=== PATIENT | male | born 1950 | race Caucasian/White ===

== ENCOUNTER → 2022-10-12 11:07 | Outpatient (BNVA) | payer MEDICARE, SELFPAY | PROVIDERS: PCP Nurse Practitioner Family; Visit Provider Physician Assistant | DX: Z13.89 Encounter for screening for other disorder (principal) | CPT/HCPCS: 99212 ==

== ENCOUNTER 2022-12-14 13:36 | Outpatient (REF) | payer MEDICARE, SELFPAY ==
--- NOTE | ~2022-12-14 | XR_ITS ---
EXAMINATION: XR CERVICAL SPINE XR THORACIC SPINE CLINICAL INFORMATION: Spondylosis without myelopathy or radiculopathy. COMPARISON: None: TECHNIQUE: 3 views of the cervical spine. 3 views of the thoracic spine. FINDINGS: CERVICAL SPINE: Straightening of the normal cervical spondylosis. Severe degenerative changes with hypertrophic change and loss of disc space height at C4-C5, C5-C6 and C6-C7. C7 obscured by overlying bone and soft tissues. THORACIC SPINE: The bones are diffusely demineralized. Rightward curvature at the partially imaged thoracolumbar junction. Stabilization hardware minimally imaged in the upper lumbar spine. Moderate degenerative changes in the thoracic spine. XR/XR thoracic spine 3V IMPRESSION: 1. Severe degenerative changes at C4-C7 levels. 2. Moderate degenerative changes in the thoracic spine.
--- NOTE | ~2022-12-14 | XR_ITS ---
EXAMINATION: XR CERVICAL SPINE XR THORACIC SPINE CLINICAL INFORMATION: Spondylosis without myelopathy or radiculopathy. COMPARISON: None: TECHNIQUE: 3 views of the cervical spine. 3 views of the thoracic spine. FINDINGS: CERVICAL SPINE: Straightening of the normal cervical spondylosis. Severe degenerative changes with hypertrophic change and loss of disc space height at C4-C5, C5-C6 and C6-C7. C7 obscured by overlying bone and soft tissues. THORACIC SPINE: The bones are diffusely demineralized. Rightward curvature at the partially imaged thoracolumbar junction. Stabilization hardware minimally imaged in the upper lumbar spine. Moderate degenerative changes in the thoracic spine. XR/XR cervical spine 3V IMPRESSION: 1. Severe degenerative changes at C4-C7 levels. 2. Moderate degenerative changes in the thoracic spine.
== END 2022-12-14 13:37 | disposition home or self-care (01) ==
LOC: HO.XRAY 13:36
PROVIDERS: PCP Nurse Practitioner Family; Visit Provider Nurse Practitioner Family
DX: M47.812 Spondylosis without myelopathy or radiculopathy, cervical region (principal); M96.1 Postlaminectomy syndrome, not elsewhere classified; M79.18 Myalgia, other site; M51.36 Other intervertebral disc degeneration, lumbar region; M54.16 Radiculopathy, lumbar region
CPT/HCPCS: 72040; 72072; 99202

== ENCOUNTER 2023-02-19 05:55 | Outpatient (REF) | payer MEDICARE, SELFPAY ==
--- NOTE | ~2023-02-19 | FL_ITS ---
EXAMINATION: XR FLUOROSCOPY WITH IMAGES CLINICAL INFORMATION: Radiculopathy, lumbar region. COMPARISON: None available. TECHNIQUE: Fluoroscopy Supervised By: Dr. Dheeraj Abdul. Fluoroscopy Time: 0.4 minutes. Cumulative Dose: 8.34 mGy. DAP: 0.125 Gycm2. Images: 1. FINDINGS: Images demonstrate postsurgical changes with rods and interpedicular screws in the lower lumbar spine. There is a needle and contrast injection adjacent to the right lateral L5 body. FL/FL guidance in treatment room IMPRESSION: Fluoroscopy guidance for pain management procedure.
== END 2023-02-19 05:56 | disposition home or self-care (01) ==
LOC: CF 05:55
PROVIDERS: Visit Provider Anesthesiology
DX: M54.16 Radiculopathy, lumbar region (principal); M47.812 Spondylosis without myelopathy or radiculopathy, cervical region; M96.1 Postlaminectomy syndrome, not elsewhere classified; M51.36 Other intervertebral disc degeneration, lumbar region
CPT/HCPCS: 64483; J3301; Q9967

== ENCOUNTER 2023-02-19 07:55 | Outpatient (AMB) | payer MEDICARE, SELFPAY ==
[2023-02-19 08:05] VITALS: BP 126/70; PULSE 78; RESP 18; O2SAT 95; BMI 32.9
--- NOTE | 2023-02-19 08:05 | A.OFFVIS_ITS ---
Intake Vital Signs 02/19/23 08:05 02/19/23 09:12 Height 5 ft 2 in 5 ft 2 in Weight 180 lb 180 lb BMI 32.9 32.9 BP 126/70 116/78 Blood Pressure Location Rt brachial Lt brachial Position Sitting Sitting Respiration 18 16 Pulse 78 56 Pulse Source Pulse Oximeter Pulse Oximeter Pulse Oximetry (%) 95 97 Oxygen Delivery Method Room Air Room Air Comment Pre-Op post-op Intake Visit Reasons: RIGHT L5-S1 TFESI Allergies No Known Allergies Allergy (Mild, Verified 02/19/23 09:13) NONE PFSH Medical History (Updated 12/17/22 @ 09:05 by MOY Correia) Anemia Diabetes type 2, controlled Fatty liver Hypertension Low back pain Mixed hyperlipidemia Nasal congestion Radiculopathy Unsteady gait Surgical History (Updated 12/14/22 @ 14:51 by Hillary Lester) History of hernia repair Physical Exam Vital Signs: Last Vital Signs Pulse 56 02/19/23 09:12 Resp 16 02/19/23 09:12 BP 116/78 02/19/23 09:12 Pulse Ox 97 02/19/23 09:12 Oxygen Delivery Method Room Air 02/19/23 09:12 BMI result Body Mass Index 32.9 Assessment & Plan Assessment & Plan (1) Cervical spondylosis: Code(s): M47.812 - Spondylosis without myelopathy or radiculopathy, cervical region (2) Post laminectomy syndrome: Code(s): M96.1 - Postlaminectomy syndrome, not elsewhere classified (3) 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 The patient came to the operating room. He was positioned prone on operating table with a pillow under his abdomen. Time-out was performed delineating correct site and side of the procedure, nature of the injection, name and date of of the patient. Hardware, cement like scar tissue in the projection of the L5- S1 foramina. The lower back of the patient was prepped with ChloraPrep and draped with sterile utility towels. C-arm was brought over the operating field and sq picture of L5 vertebra was demonstrated on the screen. Hardware in the L4 and L5 vertebra as were noted. The right side was chosen as the side of the injection. Firs the sq image of S1 and L5 vertebra as were demonstrated on the screen. From that point Tilting machine ipsilateral to the right at the level of L5 the most prominent picture of the right S1 superior articular process was obtained on the screen. The image of the right pedicle of the L5 vertebra was obscured by large transpedicular screw holding the fusion west. At the projection of the lateral border of the SAP S1 to the skin small amount of lidocaine 1% 3-4 cc was injected to anesthetize the skin and s/q tissues. After that 5 in 22 gauge Quincke point needle was inserted through the skin wheal and was advanced to were the L5-S1 foramina on anterior posterior and oblique views intermittently.When needle tip contacted the bone the needle was deviated laterally and after that medially to advance it below the SAP and into the L5- S1 foramina. Unfortunately for the advancement proven to be impossible. Several attempts were made to deviate tip of the needle cephalad and caudad from that point to reach the foramina as well as attempts were made to make advancement of the needle into deeper plane. Whenever needle went it was meeting high resistance on advancement small amount of the contrast was injected and demonstrated soft tissue spread. No intrathecal and no intravascular spread of contrast was noted. No perineural spread of contrast was noted. Patient did not report any paresthesia during the procedure. I suspect those were high density adhesive formations surrounding foramina of the patient. Those are probably the most significant part of the patient's pain syndrome. The procedure decided to be aborted. The needle was removed sterile Band-Aid was applied. The patient was taking outside of the operating room to recovery room where he recovered uneventful. He went home without any immediate complications. Plan 1. Proceed with therapeutic injections at [facility] as already scheduled. 2. Will obtain cervical and thoracic spine xrays to assess degree of arthritis, degenerative changes, any subluxation, listhesis or pars defects. 3. Discussed SCS trial if no relieve with therapeutic TFESI injection at [facility]. He also plans to follow up with Dr. Menjivar s/p TFESI injection if no relief. Informational booklets for SCS trial and implant provided. Patient will notify our office if he wishes to proceed with behavioral evaluation as initial step prior to SCS trial. All questions and concerns have been answered and patient agreed with the plan. Follow up for xray results and sooner if needed. Coding Level of Care Code Procedure Only Diagnoses Cervical spondylosis M47.812 Post laminectomy syndrome M96.1 Chronic musculoskeletal pain due to disorder of nervous system M79.18; G89.29; G98.8 Lumbar degenerative disc disease M51.36 Lumbar radicular pain M54.16
[2023-02-19 09:12] VITALS: BP 116/78; PULSE 56; RESP 16; O2SAT 97; BMI 32.9
== END 2023-02-19 09:12 | disposition home or self-care (01) ==
PROVIDERS: PCP Nurse Practitioner Family; Visit Provider Anesthesiology
DX: G89.29 Other chronic pain (principal); M96.1 Postlaminectomy syndrome, not elsewhere classified; M51.36 Other intervertebral disc degeneration, lumbar region; M54.16 Radiculopathy, lumbar region
CPT/HCPCS: 64483

== ENCOUNTER 2023-03-29 10:08 | Outpatient (AMB) | payer MEDICARE, SELFPAY ==
--- NOTE | 2023-03-29 10:09 | MHC.OFFVIS ---
Intake Vital Signs 03/29/23 10:12 Height 5 ft 2 in Weight 170 lb 6 oz BMI 31.2 BP 143/80 H Blood Pressure Location Rt brachial Position Sitting Pulse 73 Pulse Source Pulse Oximeter Pulse Oximetry (%) 98 Oxygen Delivery Method Room Air Intake Visit Reasons: PROCEDURE DISCUSSION Intake Note: Pain today 01/31 Principal Developer Required: Yes Principal Developer Language: Clinic Director Name: Daughter Accompanied by: Daughter Allergies No Known Allergies Allergy (Mild, Verified 03/29/23 10:13) NONE HPI HPI Comments History of Present Illness Details Patient presents today to follow up regarding Right L5-S1 TFESI on 02/19/[address] Abdul. Unfortunately, injection was attempted but due to significant cement like scar tissue in the projection of the L5- S1 foramina and advancement of needle was impossible per Dr. Abdul's procedure notes. This was discussed today with patient and his family. Patient continues to reports low back pain that radiates into his right buttock and right leg with associated numbness, tingling and chronic weakness. He is interested to undergo Caudal ARGENIS with catheter under sedation to alleviate his pain. Denies any bladder or bowel dysfunction or saddle anesthesia. Reports right lower extremity weakness, ambulates with cane. We also returned to the topic of neuromodulation for a longer term management of his post laminectomy syndrome and diabetic peripheral neuropathy with Nevro. Patient reports he reviewed informational pamphlets at home and with his family and would like to proceed with Behavioral Evaluation. PRIOR: Patient is a pleasant 72 years old Nepalese speaking male with prior history of back surgery which involved extensive lumbar fusion with complications related to surgery in [place] (posterior lumbar fusion with laminectomy from L2 to L5 levels, 2016 [place]) and more recently L5 decompression by Dr. Menjivar in August 2022, presents today for initial evaluation of low back pain with bilateral leg pain. He had follow up with [facility] months ago and was referred to us for potential spinal cord stimulator in the setting of chronic nerve injury and neuropathic pain which has been chronic for him for 6 years. Patient has chronic right foot drop with weakness and wears AFO brace. He presents with axial low back pain and radiating posteriorly bilateral lower extremity pain with associated numbness, aching, and tingling in both legs and feet. Meloxicam and gabapentin have not been effective. He was recently seen by [facility] on 12/10/22 and has been scheduled for right L5-S1 TFESI. He reports his diabetes is managed well with most recent A1C known at 6.9 per patient. Patient ambulates with slow, antalgic gait and at times drags his right foot. Reports bilateral lower extremity weakness with reports of persistent numbness in his buttocks and lateral/posterior legs and feet, worse on the right. Patient also reports neck and mid back pain. Uses cane with ambulation. [facility] Medical History Mixed hyperlipidemia Radiculopathy Nasal congestion Diabetes type 2, controlled Unsteady gait Low back pain Fatty liver Hypertension Anemia Surgical History History of hernia repair Review of Systems Const All systems reviewed & are unremarkable except as noted in HPI and below Physical Exam Vital Signs: Last Vital Signs Pulse 73 03/29/23 10:12 BP 143/80 H 03/29/23 10:12 Pulse Ox 98 03/29/23 10:12 Oxygen Delivery Method Room Air 03/29/23 10:12 BMI result Body Mass Index 31.2 General: Appears afebrile. Alert and oriented. Mood and affect appropriate. Follows and participates in conversation appropriately. Respiratory effort is unlabored. No cough. Able to transition from sit to stand with assistance. Ambulates with cane. Right foot in AFO brace. Back/Spine/Pelvis Other: Limited ROM due to fusion, extension and flexion reproduces significant pain, worse with flexion or bending down/forward. Demonstrates 5/5 left and 4/5 right strength of quadriceps bilaterally as well as 3/5 right and 5/5 right flexion/dorsiflexion of bilateral feet against resistance. 2+ pedal pulses bilaterally. Seated straight leg rise with dorsiflexion positive on the right, negative on the left. Diminished patellar and achilles reflexes bilaterally. Facet loading test positive bilaterally. Davie sign positive bilaterally. No groin pain with I/E hip rotations. Valsalva maneuver exacerbate low back and right radicular pain. Back: back tenderness Cervical Spine: cervical muscular tenderness and No Cervical spine tenderness Thoracic/Lumbar Spine: thoracic and lumbar spine normal to inspection, Thoracic/lumbar spine scar(s), Lasegue's sign positive on the right and localized, pain with thoraco-lumbar ROM, paraspinal muscle tenderness, thoraco-lumbar ROM limited, Thoracic/lumbar scoliosis, No thoracic spinal tenderness and lumbar spinal tenderness Pelvis: buttock tenderness on the right Results Reviewed Results Reviewed: 06/06/22 XR CERVICAL SPINE XR THORACIC SPINE 12/14/22 CLINICAL INFORMATION: Spondylosis without myelopathy or radiculopathy. FINDINGS: CERVICAL SPINE: Straightening of the normal cervical spondylosis. Severe degenerative changes with hypertrophic change and loss of disc space height at C4-C5, C5-C6 and C6-C7. C7 obscured by overlying bone and soft tissues. THORACIC SPINE: The bones are diffusely demineralized. Rightward curvature at the partially imaged thoracolumbar junction. Stabilization hardware minimally imaged in the upper lumbar spine. Moderate degenerative changes in the thoracic spine. IMPRESSION: 1. Severe degenerative changes at C4-C7 levels. 2. Moderate degenerative changes in the thoracic spine. Assessment & Plan Assessment & Plan (1) Cervical spondylosis: Code(s): M47.812 - Spondylosis without myelopathy or radiculopathy, cervical region (2) Post laminectomy syndrome: Code(s): M96.1 - Postlaminectomy syndrome, not elsewhere classified (3) Lumbar degenerative disc disease: Code(s): M51.36 - Other intervertebral disc degeneration, lumbar region (4) Lumbar radicular pain: Code(s): M54.16 - Radiculopathy, lumbar region Plan 1. Schedule Caudal ARGENIS with catheter under sedation and fluoroscopy for right sided radiculopathy pain. Expectations, risks and benefits were reviewed. Hold Aspirin and Meloxicam for 5 days. Patient is aware of hyperglycemic effects of steroids. Patient is aware she will be contacted to schedule this procedure. 2. Placed referral for psychology clearance in anticipation of lumbar SCS trial. Extensive discussion was done today with patient and his family regarding the risks and benefits of SCS trial and implant procedures and all questions were answered to patient satisfaction.? Will proceed with Nevro HFX trial pending psychology clearance.?Follow up after injection and sooner if needed. Coding Level of Care Code Est Pt Level 4 (10799) Diagnoses Cervical spondylosis M47.812 Post laminectomy syndrome M96.1 Lumbar degenerative disc disease M51.36 Lumbar radicular pain M54.16
[2023-03-29 10:12] VITALS: BP 143/80; PULSE 73; O2SAT 98; BMI 31.2
== END 2023-03-29 10:47 | disposition home or self-care (01) ==
PROVIDERS: PCP Nurse Practitioner Family; Visit Provider Nurse Practitioner Family
DX: M47.812 Spondylosis without myelopathy or radiculopathy, cervical region (principal); M96.1 Postlaminectomy syndrome, not elsewhere classified; M51.36 Other intervertebral disc degeneration, lumbar region; M54.16 Radiculopathy, lumbar region
CPT/HCPCS: 99214

== ENCOUNTER → 2023-03-29 10:08 | Outpatient (BNVA) | payer MEDICARE, SELFPAY | PROVIDERS: PCP Nurse Practitioner Family; Visit Provider Nurse Practitioner Family | DX: M47.812 Spondylosis without myelopathy or radiculopathy, cervical region (principal); M96.1 Postlaminectomy syndrome, not elsewhere classified; M51.36 Other intervertebral disc degeneration, lumbar region; M54.16 Radiculopathy, lumbar region | CPT/HCPCS: 99212 ==

== ENCOUNTER 2023-04-18 10:29 | Day surgery (SDC) | payer MEDICARE, SELFPAY ==
[2023-04-15 10:50] VITALS: BMI 31.1
--- NOTE | 2023-04-17 09:41 | P.CONAN_ITS ---
Documented by User: Estella Mead NP 04/17/23 09:53 HPI - Anesthesia Eval Consult details Narrative: 72yo M for Caudal Epidural Steroid Injection with catheter Follows [facility] cardiology for CAD s/p FL 2009 s/p LAD stent / angioplasty to PDA 2020. Last seen 05/202204/11/23 PCP visit for Right sided face pain and ? swelling. Started on cephalexin. CT scan nml Pt's [facility] verbalized understanding that patient will be evaluated DOS and risk of cancel if symptoms not resolved. PMFSH Active Problems Active Problems: All Active Problems (Updated 04/15/23 @ 13:16 by Leandra Guadalupe RN) Lumbar radicular pain (Acute) Lumbar degenerative disc disease (Acute) Post laminectomy syndrome (Acute) Cervical spondylosis (Acute) Chronic musculoskeletal pain due to disorder of nervous system (Acute) Past Medical History Medical History (Updated 04/15/23 @ 13:16 by Leandra Guadalupe RN) Myocardial infarction CAD (coronary artery disease) Mixed hyperlipidemia Radiculopathy Nasal congestion Diabetes type 2, controlled Unsteady gait Low back pain Fatty liver Hypertension Anemia Surgical History Surgical History (Updated 04/15/23 @ 13:16 by Leandra Guadalupe RN) Hx of heart artery stent Hx of decompressive lumbar laminectomy History of lumbar fusion History of hernia repair Social History Social History Patient Tobacco Use Status: Former Tobacco user Are you DNR?: No Advance Directives: No Advance Directives Information Provided: Yes Nutrition Risks: No Nutritional Risk Meds Allergies Allergy/AdvReac Type Severity Reaction Status Date / Time No Known Allergies Allergy Mild NONE Verified 03/29/23 10:13 Home Medications Medication Instructions Recorded Confirmed Last Taken Type aspirin 81 mg tablet,delayed 81 mg PO DAILY 12/14/22 04/15/23 04/10/23 History release carvedilol 25 mg tablet 25 mg PO BID 12/14/22 04/15/23 04/18/23 History doxazosin 4 mg tablet 4 mg PO DAILY 12/14/22 04/15/23 Unknown History ezetimibe 10 mg tablet 10 mg PO DAILY 12/14/22 Unknown History furosemide 20 mg tablet 20 mg PO DAILY PRN 12/14/22 Unknown History glimepiride 4 mg tablet 4 mg PO BID 12/14/22 04/15/23 Unknown History isosorbide mononitrate 30 mg 30 mg PO QAM 12/14/22 04/15/23 04/18/23 History tablet,extended release 24 hr lisinopril 20 1 tab PO DAILY 12/14/22 04/15/23 Unknown History mg-hydrochlorothiazide 25 mg tablet meloxicam 15 mg tablet 15 mg PO DAILY 12/14/22 04/15/23 Unknown History metformin 500 mg tablet 1,000 mg PO BID 12/14/22 04/15/23 Unknown History sulfamethoxazole 800 1 tab PO BID 12/14/22 Unknown History mg-trimethoprim 160 mg tablet amlodipine 10 mg tablet 10 mg PO DAILY 04/15/23 04/15/23 Unknown History gabapentin 400 mg capsule 400 mg PO BID 04/15/23 04/15/23 Unknown History glimepiride 4 mg tablet 4 mg PO BID 04/15/23 04/15/23 Unknown History rosuvastatin 40 mg tablet 40 mg PO DAILY 04/15/23 04/15/23 Unknown History trazodone 50 mg tablet 50 mg PO BEDTIME 04/15/23 04/15/23 Unknown History Exam Exam Date and Time: April 17, 2023 0941 Height,Weight and Vital Signs: Height 5 ft 2 in Weight 77.111 kg Pertinent Lab Results Pertinent Lab Results: Labs from outside facility 04/11/23 CBC WNL except low H&H BMP WNL Narrative Narrative: CT Maxiloface 04/11/23 Nml appearing bilateral submandibular glands with no associated inflammation or abnormal enhancement EKG 05/2022 NSR @ 67 LAD RBBB ECHO 06/2022 LV nml in size, wall thickness, and systolic function. EF 55-60% RV nml in size and function No significant valve disease Assessment and Plan Assessment Anesthesia Assessment: Chart Reviewed Documented by User: Dash Wilson MD 04/18/23 11:36 [facility] Past Medical History Medical History (Updated 04/15/23 @ 13:16 by Leandra Guadalupe RN) Myocardial infarction CAD (coronary artery disease) Mixed hyperlipidemia Radiculopathy Nasal congestion Diabetes type 2, controlled Unsteady gait Low back pain Fatty liver Hypertension Anemia Narrative: No chest pains these days. Family History Family history of problems with anesthesia: No Surgical History Surgical History (Updated 04/15/23 @ 13:16 by Leandra Guadalupe RN) Hx of heart artery stent Hx of decompressive lumbar laminectomy History of lumbar fusion History of hernia repair History of Problems with Anesthesia: No Social History Social History Patient Tobacco Use Status: Former Tobacco user Are you DNR?: No Advance Directives: No Advance Directives Information Provided: Yes Nutrition Risks: No Nutritional Risk Meds Allergies Allergy/AdvReac Type Severity Reaction Status Date / Time No Known Allergies Allergy Mild NONE Verified 03/29/23 10:13 Home Medications Medication Instructions Recorded Confirmed Last Taken Type aspirin 81 mg tablet,delayed 81 mg PO DAILY 12/14/22 04/15/23 04/10/23 History release carvedilol 25 mg tablet 25 mg PO BID 12/14/22 04/15/23 04/18/23 History doxazosin 4 mg tablet 4 mg PO DAILY 12/14/22 04/15/23 Unknown History ezetimibe 10 mg tablet 10 mg PO DAILY 12/14/22 Unknown History furosemide 20 mg tablet 20 mg PO DAILY PRN 12/14/22 Unknown History glimepiride 4 mg tablet 4 mg PO BID 12/14/22 04/15/23 Unknown History isosorbide mononitrate 30 mg 30 mg PO QAM 12/14/22 04/15/23 04/18/23 History tablet,extended release 24 hr lisinopril 20 1 tab PO DAILY 12/14/22 04/15/23 Unknown History mg-hydrochlorothiazide 25 mg tablet meloxicam 15 mg tablet 15 mg PO DAILY 12/14/22 04/15/23 Unknown History metformin 500 mg tablet 1,000 mg PO BID 12/14/22 04/15/23 Unknown History sulfamethoxazole 800 1 tab PO BID 12/14/22 Unknown History mg-trimethoprim 160 mg tablet amlodipine 10 mg tablet 10 mg PO DAILY 04/15/23 04/15/23 Unknown History gabapentin 400 mg capsule 400 mg PO BID 04/15/23 04/15/23 Unknown History glimepiride 4 mg tablet 4 mg PO BID 04/15/23 04/15/23 Unknown History rosuvastatin 40 mg tablet 40 mg PO DAILY 04/15/23 04/15/23 Unknown History trazodone 50 mg tablet 50 mg PO BEDTIME 04/15/23 04/15/23 Unknown History Exam Airway Mallampati Class: II TM Dist: <=3cm Neck ROM: Full Heart: ok. see above. Lungs: ok Assessment and Plan Assessment Anesthesia Assessment: Anesthesia Plan Discussed Final Anesthetic Review Family History of Problems with Anesthesia: No History of Problems with Anesthesia: No NPO: Yes ASA Class: III Final Preanesthetic Review: No Changes in Pt Med Stat, Meds/Allgs Chart Reviewed, Consent Obtained/Reviewed and Anes Risks/Benef Reviewed Patient Risk: High Procedure Risk: Intermediate Anesthetic Plan Anesthetic Plan: MAC: and Agree w/ Assess. and Plan Disposition: Standard PACU
--- NOTE | ~2023-04-18 | FL_ITS ---
EXAMINATION: XR FLUOROSCOPY WITH IMAGES CLINICAL INFORMATION: Caudal epidural steroid injection. COMPARISON: None available. TECHNIQUE: Fluoroscopy Supervised By: Dr. Dheeraj Abdul. Fluoroscopy Time: 0.2 minutes. Cumulative Dose: 6.18 mGy. DAP: 0.0797 Gycm2. Images: 2. FINDINGS: Images demonstrate needle placement and contrast injection of the epidural space in the sacrum FL/FL guidance in OR IMPRESSION: Fluoroscopy for pain management procedure.
--- OUTSIDE RECORDS SUMMARY | 2023-04-18 10:33 | XMS_ITS | Continuity of Care Document ---
Author Name Unknown Organization [facility] Adult Address [address] [place] [address]- Care Team Providers Care Certified Dietary Manager Name Role Phone Laron FLORIAN, Ioana Reilly Primary Care Physician [phone] [id number] - 12/26/22 [facility] [address] [place] [address]- Allergies, Adverse Reactions, Alerts No Known Allergies Medications amLODIPine 10 mg oral tablet 1 tablet = 10 mg, By Mouth, Daily, # 90 tablet, 0 Refills, Maintenance, 09/17/22 16:35:00 EDT, Tablet, [facility], Partial fill upon patient request if the prescription is for a schedule II opioid drug., 162, cm, 09/17/22 16:09:00 EDT, Height Start Date: 09/17/22 Status: Ordered aspirin 81 mg oral delayed release tablet 1 tablet = 81 mg, By Mouth, Daily, # 90 tablet, 3 Refills, Maintenance, 04/09/22 19:08:00 EDT, CR Tablet, [facility], Partial fill upon patient request if the prescription is for a schedule II opioid drug., 162, cm, 04/09/22 16:12:00 EDT, H... Start Date: 04/09/22 Stop Date: 04/04/23 Status: Ordered carvedilol 25 mg oral tablet 25 mg, 1, tablet, By Mouth, 2 times a day, # 180 tablet, Refills 3, Tot. Refills 3, Maintenance, 04/09/22 19:08:00 EDT, Route to Pharmacy Electronically, [facility], Partial fill upon patient request if the prescription is for a schedule II... Start Date: 04/09/22 Stop Date: 04/04/23 Status: Ordered doxazosin 4 mg oral tablet 1 tablet = 4 mg, By Mouth, Daily, # 90 tablet, 3 Refills, Maintenance, 04/09/22 19:09:00 EDT, Tablet, [facility], Partial fill upon patient request if the prescription is for a schedule IIopioid drug., 162, cm, 04/09/22 16:12:00 EDT, Height Start Date: 04/09/22 Stop Date: 04/04/23 Status: Ordered Flonase 50 mcg/inh nasal spray 1 sprays, Nares, Both, 2 times a day, # 16 Gm, 0 Refills, Maintenance, 06/05/22 12:05:00 EST, [place], [facility], Partial fill upon patient request if the prescription is for a schedule II opioid drug., 1 sprays Nares, Both 2 times a day,x30... Start Date: 06/05/22 Stop Date: 07/05/22 Status: Ordered Freestyle Lite Lancets See Instructions, # 100 each, Refills 11, Tot. Refills 11, Maintenance, use as directed to check blood sugar once daily for Type 2 Diabetes Mellitus E11.9, 07/03/22 11:21:00 EST, Supply, 162, cm, 06/27/22 16:04:00 EST, Height Start Date: 07/03/22 Stop Date: 06/17/25 Status: Ordered Freestyle Lite Monitor See Instructions, # 1 each, Refills 0, Tot. Refills 0, Maintenance, Use for checking blood sugar three - six times daily for type 2 DM, 06/19/22 10:41:00 EST, Supply, 162, cm, 06/05/22 11:42:00 EST, Height Start Date: 06/19/22 Stop Date: 07/19/22 Status: Ordered Freestyle Lite Test Strips See Instructions, # 600 each, Refills 2, Tot. Refills 2, Maintenance, use as directed to check blood once daily for Type 2 Diabetes Mellitus E11.9, 09/05/22 16:24:00 EDT, Supply, 162, cm, 09/05/22 16:09:00 EDT, Height Start Date: 09/05/22 Stop Date: 06/02/23 Status: Ordered furosemide 20 mg oral tablet 20 mg, 1, tablet, By Mouth, Daily, take on an as needed basis, # 90 tablet, Refills 0, Tot. Refills0, Maintenance, 09/17/22 16:29:00 EDT, Route to Pharmacy Electronically, [facility], Partial fill upon patient request if the prescription i... Start Date: 09/17/22 Status: Ordered gabapentin 400 mg oral capsule 400 mg, 1, capsule, By Mouth, Daily, # 30 capsule, Refills 0, Tot. Refills 0, Maintenance, 05/23/2216:20:00 EST, Route to Pharmacy Electronically, [facility], Partial fill upon patient request if the prescription is for a schedule II opioi... Start Date: 05/23/22 Stop Date: 06/22/22 Status: Ordered glimepiride 4 mg oral tablet 1 tablet = 4 mg, By Mouth, 2 times a day, # 180 tablet, 3 Refills, Maintenance, 04/09/22 19:10:00 EDT, [facility], Partial fill upon patient request if the prescription is for a schedule II opioid drug., 162, cm, 04/09/22 16:12:00 EDT, Height Start Date: 04/09/22 Stop Date: 04/04/23 Status: Ordered Home Blood Pressure Monitor See Instructions, # 1 each, Maintenance, DX: Hypertension, 06/06/22 12:29:00 EST, Supply Start Date: 06/06/22 Status: Ordered hydrochlorothiazide-lisinopril 25 mg-20 mg oral tablet 1 tablet, By Mouth, Daily, # 90 tablet, 3 Refills, Maintenance, 09/05/22 16:25:00 EDT, Tablet, [facility], Partial fill upon patient request if the prescription is for a schedule II opioiddrug., 1 tablet By Mouth Daily,x90 days, 162, cm, 0... Start Date: 09/05/22 Stop Date: 08/31/23 Status: Ordered isosorbide mononitrate 30 mg oral tablet, extended release 30 mg, 1, tablet, By Mouth, Daily in AM, # 90 tablet, Refills 3, Tot. Refills 3, Maintenance, 04/09/22 19:10:00 EDT, Route to Pharmacy Electronically, [facility], Partial fill upon patientrequest if the prescription is for a schedule II op... Start Date: 04/09/22 Stop Date: 04/04/23 Status: Ordered meloxicam 15 mg oral tablet 1 tablet = 15 mg, By Mouth, Daily, # 90 tablet, 1 Refills, Maintenance, 09/05/22 16:24:00 EDT, Tablet, [facility], Partial fill upon patient request if the prescription is for a schedule II opioid drug., 162, cm, 09/05/22 16:09:00 EDT, Height Start Date: 09/05/22 Stop Date: 03/04/23 Status: Ordered metFORMIN 500 mg oral tablet 2 tablet = 1,000 mg, By Mouth, 2 times a day, # 360 tablet, 3 Refills, Maintenance, 04/09/22 19:11:00 EDT, Tablet, [facility], Partial fill upon patient request if the prescription is for a schedule II opioid drug., 162, cm, 04/09/22 16:12:... Start Date: 04/09/22 Stop Date: 04/04/23 Status: Ordered R toe off AFO R toe off AFO, See Instructions, # 1 each, Refills 0, Tot. Refills 0, Maintenance, Wear as directedby physical therapist, 06/22/22 13:48:00 EST, Supply, 162, cm, 06/21/22 12:10:00 EST, Height Start Date: 06/22/22 Status: Ordered rosuvastatin 40 mg oral tablet 1 tablet = 40 mg, By Mouth, Daily, # 90 tablet, 3 Refills, Maintenance, 06/21/22 11:59:00 EST, Tablet, [facility], Partial fill upon patient request if the prescription is for a schedule II opioid drug., 162, cm, 06/21/22 11:08:00 EST, Height Start Date: 06/21/22 Stop Date: 06/16/23 Status: Ordered Walker See Instructions, # 1 each, Maintenance, Dx: R26.81 unsteady gait, 06/06/22 12:27:00 EST, Supply Start Date: 06/06/22 Status: Ordered Wheelchair See Instructions, # 1 each, Maintenance, Dx: R26.81 unsteady gait, 06/06/22 12:27:00 EST, Supply Start Date: 06/06/22 Status: Ordered Zetia 10 mg oral tablet 1 tablet = 10 mg, By Mouth, Daily, # 90 tablet, 3 Refills, Maintenance, 04/09/22 19:09:00 EDT, Tablet, [facility], Partial fill upon patient request if the prescription is for a schedule II opioid drug., 162, cm, 04/09/22 16:12:00 EDT, Height Start Date: 04/09/22 Stop Date: 04/04/23 Status: Ordered Problem List Condition Confirmation Course Effective Dates Status H ealth Status Informant Unsteady gait Confirmed Active Anemia Confirmed Active Exertional chest pain Confirmed Active Edema Confirmed Active Pedal edema Confirmed Active Lower extremity edema Confirmed Active History of ST elevation myocardial infarction (STEMI) Confirmed Active Hyperlipidemia Confirmed Active Hypertension Confirmed Active Lower back pain Confirmed Active Low back pain radiating to right leg Confirmed Active Nasal congestion Confirmed Active Radiculopathy Confirmed Active Obese class I Confirmed Active Peripheral neuropathy Confirmed Active Shoulder pain, right Confirmed Active Type 2 diabetes mellitus Confirmed Active Social History Social History Type Response Smoking Status Never (less than 100 in lifetime) entered on: 04/09/22 Sex Patient Care team information Care Team Personnel Name: Ioana Larry NP Position: [facility] PCO Associate Professional Member Role: PCP Address: Address: [address] [place], [place] [address] Care Team Related Persons Name: EDUARDO GLASGOW Name: DANIEL LOZANO Address: [address] [address]
--- OUTSIDE RECORDS SUMMARY | 2023-04-18 10:34 | XMS_ITS | Continuity of Care Document ---
Author Name Unknown Organization [facility] Address [address] [place] [address]- Care Team Providers Care Dental Technologist Name Role Phone Ioana Larry NP Primary Care Physician [phone] Encounter [facility] [place] [id number] Date(s): 11/22/22 - 02/14/23 [facility] [address] [place] [address]- Encounter Diagnosis Atherosclerosis of both carotid arteries(Discharge Diagnosis) - 01/15/23 Lower extremity edema(Discharge Diagnosis) - 01/15/23 Attending Physician: Edgar Herron MD Referring Physician: Ioana Larry NP Allergies, Adverse Reactions, Alerts No Known Allergies Medications amLODIPine 10 mg oral tablet 1 tablet = 10 mg, By Mouth, Daily, # 90 tablet, 0 Refills, Maintenance, 09/17/22 16:35:00 EDT, Tablet, [facility], Partial fill upon patient request if the prescription is for a schedule II opioid drug., 162, cm, 09/17/22 16:09:00 EDT, Height Start Date: 09/17/22 Status: Ordered aspirin 81 mg oral delayed release tablet 1 tablet = 81 mg, By Mouth, Daily, # 90 tablet, 3 Refills, Maintenance, 04/09/22 19:08:00 EDT, CR Tablet, [facility], Partial fill upon patient request if the prescription is for a schedule II opioid drug., 162, cm, 04/09/22 16:12:00 EDT, H... Start Date: 04/09/22 Stop Date: 04/04/23 Status: Ordered carvedilol 25 mg oral tablet 25 mg, 1, tablet, By Mouth, 2 times a day, # 180 tablet, Refills 3, Tot. Refills 3, Maintenance, 04/09/22 19:08:00 EDT, Route to Pharmacy Electronically, [facility], Partial fill upon patient request if the prescription is for a schedule II... Start Date: 04/09/22 Stop Date: 04/04/23 Status: Ordered doxazosin 4 mg oral tablet 1 tablet, By Mouth, Daily, # 90 tablet, 0 Refills, Maintenance, 02/11/23 7:39:00 EDT, [facility], 162, cm, 11/20/22 12:28:00 EDT, Height Start Date: 02/11/23 Stop Date: 05/12/23 Status: Ordered ezetimibe 10 mg oral tablet 1 tablet, By Mouth, Daily, # 90 tablet, 0 Refills, Maintenance, 02/11/23 7:38:00 EDT, [facility], 162, cm, 11/20/22 12:28:00 EDT, Height Start Date: 02/11/23 Stop Date: 05/12/23 Status: Ordered Flonase 50 mcg/inh nasal spray 1 sprays, Nares, Both, 2 times a day, # 16 Gm, 0 Refills, Maintenance, 06/05/22 12:05:00 EST, [place], [facility], Partial fill upon patient [...] 09/17/22 16:29:00 EDT, Route to Pharmacy Electronically, [facility], Partial fill upon patient request if the prescription i... Start Date: 09/17/22 Status: Ordered gabapentin 400 mg oral capsule 400 mg, 1, capsule, By Mouth, Daily, # 30 capsule, Refills 0, Tot. Refills 0, Maintenance, 01/24/2314:04:00 EDT, Route to Pharmacy Electronically, [facility], Partial fill upon patient request if the prescription is for a schedule II opioi... Start Date: 01/24/23 Stop Date: 02/23/23 Status: Ordered glimepiride 4 mg oral tablet 1 tablet, By Mouth, 2 times a day, # 180 tablet, 0 Refills, Maintenance, 02/11/23 7:38:00 EDT, [facility], 162, cm, 11/20/22 12:28:00 EDT, Height Start Date: 02/11/23 Status: Ordered Home Blood Pressure Monitor See Instructions, # 1 each, Maintenance, DX: Hypertension, 06/06/22 12:29:00 EST, Supply Start Date: 06/06/22 Status: Ordered hydrochlorothiazide-lisinopril 25 mg-20 mg oral tablet 1 tablet, By Mouth, Daily, # 90 tablet, 3 Refills, Maintenance, 09/05/22 16:25:00 EDT, Tablet, [facility], Partial fill upon patient request if the prescription is for a schedule II opioiddrug., 1 tablet By Mouth Daily,x90 days, 162, cm, 0... Start Date: 09/05/22 Stop Date: 08/31/23 Status: Ordered isosorbide mononitrate 30 mg oral tablet, extended release 1 tablet, By Mouth, Daily in AM, # 90 tablet, 0 Refills, Maintenance, 02/11/23 7:37:00 EDT, [facility], 162, cm, 11/20/22 12:28:00 EDT, Height Start Date: 02/11/23 Stop Date: 05/12/23 Status: Ordered meloxicam 15 mg oral tablet 1 tablet = 15 mg, By Mouth, Daily, # 90 tablet, 1 Refills, Maintenance, 09/05/22 16:24:00 EDT, Tablet, [facility], Partial fill upon patient request if the prescription is for a schedule II opioid drug., 162, cm, 09/05/22 16:09:00 EDT, Height Start Date: 09/05/22 Stop Date: 03/04/23 Status: Ordered metFORMIN 500 mg oral tablet 2 tablet, By Mouth, 2 times a day, # 360 tablet, 0 Refills, Maintenance, 02/11/23 7:36:00 EDT, [facility], 162, cm, 11/20/22 12:28:00 EDT, Height Start Date: 02/11/23 Status: Ordered R toe off AFO R toe off AFO, See Instructions, # 1 each, Refills 0, Tot. Refills 0, Maintenance, Wear as directedby physical therapist, 06/22/22 13:48:00 EST, Supply, 162, cm, 06/21/22 12:10:00 EST, Height Start Date: 06/22/22 Status: Ordered rosuvastatin 40 mg oral tablet 1 tablet = 40 mg, By Mouth, Daily, for 90 days, # 90 tablet, 3 Refills, Hard Stop 06/16/23 11:59:00EST, 06/21/22 11:59:00 EST, Tablet, [facility], Partial fill upon patient request if theprescription is for a schedule II opioid drug., 162... Start Date: 06/21/22 Stop Date: 06/16/23 Status: Ordered rosuvastatin 40 mg oral tablet 1 tablet = 40 mg, By Mouth, Daily, # 90 tablet, 3 Refills, Maintenance, 06/16/23 11:59:00 EST, Tablet, [facility], Partial fill upon patient request if the prescription is for a schedule II opioid drug., 162, cm, 11/20/22 12:28:00 EDT, Height Start Date: 06/16/23 Stop Date: 06/10/24 Status: Ordered Walker See Instructions, # 1 each, Maintenance, Dx: R26.81 unsteady gait, 06/06/22 12:27:00 EST, Supply Start Date: 06/06/22 Status: Ordered Wheelchair See Instructions, # 1 each, Maintenance, Dx: R26.81 unsteady gait, 06/06/22 12:27:00 EST, Supply Start Date: 06/06/22 Status: Ordered Problem List Condition Confirmation Course Effective Dates Status H ealth Status Informant Unsteady gait Confirmed Active Anemia Confirmed Active Atherosclerosis of both carotid arteries Confirmed Active Exertional chest pain Confirmed Active [...] Active Type 2 diabetes mellitus Confirmed Active Diagnosis Diagnosis Type Effective Dates Health Status Clinical Service Informant Atherosclerosis of both carotid arteries Discharge Diagnosis 01/15/23 Lower extremity edema Discharge Diagnosis 01/15/23 Social History Social History Type Response Smoking Status Never (less than 100 in lifetime) entered on: 04/09/22 Sex Patient Care team information Care Team Personnel Name: Laron FLORIAN, Ioana Reilly Position: [facility] PCO Associate Professional Member Role: PCP Address: Address: [address] [place] [address] [address] [place] [address]- Care Team Related Persons Name: EDUARDO GLASGOW Name: DANIEL LOZANO Address: [address] [address]
--- OUTSIDE RECORDS SUMMARY | 2023-04-18 10:34 | XMS_ITS | Continuity of Care Document ---
Author Name Unknown Organization [facility] Adult Address [address] [place] [address]- Care Team Providers Care Health Inspector Food Name Role Phone Laron FLORIAN, Ioana Reilly Primary Care Physician [phone] [id number] - 12[facility]26/[facility] [address] [place] [address]- Allergies, Adverse Reactions, Alerts No Known Allergies Medications amLODIPine 10 mg oral tablet 1 tablet = 10 mg, By Mouth, Daily, # 90 tablet, 0 Refills, Maintenance, 09/17/22 16:35:00 EDT, Tablet, [facility], Partial fill upon patient request if the prescription is for a schedule II opioid drug., 162, cm, 09/17/22 16:09:00 EDT, Height Start Date: 09/17/22 Status: Ordered aspirin 81 mg oral delayed release tablet 1 tablet = 81 mg, By Mouth, Daily, # 90 tablet, 3 Refills, Maintenance, 04/09/22 19:08:00 EDT, CR Tablet, [facility], Partial fill upon patient request if the prescription is for a schedule II opioid drug., 162, cm, 04/09/22 16:12:00 EDT, H... Start Date: 04/09/22 Stop Date: 04/04/23 Status: Ordered carvedilol 25 mg oral tablet 25 mg, 1, tablet, By Mouth, 2 times a day, # 180 tablet, Refills 3, Tot. Refills 3, Maintenance, 04/09/22 19:08:00 EDT, Route to Pharmacy Electronically, [facility], Partial fill upon patient request if the prescription is for a schedule II... Start Date: 04/09/22 Stop Date: 04/04/23 Status: Ordered doxazosin 4 mg oral tablet 1 tablet = 4 mg, By Mouth, Daily, # 90 tablet, 3 Refills, Maintenance, 04/09/22 19:09:00 EDT, Tablet, [facility], Partial fill upon patient request if the prescription is for a schedule IIopioid drug., 162, cm, 04/09/22 16:12:00 EDT, Height Start Date: 04/09/22 Stop Date: 04/04/23 Status: Ordered Flonase 50 mcg/inh nasal spray 1 sprays, Nares, Both, 2 times a day, # 16 Gm, 0 Refills, Maintenance, 06/05/22 12:05:00 EST, [place], [facility], Partial fill upon patient [...] 09/17/22 16:29:00 EDT, Route to Pharmacy Electronically, [facility], Partial fill upon patient request if the prescription i... Start Date: 09/17/22 Status: Ordered gabapentin 400 mg oral capsule 400 mg, 1, capsule, By Mouth, Daily, # 30 capsule, Refills 0, Tot. Refills 0, Maintenance, 05/23/2216:20:00 EST, Route to Pharmacy Electronically, [facility], Partial fill upon patient request if the prescription is for a schedule II opioi... Start Date: 05/23/22 Stop Date: 06/22/22 Status: Ordered glimepiride 4 mg oral tablet 1 tablet = 4 mg, By Mouth, 2 times a day, # 180 tablet, 3 Refills, Maintenance, 04/09/22 19:10:00 EDT, [facility], Partial fill upon patient [...] 3 Refills, Maintenance, 09/05/22 16:25:00 EDT, Tablet, [facility], Partial fill upon patient [...] 04/09/22 19:10:00 EDT, Route to Pharmacy Electronically, [facility], Partial fill upon patientrequest if the prescription is for a schedule II op... Start Date: 04/09/22 Stop Date: 04/04/23 Status: Ordered meloxicam 15 mg oral tablet 1 tablet = 15 mg, By Mouth, Daily, # 90 tablet, 1 Refills, Maintenance, 09/05/22 16:24:00 EDT, Tablet, [facility], Partial fill upon patient request if the prescription is for a schedule II opioid drug., 162, cm, 09/05/22 16:09:00 EDT, Height Start Date: 09/05/22 Stop Date: 03/04/23 Status: Ordered metFORMIN 500 mg oral tablet 2 tablet = 1,000 mg, By Mouth, 2 times a day, # 360 tablet, 3 Refills, Maintenance, 04/09/22 19:11:00 EDT, Tablet, [facility], Partial fill upon patient [...] 3 Refills, Maintenance, 06/21/22 11:59:00 EST, Tablet, [facility], Partial fill upon patient [...] 3 Refills, Maintenance, 04/09/22 19:09:00 EDT, Tablet, [facility], Partial fill upon patient request if the [...] Team Personnel Name: Ioana Larry NP Position: [facility] PCO Associate Professional Member Role: PCP Address: Address: [address] [place], [place] [address] Care Team Related Persons Name: EDUARDO GLASGOW Name: DANIEL LOZANO Address: [address] [address]
--- OUTSIDE RECORDS SUMMARY | 2023-04-18 10:34 | XMS_ITS | Continuity of Care Document ---
Author Name Unknown Organization [facility] Address [address] [place] [address]- Care Team Providers Care Reactor Service Operator Name Role Phone Laron FLORIAN, Ioana Reilly Primary Care Physician Encounter [facility] NBR [id number] Date(s): 02/11/23 - 03/13/[address] [address] Allergies, Adverse Reactions, Alerts No Known Allergies Immunizations Given and Recorded Vaccine Date Status Refusal Reason SARS-CoV-2 (COVID-19) mRNA BNT-162b2 vac 04/24/21 Recorded pneumococcal 23-valent vaccine 04/23/01 Recorded Medications aspirin 81 mg oral delayed release tablet 1 tablet = 81 mg, By Mouth, Daily, # 90 tablet, 3 Refills, Maintenance, 04/09/22 19:08:00 EDT, CR Tablet, [facility], Partial fill upon patient request if the prescription is for a schedule II opioid drug., 162, cm, 04/09/22 16:12:00 EDT, H... Start Date: 04/09/22 Stop Date: 04/04/23 Status: Ordered carvedilol 25 mg oral tablet 25 mg, 1, tablet, By Mouth, 2 times a day, # 180 tablet, Refills 3, Tot. Refills 3, Maintenance, 04/09/22 19:08:00 EDT, Route to Pharmacy Electronically, [facility], Partial fill upon patient request if the prescription is for a schedule II... Start Date: 04/09/22 Stop Date: 04/04/23 Status: Ordered doxazosin 4 mg oral tablet 1 tablet, By Mouth, Daily, # 90 tablet, 0 Refills, Maintenance, 02/11/23 7:39:00 EDT, [facility], 162, cm, 11/20/22 12:28:00 EDT, Height Start Date: 02/11/23 Stop Date: 05/12/23 Status: Ordered ezetimibe 10 mg oral tablet 1 tablet, By Mouth, Daily, # 90 tablet, 0 Refills, Maintenance, 02/11/23 7:38:00 EDT, [facility], 162, cm, 11/20/22 12:28:00 EDT, Height Start Date: 02/11/23 Stop Date: 05/12/23 Status: Ordered Flonase 50 mcg/inh nasal spray 1 sprays, Nares, Both, 2 times a day, # 16 Gm, 0 Refills, Maintenance, 06/05/22 12:05:00 EST, [place], [facility], Partial fill upon patient [...] 09/17/22 16:29:00 EDT, Route to Pharmacy Electronically, [facility], Partial fill upon patient request if the prescription i... Start Date: 09/17/22 Status: Ordered gabapentin 400 mg oral capsule 400 mg, 1, capsule, By Mouth, 2 times a day, # 60 capsule, Refills 3, Tot. Refills 3, Maintenance, 03/08/23 13:08:00 EDT, Route to Pharmacy Electronically, [facility], Partial fill upon patient request if the prescription is for a schedule... Start Date: 03/08/23 Stop Date: 07/06/23 Status: Ordered glimepiride 4 mg oral tablet 1 tablet, By Mouth, 2 times a day, # 180 tablet, 0 Refills, Maintenance, 02/11/23 7:38:00 EDT, [facility], 162, cm, 11/20/22 12:28:00 EDT, Height Start Date: 02/11/23 Status: Ordered Home Blood Pressure Monitor See Instructions, # 1 each, Maintenance, DX: Hypertension, 06/06/22 12:29:00 EST, Supply Start Date: 06/06/22 Status: Ordered hydrochlorothiazide-lisinopril 25 mg-20 mg oral tablet 1 tablet, By Mouth, Daily, # 90 tablet, 3 Refills, Maintenance, 09/05/22 16:25:00 EDT, Tablet, [facility], Partial fill upon patient request if the prescription is for a schedule II opioiddrug., 1 tablet By Mouth Daily,x90 days, 162, cm, 0... Start Date: 09/05/22 Stop Date: 08/31/23 Status: Ordered isosorbide mononitrate 30 mg oral tablet, extended release 1 tablet, By Mouth, Daily in AM, # 90 tablet, 0 Refills, Maintenance, 02/11/23 7:37:00 EDT, [facility], 162, cm, 11/20/22 12:28:00 EDT, Height Start Date: 02/11/23 Stop Date: 05/12/23 Status: Ordered meloxicam 15 mg oral tablet 1 tablet = 15 mg, By Mouth, Daily, # 90 tablet, 1 Refills, Maintenance, 09/05/22 16:24:00 EDT, Tablet, [facility], Partial fill upon patient request if the prescription is for a schedule II opioid drug., 162, cm, 09/05/22 16:09:00 EDT, Height Start Date: 09/05/22 Stop Date: 03/04/23 Status: Ordered metFORMIN 500 mg oral tablet 2 tablet, By Mouth, 2 times a day, # 360 tablet, 0 Refills, Maintenance, 02/11/23 7:36:00 EDT, [facility], 162, cm, 11/20/22 12:28:00 [...] Stop 06/16/23 11:59:00EST, 06/21/22 11:59:00 EST, Tablet, [facility], Partial fill upon patient request if theprescription is for a schedule II opioid drug., 162... Start Date: 06/21/22 Stop Date: 06/16/23 Status: Ordered traZODone 50 mg oral tablet 50 mg, 1, tablet, By Mouth, Daily at bedtime, # 30 tablet, Refills 1, Tot. Refills 1, Maintenance, 03/08/23 13:07:00 EDT, Route to Pharmacy Electronically, [facility], Partial fill upon patient request if the prescription is for a schedule... Start Date: 03/08/23 Stop Date: 05/07/23 Status: Ordered Walker See Instructions, # 1 [...] Atherosclerosis of both carotid arteries Confirmed Active Lower extremity edema Confirmed Active History of ST elevation myocardial infarction (STEMI) Confirmed Active Hyperlipidemia Confirmed Active Hypertension Confirmed Active Insomnia Confirmed Active Lower back pain Confirmed Active Low back pain radiating to right leg Confirmed Active Radiculopathy Confirmed Active Obese class I Confirmed Active Medicare annual wellness visit, subsequent Confirmed Active Peripheral neuropathy Confirmed Active Shoulder pain, right Confirmed Active Type 2 diabetes mellitus Confirmed Active Social History Social History Type Response Smoking Status Never (less than 100 in lifetime) entered on: 04/09/22 Sex Patient Care team information Care Team Personnel Name: Ioana Larry NP Position: [facility] PCO Associate Professional Member Role: PCP Address: Address: [address] [place], [place] [address] Care Team Related Persons Name: EDUARDO GLASGOW Name: DANIEL LOZANO Address: [address] [address]
--- OUTSIDE RECORDS SUMMARY | 2023-04-18 10:35 | XMS_ITS | Continuity of Care Document ---
Author Name Unknown Organization [facility] Address [address] [place] [address]- Care Team Providers Care Automotive Parts Person Name Role Phone Laron FLORIAN, Ioana Reilly Primary Care Physician [facility] [id number] Date(s): 11/29/22 - 12/29/22 [facility] [address] [place] [address]- Allergies, Adverse Reactions, Alerts No Known Allergies Medications amLODIPine 10 mg oral tablet 1 tablet = 10 mg, By Mouth, Daily, # 90 tablet, 0 Refills, Maintenance, 09/17/22 16:35:00 EDT, Tablet, [facility], Partial fill upon patient request if the prescription is for a schedule II opioid drug., 162, cm, 09/17/22 16:09:00 EDT, Height Start Date: 09/17/22 Status: Ordered aspirin 81 mg oral delayed release tablet 1 tablet = 81 mg, By Mouth, Daily, # 90 tablet, 3 Refills, Maintenance, 04/09/22 19:08:00 EDT, CR Tablet, [facility], Partial fill upon patient request if the prescription is for a schedule II opioid drug., 162, cm, 04/09/22 16:12:00 EDT, H... Start Date: 04/09/22 Stop Date: 04/04/23 Status: Ordered carvedilol 25 mg oral tablet 25 mg, 1, tablet, By Mouth, 2 times a day, # 180 tablet, Refills 3, Tot. Refills 3, Maintenance, 04/09/22 19:08:00 EDT, Route to Pharmacy Electronically, [facility], Partial fill upon patient request if the prescription is for a schedule II... Start Date: 04/09/22 Stop Date: 04/04/23 Status: Ordered doxazosin 4 mg oral tablet 1 tablet = 4 mg, By Mouth, Daily, # 90 tablet, 3 Refills, Maintenance, 04/09/22 19:09:00 EDT, Tablet, [facility], Partial fill upon patient request if the prescription is for a schedule IIopioid drug., 162, cm, 04/09/22 16:12:00 EDT, Height Start Date: 04/09/22 Stop Date: 04/04/23 Status: Ordered Flonase 50 mcg/inh nasal spray 1 sprays, Nares, Both, 2 times a day, # 16 Gm, 0 Refills, Maintenance, 06/05/22 12:05:00 EST, [place], [facility], Partial fill upon patient [...] 09/17/22 16:29:00 EDT, Route to Pharmacy Electronically, [facility], Partial fill upon patient request if the prescription i... Start Date: 09/17/22 Status: Ordered gabapentin 400 mg oral capsule 400 mg, 1, capsule, By Mouth, Daily, # 30 capsule, Refills 0, Tot. Refills 0, Maintenance, 05/23/2216:20:00 EST, Route to Pharmacy Electronically, [facility], Partial fill upon patient request if the prescription is for a schedule II opioi... Start Date: 05/23/22 Stop Date: 06/22/22 Status: Ordered glimepiride 4 mg oral tablet 1 tablet = 4 mg, By Mouth, 2 times a day, # 180 tablet, 3 Refills, Maintenance, 04/09/22 19:10:00 EDT, [facility], Partial fill upon patient [...] 3 Refills, Maintenance, 09/05/22 16:25:00 EDT, Tablet, [facility], Partial fill upon patient request if [...] 04/09/22 19:10:00 EDT, Route to Pharmacy Electronically, [facility], Partial fill upon patientrequest if the prescription is for a schedule II op... Start Date: 04/09/22 Stop Date: 04/04/23 Status: Ordered meloxicam 15 mg oral tablet 1 tablet = 15 mg, By Mouth, Daily, # 90 tablet, 1 Refills, Maintenance, 09/05/22 16:24:00 EDT, Tablet, [facility], Partial fill upon patient request if the prescription is for a schedule II opioid drug., 162, cm, 09/05/22 16:09:00 EDT, Height Start Date: 09/05/22 Stop Date: 03/04/23 Status: Ordered metFORMIN 500 mg oral tablet 2 tablet = 1,000 mg, By Mouth, 2 times a day, # 360 tablet, 3 Refills, Maintenance, 04/09/22 19:11:00 EDT, Tablet, [facility], Partial fill upon patient [...] 3 Refills, Maintenance, 06/21/22 11:59:00 EST, Tablet, [facility], Partial fill upon patient [...] 3 Refills, Maintenance, 04/09/22 19:09:00 EDT, Tablet, [facility], Partial fill upon patient request if the [...] Team Personnel Name: Ioana Larry NP Position: [facility] PCO Associate Professional Member Role: PCP Address: Address: [address] [facility] [address] [place] [address]- Care Team Related Persons Name: EDUARDO GLASGOW Name: DANIEL LOZANO Address: [address] [address]
--- OUTSIDE RECORDS SUMMARY | 2023-04-18 10:35 | XMS_ITS | Continuity of Care Document ---
Author Name Unknown Organization [facility] Address [address] [place] [address]- Care Team Providers Care Facial Operator Name Role Phone Laron FLORIAN, Ioana Reilly Primary [id number] Date(s): 02/11/23 - 03/13/23 [facility] [address] [place] [address]- Allergies, Adverse Reactions, Alerts No Known Allergies Immunizations Given and Recorded Vaccine Date Status Refusal Reason SARS-CoV-2 (COVID-19) mRNA BNT-162b2 vac 04/24/21 Recorded pneumococcal 23-valent vaccine 04/23/01 Recorded Medications aspirin 81 mg oral delayed release tablet 1 tablet = 81 mg, By Mouth, Daily, # 90 tablet, 3 Refills, Maintenance, 04/09/22 19:08:00 EDT, CR Tablet, [facility], Partial fill upon patient request if the prescription is for a schedule II opioid drug., 162, cm, 04/09/22 16:12:00 EDT, H... Start Date: 04/09/22 Stop Date: 04/04/23 Status: Ordered carvedilol 25 mg oral tablet 25 mg, 1, tablet, By Mouth, 2 times a day, # 180 tablet, Refills 3, Tot. Refills 3, Maintenance, 04/09/22 19:08:00 EDT, Route to Pharmacy Electronically, [facility], Partial fill upon patient request if the prescription is for a schedule II... Start Date: 04/09/22 Stop Date: 04/04/23 Status: Ordered doxazosin 4 mg oral tablet 1 tablet, By Mouth, Daily, # 90 tablet, 0 Refills, Maintenance, 02/11/23 7:39:00 EDT, [facility], 162, cm, 11/20/22 12:28:00 EDT, Height Start Date: 02/11/23 Stop Date: 05/12/23 Status: Ordered ezetimibe 10 mg oral tablet 1 tablet, By Mouth, Daily, # 90 tablet, 0 Refills, Maintenance, 02/11/23 7:38:00 EDT, [facility], 162, cm, 11/20/22 12:28:00 EDT, Height Start Date: 02/11/23 Stop Date: 05/12/23 Status: Ordered Flonase 50 mcg/inh nasal spray 1 sprays, Nares, Both, 2 times a day, # 16 Gm, 0 Refills, Maintenance, 06/05/22 12:05:00 EST, [place], [facility], Partial fill upon patient [...] 09/17/22 16:29:00 EDT, Route to Pharmacy Electronically, [facility], Partial fill upon patient request if the prescription i... Start Date: 09/17/22 Status: Ordered gabapentin 400 mg oral capsule 400 mg, 1, capsule, By Mouth, 2 times a day, # 60 capsule, Refills 3, Tot. Refills 3, Maintenance, 03/08/23 13:08:00 EDT, Route to Pharmacy Electronically, [facility], Partial fill upon patient request if the prescription is for a schedule... Start Date: 03/08/23 Stop Date: 07/06/23 Status: Ordered glimepiride 4 mg oral tablet 1 tablet, By Mouth, 2 times a day, # 180 tablet, 0 Refills, Maintenance, 02/11/23 7:38:00 EDT, [facility], 162, cm, 11/20/22 12:28:00 EDT, Height Start Date: 02/11/23 Status: Ordered Home Blood Pressure Monitor See Instructions, # 1 each, Maintenance, DX: Hypertension, 06/06/22 12:29:00 EST, Supply Start Date: 06/06/22 Status: Ordered hydrochlorothiazide-lisinopril 25 mg-20 mg oral tablet 1 tablet, By Mouth, Daily, # 90 tablet, 3 Refills, Maintenance, 09/05/22 16:25:00 EDT, Tablet, [facility], Partial fill upon patient request if the prescription is for a schedule II opioiddrug., 1 tablet By Mouth Daily,x90 days, 162, cm, 0... Start Date: 09/05/22 Stop Date: 08/31/23 Status: Ordered isosorbide mononitrate 30 mg oral tablet, extended release 1 tablet, By Mouth, Daily in AM, # 90 tablet, 0 Refills, Maintenance, 02/11/23 7:37:00 EDT, [facility], 162, cm, 11/20/22 12:28:00 EDT, Height Start Date: 02/11/23 Stop Date: 05/12/23 Status: Ordered meloxicam 15 mg oral tablet 1 tablet = 15 mg, By Mouth, Daily, # 90 tablet, 1 Refills, Maintenance, 09/05/22 16:24:00 EDT, Tablet, [facility], Partial fill upon patient request if the prescription is for a schedule II opioid drug., 162, cm, 09/05/22 16:09:00 EDT, Height Start Date: 09/05/22 Stop Date: 03/04/23 Status: Ordered metFORMIN 500 mg oral tablet 2 tablet, By Mouth, 2 times a day, # 360 tablet, 0 Refills, Maintenance, 02/11/23 7:36:00 EDT, [facility], 162, cm, 11/20/22 12:28:00 [...] Stop 06/16/23 11:59:00EST, 06/21/22 11:59:00 EST, Tablet, [facility], Partial fill upon patient request if theprescription is for a schedule II opioid drug., 162... Start Date: 06/21/22 Stop Date: 06/16/23 Status: Ordered traZODone 50 mg oral tablet 50 mg, 1, tablet, By Mouth, Daily at bedtime, # 30 tablet, Refills 1, Tot. Refills 1, Maintenance, 03/08/23 13:07:00 EDT, Route to Pharmacy Electronically, [facility], Partial fill upon patient [...] Team Personnel Name: Ioana Larry NP Position: [facility] PCO Associate Professional Member Role: PCP Address: Address: [address] [facility] [address] [place] [address]- Care Team Related Persons Name: EDUARDO GLASGOW Name: DANIEL LOZANO Address: [address] [address]
[2023-04-18 10:36] VITALS: BP 116/63; PULSE 64; RESP 18; TEMP 36.6; O2SAT 98
--- OUTSIDE RECORDS SUMMARY | 2023-04-18 10:36 | XMS_ITS | Continuity of Care Document ---
Author Name Unknown Organization [facility] Address [address] [place] [address]- Care Team Providers Care Planimeter Operator Name Role Phone Laron FLORIAN, Ioana Reilly Primary Care Physician [facility] [id number] Date(s): 11/27/22 - 12/27/22 [facility] [address] [place] [address]- Allergies, Adverse Reactions, Alerts No Known Allergies Medications amLODIPine 10 mg oral tablet 1 tablet = 10 mg, By Mouth, Daily, # 90 tablet, 0 Refills, Maintenance, 09/17/22 16:35:00 EDT, Tablet, [facility], Partial fill upon patient request if the prescription is for a schedule II opioid drug., 162, cm, 09/17/22 16:09:00 EDT, Height Start Date: 09/17/22 Status: Ordered aspirin 81 mg oral delayed release tablet 1 tablet = 81 mg, By Mouth, Daily, # 90 tablet, 3 Refills, Maintenance, 04/09/22 19:08:00 EDT, CR Tablet, [facility], Partial fill upon patient request if the prescription is for a schedule II opioid drug., 162, cm, 04/09/22 16:12:00 EDT, H... Start Date: 04/09/22 Stop Date: 04/04/23 Status: Ordered carvedilol 25 mg oral tablet 25 mg, 1, tablet, By Mouth, 2 times a day, # 180 tablet, Refills 3, Tot. Refills 3, Maintenance, 04/09/22 19:08:00 EDT, Route to Pharmacy Electronically, [facility], Partial fill upon patient request if the prescription is for a schedule II... Start Date: 04/09/22 Stop Date: 04/04/23 Status: Ordered doxazosin 4 mg oral tablet 1 tablet = 4 mg, By Mouth, Daily, # 90 tablet, 3 Refills, Maintenance, 04/09/22 19:09:00 EDT, Tablet, [facility], Partial fill upon patient request if the prescription is for a schedule IIopioid drug., 162, cm, 04/09/22 16:12:00 EDT, Height Start Date: 04/09/22 Stop Date: 04/04/23 Status: Ordered Flonase 50 mcg/inh nasal spray 1 sprays, Nares, Both, 2 times a day, # 16 Gm, 0 Refills, Maintenance, 06/05/22 12:05:00 EST, [place], [facility], Partial fill upon patient [...] 09/17/22 16:29:00 EDT, Route to Pharmacy Electronically, [facility], Partial fill upon patient request if the prescription i... Start Date: 09/17/22 Status: Ordered gabapentin 400 mg oral capsule 400 mg, 1, capsule, By Mouth, Daily, # 30 capsule, Refills 0, Tot. Refills 0, Maintenance, 05/23/2216:20:00 EST, Route to Pharmacy Electronically, [facility], Partial fill upon patient request if the prescription is for a schedule II opioi... Start Date: 05/23/22 Stop Date: 06/22/22 Status: Ordered glimepiride 4 mg oral tablet 1 tablet = 4 mg, By Mouth, 2 times a day, # 180 tablet, 3 Refills, Maintenance, 04/09/22 19:10:00 EDT, [facility], Partial fill upon patient [...] Maintenance, 09/05/22 16:25:00 EDT, Tablet, [facility], Partial fill upon patient request if [...] 04/09/22 19:10:00 EDT, Route to Pharmacy Electronically, [facility], Partial fill upon patientrequest if the prescription is for a schedule II op... Start Date: 04/09/22 Stop Date: 04/04/23 Status: Ordered meloxicam 15 mg oral tablet 1 tablet = 15 mg, By Mouth, Daily, # 90 tablet, 1 Refills, Maintenance, 09/05/22 16:24:00 EDT, Tablet, [facility], Partial fill upon patient request if the prescription is for a schedule II opioid drug., 162, cm, 09/05/22 16:09:00 EDT, Height Start Date: 09/05/22 Stop Date: 03/04/23 Status: Ordered metFORMIN 500 mg oral tablet 2 tablet = 1,000 mg, By Mouth, 2 times a day, # 360 tablet, 3 Refills, Maintenance, 04/09/22 19:11:00 EDT, Tablet, [facility], Partial fill upon patient [...] 3 Refills, Maintenance, 06/21/22 11:59:00 EST, Tablet, [facility], Partial fill upon patient [...] 3 Refills, Maintenance, 04/09/22 19:09:00 EDT, Tablet, [facility], Partial fill upon patient request [...] Team Personnel Name: Ioana Larry NP Position: [facility] PCO Associate Professional Member Role: PCP Address: Address: [address] [facility] [address] [place], [place] [address] Care Team Related Persons Name: EDUARDO GLASGOW Name: DANIEL LOZANO Address: [address] [address]
--- OUTSIDE RECORDS SUMMARY | 2023-04-18 10:36 | XMS_ITS | Continuity of Care Document ---
Author Name Unknown Organization [facility] Address [address] [place] [address]- Care Team Providers Care Quality Process Lead Name Role Phone Laron FLORIAN, Ioana Reilly Primary Care Physician Encounter [facility] [id number] Date(s): 03/08/23 - 03/15/23 [facility] [address] [place] [address]- Encounter Diagnosis Medicare annual wellness visit, subsequent(Discharge Diagnosis) - 03/08/23 Type 2 diabetes mellitus(Discharge Diagnosis) - 03/08/23 Peripheral neuropathy(Discharge Diagnosis) - 03/08/23 Hypertension(Discharge Diagnosis) - 03/08/23 Hyperlipidemia(Discharge Diagnosis) - 03/08/23 Lower back pain(Discharge Diagnosis) - 03/08/23 Atherosclerosis of both carotid arteries(Discharge Diagnosis) - 03/08/23 Shoulder pain, right(Discharge Diagnosis) - 03/08/23 Anemia(Discharge Diagnosis) - 03/08/23 Insomnia(Discharge Diagnosis) - 03/08/23 Attending Physician: Not on Staff, Attending MD Allergies, Adverse Reactions, Alerts No Known Allergies Immunizations Given and Recorded Vaccine Date Status Refusal Reason SARS-CoV-2 (COVID-19) mRNA BNT-162b2 vac 04/24/21 Recorded pneumococcal 23-valent vaccine 04/23/01 Recorded Medications aspirin 81 mg oral delayed release tablet 1 tablet = 81 mg, By Mouth, Daily, # 90 tablet, 3 Refills, Maintenance, 04/09/22 19:08:00 EDT, ADRIANA Drake, [id number], Partial fill upon patient request if the prescription is for a schedule II opioid drug., 162, cm, 04/09/22 16:12:00 EDT, H... Start Date: 04/09/22 Stop Date: 04/04/23 Status: Ordered carvedilol 25 mg oral tablet 25 mg, 1, tablet, By Mouth, 2 times a day, # 180 tablet, Refills 3, Tot. Refills 3, Maintenance, 04/09/22 19:08:00 EDT, Route to Pharmacy Electronically, [id number], Partial fill upon patient request if the prescription is for a schedule II... Start Date: 04/09/22 Stop Date: 04/04/23 Status: Ordered doxazosin 4 mg oral tablet 1 tablet, By Mouth, Daily, # 90 tablet, 0 Refills, Maintenance, 02/11/23 7:39:00 EDT, [facility], 162, cm, 11/20/22 12:28:00 EDT, Height Start Date: 02/11/23 Stop Date: 05/12/23 Status: Ordered ezetimibe 10 mg oral tablet 1 tablet, By Mouth, Daily, # 90 tablet, 0 Refills, Maintenance, 02/11/23 7:38:00 EDT, [facility], 162, cm, 11/20/22 12:28:00 EDT, Height Start Date: 02/11/23 Stop Date: 05/12/23 Status: Ordered Flonase 50 mcg/inh nasal spray 1 sprays, Nares, Both, 2 times a day, # 16 Gm, 0 Refills, Maintenance, 06/05/22 12:05:00 EST, Lawson, [facility], Partial fill upon patient request [...] 09/17/22 16:29:00 EDT, Route to Pharmacy Electronically, [facility], Partial fill upon patient request if the prescription i... Start Date: 09/17/22 Status: Ordered gabapentin 400 mg oral capsule 400 mg, 1, capsule, By Mouth, 2 times a day, # 60 capsule, Refills 3, Tot. Refills 3, Maintenance, 03/08/23 13:08:00 EDT, Route to Pharmacy Electronically, [facility], Partial fill upon patient request if the prescription is for a schedule... Start Date: 03/08/23 Stop Date: 07/06/23 Status: Ordered glimepiride 4 mg oral tablet 1 tablet, By Mouth, 2 times a day, # 180 tablet, 0 Refills, Maintenance, 02/11/23 7:38:00 EDT, [facility], 162, cm, 11/20/22 12:28:00 EDT, Height Start Date: 02/11/23 Status: Ordered Home Blood Pressure Monitor See Instructions, # 1 each, Maintenance, DX: Hypertension, 06/06/22 12:29:00 EST, Supply Start Date: 06/06/22 Status: Ordered hydrochlorothiazide-lisinopril 25 mg-20 mg oral tablet 1 tablet, By Mouth, Daily, # 90 tablet, 3 Refills, Maintenance, 09/05/22 16:25:00 EDT, Tablet, [facility], Partial fill upon patient request if the prescription is for a schedule II opioiddrug., 1 tablet By Mouth Daily,x90 days, 162, cm, 0... Start Date: 09/05/22 Stop Date: 08/31/23 Status: Ordered isosorbide mononitrate 30 mg oral tablet, extended release 1 tablet, By Mouth, Daily in AM, # 90 tablet, 0 Refills, Maintenance, 02/11/23 7:37:00 EDT, [facility], 162, cm, 11/20/22 12:28:00 EDT, Height Start Date: 02/11/23 Stop Date: 05/12/23 Status: Ordered meloxicam 15 mg oral tablet 1 tablet, By Mouth, Daily, # 90 tablet, 0 Refills, Maintenance, 03/15/23 12:40:00 EDT, [facility], 162, cm, 03/08/23 12:38:00 EDT, Height Start Date: 03/15/23 Stop Date: 06/13/23 Status: Ordered metFORMIN 500 mg oral tablet 2 tablet, By Mouth, 2 times a day, # 360 tablet, 0 Refills, Maintenance, 02/11/23 7:36:00 EDT, [facility], 162, cm, 11/20/22 12:28:00 EDT, [...] Stop 06/16/23 11:59:00EST, 06/21/22 11:59:00 EST, Tablet, [facility], Partial fill upon patient request if theprescription is for a schedule II opioid drug., 162... Start Date: 06/21/22 Stop Date: 06/16/23 Status: Ordered traZODone 50 mg oral tablet 50 mg, 1, tablet, By Mouth, Daily at bedtime, # 30 tablet, Refills 1, Tot. Refills 1, Maintenance, 03/08/23 13:07:00 EDT, Route to Pharmacy Electronically, [id number], Partial fill upon patient request if the [...] Effective Dates Health Status Clinical Service Informant Medicare annual wellness visit, subsequent Discharge Diagnosis 03/08/23 Type 2 diabetes mellitus Discharge Diagnosis 03/08/23 Peripheral neuropathy Discharge Diagnosis 03/08/23 Hypertension Discharge Diagnosis 03/08/23 Hyperlipidemia Discharge Diagnosis 03/08/23 Lower back pain Discharge Diagnosis 03/08/23 Non-Specified Atherosclerosis of both carotid arteries Discharge Diagnosis 03/08/23 Shoulder pain, right Discharge Diagnosis 03/08/23 Anemia Discharge Diagnosis 03/08/23 Insomnia Discharge Diagnosis 03/08/23 Vital Signs Most recent to oldest [Reference Range]: 1 Height 162 cm (03/08/23 12:38 PM) Weight 79.7 kg (03/08/23 12:38 PM) Oxygen Saturation [94-100 %] 98 % (03/08/23 12:38 PM) Pulse Rate [55-90 bpm] 70 bpm (03/08/23 12:38 PM) Body Mass Index [18.5-24.99 kg/m2] 30.37 kg/m2 *>HHI* (03/08/23 12:38 PM) Blood Pressure [90-138/55-84 mm Hg] 120/ 66mm Hg (03/08/23 12:38 PM) Mode of Delivery (Oxygen) Room air (03/08/23 12:38 PM) Blood pressure sites Arm, left (03/08/23 12:38 PM) Weight Obtained Via Standing scale (03/08/23 12:38 PM) Social History Social History Type Response Smoking Status Never (less than 100 in lifetime) entered on: 04/09/22 Sex Note * Margarita Gomez: PERFORM, SIGN, VERIFY Event Display: Patient Education/Instruction Authored Date: [id number] [facility] *[facility] Clinical Summary Name CLEMENTINE SALAZAR Age 72 Years 1950 PCP Laron FLORIAN, Ioana Reilly PCP Visit Date 03/08/2023 12:24:00 Additional Instructions: follow up in 6 weeks for sleep Scheduled Appointments?? Future Appointments ?*[place] ?[address]??[place],??[place],??[address] ?Phone:??--?Fax:??-- ?Appt. Date:??03/19/2023?1:00 PM ?Scheduled Provider:??Alexx Blair MD ?*[facility] ?[address] ?[address] ?[place],??[place],??[address] ?Phone:??--?Fax:??-- ?Appt. Date:??05/21/2023?4:20 PM ?Scheduled Provider:??Germaine ROSENBERG, Edgar Lester Follow-Up Instructions ?? Diagnosis Encounter for general adult medical examination without abnormal findings; Polyneuropathy, unspecified; Type 2 diabetes mellitus without complications; Essential (primary) hypertension; Low back pain, unspecified; Hyperlipidemia, unspecified Medications: Please continue your medications until treatment is completed or stopped by your provider. Discuss any questions related to medications with your provider. New Medications [facility] [address] [place] [address] Dr Shaina [place] [id number], [phone] Trazodone (traZODone 50 mg oral tablet) 1 tab(s) Oral Daily at Bedtime for 30 Days. Refills: 1. Next Dose: Medications to Continue Taking That Have Changed [facility] [address] [place] [address] Dr Shaina [place] [phone], [phone] - Gabapentin (gabapentin 400 mg oral capsule) 1 capsule Oral twice a day for 30 Days. Refills: 3. Next Dose: These medications were not printed or sent to your pharmacy - Rosuvastatin (rosuvastatin 40 mg oral tablet) 1 tab(s) Oral Daily for 90 Days. Refills: 3. Next Dose: Medications to Continue with No Changes These medications were not printed or sent to your pharmacy Aspirin (aspirin 81 mg oral delayed release tablet) 1 tab(s) Oral Daily for 90 Days. Refills: 3. Next Dose: Carvedilol (carvedilol 25 mg oral tablet) 1 tab(s) Oral twice a day for 90 Days. Refills: 3. Next Dose: Doxazosin (doxazosin 4 mg oral tablet) 1 tab(s) Oral Daily for 90 Days. Refills: 0. Next Dose: Durable Medical Equipment (Freestyle Lite Lancets) use as directed to check blood sugar once daily for Type 2 Diabetes Mellitus E11.9. Refills: 11. Next Dose: Durable Medical Equipment (Freestyle Lite Monitor) Use for checking blood sugar three - six times daily for type 2 DM. Refills: 0. Next Dose: Durable Medical Equipment (Freestyle Lite Test Strips) use as directed to check blood once daily for Type 2 Diabetes Mellitus E11.9. Refills: 2. Next Dose: Durable Medical Equipment (Home Blood Pressure Monitor) DX: Hypertension. Refills: 0. Next Dose: Durable Medical Equipment (R toe off AFO) Wear as directed by physical therapist. Refills: 0. Next Dose: Durable Medical Equipment (Walker) Dx: R26.81 unsteady gait. Refills: 0. Next Dose: Durable Medical Equipment (Wheelchair) Dx: R26.81 unsteady gait. Refills: 0. Next Dose: Ezetimibe (ezetimibe 10 mg oral tablet) 1 tab(s) Oral Daily for 90 Days. Refills: 0. Next Dose: Fluticasone Nasal (Flonase 50 mcg/inh nasal spray) 1 spray(s) Nares, Both twice a day for 30 Days. Refills: 0. Next Dose: Furosemide (furosemide 20 mg oral tablet) 1 tab(s) Oral Daily. take on an as needed basis. Refills:0. Next Dose: Glimepiride (glimepiride 4 mg oral tablet) 1 tab(s) Oral twice a day. Refills: 0. Next Dose: Hydrochlorothiazide-Lisinopril (hydrochlorothiazide-lisinopril 25 mg-20 mg oral tablet) 1 tab(s) Oral Daily for 90 Days. Refills: 3. Next Dose: Isosorbide Mononitrate (isosorbide mononitrate 30 mg oral tablet, extended release) 1 tab(s) Oral Daily in the morning for 90 Days. Refills: 0. Next Dose: Meloxicam (meloxicam 15 mg oral tablet) 1 tab(s) Oral Daily for 90 Days. Refills: 1. Next Dose: Metformin (metFORMIN 500 mg oral tablet) 2 tab(s) Oral twice a day. Refills: 0. Next Dose: No Longer Take the Following Medications Amlodipine (amLODIPine 10 mg oral tablet) 1 tab(s) Oral Daily. Refills: 0. Allergy Info:?? NKA Medications Given This Visit Future Orders ?AST? Order Date:03/08/23?- Complete on or after?03/08/23 ?ALT? Order Date:03/08/23?- Complete on or after?03/08/23 ?Basic Metabolic Panel? Order Date:03/08/23?- Complete on or after?03/08/23 ?CBC? Order Date:03/08/23?- Complete on or after?03/08/23 ?PSA? Order Date:03/08/23?- Complete on or after?03/08/23 ?Lipid Panel? Order Date:03/08/23?- Complete on or after?03/08/23 Vital Signs Height 162 cm Weight 79.7 kg BMI 30.37 kg/m2 Blood Pressure 120 mm Hg/66 mm Hg Temperature Pulse Rate 70 bpm Respiratory Rate 02 Sat Mode of Delivery 98 %/Room air You can now view a summary of your hospital visit from the comfort of your home through a free online portal called [employer]. [employer] is a website that allows you to securely view your medical information including discharge summary, medications and follow-up visits. ??You can alsosend a secure electronic message to your doctor???s office to request appointments, renew medications or just ask a question. You can enroll at [email or web address] or register during your next office visit. Disclaimer:?? The information provided is of a general nature and is intended to be used in conjunction with the recommendations and advice of your health care practitioner. ??Every effort has been made to ensure that the information provided is accurate and complete at the time it is provided to you however, as your needs change, or, as new ??information becomes available, different or additional instructions may be required. If you have questions, please consult with your primary care provider or pharmacist, as appropriate. ??This information is not intended to serve as substitution for assessment and evaluation by a qualified health care provider. If you do not have a primary care provider, you may find a [facility] provider by calling [facility] at [phone]. [facility], in keeping with [facility] guidance, no longer requires face masks for staff, patientsor visitors in most situations. Similar to time spent indoors at other locations, there is the chance that you were exposed to respiratory viruses during your time with us (such as flu or COVID-19).? If you develop symptoms concerning for a viral respiratory infection, please seek testing (and treatment if indicated) from your medical provider or home test kit. For information about the plan of care including goals and instructions for your diagnosis, please see the patient education orders section of this document. Patient Education Materials?? The content of this educational material or handout may have been modified, supplemented, or adapted from its original content and format to support your individualized medical care. * Ioana Larry NP: PERFORM, SIGN, VERIFY Event Display: Patient Education/Instruction Authored Date: [id number] [facility] *[facility] Clinical Summary Name CLEMENTINE SALAZAR Age 72 Years 1950 PCP Ioana Larry NP PCP Visit Date 03/08/2023 12:24:00 Additional Instructions: follow up in 6 weeks for sleep Scheduled Appointments?? Future Appointments ?*[facility] ?[address]??[place],??[place],??[address] ?Phone:??--?Fax:??-- ?Appt. Date:??03/19/2023?1:00 PM ?Scheduled Provider:??Alexx Blair MD ?*[facility] ?[address] ?[place],??[place],??[address] ?Phone:??--?Fax:??-- ?Appt. Date:??05/21/2023?4:20 PM ?Scheduled Provider:??Edgar Herron MD Follow-Up Instructions ?? Diagnosis Encounter for general adult medical examination without abnormal findings; Polyneuropathy, unspecified; Type 2 diabetes mellitus without complications; Essential (primary) hypertension; Low back pain, unspecified; Hyperlipidemia, unspecified Medications: Please continue your medications until treatment is completed or stopped by your provider. Discuss any questions related to medications with your provider. New Medications [facility] [address] [place] [address] Dr Shaina [place] [phone], [phone] Trazodone (traZODone 50 mg oral tablet) 1 tab(s) Oral Daily at Bedtime for 30 Days. Refills: 1. Next Dose: Medications to Continue Taking That Have Changed [facility] [address] [place] [address] Dr Shaina [place] [phone], [phone] - Gabapentin (gabapentin 400 mg oral capsule) 1 capsule Oral twice a day for 30 Days. Refills: 3. Next Dose: These medications were not printed or sent to your pharmacy - Rosuvastatin (rosuvastatin 40 mg oral tablet) 1 tab(s) Oral Daily for 90 Days. Refills: 3. Next Dose: Medications to Continue with No Changes These medications were not printed or sent to your pharmacy Aspirin (aspirin 81 mg oral delayed release tablet) 1 tab(s) Oral Daily for 90 Days. Refills: 3. Next Dose: Carvedilol (carvedilol 25 mg oral tablet) 1 tab(s) Oral twice a day for 90 Days. Refills: 3. Next Dose: Doxazosin (doxazosin 4 mg oral tablet) 1 tab(s) Oral Daily for 90 Days. Refills: 0. Next Dose: Durable Medical Equipment (Freestyle Lite Lancets) use as directed to check blood sugar once daily for Type 2 Diabetes Mellitus E11.9. Refills: 11. Next Dose: Durable Medical Equipment (Freestyle Lite Monitor) Use for checking blood sugar three - six times daily for type 2 DM. Refills: 0. Next Dose: Durable Medical Equipment (Freestyle Lite Test Strips) use as directed to check blood once daily for Type 2 Diabetes Mellitus E11.9. Refills: 2. Next Dose: Durable Medical Equipment (Home Blood Pressure Monitor) DX: Hypertension. Refills: 0. Next Dose: Durable Medical Equipment (R toe off AFO) Wear as directed by physical therapist. Refills: 0. Next Dose: Durable Medical Equipment (Walker) Dx: R26.81 unsteady gait. Refills: 0. Next Dose: Durable Medical Equipment (Wheelchair) Dx: R26.81 unsteady gait. Refills: 0. Next Dose: Ezetimibe (ezetimibe 10 mg oral tablet) 1 tab(s) Oral Daily for 90 Days. Refills: 0. Next Dose: Fluticasone Nasal (Flonase 50 mcg/inh nasal spray) 1 spray(s) Nares, Both twice a day for 30 Days. Refills: 0. Next Dose: Furosemide (furosemide 20 mg oral tablet) 1 tab(s) Oral Daily. take on an as needed basis. Refills:0. Next Dose: Glimepiride (glimepiride 4 mg oral tablet) 1 tab(s) Oral twice a day. Refills: 0. Next Dose: Hydrochlorothiazide-Lisinopril (hydrochlorothiazide-lisinopril 25 mg-20 mg oral tablet) 1 tab(s) Oral Daily for 90 Days. Refills: 3. Next Dose: Isosorbide Mononitrate (isosorbide mononitrate 30 mg oral tablet, extended release) 1 tab(s) Oral Daily in the morning for 90 Days. Refills: 0. Next Dose: Meloxicam (meloxicam 15 mg oral tablet) 1 tab(s) Oral Daily for 90 Days. Refills: 1. Next Dose: Metformin (metFORMIN 500 mg oral tablet) 2 tab(s) Oral twice a day. Refills: 0. Next Dose: No Longer Take the Following Medications Amlodipine (amLODIPine 10 mg oral tablet) 1 tab(s) Oral Daily. Refills: 0. Allergy Info:?? NKA Medications Given This Visit Future Orders ?AST? Order Date:03/08/23?- Complete on or after?03/08/23 ?ALT? Order Date:03/08/23?- Complete on or after?03/08/23 ?Basic Metabolic Panel? Order Date:03/08/23?- Complete on or after?03/08/23 ?CBC? Order Date:03/08/23?- Complete on or after?03/08/23 ?PSA? Order Date:03/08/23?- Complete on or after?03/08/23 ?Lipid Panel? Order Date:03/08/23?- Complete on or after?03/08/23 Vital Signs Height 162 cm Weight 79.7 kg BMI 30.37 kg/m2 Blood Pressure 120 mm Hg/66 mm Hg Temperature Pulse Rate 70 bpm Respiratory Rate 02 Sat Mode of Delivery 98 %/Room air You can now view a summary of your hospital visit from the comfort of your home through a free online portal called [employer]ffectv. [employer] is a website that allows you to securely view your medical information including discharge summary, medications and follow-up visits. ??You can alsosend a secure electronic message to your doctor???s office to request appointments, renew medications or just ask a question. You can enroll at [email or web address] or register during your next office visit. Disclaimer:?? The information provided is of a general nature and is intended to be used in conjunction with the recommendations and advice of your health care practitioner. ??Every effort has been made to ensure that the information provided is accurate and complete at the time it is provided to you however, as your needs change, or, as new ??information becomes available, different or additional instructions may be required. If you have questions, please consult with your primary care provider or pharmacist, as appropriate. ??This information is not intended to serve as substitution for assessment and evaluation by a qualified health care provider. If you do not have a primary care provider, you may find a [facility] provider by calling [facility] Link at [phone]. [facility], in keeping with [facility] guidance, no longer requires face masks for staff, patientsor visitors in most situations. Similar to time spent indoors at other locations, there is the chance that you were exposed to respiratory viruses during your time with us (such as flu or COVID-19).? If you develop symptoms concerning for a viral respiratory infection, please seek testing (and treatment if indicated) from your medical provider or home test kit. For information about the plan of care including goals and instructions for your diagnosis, please see the patient education orders section of this document. Patient Education Materials?? The content of this educational material or handout may have been modified, supplemented, or adapted from its original content and format to support your individualized medical care. Patient Care team information Care Team Personnel Name: Ioana Larry NP Position: [facility] Associate Professional Member Role: PCP Address: Address: [address] [place] [address]- Care Team Related Persons Name: EDUARDO GLASGOW Name: DANIEL LOZANO Address: [address] [address]
--- OUTSIDE RECORDS SUMMARY | 2023-04-18 10:36 | XMS_ITS | Continuity of Care Document ---
Author Name Unknown Organization [facility] Adult Address [address] [place] [address]- Care Team Providers Care Cafe Worker Name Role Phone Laron FLORIAN, Ioana Reilly Primary Care Physician [phone] Encounter [facility] [id number] Date(s): 01/22/23 - 02/21/23 [facility] Adult [address] [place] [address]- Allergies, Adverse Reactions, Alerts No Known Allergies [...] tablet, 0 Refills, Maintenance, 02/11/23 7:39:00 EDT, [facility], 162, cm, 11/20/22 12:28:00 EDT, Height Start Date: 02/11/23 Stop Date: 05/12/23 Status: Ordered ezetimibe 10 mg oral tablet 1 tablet, By Mouth, Daily, # 90 tablet, 0 Refills, Maintenance, 02/11/23 7:38:00 EDT, [facility], 162, cm, 11/20/22 12:28:00 EDT, Height Start Date: 02/11/23 Stop Date: 05/12/23 Status: Ordered Flonase 50 mcg/inh nasal spray 1 sprays, Nares, Both, 2 times a day, # 16 Gm, 0 Refills, Maintenance, 06/05/22 12:05:00 EST, [place], [facility], Partial fill [...] By Mouth, Daily, # 30 capsule, Refills 3, Tot. Refills 3, Maintenance, 02/21/2313:55:00 EDT, Route to Pharmacy Electronically, [facility], Partial fill upon patient request if the prescription is for a schedule II opioi... Start Date: 02/21/23 Stop Date: 06/21/23 Status: Ordered glimepiride 4 mg oral tablet 1 tablet, By Mouth, 2 times a day, # 180 tablet, 0 Refills, Maintenance, 02/11/23 7:38:00 EDT, [facility], 162, cm, 11/20/22 12:28:00 EDT, Height Start Date: 02/11/23 Status: Ordered Home Blood Pressure Monitor See Instructions, # 1 each, Maintenance, DX: Hypertension, 06/06/22 12:29:00 EST, Supply Start Date: 06/06/22 Status: Ordered hydrochlorothiazide-lisinopril 25 mg-20 mg oral tablet 1 tablet, By Mouth, Daily, # 90 tablet, 3 Refills, Maintenance, 09/05/22 16:25:00 EDT, Tablet, [facility], Partial fill upon patient request if the prescription is for a schedule II opioiddrug., 1 tablet By Mouth Daily,x90 days, 162, cm, 0... Start Date: 09/05/22 Stop Date: 08/31/23 Status: Ordered isosorbide mononitrate 30 mg oral tablet, extended release 1 tablet, By Mouth, Daily in AM, # 90 tablet, 0 Refills, Maintenance, 02/11/23 7:37:00 EDT, [facility], 162, cm, 11/20/22 12:28:00 EDT, [...] tablet, 0 Refills, Maintenance, 02/11/23 7:36:00 EDT, [facility], 162, cm, 11/20/22 12:28:00 [...] Stop 06/16/23 11:59:00EST, 06/21/22 11:59:00 EST, Tablet, [facility], Partial fill upon patient request if theprescription is for a schedule II opioid drug., 162... Start Date: 06/21/22 Stop Date: 06/16/23 Status: Ordered rosuvastatin 40 mg oral tablet 1 tablet = 40 mg, By Mouth, Daily, # 90 tablet, 3 Refills, Maintenance, 06/16/23 11:59:00 EST, Tablet, [facility] [...] Team Personnel Name: Ioana Larry NP Position: [facility] Associate Professional Member Role: PCP Address: Address: [address] [place] [address]- Care Team Related Persons Name: EDUARDO GLASGOW Name: DANIEL LOZANO Address: [address] [address]
--- OUTSIDE RECORDS SUMMARY | 2023-04-18 10:36 | XMS_ITS | Continuity of Care Document ---
Author Name Unknown Organization [facility] Adult Address [address] [place] [address]- Care Team Providers Care Annealer Name Role Phone Laron FLORIAN, Ioana Reilly Primary Care Physician [id number] Date(s): 11/22/22 - 12/22/22 [facility] Adult [address] [place] [address]- Allergies, Adverse Reactions, Alerts No Known Allergies Medications amLODIPine 10 mg oral tablet 1 tablet = 10 mg, By Mouth, Daily, # 90 tablet, 0 Refills, Maintenance, 09/17/22 16:35:00 EDT, Tablet, [facility], Partial fill upon patient request if the prescription is for a schedule II opioid drug., 162, cm, 09/17/22 16:09:00 EDT, Height Start Date: 09/17/22 Status: Ordered aspirin 81 mg oral delayed release tablet 1 tablet = 81 mg, By Mouth, Daily, # 90 tablet, 3 Refills, Maintenance, 04/09/22 19:08:00 EDT, CR Tablet, [facility], Partial fill upon patient request if the prescription is for a schedule II opioid drug., 162, cm, 04/09/22 16:12:00 EDT, H... Start Date: 04/09/22 Stop Date: 04/04/23 Status: Ordered carvedilol 25 mg oral tablet 25 mg, 1, tablet, By Mouth, 2 times a day, # 180 tablet, Refills 3, Tot. Refills 3, Maintenance, 04/09/22 19:08:00 EDT, Route to Pharmacy Electronically, [facility], Partial fill upon patient request if the prescription is for a schedule II... Start Date: 04/09/22 Stop Date: 04/04/23 Status: Ordered doxazosin 4 mg oral tablet 1 tablet = 4 mg, By Mouth, Daily, # 90 tablet, 3 Refills, Maintenance, 04/09/22 19:09:00 EDT, Tablet, [facility], Partial fill upon patient request if the prescription is for a schedule IIopioid drug., 162, cm, 04/09/22 16:12:00 EDT, Height Start Date: 04/09/22 Stop Date: 04/04/23 Status: Ordered Flonase 50 mcg/inh nasal spray 1 sprays, Nares, Both, 2 times a day, # 16 Gm, 0 Refills, Maintenance, 06/05/22 12:05:00 EST, [place], [facility], Partial fill upon patient [...] 09/17/22 16:29:00 EDT, Route to Pharmacy Electronically, [facility], Partial fill upon patient request if the prescription i... Start Date: 09/17/22 Status: Ordered gabapentin 400 mg oral capsule 400 mg, 1, capsule, By Mouth, Daily, # 30 capsule, Refills 0, Tot. Refills 0, Maintenance, 05/23/2216:20:00 EST, Route to Pharmacy Electronically, [facility], Partial fill upon patient request if the prescription is for a schedule II opioi... Start Date: 05/23/22 Stop Date: 06/22/22 Status: Ordered glimepiride 4 mg oral tablet 1 tablet = 4 mg, By Mouth, 2 times a day, # 180 tablet, 3 Refills, Maintenance, 04/09/22 19:10:00 EDT, [facility], Partial fill upon patient [...] Maintenance, 09/05/22 16:25:00 EDT, Tablet, [facility], Partial fill upon patient request if [...] 04/09/22 19:10:00 EDT, Route to Pharmacy Electronically, [facility], Partial fill upon patientrequest if the prescription is for a schedule II op... Start Date: 04/09/22 Stop Date: 04/04/23 Status: Ordered meloxicam 15 mg oral tablet 1 tablet = 15 mg, By Mouth, Daily, # 90 tablet, 1 Refills, Maintenance, 09/05/22 16:24:00 EDT, Tablet, [facility], Partial fill upon patient request if the prescription is for a schedule II opioid drug., 162, cm, 09/05/22 16:09:00 EDT, Height Start Date: 09/05/22 Stop Date: 03/04/23 Status: Ordered metFORMIN 500 mg oral tablet 2 tablet = 1,000 mg, By Mouth, 2 times a day, # 360 tablet, 3 Refills, Maintenance, 04/09/22 19:11:00 EDT, Tablet, [facility], Partial fill upon patient [...] 3 Refills, Maintenance, 06/21/22 11:59:00 EST, Tablet, [facility], Partial fill upon patient [...] 3 Refills, Maintenance, 04/09/22 19:09:00 EDT, Tablet, [facility], Partial fill upon patient request if the [...] Team Personnel Name: Ioana Larry NP Position: [facility] Associate Professional Member Role: PCP Address: Address: [address] [place], [place] [address] Care Team Related Persons Name: EDUARDO GLASGOW Name: DANIEL LOZANO Address: [address] [address]
--- OUTSIDE RECORDS SUMMARY | 2023-04-18 10:36 | XMS_ITS | Continuity of Care Document ---
Author Name Unknown Organization [facility] Adult Address [address] [place] [address]- Care Team Providers Care Internet Project Manager Name Role Phone Laron FLORIAN, Ioana Reilly Primary Care Physician [phone] [facility] [id number] Date(s): 11/22/22 - 12/22/22 [facility] Adult [address] [place] [address]- Allergies, Adverse Reactions, Alerts No Known Allergies Medications amLODIPine 10 mg oral tablet 1 tablet = 10 mg, By Mouth, Daily, # 90 tablet, 0 Refills, Maintenance, 09/17/22 16:35:00 EDT, Tablet, [facility], Partial fill upon patient request if the prescription is for a schedule II opioid drug., 162, cm, 09/17/22 16:09:00 EDT, Height Start Date: 09/17/22 Status: Ordered aspirin 81 mg oral delayed release tablet 1 tablet = 81 mg, By Mouth, Daily, # 90 tablet, 3 Refills, Maintenance, 04/09/22 19:08:00 EDT, CR Tablet, [facility], Partial fill upon patient request if the prescription is for a schedule II opioid drug., 162, cm, 04/09/22 16:12:00 EDT, H... Start Date: 04/09/22 Stop Date: 04/04/23 Status: Ordered carvedilol 25 mg oral tablet 25 mg, 1, tablet, By Mouth, 2 times a day, # 180 tablet, Refills 3, Tot. Refills 3, Maintenance, 04/09/22 19:08:00 EDT, Route to Pharmacy Electronically, [facility], Partial fill upon patient request if the prescription is for a schedule II... Start Date: 04/09/22 Stop Date: 04/04/23 Status: Ordered doxazosin 4 mg oral tablet 1 tablet = 4 mg, By Mouth, Daily, # 90 tablet, 3 Refills, Maintenance, 04/09/22 19:09:00 EDT, Tablet, [facility], Partial fill upon patient request if the prescription is for a schedule IIopioid drug., 162, cm, 04/09/22 16:12:00 EDT, Height Start Date: 04/09/22 Stop Date: 04/04/23 Status: Ordered Flonase 50 mcg/inh nasal spray 1 sprays, Nares, Both, 2 times a day, # 16 Gm, 0 Refills, Maintenance, 06/05/22 12:05:00 EST, [place], [facility], Partial fill upon patient [...] 09/17/22 16:29:00 EDT, Route to Pharmacy Electronically, [facility], Partial fill upon patient request if the prescription i... Start Date: 09/17/22 Status: Ordered gabapentin 400 mg oral capsule 400 mg, 1, capsule, By Mouth, Daily, # 30 capsule, Refills 0, Tot. Refills 0, Maintenance, 05/23/2216:20:00 EST, Route to Pharmacy Electronically, [facility], Partial fill upon patient request if the prescription is for a schedule II opioi... Start Date: 05/23/22 Stop Date: 06/22/22 Status: Ordered glimepiride 4 mg oral tablet 1 tablet = 4 mg, By Mouth, 2 times a day, # 180 tablet, 3 Refills, Maintenance, 04/09/22 19:10:00 EDT, [facility], Partial fill upon patient [...] 3 Refills, Maintenance, 09/05/22 16:25:00 EDT, Tablet, [facility], Partial fill upon patient request if [...] 04/09/22 19:10:00 EDT, Route to Pharmacy Electronically, [facility], Partial fill upon patientrequest if the prescription is for a schedule II op... Start Date: 04/09/22 Stop Date: 04/04/23 Status: Ordered meloxicam 15 mg oral tablet 1 tablet = 15 mg, By Mouth, Daily, # 90 tablet, 1 Refills, Maintenance, 09/05/22 16:24:00 EDT, Tablet, [facility], Partial fill upon patient request if the prescription is for a schedule II opioid drug., 162, cm, 09/05/22 16:09:00 EDT, Height Start Date: 09/05/22 Stop Date: 03/04/23 Status: Ordered metFORMIN 500 mg oral tablet 2 tablet = 1,000 mg, By Mouth, 2 times a day, # 360 tablet, 3 Refills, Maintenance, 04/09/22 19:11:00 EDT, Tablet, [facility], Partial fill upon patient [...] 3 Refills, Maintenance, 06/21/22 11:59:00 EST, Tablet, [facility], Partial fill upon patient [...] Maintenance, 04/09/22 19:09:00 EDT, Tablet, [facility], Partial fill upon patient request if the [...] Team Personnel Name: Ioana Larry NP Position: [facility] Associate Professional Member Role: PCP Address: Address: [address] [place] [address]- Care Team Related Persons Name: EDUARDO GLASGOW Name: DANIEL LOZANO Address: [address] [address]
[2023-04-18 10:45] LABS: Glucose, Whole Blood 177 mg/dL (60-115)
[2023-04-18] MEDS: Lactated Ringers 1,000 ML 100 ML IVCONT (10:59)
--- NOTE | 2023-04-18 11:56 | P.HPSUR_ITS ---
Pre-Procedural Eval Section A Date of Service: 04/18/23 The patient is an INPATIENT: No Changes since office visit: Yes Patient answered all questions The History & Physical has been completed within 30 days and I have reviewed it.: No Section B Chief Complaint: Postlaminectomy syndrome,Radiculopathy, lumbar reg Details of Present Illness: as above Relevant Family History (Specify if Yes): No Relevant Social History: None Present Medications: see Short Stay Collaborative assessment Medical History: No relevant PMH History of Previous Operations: No relevant previous surgery Allergies: Allergies Allergy/AdvReac Type Severity Reaction Status Date / Time No Known Allergies Allergy Mild NONE Verified 03/29/23 10:13 Review of Systems Sugical H&P ROS: Negative: Constitution, Cardiovascular, Respiratory, Neurological, Psychiatric, Hem-Onc, Allergic/Immunologic, Gastrointestinal, Genitourinary, Integumentary, Endocrine and Eyes/Ears/Nose/Throat and Yes, Speci fy: Musculoskeletal (postlaminectomy syndrome) Exam Surgical H&P Exam: Normal: HEENT, Normal: Heart, Normal: Lungs, Normal: Extremities, Normal: Abdomen, Normal: Skin and Normal: Neurological Plan Diagnosis/Plan: Unchanged I have reviewed the history and physical and performed a pertinent physical examination on my patient. No changes have occurred unless specified. Time Spent With Patient Time: Total time managing care of this patient today __5__ minutes.
--- NOTE | 2023-04-18 12:03 | PC.NURSE ---
old scar on back from surgery
--- NOTE | 2023-04-18 12:11 | P.OP_ITS ---
Operative Note Operative Note Date of Service: 04/18/23 Narrative: caudal epidural steroid injection with catheter. Informed consent was explained to the patient. All questions were explained and answered. The patient was taken inside of the operating room where he was po sitioned prone on operating table.. Time-out was performed delineating patient's name and date of , correct site, side, the nature of the procedure, patient's allergy, preoperative antibiotic if needed, need for VT prophylaxis.. All operating room staff was participating in OR time-out procedure. time-out was performed, [employer] monitors were applied and patient was deeply sedated. The lower back upper buttocks and intergluteal crease were prepped with ChloraPrep and draped with sterile adhesive utility towels. C-arm was brought of the operating field and picture of patient's pelvis was demonstrated on the screen. The symphys pubis was superimposed on midline sacral bone. The sacral hiatus was chosen as the target of the injection. 2.cm below the level of the sacral hiatus 18 gauge 10 cm Touhy needle was inserted through the skin wheal which was previously raised with 1% lidocaine. The needle advanced to were the sacral hiatus and caudal canal under intermittent anterior posterior and lateral views. When needle entered the sacral canal injection of the contrast was performed demonstrating epidural space. After that 22 gauge Epidural catheter was inserted through the needle and was advanced into caudal canal and ventrally into the lumbar epidural space approximately at S1 projection. Injection of the contrast was performed demonstrating contrast in the anterior epidural space. After that 30 mL of preservative-free normal saline was injected into the catheter. After that lidocaine preservative-free 1% 5cc mixed with Kenalog 40 mg was injected into the catheter. Upon completion of this injection the needle was withdrawn with catheter en mass, the tip of the catheter was intact. The dressing 4 x 4 with bacitracin was applied to the area of the needle insertion, the patient was awaken, taken outside to the operating room to recovery room where he recovered uneventfully.
[2023-04-18 12:50] VITALS: BP 129/71; PULSE 62; RESP 12; TEMP 36.5; O2SAT 95
--- NOTE | 2023-04-18 12:54 | PM.OP ---
Brief Operative Note Date of Service: 04/18/23 Pre-op diagnosis: postlaminectomy syndrome Post-op diagnosis: same Procedure: Caudal ARGENIS with catheter, Implants: none Surgeon: Dheeraj Abdul MD Anesthesia: MAC Was an Computer Systems Auditor used for this Procedure?: No Estimated blood loss (mL): 0 Condition: stable Disposition: PACU
[2023-04-18 13:05] VITALS: BP 128/78; PULSE 67; RESP 16; TEMP 36.5; O2SAT 97
[2023-04-18 13:20] VITALS: BP 134/78; PULSE 62; RESP 16; TEMP 36.4; O2SAT 98
== END 2023-04-18 13:51 | disposition home or self-care (01) ==
PROVIDERS: PCP Nurse Practitioner Family; Visit Provider Anesthesiology
PROC: 3E0R3GC Introduction of Other Therapeutic Substance into Spinal Canal, Percutaneous Approach (ICD-10-PCS; CPT 62322; principal; 2023-04-18 12:20)
DX: M54.16 Radiculopathy, lumbar region (principal); M51.36 Other intervertebral disc degeneration, lumbar region; M96.1 Postlaminectomy syndrome, not elsewhere classified; M54.50 Low back pain, unspecified; M47.812 Spondylosis without myelopathy or radiculopathy, cervical region; R26.81 Unsteadiness on feet; M21.371 Foot drop, right foot; I10 Essential (primary) hypertension; E78.2 Mixed hyperlipidemia; D64.9 Anemia, unspecified; E11.42 Type 2 diabetes mellitus with diabetic polyneuropathy; Z79.84 Long term (current) use of oral hypoglycemic drugs; Z99.89 Dependence on other enabling machines and devices; Z98.890 Other specified postprocedural states; Z87.891 Personal history of nicotine dependence
CPT/HCPCS: 62323; 82947; J3010; J3301; Q9967

== ENCOUNTER → 2023-04-18 10:29 | Outpatient (BNV) | payer MEDICARE, SELFPAY | PROVIDERS: PCP Nurse Practitioner Family; Visit Provider Anesthesiology | DX: M54.16 Radiculopathy, lumbar region (principal) | CPT/HCPCS: 62323 ==

== ENCOUNTER 2023-05-28 14:50 | Outpatient (AMB) | payer MEDICARE, SELFPAY ==
[2023-05-28 14:56] VITALS: BP 100/60; PULSE 86; RESP 14; O2SAT 98
--- NOTE | 2023-05-28 14:56 | MHC.OFFVIS ---
Intake Vital Signs 05/28/23 14:56 Height 5 ft 2 in Weight 164 lb 2 oz BMI 30.0 BP 100/60 Blood Pressure Location Lt brachial Position Sitting Respiration 14 Pulse 86 Pulse Source Pulse Oximeter Pulse Oximetry (%) 98 Oxygen Delivery Method Room Air Intake Visit Reasons: s/p Caudal ARGENIS w/ Cath 04/18/23/confirmed Special Day Class Teacher Required: Yes Special Day Class Teacher Language: Cane Splicer Name: Daughter Allergies No Known Allergies Allergy (Mild, Verified 05/28/23 14:56) NONE HPI HPI Comments History of Present Illness Details Patient presents today to assess response to Caudal Epidural Steroid Injection with catheter on 04/18/[address] Abdul. Patient reports 20% pain relief since injection with mild improvement in his right lower extremity and mobility but no pain relief in his back. Patient reports he would like to proceed with Spinal Cord Stimulation trial as next steps for a longer-term pain relief. Behavioral evaluation is pending, patient awaiting to hear from [facility] provider. He rates his pain at 4/10 today and states he took meloxicam and gabapentin. Denies any bladder or bowel dysfunction or saddle anesthesia. Past Procedures: 04/18/23: Caudal ARGENIS with catheter- 20% pain relief 02/19/23: Right L5-S1 TFESI- no pain relief PRIOR: Patient presents today to follow up regarding Right L5-S1 TFESI on 02/19/[address] Abdul. Unfortunately, injection was attempted but due to significant cement like scar tissue in the projection of the L5- S1 foramina and advancement of needle was impossible per Dr. Abdul's procedure notes. This was discussed today with patient and his family. Patient continues to reports low back pain that radiates into his right buttock and right leg with associated numbness, tingling and chronic weakness. He is interested to undergo Caudal ARGENIS with catheter under sedation to alleviate his pain. Denies any bladder or bowel dysfunction or saddle anesthesia. Reports right lower extremity weakness, ambulates with cane. We also returned to the topic of neuromodulation for a longer term management of his post laminectomy syndrome and diabetic peripheral neuropathy with Nevro. Patient reports he reviewed informational pamphlets at home and with his family and would like to proceed with Behavioral Evaluation. PRIOR: Patient is a pleasant 72 years old Belarusian speaking male with prior history of back surgery which involved extensive lumbar fusion with complications related to surgery in [place] (posterior lumbar fusion with laminectomy from L2 to L5 levels, 2016 [place]) and more recently L5 decompression by Dr. Menjivar in August 2022, presents today for initial evaluation of low back pain with bilateral leg pain. He had follow up with [facility] months ago and was referred to us for potential spinal cord stimulator in the setting of chronic nerve injury and neuropathic pain which has been chronic for him for 6 years. Patient has chronic right foot drop with weakness and wears AFO brace. He presents with axial low back pain and radiating posteriorly bilateral lower extremity pain with associated numbness, aching, and tingling in both legs and feet. Meloxicam and gabapentin have not been effective. He was recently seen by [facility] on 12/10/22 and has been scheduled for right L5-S1 TFESI. He reports his diabetes is managed well with most recent A1C known at 6.9 per patient. Patient ambulates with slow, antalgic gait and at times drags his right foot. Reports bilateral lower extremity weakness with reports of persistent numbness in his buttocks and lateral/posterior legs and feet, worse on the right. Patient also reports neck and mid back pain. Uses cane with ambulation. [facility] Medical History Myocardial infarction CAD (coronary artery disease) Mixed hyperlipidemia Radiculopathy Nasal congestion Diabetes type 2, controlled Unsteady gait Low back pain Fatty liver Hypertension Anemia Surgical History Hx of heart artery stent Hx of decompressive lumbar laminectomy History of lumbar fusion History of hernia repair Social History Patient Tobacco Use Status: Former Tobacco user Review of Systems Const All systems reviewed & are unremarkable except as noted in HPI and below Reports as per HPI, Denies body aches, Denies chills, Reports difficulty sleeping, Denies fever(s), Denies night sweats and Denies weight loss Physical Exam Vital Signs: Last Vital Signs Pulse 86 05/28/23 14:56 Resp 14 05/28/23 14:56 BP 100/60 05/28/23 14:56 Pulse Ox 98 05/28/23 14:56 Oxygen Delivery Method Room Air 05/28/23 14:56 BMI result Body Mass Index 30.0 General: Appears afebrile. Alert and oriented. Mood and affect appropriate. Follows and participates in conversation appropriately. Respiratory effort is unlabored. No cough. Able to transition from sit to stand with assistance. Ambulates with cane. Right foot in AFO brace. Back/Spine/Pelvis Cervical Spine: cervical muscular tenderness and No Cervical spine tenderness Thoracic/Lumbar Spine: thoracic and lumbar spine normal to inspection, Thoracic/lumbar spine scar(s), Lasegue's sign positive on the right and localized, pain with thoraco-lumbar ROM, paraspinal muscle tenderness, thoraco-lumbar ROM limited, Thoracic/lumbar scoliosis, No thoracic spinal tenderness and lumbar spinal tenderness Pelvis: buttock tenderness on the right Assessment & Plan Assessment & Plan (1) Cervical spondylosis: Code(s): M47.812 - Spondylosis without myelopathy or radiculopathy, cervical region (2) Post laminectomy syndrome: Code(s): M96.1 - Postlaminectomy syndrome, not elsewhere classified (3) Lumbar degenerative disc disease: Code(s): M51.36 - Other intervertebral disc degeneration, lumbar region (4) Lumbar radicular pain: Code(s): M54.16 - Radiculopathy, lumbar region Plan Patient is status post Caudal ARGENIS with catheter on 04/18/23 for right sided radiculopathy pain with minimal pain relief. He is awaiting to undergo Behavioral evaluation through [facility] for potential lumbar SCS trial for post laminectomy syndrome. Patient and his family report they have reviewed informational booklets on SCS trial and implant and have no further questions at this time. Will proceed with Nevro HFX trial pending psychology clearance.?Follow up after behavioral evaluation and sooner if needed. Coding Level of Care Code Est Pt Level 3 (23607) Diagnoses Cervical spondylosis M47.812 Post laminectomy syndrome M96.1 Lumbar degenerative disc disease M51.36 Lumbar radicular pain M54.16
== END 2023-05-28 15:12 | disposition home or self-care (01) ==
PROVIDERS: PCP Nurse Practitioner Family; Visit Provider Nurse Practitioner Family
DX: M47.26 Other spondylosis with radiculopathy, lumbar region (principal); M96.1 Postlaminectomy syndrome, not elsewhere classified; M51.36 Other intervertebral disc degeneration, lumbar region
CPT/HCPCS: 99213

== ENCOUNTER → 2023-05-28 14:50 | Outpatient (BNVA) | payer MEDICARE, SELFPAY | PROVIDERS: PCP Nurse Practitioner Family; Visit Provider Nurse Practitioner Family | DX: M47.812 Spondylosis without myelopathy or radiculopathy, cervical region (principal); M96.1 Postlaminectomy syndrome, not elsewhere classified; M51.36 Other intervertebral disc degeneration, lumbar region; M54.16 Radiculopathy, lumbar region | CPT/HCPCS: 99212 ==

== ENCOUNTER 2023-11-08 08:51 | Day surgery (SDC) | payer MEDICARE, MEDICAID, SELFPAY ==
--- NOTE | 2023-11-06 14:13 | HO.ANESPROP2 ---
Documented by User: Estella Mead NP 11/07/23 10:10 HPI - Anesthesia Eval Consult details Narrative: 73yo M for Spinal Cord Stimulation Trial s/p Caudal Epidural Steroid Injection with catheter 03/2023 with MAC Follows [facility] cardiology for CAD s/p DC 2009 s/p LAD stent / angioplasty to PDA 2020. Last seen 10/2023. BP meds stoppped d/t hypotension during hospital admission 08/2023. BP has remained WNL. 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 (Acute) Past Medical History Medical History Myocardial infarction CAD (coronary artery disease) Mixed hyperlipidemia Radiculopathy Nasal congestion Diabetes type 2, controlled Unsteady gait Low back pain Fatty liver Hypertension Anemia Family History Family history of problems with anesthesia: No Surgical History Surgical History Hx of heart artery stent Hx of decompressive lumbar laminectomy History of lumbar fusion History of hernia repair History of Problems with Anesthesia: No Social History Social History Patient Tobacco Use Status: Former Tobacco user Use of substances other than those prescribed or required for medical reasons: No Are you DNR?: No Advance Directives: No Advance Directives Information Provided: Yes Meds Allergies Allergy/AdvReac Type Severity Reaction Status Date / Time No Known Allergies Allergy Mild NONE Verified 11/08/23 09:04 Home Medications ?Medication ?Instructions ?Recorded ?Confirmed ?Last Taken ?Type aspirin 81 mg tablet,delayed 81 mg PO DAILY 12/14/22 04/15/23 04/10/23 History release carvedilol 25 mg tablet 25 mg PO BID 12/14/22 04/15/23 04/18/23 History doxazosin 4 mg tablet 4 mg PO DAILY 12/14/22 04/15/23 Unknown History ezetimibe 10 mg tablet 10 mg PO DAILY 12/14/22 Unknown History furosemide 20 mg tablet 20 mg PO DAILY PRN 12/14/22 Unknown History glimepiride 4 mg tablet 4 mg PO BID 12/14/22 04/15/23 Unknown History isosorbide mononitrate 30 mg 30 mg PO QAM 12/14/22 04/15/23 04/18/23 History tablet,extended release 24 hr lisinopril 20 1 tab PO DAILY 12/14/22 04/15/23 Unknown History mg-hydrochlorothiazide 25 mg tablet meloxicam 15 mg tablet 15 mg PO DAILY 12/14/22 04/15/23 Unknown History metformin 500 mg tablet 1,000 mg PO BID 12/14/22 04/15/23 Unknown History sulfamethoxazole 800 1 tab PO BID 12/14/22 Unknown History mg-trimethoprim 160 mg tablet amlodipine 10 mg tablet 10 mg PO DAILY 04/15/23 04/15/23 Unknown History gabapentin 400 mg capsule 400 mg PO BID 04/15/23 04/15/23 Unknown History glimepiride 4 mg tablet 4 mg PO BID 04/15/23 04/15/23 Unknown History rosuvastatin 40 mg tablet 40 mg PO DAILY 04/15/23 04/15/23 Unknown History trazodone 50 mg tablet 50 mg PO BEDTIME 04/15/23 04/15/23 Unknown History Exam Pertinent Lab Results Pertinent Lab Results: Labs from outside facility 04/11/23 CBC WNL except low H&H BMP WNL Narrative Narrative: EKG 08/2023 SB @ 50 RBBB LAFB Bifasicular block ECHO 06/2022 LV nml in size, wall thickness, and systolic function. EF 55-60% RV nml in size and function No significant valve disease Carotid US 06/2022 1-49% stenosis bilat Assessment and Plan Assessment Anesthesia Assessment: Chart Reviewed Final Anesthetic Review Family History of Problems with Anesthesia: No History of Problems with Anesthesia: No Documented by User: Osbaldo Vega MD 11/08/23 10:18 [facility] Past Medical History Medical History Myocardial infarction CAD (coronary artery disease) Mixed hyperlipidemia Radiculopathy Nasal congestion Diabetes type 2, controlled Unsteady gait Low back pain Fatty liver Hypertension Anemia Surgical History Surgical History Hx of heart artery stent Hx of decompressive lumbar laminectomy History of lumbar fusion History of hernia repair Social History Social History Patient Tobacco Use Status: Former Tobacco user Use of substances other than those prescribed or required for medical reasons: No Are you DNR?: No Advance Directives: No Advance Directives Information Provided: Yes Meds Allergies Allergy/AdvReac Type Severity Reaction Status Date / Time No Known Allergies Allergy Mild NONE Verified 11/08/23 09:04 Home Medications ?Medication ?Instructions ?Recorded ?Confirmed ?Last Taken ?Type aspirin 81 mg tablet,delayed 81 mg PO DAILY 12/14/22 04/15/23 04/10/23 History release carvedilol 25 mg tablet 25 mg PO BID 12/14/22 04/15/23 04/18/23 History doxazosin 4 mg tablet 4 mg PO DAILY 12/14/22 04/15/23 Unknown History ezetimibe 10 mg tablet 10 mg PO DAILY 12/14/22 Unknown History furosemide 20 mg tablet 20 mg PO DAILY PRN 12/14/22 Unknown History glimepiride 4 mg tablet 4 mg PO BID 12/14/22 04/15/23 Unknown History isosorbide mononitrate 30 mg 30 mg PO QAM 12/14/22 04/15/23 04/18/23 History tablet,extended release 24 hr lisinopril 20 1 tab PO DAILY 12/14/22 04/15/23 Unknown History mg-hydrochlorothiazide 25 mg tablet meloxicam 15 mg tablet 15 mg PO DAILY 12/14/22 04/15/23 Unknown History metformin 500 mg tablet 1,000 mg PO BID 12/14/22 04/15/23 Unknown History sulfamethoxazole 800 1 tab PO BID 12/14/22 Unknown History mg-trimethoprim 160 mg tablet amlodipine 10 mg tablet 10 mg PO DAILY 04/15/23 04/15/23 Unknown History gabapentin 400 mg capsule 400 mg PO BID 04/15/23 04/15/23 Unknown History glimepiride 4 mg tablet 4 mg PO BID 04/15/23 04/15/23 Unknown History rosuvastatin 40 mg tablet 40 mg PO DAILY 04/15/23 04/15/23 Unknown History trazodone 50 mg tablet 50 mg PO BEDTIME 04/15/23 04/15/23 Unknown History Exam Airway Mallampati Class: II TM Dist: >3cm Neck ROM: Full Loose/Missing/Broken Teeth: No Heart: rrr Lungs: cta Assessment and Plan Final Anesthetic Review NPO: Yes ASA Class: III Final Preanesthetic Review: No Changes in Pt Med Stat, Meds/Allgs Chart Reviewed, Consent Obtained/Reviewed and Anes Risks/Benef Reviewed Patient Risk: Intermediate Procedure Risk: Low Anesthetic Plan Anesthetic Plan: MAC: Disposition: Standard PACU
--- NOTE | ~2023-11-08 | FL_ITS ---
EXAMINATION: XR FLUOROSCOPY WITH IMAGES CLINICAL INFORMATION: Spinal cord stimulation trial. COMPARISON: None available. TECHNIQUE: Fluoroscopy Supervised By: Dr. Dheeraj Abdul. Fluoroscopy Time: 3.4 minutes. Cumulative Dose: 66.8 mGy. DAP: 18.1 Gycm2. Images: 7. FINDINGS: Intraoperative fluoroscopy and spot films were performed during a procedure in the OR. Sequential images demonstrate placement of spinal stimulator leads which appear to have their tips at the top of T8 and the top of T9. Lower lumbar fixation hardware is partially visualized. Please see Dr. Dheeraj Abdul's report for complete details. FL/FL guidance in OR IMPRESSION: Intraoperative fluoroscopy and spot films were obtained. Please see Dr. Dheeraj Abdul's report for complete details.
--- OUTSIDE RECORDS SUMMARY | 2023-11-08 08:53 | XMS_ITS | Continuity of Care Document ---
Author Organization [facility] Adult Address [address] [place] [address]- Care Team Providers Care Milieu Coordinator Name Role Phone Laron FLORIAN, Ioana Reilly Primary Care Physician Encounter [place] Date(s): 03/25/23 - 04/24/23 [facility] [address] [place] [address]- Allergies, Adverse Reactions, Alerts No Known Allergies Immunizations Given and Recorded Vaccine Date Status Refusal Reason SARS-CoV-2 (COVID-19) mRNA BNT-162b2 vac 04/24/21 Recorded pneumococcal 23-valent vaccine 04/23/01 Recorded Medications aspirin 81 mg oral delayed release tablet 1 tablet = 81 mg, By Mouth, Daily, # 90 tablet, 3 Refills, Maintenance, 04/09/22 19:08:00 EDT, CR Tablet, [facility], Partial fill upon patient request if the prescription is for a schedule II opioid drug., 162, cm, 04/09/22 16:12:00 EDT, H... Start Date: 04/09/22 Stop Date: 04/04/23 Status: Ordered carvedilol 25 mg oral tablet 25 mg, 1, tablet, By Mouth, 2 times a day, # 180 tablet, Refills 3, Tot. Refills 3, Maintenance, 04/09/22 19:08:00 EDT, Route to Pharmacy Electronically, [facility], Partial fill upon patient request if the prescription is for a schedule II... Start Date: 04/09/22 Stop Date: 04/04/23 Status: Ordered doxazosin 4 mg oral tablet 1 tablet, By Mouth, Daily, # 90 tablet, 0 Refills, Maintenance, 02/11/23 7:39:00 EDT, [facility], 162, cm, 05/30/23 12:28:00 EDT, Height Start Date: 02/11/23 Stop Date: 05/12/23 Status: Ordered ezetimibe 10 mg oral tablet 1 tablet, By Mouth, Daily, # 90 tablet, 0 Refills, Maintenance, 02/11/23 7:38:00 EDT, [facility], 162, cm, 11/20/22 12:28:00 EDT, Height Start Date: 02/11/23 Stop Date: 05/12/23 Status: Ordered ferrous sulfate 325 mg oral enteric coated tablet 325 mg, 1, tablet, By Mouth, Daily, # 30 tablet, Refills 3, Tot. Refills 3, Maintenance, 04/18/23 10:05:00 EDT, Route to Pharmacy Electronically, [facility], Partial fill upon patient request if the prescription is for a schedule II opioid... Start Date: 04/18/23 Status: Ordered Flonase 50 mcg/inh nasal spray 1 sprays, Nares, Both, 2 times a day, # 16 Gm, 0 Refills, Maintenance, 06/05/22 12:05:00 EST, [place], [facility], Partial fill upon patient [...] Date: 09/05/22 Stop Date: 06/02/23 Status: Ordered gabapentin 400 mg oral capsule 400 mg, 1, capsule, By Mouth, 3 times a day, # 90 capsule, Refills 3, Tot. Refills 3, Maintenance, 04/16/23 11:27:00 EDT, Route to Pharmacy Electronically, [facility], Partial fill upon patient request if the prescription is for a schedule... Start Date: 04/16/23 Stop Date: 08/14/23 Status: Ordered glimepiride 4 mg oral tablet 1 tablet, By Mouth, 2 times a day, # 180 tablet, 0 Refills, Maintenance, 02/11/23 7:38:00 EDT, [facility], 162, cm, 11/20/22 12:28:00 EDT, Height Start Date: 02/11/23 Status: Ordered Home Blood Pressure Monitor See Instructions, # 1 each, Maintenance, DX: Hypertension, 06/06/22 12:29:00 EST, Supply Start Date: 06/06/22 Status: Ordered hydrochlorothiazide-lisinopril 25 mg-20 mg oral tablet 1 tablet, By Mouth, Daily, # 90 tablet, 3 Refills, Maintenance, 09/05/22 16:25:00 EDT, Tablet, [facility], Partial fill upon patient request if the prescription is for a schedule II opioiddrug., 1 tablet By Mouth Daily,x90 days, 162, cm, 0... Start Date: 09/05/22 Stop Date: 08/31/23 Status: Ordered isosorbide mononitrate 30 mg oral tablet, extended release 1 tablet, By Mouth, Daily in AM, # 90 tablet, 0 Refills, Maintenance, 02/11/23 7:37:00 EDT, [facility], 162, cm, 11/20/22 12:28:00 EDT, Height Start Date: 02/11/23 Stop Date: 05/12/23 Status: Ordered meloxicam 15 mg oral tablet 1 tablet, By Mouth, Daily, # 90 tablet, 0 Refills, Maintenance, 03/15/23 12:40:00 EDT, [facility], 162, cm, 03/08/23 12:38:00 EDT, Height Start Date: 03/15/23 Stop Date: 06/13/23 Status: Ordered metFORMIN 500 mg oral tablet 2 tablet, By Mouth, 2 times a day, # 360 tablet, 0 Refills, Maintenance, 02/11/23 7:36:00 EDT, [facility], 162, cm, 11/20/22 12:28:00 [...] Stop 06/16/23 11:59:00EST, 06/21/22 11:59:00 EST, Tablet, [facility], Partial fill upon patient request if theprescription is for a schedule II opioid drug., 162... Start Date: 06/21/22 Stop Date: 06/16/23 Status: Ordered traZODone 50 mg oral tablet 50 mg, 1, tablet, By Mouth, Daily at bedtime, # 90 tablet, Refills 1, Tot. Refills 1, Maintenance, 04/16/23 11:21:00 EDT, Route to Pharmacy Electronically, [facility], Partial fill upon patient request if the prescription is for a schedule... Start Date: 04/16/23 Stop Date: 10/13/23 Status: Ordered Walker See Instructions, # 1 [...] right leg Confirmed Active Radiculopathy Confirmed Active Medicare annual wellness visit, subsequent Confirmed Active Peripheral neuropathy Confirmed Active Shoulder pain, right Confirmed Active Type 2 diabetes mellitus Confirmed Active Social History Social History Type Response Smoking Status Never (less than 100 in lifetime) entered on: 04/09/22 Sex Patient Care team information Care Team Personnel Name: Ioana Larry NP Position: [facility] PCO Associate Professional Member Role: PCP Address: Address: [address] [place] [address] [address] [place] [address]- Care Team Related Persons Name: EDUARDO GLASGOW Name: DANIEL LOZANO Address: [address] [address]
--- OUTSIDE RECORDS SUMMARY | 2023-11-08 08:53 | XMS_ITS | Continuity of Care Document ---
Author Organization [facility] Address [address] [place] [address]- Care Team Providers Care Professor Of Genetics Name Role Phone Don FLORIAN, Ioana Primary Care Physician Encounter [facility] [place] Date(s): 08/05/23 - 09/04/23 [facility] [address], [place] [address] Attending Physician: Ruth Noel Admitting Physician: AdmtrRuth Referring Physician: Admtr, Ruth Allergies, Adverse Reactions, Alerts No Known Allergies Immunizations Given and Recorded Vaccine Date Status Refusal Reason SARS-CoV-2 (COVID-19) mRNA BNT-162b2 vac 04/24/21 Recorded pneumococcal 23-valent vaccine 04/23/01 Recorded Medications aspirin 81 mg oral delayed release tablet 1 tablet = 81 mg, By Mouth, Daily, # 90 tablet, 3 Refills, Maintenance, 05/30/23 12:11:00 EST, CR Tablet, [facility], Partial fill upon patient request if the prescription is for a schedule II opioid drug., 160, cm, 05/30/23 11:24:00 EST, H... Start Date: 05/30/23 Stop Date: 05/24/24 Status: Ordered carvedilol 25 mg oral tablet 1, tablet, By Mouth, 2 times a day, # 180 tablet, Refills 1, Tot. Refills 1, Maintenance, 05/30/23 12:11:00 EST, Route to Pharmacy Electronically, [facility], 160, cm, 05/30/23 11:24:00 EST, Height, 79.5, kg, 05/15/23 18:59:00 EST, Dry Weight Start Date: 05/30/23 Status: Ordered doxazosin 4 mg oral tablet 1 tablet, By Mouth, Daily, # 90 tablet, 0 Refills, Maintenance, 05/30/23 12:11:00 EST, [facility], 160, cm, 05/30/23 11:24:00 EST, Height, 79.5, kg, 05/15/23 18:59:00 EST, Dry Weight Start Date: 05/30/23 Stop Date: 08/28/23 Status: Ordered ezetimibe 10 mg oral tablet 1 tablet, By Mouth, Daily, # 90 tablet, 0 Refills, Maintenance, 05/30/23 12:11:00 EST, [facility], 160, cm, 05/30/23 11:24:00 EST, Height, 79.5, kg, 05/15/23 18:59:00 EST, Dry Weight Start Date: 05/30/23 Stop Date: 08/28/23 Status: Ordered Farxiga 5 mg oral tablet 1 tablet = 5 mg, By Mouth, Daily, # 30 tablet, 3 Refills, Maintenance, 08/29/23 14:27:00 EST, Tablet, [facility], Partial fill upon patient request if the prescription is for a schedule IIopioid drug., 160, cm, 08/29/23 14:01:00 EST, Heigh... Start Date: 08/29/23 Status: Ordered ferrous sulfate 325 mg oral enteric coated tablet 325 mg, 1, tablet, By Mouth, Daily, # 30 tablet, Refills 3, Tot. Refills 3, Maintenance, 05/30/23 12:12:00 EST, Route to Pharmacy Electronically, [facility], Partial fill upon patient request if the prescription is for a schedule II opioid... Start Date: 05/30/23 Status: Ordered Flonase 50 mcg/inh nasal spray 1 sprays, Nares, Both, 2 times a day, # 16 Gm, 0 Refills, Maintenance, 06/05/22 12:05:00 EST, [place], [facility], Partial fill upon patient request if [...] Freestyle Lite Test Strips See Instructions, # 100 each, Refills 5, Tot. Refills 5, Maintenance, use as directed to check blood once daily for Type 2 Diabetes Mellitus E11.9, 07/15/23 14:29:00 EST, Supply, 160, cm, 05/30/23 11:24:00 EST, Height, 79.5, kg, 05/15/23 18:59:00 EST,... Start Date: 07/15/23 Stop Date: 01/05/25 Status: Ordered gabapentin 400 mg oral capsule 400 mg, 1, capsule, By Mouth, 3 times a day, # 90 capsule, Refills 3, Tot. Refills 3, Maintenance, 05/30/23 12:12:00 EST, Route to Pharmacy Electronically, [facility], Partial fill upon patient request if the prescription is for a schedule... Start Date: 05/30/23 Stop Date: 09/27/23 Status: Ordered glimepiride 4 mg oral tablet 1 tablet, By Mouth, 2 times a day, # 180 tablet, 0 Refills, Maintenance, 05/30/23 12:12:00 EST, [facility], 160, cm, 05/30/23 11:24:00 EST, Height, 79.5, kg, 05/15/23 18:59:00 EST, Dry Weight Start Date: 05/30/23 Status: Ordered Home Blood Pressure Monitor See Instructions, # 1 each, Maintenance, DX: Hypertension, 06/06/22 12:29:00 EST, Supply Start Date: 06/06/22 Status: Ordered hydrochlorothiazide-lisinopril 25 mg-20 mg oral tablet 1 tablet, By Mouth, Daily, # 90 tablet, 3 Refills, Maintenance, 05/30/23 12:12:00 EST, Tablet, [facility], Partial fill upon patient request if the prescription is for a schedule II opioiddrug., 1 tablet By Mouth Daily,x90 days, 160, cm, 1... Start Date: 05/30/23 Stop Date: 05/24/24 Status: Ordered isosorbide mononitrate 30 mg oral tablet, extended release 1 tablet, By Mouth, Daily in AM, # 90 tablet, 0 Refills, Maintenance, 05/30/23 12:12:00 EST, [facility], 160, cm, 05/30/23 11:24:00 EST, Height, 79.5, kg, 05/15/23 18:59:00 EST, Dry Weight Start Date: 05/30/23 Stop Date: 08/28/23 Status: Ordered meloxicam 15 mg oral tablet 1 tablet, By Mouth, Daily, # 90 tablet, 0 Refills, Maintenance, 05/30/23 12:12:00 EST, [facility], 160, cm, 05/30/23 11:24:00 EST, Height, 79.5, kg, 05/15/23 18:59:00 EST, Dry Weight Start Date: 05/30/23 Stop Date: 08/28/23 Status: Ordered metFORMIN 500 mg oral tablet 2 tablet, By Mouth, 2 times a day, # 360 tablet, 0 Refills, Maintenance, 05/30/23 12:12:00 EST, [facility], 160, cm, 05/30/23 11:24:00 EST, Height, 79.5, kg, 05/15/23 18:59:00 EST, Dry Weight Start Date: 05/30/23 Status: Ordered R toe off AFO R [...] # 90 tablet, 3 Refills, Hard Stop 05/24/24 12:12:00EST, 05/30/23 12:12:00 EST, Tablet, [facility], Partial fill upon patient request if theprescription is for a schedule II opioid drug., 160... Start Date: 05/30/23 Stop Date: 05/24/24 Status: Ordered traZODone 50 mg oral tablet 50 mg, 1, tablet, By Mouth, Daily at bedtime, # 90 tablet, Refills 1, Tot. Refills 1, Maintenance, 05/30/23 12:12:00 EST, Route to Pharmacy Electronically, [facility], Partial fill upon patient request if the prescription is for a schedule... Start Date: 05/30/23 Stop Date: 11/26/23 Status: Ordered Walker See Instructions, # 1 [...] Active Type 2 diabetes mellitus Confirmed Active Chronic venous hypertension (idiopathic) with other complications of right lower extremity Confirmed Active Chronic venous hypertension (idiopathic) with other complications of left lower extremity Confirmed Active Social History Social History Type Response Smoking Status Never (less than 100 in lifetime) entered on: 04/09/22 Sex Patient Care team information Care Team Personnel Name: Ioana Ochoa NP Position: S PCO Associate Professional Member Role: PCP Address: Address: [address] [facility] [address] [place] [address]- Care Team Related Persons Name: EDUARDO GLASGOW Name: DANIEL LOZANO Address: home [address] [place] [address]
--- OUTSIDE RECORDS SUMMARY | 2023-11-08 08:53 | XMS_ITS | Continuity of Care Document ---
Author Organization [facility] Address [address] [place] [address]- Care Team Providers Care Oil Rig Roughneck Name Role Phone Don FLORIAN, Ioana Primary Care Physician [phone] Encounter [facility] [place] Date(s): 06/06/23 - 07/06/23 [facility] [address] [place] [id number]- Allergies, Adverse Reactions, Alerts No Known Allergies Immunizations Given and Recorded Vaccine Date Status Refusal Reason SARS-CoV-2 (COVID-19) mRNA BNT-162b2 vac 04/24/21 Recorded pneumococcal 23-valent vaccine 04/23/01 Recorded Medications aspirin 81 mg oral delayed release tablet 1 tablet = 81 mg, By Mouth, Daily, # 90 tablet, 3 Refills, Maintenance, 05/30/23 12:11:00 EST, CR Tablet, [facility], Partial fill upon patient request if the prescription is for a schedule II opioid drug., 160, cm, 05/30/23 11:24:00 EST, H... Start Date: 05/30/23 Stop Date: 05/24/24 Status: Ordered carvedilol 25 mg oral tablet 1, tablet, By Mouth, 2 times a day, # 180 tablet, Refills 1, Tot. Refills 1, Maintenance, 05/30/23 12:11:00 EST, Route to Pharmacy Electronically, [facility], 160, cm, 05/30/23 11:24:00 EST, Height, 79.5, kg, 05/15/23 18:59:00 EST, Dry Weight Start Date: 05/30/23 Status: Ordered doxazosin 4 mg oral tablet 1 tablet, By Mouth, Daily, # 90 tablet, 0 Refills, Maintenance, 05/30/23 12:11:00 EST, [facility], 160, cm, 05/30/23 11:24:00 EST, Height, 79.5, kg, 05/15/23 18:59:00 EST, Dry Weight Start Date: 05/30/23 Stop Date: 08/28/23 Status: Ordered ezetimibe 10 mg oral tablet 1 tablet, By Mouth, Daily, # 90 tablet, 0 Refills, Maintenance, 05/30/23 12:11:00 EST, [facility], 160, cm, 05/30/23 11:24:00 EST, Height, 79.5, kg, 05/15/23 18:59:00 EST, Dry Weight Start Date: 05/30/23 Stop Date: 08/28/23 Status: Ordered ferrous sulfate 325 mg oral enteric coated tablet 325 mg, 1, tablet, By Mouth, Daily, # 30 tablet, Refills 3, Tot. Refills 3, Maintenance, 05/30/23 12:12:00 EST, Route to Pharmacy Electronically, [facility], Partial fill upon patient request if the prescription is for a schedule II opioid... Start Date: 05/30/23 Status: Ordered Flonase 50 mcg/inh nasal spray 1 sprays, Nares, Both, 2 times a day, # 16 Gm, 0 Refills, Maintenance, 06/05/22 12:05:00 EST, [place], [facility], Partial fill upon patient [...] 05/30/23 12:12:00 EST, Route to Pharmacy Electronically, [facility], Partial fill upon patient request if the prescription is for a schedule... Start Date: 05/30/23 Stop Date: 09/27/23 Status: Ordered glimepiride 4 mg oral tablet 1 tablet, By Mouth, 2 times a day, # 180 tablet, 0 Refills, Maintenance, 05/30/23 12:12:00 EST, [facility], 160, cm, 05/30/23 11:24:00 EST, Height, 79.5, kg, 05/15/23 18:59:00 EST, Dry Weight Start Date: 05/30/23 Status: Ordered Home Blood Pressure Monitor See Instructions, # 1 each, Maintenance, DX: Hypertension, 06/06/22 12:29:00 EST, Supply Start Date: 06/06/22 Status: Ordered hydrochlorothiazide-lisinopril 25 mg-20 mg oral tablet 1 tablet, By Mouth, Daily, # 90 tablet, 3 Refills, Maintenance, 05/30/23 12:12:00 EST, Tablet, [facility], Partial fill upon patient request if the prescription is for a schedule II opioiddrug., 1 tablet By Mouth Daily,x90 days, 160, cm, 1... Start Date: 05/30/23 Stop Date: 05/24/24 Status: Ordered isosorbide mononitrate 30 mg oral tablet, extended release 1 tablet, By Mouth, Daily in AM, # 90 tablet, 0 Refills, Maintenance, 05/30/23 12:12:00 EST, [facility], 160, cm, 05/30/23 11:24:00 EST, Height, 79.5, kg, 05/15/23 18:59:00 EST, Dry Weight Start Date: 05/30/23 Stop Date: 08/28/23 Status: Ordered meloxicam 15 mg oral tablet 1 tablet, By Mouth, Daily, # 90 tablet, 0 Refills, Maintenance, 05/30/23 12:12:00 EST, [facility], 160, cm, 05/30/23 11:24:00 EST, Height, 79.5, kg, 05/15/23 18:59:00 EST, Dry Weight Start Date: 05/30/23 Stop Date: 08/28/23 Status: Ordered metFORMIN 500 mg oral tablet 2 tablet, By Mouth, 2 times a day, # 360 tablet, 0 Refills, Maintenance, 05/30/23 12:12:00 EST, [facility], 160, cm, 05/30/23 11:24:00 EST, [...] Stop 05/24/24 12:12:00EST, 05/30/23 12:12:00 EST, Tablet, [facility], Partial fill upon patient request if theprescription is for a schedule II opioid drug., 160... Start Date: 05/30/23 Stop Date: 05/24/24 Status: Ordered traZODone 50 mg oral tablet 50 mg, 1, tablet, By Mouth, Daily at bedtime, # 90 tablet, Refills 1, Tot. Refills 1, Maintenance, 05/30/23 12:12:00 EST, Route to Pharmacy Electronically, [facility], Partial fill upon patient request if the [...] Associate Professional Member Role: PCP Address: Address: [address] [place] [address] [address] [place] [address]- Care Team Related Persons Name: EDUARDO GLASGOW Name: DANIEL LOZANO Address: [address] [address]
--- OUTSIDE RECORDS SUMMARY | 2023-11-08 08:53 | XMS_ITS | Continuity of Care Document ---
Author Organization [facility] Adult Address [address] [place] [address]- Care Team Providers Care Stopboard Assembler Name Role Phone Ioana Ochoa NP Primary Care Physician Encounter [facility] [place] Date(s): 09/27/23 - 10/04/23 [facility] Adult [address] [place] [id number]- Encounter Diagnosis Chronic venous hypertension (idiopathic) with other complications of left lower extremity(Discharge Diagnosis) - 09/27/23 Hypertension(Discharge Diagnosis) - 09/27/23 Hypotension(Discharge Diagnosis) - 09/27/23 JENNIFER (acute kidney injury)(Discharge Diagnosis) - 09/27/23 Elevated liver enzymes(Discharge Diagnosis) - 09/27/23 Attending Physician: Lupe Quiroga NP Referring Physician: Ioana Ochoa NP Allergies, Adverse Reactions, Alerts No Known Allergies Immunizations Given and Recorded Vaccine Date Status Refusal Reason SARS-CoV-2 (COVID-19) mRNA BNT-162b2 vac 04/24/21 Recorded pneumococcal 23-valent vaccine 04/23/01 Recorded Medications aspirin 81 mg oral delayed release tablet 1 tablet = 81 mg, By Mouth, Daily, # 90 tablet, 3 Refills, Maintenance, 05/30/23 12:11:00 EST, CR Tablet, [facility], Partial fill upon patient request if the prescription is for a schedule II opioid drug., 160, cm, 05/30/23 11:24:00 EST, H... Start Date: 05/30/23 Stop Date: 05/24/24 Status: Ordered carvedilol 25 mg oral tablet 1, tablet, By Mouth, 2 times a day, # 180 tablet, Refills 1, Tot. Refills 1, Maintenance, 05/30/23 12:11:00 EST, Route to Pharmacy Electronically, [facility], 160, cm, 05/30/23 11:24:00 EST, Height, 79.5, kg, 05/15/23 18:59:00 EST, Dry Weight Start Date: 05/30/23 Status: Ordered Farxiga 5 mg oral tablet 1 tablet = 5 mg, By Mouth, Daily, # 30 tablet, 3 Refills, Maintenance, 08/29/23 14:27:00 EST, Tablet, [facility], Partial fill upon patient request if the prescription is for a schedule IIopioid drug., 160, cm, 08/29/23 14:01:00 EST, Heigh... Start Date: 08/29/23 Status: Ordered ferrous sulfate 325 mg oral enteric coated tablet 325 mg, 1, tablet, By Mouth, Daily, # 30 tablet, Refills 3, Tot. Refills 3, Maintenance, 05/30/23 12:12:00 EST, Route to Pharmacy Electronically, [facility], Partial fill upon patient request if the prescription is for a schedule II opioid... Start Date: 05/30/23 Status: Ordered Flonase 50 mcg/inh nasal spray 1 sprays, Nares, Both, 2 times a day, # 16 Gm, 0 Refills, Maintenance, 06/05/22 12:05:00 EST, [place], [facility], Partial fill upon patient request [...] 05/30/23 12:12:00 EST, Route to Pharmacy Electronically, [facility], Partial fill upon patient request if the prescription is for a schedule... Start Date: 05/30/23 Stop Date: 09/27/23 Status: Ordered glimepiride 4 mg oral tablet 1 tablet, By Mouth, 2 times a day, # 180 tablet, 0 Refills, Maintenance, 05/30/23 12:12:00 EST, [facility], 160, cm, 05/30/23 11:24:00 EST, Height, 79.5, kg, 05/15/23 18:59:00 EST, Dry Weight Start Date: 05/30/23 Status: Ordered Home Blood Pressure Monitor See Instructions, # 1 each, Maintenance, DX: Hypertension, 06/06/22 12:29:00 EST, Supply Start Date: 06/06/22 Status: Ordered isosorbide mononitrate 30 mg oral tablet, extended release 1 tablet, By Mouth, Daily in AM, # 90 tablet, 0 Refills, Maintenance, 05/30/23 12:12:00 EST, [facility], 160, cm, 05/30/23 11:24:00 EST, Height, 79.5, kg, 05/15/23 18:59:00 EST, Dry Weight Start Date: 05/30/23 Stop Date: 08/28/23 Status: Ordered metFORMIN 500 mg oral tablet 2 tablet, By Mouth, 2 times a day, # 360 tablet, 0 Refills, Maintenance, 05/30/23 12:12:00 EST, [facility], 160, cm, 05/30/23 11:24:00 EST, Height, 79.5, kg, 05/15/23 18:59:00 EST, Dry Weight Start Date: 05/30/23 Status: Ordered R toe off AFO R toe off AFO, See Instructions, # 1 each, Refills 0, Tot. Refills 0, Maintenance, Wear as directedby physical therapist, 06/22/22 13:48:00 EST, Supply, 162, cm, 06/21/22 12:10:00 EST, Height Start Date: 06/22/22 Status: Ordered Walker See Instructions, # 1 each, Maintenance, Dx: R26.81 unsteady gait, 06/06/22 12:27:00 EST, Supply Start Date: 06/06/22 Status: Ordered Wheelchair See Instructions, # 1 each, Maintenance, Dx: R26.81 unsteady gait, 06/06/22 12:27:00 EST, Supply Start Date: 06/06/22 Status: Ordered Zetia 10 mg oral tablet 1 tablet = 10 mg, By Mouth, Daily, # 30 tablet, 0 Refills, Maintenance, 09/18/23 18:56:00 EDT, Tablet, Partial fill upon patient request if the prescription is for a schedule II opioid drug. Start Date: 09/18/23 Status: Ordered Problem List Condition Confirmation Course Effective Dates Status H ealt Status Informant Unsteady gait Confirmed Active Anemia [...] complications of left lower extremity Confirmed Active Diagnosis Diagnosis Type Effective Dates Health Status Clinical Service Informant Chronic venous hypertension (idiopathic) with other complications of left lower extremity Discharge Diagnosis 09/27/23 Hypertension Discharge Diagnosis 09/27/23 Hypotension Discharge Diagnosis 09/27/23 JENNIFER (acute kidney injury) Discharge Diagnosis 09/27/23 Elevated liver enzymes Discharge Diagnosis 09/27/23 Vital Signs Most recent to oldest [Reference Range]: 1 Height 164 cm (09/27/23 10:11 AM) Weight 75.2 kg (09/27/23 10:11 AM) Oxygen Saturation [94-100 %] 98 % (09/27/23 10:11 AM) Pulse Rate [55-90 bpm] 80 bpm (09/27/23 10:11 AM) Body Mass Index [18.5-24.99 kg/m2] 27.96 kg/m2 *H* (09/27/23 10:11 AM) Blood Pressure [90-138/55-84 mm Hg] 121/ 69mm Hg (09/27/23 10:11 AM) Temperature [96.8-100.4 DegF] 98.3 DegF (09/27/23 10:11 AM) Mode of Delivery (Oxygen) Room air (09/27/23 10:11 AM) Blood pressure sites Arm, left (09/27/23 10:11 AM) Temperature Route Oral (09/27/23 10:11 AM) Weight Obtained Via Standing scale (09/27/23 10:11 AM) Social History Social History Type Response Smoking Status Never (less than 100 in lifetime) entered on: 09/18/23 Sex Note * Elisabteh Miles: PERFORM, SIGN, VERIFY Event Display: Patient Education/Instruction Authored Date: [id number] [facility] Clinical Summary Name CLEMENTINE SALAZAR Age 73 Years 1950 PCP Don TOP LIFT SCOURER, Ioana PCP Visit Date 09/27/2023 10:10:00 Additional Instructions: Scheduled Appointments?? Future Appointments ?*[place] ?[address]??[place],??[address] ?Phone:??[phone]?Fax:??-- ?Appt. Date:??10/24/2023?12:45 PM ?Scheduled Provider:??Liz FLORIAN, Marissa Davalos ?*[facility] ?[address] ?Phone:??[phone]?Fax:??-- ?Appt. Date:??11/29/2023?1:30 PM ?Scheduled Provider:??Ioana Ochoa NP Follow-Up Instructions ?? Diagnosis Medications: Please continue your medications until treatment is completed or stopped by your provider. Discuss any questions related to medications with your provider. Medications to Continue with No Changes These medications were not printed or sent to your pharmacy Aspirin (aspirin 81 mg oral delayed release tablet) 1 tab(s) Oral Daily for 90 Days. Refills: 3. Next Dose: Carvedilol (carvedilol 25 mg oral tablet) 1 tab(s) Oral twice a day. Refills: 1. Next Dose: dapagliflozin (Farxiga 5 mg oral tablet) 1 tab(s) Oral Daily. Refills: 3. Next Dose: Durable Medical Equipment (Freestyle Lite [...] for Type 2 Diabetes Mellitus E11.9. Refills: 5. Next Dose: Durable Medical Equipment (Home Blood Pressure Monitor) DX: Hypertension. Refills: 0. Next Dose: Durable Medical Equipment (R toe off AFO) Wear as directed by physical therapist. Refills: 0. Next Dose: Durable Medical Equipment (Walker) Dx: R26.81 unsteady gait. Refills: 0. Next Dose: Durable Medical Equipment (Wheelchair) Dx: R26.81 unsteady gait. Refills: 0. Next Dose: Ezetimibe (Zetia 10 mg oral tablet) 1 tab(s) Oral Daily. Next Dose: Ferrous Sulfate (ferrous sulfate 325 mg oral enteric coated tablet) 1 tab(s) Oral Daily. Refills: 3. Next Dose: Fluticasone Nasal (Flonase 50 mcg/inh nasal spray) 1 spray(s) Nares, Both twice a day for 30 Days. Refills: 0. Next Dose: Gabapentin (gabapentin 400 mg oral capsule) 1 capsule Oral 3 times a day for 30 Days. Refills: 3. Next Dose: Glimepiride (glimepiride 4 mg oral tablet) 1 tab(s) Oral twice a day. Refills: 0. Next Dose: Isosorbide Mononitrate (isosorbide mononitrate 30 mg oral tablet, extended release) 1 tab(s) Oral Daily in the morning for 90 Days. Refills: 0. Next Dose: Metformin (metFORMIN 500 mg oral tablet) 2 tab(s) Oral twice a day. Refills: 0. Next Dose: Allergy Info:?? NKA Medications Given This Visit Future Orders ?No future orders Future Orders ?No future orders Vital Signs Height 164 cm Weight 75.2 kg BMI 27.96 kg/m2 Blood Pressure 121 mm Hg/69 mm Hg Temperature 98.3 DegF Pulse Rate 80 bpm Respiratory Rate 02 Sat Mode of Delivery 98 %/Room air You can now view a summary of your hospital visit from the comfort of your home through a free online portal called [employer]ks. Sparks is a website that allows you to securely view your medical information including discharge summary, medications and follow-up visits. ??You can alsosend a secure electronic message to your doctor???s office to request appointments, renew medications or just ask a question. You can enroll at [email or web address] or register during your next office visit. [...] primary care provider, you may find a [facility] provider by calling [employer] at [phone]. [facility], in keeping with [facility] guidance, no longer requires face masks for [...] Team Personnel Name: Ioana Ochoa NP Position: [facility] PCO Associate Professional Member Role: PCP Address: Address: [address] [place] [address]- Care Team Related Persons Name: EDUARDO GLASGOW Name: DANIEL LOZANO Address: [address] [address]
--- OUTSIDE RECORDS SUMMARY | 2023-11-08 08:53 | XMS_ITS | Continuity of Care Document ---
Author Organization [facility] Address [address] [place] [address]- Care Team Providers Care Bench Machine Operator Name Role Phone Don FLORIAN, Ioana Primary Care Physician Encounter [facility] [place] Date(s): 05/21/23 - 06/20/23 [facility] [address] [place], [place] [address] Attending Physician: Ruth Noel Admitting Physician: AdmtrRuth [...] Refills, Maintenance, 05/30/23 12:11:00 EST, CR Tablet, [facility], Partial fill upon patient request if the prescription is for a schedule II opioid drug., 160, cm, 05/30/23 11:24:00 EST, H... Start Date: 05/30/23 Stop Date: 05/24/24 Status: Ordered carvedilol 25 mg oral tablet 1, tablet, By Mouth, 2 times a day, # 180 tablet, Refills 1, Tot. Refills 1, Maintenance, 05/30/23 12:11:00 EST, Route to Pharmacy Electronically, [facility], 160, cm, 05/30/23 11:24:00 EST, Height, 79.5, kg, 05/15/23 18:59:00 EST, Dry Weight Start Date: 05/30/23 Status: Ordered doxazosin 4 mg oral tablet 1 tablet, By Mouth, Daily, # 90 tablet, 0 Refills, Maintenance, 05/30/23 12:11:00 EST, [facility], 160, cm, 05/30/23 11:24:00 EST, Height, 79.5, kg, 05/15/23 18:59:00 EST, Dry Weight Start Date: 05/30/23 Stop Date: 08/28/23 Status: Ordered ezetimibe 10 mg oral tablet 1 tablet, By Mouth, Daily, # 90 tablet, 0 Refills, Maintenance, 05/30/23 12:11:00 EST, [facility], 160, cm, 05/30/23 11:24:00 EST, Height, 79.5, kg, 05/15/23 18:59:00 EST, Dry Weight Start Date: 05/30/23 Stop Date: 08/28/23 Status: Ordered ferrous sulfate 325 mg oral enteric coated tablet 325 mg, 1, tablet, By Mouth, Daily, # 30 tablet, Refills 3, Tot. Refills 3, Maintenance, 05/30/23 12:12:00 EST, Route to Pharmacy Electronically, [facility], Partial fill upon patient request if the prescription is for a schedule II opioid... Start Date: 05/30/23 Status: Ordered Flonase 50 mcg/inh nasal spray 1 sprays, Nares, Both, 2 times a day, # 16 Gm, 0 Refills, Maintenance, 06/05/22 12:05:00 EST, [place], [facility], Partial fill upon patient [...] 05/30/23 12:12:00 EST, Route to Pharmacy Electronically, [facility], Partial fill upon patient request if the prescription is for a schedule... Start Date: 05/30/23 Stop Date: 09/27/23 Status: Ordered glimepiride 4 mg oral tablet 1 tablet, By Mouth, 2 times a day, # 180 tablet, 0 Refills, Maintenance, 05/30/23 12:12:00 EST, [facility], 160, cm, 05/30/23 11:24:00 EST, Height, 79.5, kg, 05/15/23 18:59:00 EST, Dry Weight Start Date: 05/30/23 Status: Ordered Home Blood Pressure Monitor See Instructions, # 1 each, Maintenance, DX: Hypertension, 06/06/22 12:29:00 EST, Supply Start Date: 06/06/22 Status: Ordered hydrochlorothiazide-lisinopril 25 mg-20 mg oral tablet 1 tablet, By Mouth, Daily, # 90 tablet, 3 Refills, Maintenance, 05/30/23 12:12:00 EST, Tablet, [facility], Partial fill upon patient request if the prescription is for a schedule II opioiddrug., 1 tablet By Mouth Daily,x90 days, 160, cm, 1... Start Date: 05/30/23 Stop Date: 05/24/24 Status: Ordered isosorbide mononitrate 30 mg oral tablet, extended release 1 tablet, By Mouth, Daily in AM, # 90 tablet, 0 Refills, Maintenance, 05/30/23 12:12:00 EST, [facility], 160, cm, 05/30/23 11:24:00 EST, Height, 79.5, kg, 05/15/23 18:59:00 EST, Dry Weight Start Date: 05/30/23 Stop Date: 08/28/23 Status: Ordered meloxicam 15 mg oral tablet 1 tablet, By Mouth, Daily, # 90 tablet, 0 Refills, Maintenance, 05/30/23 12:12:00 EST, [facility], 160, cm, 05/30/23 11:24:00 EST, Height, 79.5, kg, 05/15/23 18:59:00 EST, Dry Weight Start Date: 05/30/23 Stop Date: 08/28/23 Status: Ordered metFORMIN 500 mg oral tablet 2 tablet, By Mouth, 2 times a day, # 360 tablet, 0 Refills, Maintenance, 05/30/23 12:12:00 EST, [facility], 160, cm, 05/30/23 11:24:00 [...] Stop 05/24/24 12:12:00EST, 05/30/23 12:12:00 EST, Tablet, [facility], Partial fill upon patient request if theprescription is for a schedule II opioid drug., 160... Start Date: 05/30/23 Stop Date: 05/24/24 Status: Ordered traZODone 50 mg oral tablet 50 mg, 1, tablet, By Mouth, Daily at bedtime, # 90 tablet, Refills 1, Tot. Refills 1, Maintenance, 05/30/23 12:12:00 EST, Route to Pharmacy Electronically, [facility], Partial fill upon patient request if the [...] Professional Member Role: PCP Address: Address: [address]rd [place] [address]- Care Team Related Persons Name: EDUARDO GLASGOW Name: DANIEL LOZANO Address: [address] [address]
--- OUTSIDE RECORDS SUMMARY | 2023-11-08 08:53 | XMS_ITS | Continuity of Care Document ---
Author Organization [facility] Adult Address [address] [place] [address]- Care Team Providers Care Lap Regulator Name Role Phone Don FLORIAN, Ioana Primary Care Physician [phone] Encounter [facility] [place] Date(s): 09/13/23 - 10/19/23 [facility] [address] [place] [address]- Attending Physician: Not on Staff, Attending MD Allergies, Adverse Reactions, Alerts No Known Allergies Immunizations Given and Recorded Vaccine Date Status Refusal Reason SARS-CoV-2 (COVID-19) mRNA BNT-162b2 vac 04/24/21 Recorded pneumococcal 23-valent vaccine 04/23/01 Recorded Medications aspirin 81 mg oral delayed release tablet 1 tablet = 81 mg, By Mouth, Daily, # 90 tablet, 3 Refills, Maintenance, 05/30/23 12:11:00 EST, CR Tablet, [facility], Partial fill upon patient request if the prescription is for a schedule II opioid drug., 160, cm, 05/30/23 11:24:00 EST, H... Start Date: 05/30/23 Stop Date: 05/24/24 Status: Ordered carvedilol 25 mg oral tablet 1, tablet, By Mouth, 2 times a day, # 180 tablet, Refills 1, Tot. Refills 1, Maintenance, 05/30/23 12:11:00 EST, Route to Pharmacy Electronically, [facility], 160, cm, 05/30/23 11:24:00 EST, Height, 79.5, kg, 05/15/23 18:59:00 EST, Dry Weight Start Date: 05/30/23 Status: Ordered Farxiga 5 mg oral tablet 1 tablet = 5 mg, By Mouth, Daily, # 30 tablet, 3 Refills, Maintenance, 08/29/23 14:27:00 EST, Tablet, [facility], Partial fill upon patient request if the prescription is for a schedule IIopioid drug., 160, cm, 08/29/23 14:01:00 EST, Heigh... Start Date: 08/29/23 Status: Ordered ferrous sulfate 325 mg oral enteric coated tablet 325 mg, 1, tablet, By Mouth, Daily, # 30 tablet, Refills 3, Tot. Refills 3, Maintenance, 05/30/23 12:12:00 EST, Route to Pharmacy Electronically, [facility], Partial fill upon patient request if the prescription is for a schedule II opioid... Start Date: 05/30/23 Status: Ordered Flonase 50 mcg/inh nasal spray 1 sprays, Nares, Both, 2 times a day, # 16 Gm, 0 Refills, Maintenance, 06/05/22 12:05:00 EST, [place], [facility], Partial fill upon [...] 05/30/23 12:12:00 EST, Route to Pharmacy Electronically, [facility], Partial fill upon patient request if the prescription is for a schedule... Start Date: 05/30/23 Stop Date: 09/27/23 Status: Ordered glimepiride 4 mg oral tablet 1 tablet, By Mouth, 2 times a day, # 180 tablet, 0 Refills, Maintenance, 05/30/23 12:12:00 EST, [facility], 160, cm, 05/30/23 11:24:00 [...] tablet, 0 Refills, Maintenance, 05/30/23 12:12:00 EST, [facility], 160, cm, 05/30/23 11:24:00 EST, Height, 79.5, kg, 05/15/23 18:59:00 EST, Dry Weight Start Date: 05/30/23 Stop Date: 08/28/23 Status: Ordered metFORMIN 500 mg oral tablet 2 tablet, By Mouth, 2 times a day, # 360 tablet, 0 Refills, Maintenance, 05/30/23 12:12:00 EST, [facility], 160, cm, 05/30/23 11:24:00 [...] 100 in lifetime) entered on: 09/18/23 Sex Patient Care team information Care Team Personnel Name: Ioana Ochoa NP Position: S PCO Associate Professional Member Role: PCP Address: Address: [address] [place] [address]- Care Team Related Persons Name: EDUARDO GLASGOW Name: DANIEL LOZANO Address: [address] [address]
--- OUTSIDE RECORDS SUMMARY | 2023-11-08 08:53 | XMS_ITS | Continuity of Care Document ---
Author Organization [facility] Adult Address [address] [place] [address]- Care Team Providers Care Board Runner Name Role Phone Don FLORIAN, Ioana Primary Care Physician Encounter [facility] [place] Date(s): 06/04/23 - 07/04/23 [facility] [address] [place] [address]- Allergies, Adverse Reactions, Alerts No Known Allergies Immunizations Given and Recorded Vaccine Date Status Refusal Reason SARS-CoV-2 (COVID-19) mRNA BNT-162b2 vac 04/24/21 Recorded pneumococcal 23-valent vaccine 04/23/01 Recorded Medications aspirin 81 mg oral delayed release tablet 1 tablet = 81 mg, By Mouth, Daily, # 90 tablet, 3 Refills, Maintenance, 05/30/23 12:11:00 EST, CR Tablet, [facility], Partial fill upon patient request if the prescription is for a schedule II opioid drug., 160, cm, 05/30/23 11:24:00 EST, H... Start Date: 05/30/23 Stop Date: 05/24/24 Status: Ordered carvedilol 25 mg oral tablet 1, tablet, By Mouth, 2 times a day, # 180 tablet, Refills 1, Tot. Refills 1, Maintenance, 05/30/23 12:11:00 EST, Route to Pharmacy Electronically, [facility], 160, cm, 05/30/23 11:24:00 EST, Height, 79.5, kg, 05/15/23 18:59:00 EST, Dry Weight Start Date: 05/30/23 Status: Ordered doxazosin 4 mg oral tablet 1 tablet, By Mouth, Daily, # 90 tablet, 0 Refills, Maintenance, 05/30/23 12:11:00 EST, [facility], 160, cm, 05/30/23 11:24:00 EST, Height, 79.5, kg, 05/15/23 18:59:00 EST, Dry Weight Start Date: 05/30/23 Stop Date: 08/28/23 Status: Ordered ezetimibe 10 mg oral tablet 1 tablet, By Mouth, Daily, # 90 tablet, 0 Refills, Maintenance, 05/30/23 12:11:00 EST, [place] [id number], 160, cm, 05/30/23 11:24:00 EST, Height, 79.5, kg, 05/15/23 18:59:00 EST, Dry Weight Start Date: 05/30/23 Stop Date: 08/28/23 Status: Ordered ferrous sulfate 325 mg oral enteric coated tablet 325 mg, 1, tablet, By Mouth, Daily, # 30 tablet, Refills 3, Tot. Refills 3, Maintenance, 05/30/23 12:12:00 EST, Route to Pharmacy Electronically, [facility], Partial fill upon patient request if the prescription is for a schedule II opioid... Start Date: 05/30/23 Status: Ordered Flonase 50 mcg/inh nasal spray 1 sprays, Nares, Both, 2 times a day, # 16 Gm, 0 Refills, Maintenance, 06/05/22 12:05:00 EST, [place], [facility], Partial fill upon patient [...] 05/30/23 12:12:00 EST, Route to Pharmacy Electronically, [facility], Partial fill upon patient request if the prescription is for a schedule... Start Date: 05/30/23 Stop Date: 09/27/23 Status: Ordered glimepiride 4 mg oral tablet 1 tablet, By Mouth, 2 times a day, # 180 tablet, 0 Refills, Maintenance, 05/30/23 12:12:00 EST, [facility], 160, cm, 05/30/23 11:24:00 EST, Height, 79.5, kg, 05/15/23 18:59:00 EST, Dry Weight Start Date: 05/30/23 Status: Ordered Home Blood Pressure Monitor See Instructions, # 1 each, Maintenance, DX: Hypertension, 06/06/22 12:29:00 EST, Supply Start Date: 06/06/22 Status: Ordered hydrochlorothiazide-lisinopril 25 mg-20 mg oral tablet 1 tablet, By Mouth, Daily, # 90 tablet, 3 Refills, Maintenance, 05/30/23 12:12:00 EST, Tablet, [facility], Partial fill upon patient request if the prescription is for a schedule II opioiddrug., 1 tablet By Mouth Daily,x90 days, 160, cm, 1... Start Date: 05/30/23 Stop Date: 05/24/24 Status: Ordered isosorbide mononitrate 30 mg oral tablet, extended release 1 tablet, By Mouth, Daily in AM, # 90 tablet, 0 Refills, Maintenance, 05/30/23 12:12:00 EST, [facility], 160, cm, 05/30/23 11:24:00 EST, Height, 79.5, kg, 05/15/23 18:59:00 EST, Dry Weight Start Date: 05/30/23 Stop Date: 08/28/23 Status: Ordered meloxicam 15 mg oral tablet 1 tablet, By Mouth, Daily, # 90 tablet, 0 Refills, Maintenance, 05/30/23 12:12:00 EST, [facility], 160, cm, 05/30/23 11:24:00 EST, Height, 79.5, kg, 05/15/23 18:59:00 EST, Dry Weight Start Date: 05/30/23 Stop Date: 08/28/23 Status: Ordered metFORMIN 500 mg oral tablet 2 tablet, By Mouth, 2 times a day, # 360 tablet, 0 Refills, Maintenance, 05/30/23 12:12:00 EST, [facility], 160, cm, 05/30/23 11:24:00 EST, [...] Stop 05/24/24 12:12:00EST, 05/30/23 12:12:00 EST, Tablet, [facility], Partial fill upon patient request if theprescription is for a schedule II opioid drug., 160... Start Date: 05/30/23 Stop Date: 05/24/24 Status: Ordered traZODone 50 mg oral tablet 50 mg, 1, tablet, By Mouth, Daily at bedtime, # 90 tablet, Refills 1, Tot. Refills 1, Maintenance, 05/30/23 12:12:00 EST, Route to Pharmacy Electronically, [facility], Partial fill upon patient [...] Professional Member Role: PCP Address: Address: [address] [place] [address] [address] [place] [address]- Care Team Related Persons Name: EDUARDO GLASGOW Name: DANIEL LOZANO Address: [address] [address]
--- OUTSIDE RECORDS SUMMARY | 2023-11-08 08:53 | XMS_ITS | Continuity of Care Document ---
Author Organization [facility] Address [address] [place] [address]- Care Team Providers Care City Driver Name Role Phone Don FLORIAN, Ioana Primary Care Physician [phone] Encounter [facility] [place] Date(s): 09/12/23 - 10/12/23 [facility] [address] [place] [address]- Allergies, Adverse Reactions, Alerts No Known Allergies Immunizations Given and Recorded Vaccine Date Status Refusal Reason SARS-CoV-2 (COVID-19) mRNA BNT-162b2 vac 04/24/21 Recorded pneumococcal 23-valent vaccine 04/23/01 Recorded Medications aspirin 81 mg oral delayed release tablet 1 tablet = 81 mg, By Mouth, Daily, # 90 tablet, 3 Refills, Maintenance, 05/30/23 12:11:00 EST, CR Tablet, [facility], Partial fill upon patient request if the prescription is for a schedule II opioid drug., 160, cm, 05/30/23 11:24:00 EST, H... Start Date: 05/30/23 Stop Date: 05/24/24 Status: Ordered carvedilol 25 mg oral tablet 1, tablet, By Mouth, 2 times a day, # 180 tablet, Refills 1, Tot. Refills 1, Maintenance, 05/30/23 12:11:00 EST, Route to Pharmacy Electronically, [facility], 160, cm, 05/30/23 11:24:00 EST, Height, 79.5, kg, 05/15/23 18:59:00 EST, Dry Weight Start Date: 05/30/23 Status: Ordered Farxiga 5 mg oral tablet 1 tablet = 5 mg, By Mouth, Daily, # 30 tablet, 3 Refills, Maintenance, 08/29/23 14:27:00 EST, Tablet, [facility], Partial fill upon patient request if the prescription is for a schedule IIopioid drug., 160, cm, 08/29/23 14:01:00 EST, Heigh... Start Date: 08/29/23 Status: Ordered ferrous sulfate 325 mg oral enteric coated tablet 325 mg, 1, tablet, By Mouth, Daily, # 30 tablet, Refills 3, Tot. Refills 3, Maintenance, 05/30/23 12:12:00 EST, Route to Pharmacy Electronically, [facility], Partial fill upon patient request if the prescription is for a schedule II opioid... Start Date: 05/30/23 Status: Ordered Flonase 50 mcg/inh nasal spray 1 sprays, Nares, Both, 2 times a day, # 16 Gm, 0 Refills, Maintenance, 06/05/22 12:05:00 EST, [place], [facility], Partial fill upon [...] 05/30/23 12:12:00 EST, Route to Pharmacy Electronically, [facility], Partial fill upon patient request if the prescription is for a schedule... Start Date: 05/30/23 Stop Date: 09/27/23 Status: Ordered glimepiride 4 mg oral tablet 1 tablet, By Mouth, 2 times a day, # 180 tablet, 0 Refills, Maintenance, 05/30/23 12:12:00 EST, [facility], 160, cm, 05/30/23 [...] tablet, 0 Refills, Maintenance, 05/30/23 12:12:00 EST, [facility], 160, cm, 05/30/23 11:24:00 EST, Height, 79.5, kg, 05/15/23 18:59:00 EST, Dry Weight Start Date: 05/30/23 Stop Date: 08/28/23 Status: Ordered metFORMIN 500 mg oral tablet 2 tablet, By Mouth, 2 times a day, # 360 tablet, 0 Refills, Maintenance, 05/30/23 12:12:00 EST, [facility], 160, cm, 05/30/23 [...] Professional Member Role: PCP Address: Address: [address] [place] [address]- Care Team Related Persons Name: EDUARDO GLASGOW Name: DANIEL LOZANO Address: [address] [address]
--- OUTSIDE RECORDS SUMMARY | 2023-11-08 08:53 | XMS_ITS | Continuity of Care Document ---
Author Organization [facility] Address [address] [place] [address]- Care Team Providers Care Hand Alterations Seamstress Name Role Phone Don FLORIAN, Ioana Primary Care Physician [phone] Encounter [facility] [place] Date(s): 05/14/23 - 05/21/23 [facility] [address] [place] [address]- Encounter Diagnosis Swelling of submandibular region(Discharge Diagnosis) - 05/14/23 Attending Physician: Merary Suarez Allergies, Adverse Reactions, Alerts No Known Allergies Immunizations Given and Recorded Vaccine Date Status Refusal Reason SARS-CoV-2 (COVID-19) mRNA BNT-162b2 vac 04/24/21 Recorded pneumococcal 23-valent vaccine 04/23/01 Recorded Medications aspirin 81 mg oral delayed release tablet 1 tablet = 81 mg, By Mouth, Daily, # 90 tablet, 3 Refills, Maintenance, 04/09/22 19:08:00 EDT, CR Tablet, [facility], Partial fill upon patient request if the prescription is for a schedule II opioid drug., 162, cm, 04/09/22 16:12:00 EDT, H... Start Date: 04/09/22 Stop Date: 04/04/23 Status: Ordered carvedilol 25 mg oral tablet 1, tablet, By Mouth, 2 times a day, # 180 tablet, Refills 1, Maintenance, 05/06/23 18:16:00 EST, Route to Pharmacy Electronically, [facility], 162, cm, 04/16/23 11:09:00 EDT, Height Start Date: 05/06/23 Status: Ordered doxazosin 4 mg oral tablet 1 tablet, By Mouth, Daily, # 90 tablet, 0 Refills, Maintenance, 02/11/23 7:39:00 EDT, [facility], 162, cm, 11/20/22 12:28:00 EDT, Height Start Date: 02/11/23 Stop Date: 05/12/23 Status: Ordered doxycycline hyclate 100 mg oral capsule 1 capsule = 100 mg, By Mouth, 2 times a day, for 10 days, # 20 capsule, 0 Refills, Acute 05/24/23 14:53:00 EST, 05/14/23 14:53:00 EST, Capsule, [facility], Partial fill upon patient request if the prescription is for a schedule II opioid drDamir. Start Date: 05/14/23 Stop Date: 05/24/23 Status: Ordered ezetimibe 10 mg oral tablet 1 tablet, By Mouth, Daily, # 90 tablet, 0 Refills, Maintenance, 02/11/23 7:38:00 EDT, [facility], 162, cm, 11/20/22 12:28:00 EDT, Height Start Date: 02/11/23 Stop Date: 05/12/23 Status: Ordered ferrous sulfate 325 mg oral enteric coated tablet 325 mg, 1, tablet, By Mouth, Daily, # 30 tablet, Refills 3, Tot. Refills 3, Maintenance, 04/18/23 10:05:00 EDT, Route to Pharmacy Electronically, [facility], Partial fill upon patient request if the prescription is for a schedule II opioid... Start Date: 04/18/23 Status: Ordered Flonase 50 mcg/inh nasal spray 1 sprays, Nares, Both, 2 times a day, # 16 Gm, 0 Refills, Maintenance, 06/05/22 12:05:00 EST, [place], [facility], Partial fill upon [...] 04/16/23 11:27:00 EDT, Route to Pharmacy Electronically, [facility], Partial fill upon patient request if the prescription is for a schedule... Start Date: 04/16/23 Stop Date: 08/14/23 Status: Ordered glimepiride 4 mg oral tablet 1 tablet, By Mouth, 2 times a day, # 180 tablet, 0 Refills, Maintenance, 02/11/23 7:38:00 EDT, [facility], 162, cm, 11/20/22 12:28:00 EDT, Height Start Date: 02/11/23 Status: Ordered Home Blood Pressure Monitor See Instructions, # 1 each, Maintenance, DX: Hypertension, 06/06/22 12:29:00 EST, Supply Start Date: 06/06/22 Status: Ordered hydrochlorothiazide-lisinopril 25 mg-20 mg oral tablet 1 tablet, By Mouth, Daily, # 90 tablet, 3 Refills, Maintenance, 09/05/22 16:25:00 EDT, Tablet, [facility], Partial fill upon patient request if the prescription is for a schedule II opioiddrug., 1 tablet By Mouth Daily,x90 days, 162, cm, 0... Start Date: 09/05/22 Stop Date: 08/31/23 Status: Ordered isosorbide mononitrate 30 mg oral tablet, extended release 1 tablet, By Mouth, Daily in AM, # 90 tablet, 0 Refills, Maintenance, 02/11/23 7:37:00 EDT, [facility], 162, cm, 11/20/22 12:28:00 EDT, Height Start Date: 02/11/23 Stop Date: 05/12/23 Status: Ordered meloxicam 15 mg oral tablet 1 tablet, By Mouth, Daily, # 90 tablet, 0 Refills, Maintenance, 03/15/23 12:40:00 EDT, [facility], 162, cm, 03/08/23 12:38:00 EDT, Height Start Date: 03/15/23 Stop Date: 06/13/23 Status: Ordered metFORMIN 500 mg oral tablet 2 tablet, By Mouth, 2 times a day, # 360 tablet, 0 Refills, Maintenance, 02/11/23 7:36:00 EDT, [facility], 162, cm, 11/20/22 12:28:00 [...] Stop 06/16/23 11:59:00EST, 06/21/22 11:59:00 EST, Tablet, [facility], Partial fill upon patient request if theprescription is for a schedule II opioid drug., 162... Start Date: 06/21/22 Stop Date: 06/16/23 Status: Ordered traZODone 50 mg oral tablet 50 mg, 1, tablet, By Mouth, Daily at bedtime, # 90 tablet, Refills 1, Tot. Refills 1, Maintenance, 04/16/23 11:21:00 EDT, Route to Pharmacy Electronically, [facility], Partial fill upon patient request if the [...] Effective Dates Health Status Clinical Service Informant Swelling of submandibular region Discharge Diagnosis 05/14/23 Vital Signs Most recent to oldest [Reference Range]: 1 Height 162 cm (05/14/23 2:10 PM) Weight 76.8 kg (05/14/23 2:10 PM) Oxygen Saturation [94-100 %] 97 % (05/14/23 2:10 PM) Pulse Rate [55-90 bpm] 71 bpm (05/14/23 2:10 PM) Body Mass Index [18.5-24.99 kg/m2] 29.26 kg/m2 *H* (05/14/23 2:10 PM) Blood Pressure [90-138/55-84 mm Hg] 94/5 8mm Hg (05/14/23 2:10 PM) Temperature [96.8-100.4 DegF] 98.7 DegF (05/14/23 2:10 PM) Mode of Delivery (Oxygen) Room air (05/14/23 2:10 PM) Blood pressure sites Arm, left (05/14/23 2:10 PM) Temperature Route Temporal (05/14/23 2:10 PM) Weight Obtained Via Standing scale (05/14/23 2:10 PM) Social History Social History Type Response Smoking Status Never (less than 100 in lifetime) entered on: 04/09/22 Sex Note * Elisabeth Miles: PERFORM, SIGN, VERIFY Event Display: Patient Education/Instruction Authored Date: [id number] [facility] *[facility] Clinical Summary Name CLEMENTINE SALAZAR Age 72 Years 1950 PCP Don COMMERCIAL LINES ASSISTANT, Ioana PCP Visit Date 05/14/2023 14:06:00 Additional Instructions: Scheduled Appointments?? Future Appointments ?*[place] ?[address] ?[place],??[place],??[address] ?Phone:??--?Fax:??-- ?Appt. Date:??05/21/2023?4:20 PM ?Scheduled Provider:??Edgar Herron MD ?*[facility] ?[address],??[address] ?Phone:??--?Fax:??-- ?Appt. Date:??05/30/2023?11:20 AM ?Scheduled Provider:??Ioana Larry NP Melba Follow-Up Instructions ?? With: Address: When: Ioana Ochoa NP Comments: PCP in 2 weeks Diagnosis Localized swelling, mass and lump, head Medications: Please continue your medications until treatment is completed or stopped by your provider. Discuss any questions related to medications with your provider. New Medications [facility], [address] [place] [id number], [phone] Doxycycline (doxycycline hyclate 100 mg oral capsule) 1 capsule Oral twice a day for 10 Days. Refills: 0. Next Dose: Medications to Continue with No Changes These medications were not printed or sent to your pharmacy Aspirin (aspirin 81 mg oral delayed release tablet) 1 tab(s) Oral Daily for 90 Days. Refills: 3. Next Dose: Carvedilol (carvedilol 25 mg oral tablet) 1 tab(s) Oral twice a day. Refills: 1. Next Dose: Doxazosin (doxazosin 4 mg oral [...] for 90 Days. Refills: 0. Next Dose: Ferrous Sulfate (ferrous sulfate 325 [...] twice a day. Refills: 0. Next Dose: Rosuvastatin (rosuvastatin 40 mg oral tablet) 1 tab(s) Oral Daily for 90 Days. Refills: 3. Next Dose: Trazodone (traZODone 50 mg oral tablet) 1 tab(s) Oral Daily at Bedtime for 90 Days. Refills: 1. Next Dose: Allergy Info:?? NKA Medications Given This Visit Future Orders ?No future orders Vital Signs Height 162 cm Weight 76.8 kg BMI 29.26 kg/m2 Blood Pressure 94 mm Hg/58 mm Hg Temperature 98.7 DegF Pulse Rate 71 bpm Respiratory Rate 02 Sat Mode of Delivery 97 %/Room air You can now view a summary of your hospital visit from the comfort of your home through a free online portal called [facility]. [facility] is a website that allows you to securely view your medical information including discharge summary, medications and follow-up visits. ??You can alsosend a secure electronic message to your doctor???s office to request appointments, renew medications or just ask a question. You can enroll at [email or web address] or register during your next office [...] primary care provider, you may find a [facility] provider by calling [facility] at [phone]. [facility], in keeping with [facility] guidance, no longer requires face masks [...] Team Personnel Name: Ioana Ochoa NP Position: [facility] PCO Associate Professional Member Role: PCP Address: Address: [address] [place] [address] [address]rd [place] [address]- Care Team Related Persons Name: EDUARDO GLASGOW Name: DANIEL LOZANO Address: [address] [address]
--- OUTSIDE RECORDS SUMMARY | 2023-11-08 08:54 | XMS_ITS | Continuity of Care Document ---
Author Organization [facility] Address [address] [place] [address]- Care Team Providers Care Ict Business Analyst Name Role Phone Laron FLORIAN, Ioana Reilly Primary Care Physician [phone] Encounter [id number] Date(s): 03/19/23 - 04/18/[address] [address] Attending Physician: AdmRuth bah Admitting Physician: Admtr, Ar8 Referring Physician: Admtr, Ar8 Allergies, Adverse Reactions, Alerts No Known Allergies [...] Date: 04/09/22 Stop Date: 04/04/23 Status: Ordered cephalexin monohydrate 500 mg oral capsule 1 capsule = 500 mg, By Mouth, 4 times a day, for 10 days, # 40 capsule, 0 Refills, Acute 04/21/23 15:18:00 EDT, 04/11/23 15:18:00 EDT, Capsule, [facility], Partial fill upon patient request if the prescription is for a schedule II opioid druNha Start Date: 04/11/23 Stop Date: 04/21/23 Status: Ordered doxazosin 4 mg oral tablet [...] Gm, 0 Refills, Maintenance, 06/05/22 12:05:00 EST, [place], [facility], Partial fill [...] tablet, 0 Refills, Maintenance, 02/11/23 7:37:00 EDT, [facility], 162, cm, 11/20/22 12:28:00 EDT, Height [...] to Pharmacy Electronically, [facility], Partial fill upon patient request if the [...] Team Personnel Name: Ioana Larry NP Position: S PCO Associate Professional Member Role: PCP Address: Address: [address] [place] [address]- Care Team Related Persons Name: EDUARDO GLASGOW Name: DANIEL LOZANO Address: [address] [address]
--- OUTSIDE RECORDS SUMMARY | 2023-11-08 08:54 | XMS_ITS | Continuity of Care Document ---
Author Organization [facility] Address [address] [place] [address]- Care Team Providers Care [place] And Turner Name Role Phone Don FLORIAN, Ioana Primary Care Physician Encounter [facility] [place] Date(s): 05/22/23 - 06/21/23 [facility] [address] [place] [address]- Allergies, Adverse Reactions, Alerts No Known Allergies Immunizations Given and Recorded Vaccine Date Status Refusal Reason SARS-CoV-2 (COVID-19) mRNA BNT-162b2 vac 04/24/21 Recorded pneumococcal 23-valent vaccine 04/23/01 Recorded Medications aspirin 81 mg oral delayed release tablet 1 tablet = 81 mg, By Mouth, Daily, # 90 tablet, 3 Refills, Maintenance, 05/30/23 12:11:00 EST, CR Tablet, [facility], Partial fill upon patient request if the prescription is for a schedule II opioid drug., 160, cm, 05/30/23 11:24:00 EST, H... Start Date: 05/30/23 Stop Date: 05/24/24 Status: Ordered carvedilol 25 mg oral tablet 1, tablet, By Mouth, 2 times a day, # 180 tablet, Refills 1, Tot. Refills 1, Maintenance, 05/30/23 12:11:00 EST, Route to Pharmacy Electronically, [facility], 160, cm, 05/30/23 11:24:00 EST, Height, 79.5, kg, 05/15/23 18:59:00 EST, Dry Weight Start Date: 05/30/23 Status: Ordered doxazosin 4 mg oral tablet 1 tablet, By Mouth, Daily, # 90 tablet, 0 Refills, Maintenance, 05/30/23 12:11:00 EST, [facility], 160, cm, 05/30/23 11:24:00 EST, Height, 79.5, kg, 05/15/23 18:59:00 EST, Dry Weight Start Date: 05/30/23 Stop Date: 08/28/23 Status: Ordered ezetimibe 10 mg oral tablet 1 tablet, By Mouth, Daily, # 90 tablet, 0 Refills, Maintenance, 05/30/23 12:11:00 EST, [facility], 160, cm, 05/30/23 11:24:00 EST, Height, 79.5, kg, 05/15/23 18:59:00 EST, Dry Weight Start Date: 05/30/23 Stop Date: 08/28/23 Status: Ordered ferrous sulfate 325 mg oral enteric coated tablet 325 mg, 1, tablet, By Mouth, Daily, # 30 tablet, Refills 3, Tot. Refills 3, Maintenance, 05/30/23 12:12:00 EST, Route to Pharmacy Electronically, [facility], Partial fill upon patient request if the prescription is for a schedule II opioid... Start Date: 05/30/23 Status: Ordered Flonase 50 mcg/inh nasal spray 1 sprays, Nares, Both, 2 times a day, # 16 Gm, 0 Refills, Maintenance, 06/05/22 12:05:00 EST, [place], [facility], Partial fill upon [...] 05/30/23 12:12:00 EST, Route to Pharmacy Electronically, [facility], Partial fill upon patient request if the prescription is for a schedule... Start Date: 05/30/23 Stop Date: 09/27/23 Status: Ordered glimepiride 4 mg oral tablet 1 tablet, By Mouth, 2 times a day, # 180 tablet, 0 Refills, Maintenance, 05/30/23 12:12:00 EST, [facility], 160, cm, 05/30/23 [...] 3 Refills, Maintenance, 05/30/23 12:12:00 EST, Tablet, [facility], Partial fill upon patient request if the prescription is for a schedule II opioiddrug., 1 tablet By Mouth Daily,x90 days, 160, cm, 1... Start Date: 05/30/23 Stop Date: 05/24/24 Status: Ordered isosorbide mononitrate 30 mg oral tablet, extended release 1 tablet, By Mouth, Daily in AM, # 90 tablet, 0 Refills, Maintenance, 05/30/23 12:12:00 EST, [facility], 160, cm, 05/30/23 11:24:00 EST, Height, 79.5, kg, 05/15/23 18:59:00 EST, Dry Weight Start Date: 05/30/23 Stop Date: 08/28/23 Status: Ordered meloxicam 15 mg oral tablet 1 tablet, By Mouth, Daily, # 90 tablet, 0 Refills, Maintenance, 05/30/23 12:12:00 EST, [facility], 160, cm, 05/30/23 11:24:00 EST, Height, 79.5, kg, 05/15/23 18:59:00 EST, Dry Weight Start Date: 05/30/23 Stop Date: 08/28/23 Status: Ordered metFORMIN 500 mg oral tablet 2 tablet, By Mouth, 2 times a day, # 360 tablet, 0 Refills, Maintenance, 05/30/23 12:12:00 EST, [facility], 160, cm, 05/30/23 [...] Stop 05/24/24 12:12:00EST, 05/30/23 12:12:00 EST, Tablet, [facility], Partial fill upon patient request if theprescription is for a schedule II opioid drug., 160... Start Date: 05/30/23 Stop Date: 05/24/24 Status: Ordered traZODone 50 mg oral tablet 50 mg, 1, tablet, By Mouth, Daily at bedtime, # 90 tablet, Refills 1, Tot. Refills 1, Maintenance, 05/30/23 12:12:00 EST, Route to Pharmacy Electronically, [facility], Partial fill upon patient request [...] Associate Professional Member Role: PCP Address: Address: [address] [place] [address] [address] [place] [address]- Care Team Related Persons Name: EDUARDO GLASGOW Name: DANIEL LOZANO Address: [address] [address]
--- OUTSIDE RECORDS SUMMARY | 2023-11-08 08:54 | XMS_ITS | Continuity of Care Document ---
Author Organization [facility] Address [address] [place] [address]- Care Team Providers Care Antenna Rigger Name Role Phone Juanjo FLOIRAN, Ioana Primary Care Physician [place] [facility] [place] 05/[place]/23 [facility] [address] [place] [id number]- Allergies, Adverse Reactions, Alerts No Known Allergies Immunizations Given and Recorded Vaccine Date Status Refusal Reason SARS-CoV-2 (COVID-19) mRNA BNT-162b2 vac 04/24/21 Recorded pneumococcal 23-valent vaccine 04/23/01 Recorded Medications aspirin 81 mg oral delayed release tablet 1 tablet = 81 mg, By Mouth, Daily, # 90 tablet, 3 Refills, Maintenance, 04/09/22 19:08:00 EDT, CR Tablet, [id number], Partial fill upon patient request if the prescription is for a schedule II opioid drug., 162, cm, 04/09/22 16:12:00 EDT, H... Start Date: 04/09/22 Stop Date: 04/04/23 Status: Ordered carvedilol 25 mg oral tablet 1, tablet, By Mouth, 2 times a day, # 180 tablet, Refills 1, Maintenance, 05/06/23 18:16:00 EST, Route to Pharmacy Electronically, [id number], 162, cm, 04/16/23 11:09:00 EDT, Height Start Date: 05/06/23 Status: Ordered doxazosin 4 mg oral tablet 1 tablet, By Mouth, Daily, # 90 tablet, 0 Refills, Maintenance, 02/11/23 7:39:00 EDT, [facility], 162, cm, 11/20/22 12:28:00 EDT, Height Start Date: 02/11/23 Stop Date: 05/12/23 Status: Ordered ezetimibe 10 mg oral tablet 1 tablet, By Mouth, Daily, # 90 tablet, 0 Refills, Maintenance, 02/11/23 7:38:00 EDT, [facility], 162, cm, 11/20/22 12:28:00 EDT, Height Start Date: 02/11/23 Stop Date: 05/12/23 Status: Ordered ferrous sulfate 325 mg oral enteric coated tablet 325 mg, 1, tablet, By Mouth, Daily, # 30 tablet, Refills 3, Tot. Refills 3, Maintenance, 04/18/23 10:05:00 EDT, Route to Pharmacy Electronically, [facility], Partial fill upon patient request if the prescription is for a schedule II opioid... Start Date: 04/18/23 Status: Ordered Flonase 50 mcg/inh nasal spray 1 sprays, Nares, Both, 2 times a day, # 16 Gm, 0 Refills, Maintenance, 06/05/22 12:05:00 EST, [place], [facility], Partial fill upon patient [...] 04/16/23 11:27:00 EDT, Route to Pharmacy Electronically, [facility], Partial fill upon patient request if the prescription is for a schedule... Start Date: 04/16/23 Stop Date: 08/14/23 Status: Ordered glimepiride 4 mg oral tablet 1 tablet, By Mouth, 2 times a day, # 180 tablet, 0 Refills, Maintenance, 02/11/23 7:38:00 EDT, [facility], 162, cm, 11/20/22 12:28:00 EDT, Height Start Date: 02/11/23 Status: Ordered Home Blood Pressure Monitor See Instructions, # 1 each, Maintenance, DX: Hypertension, 06/06/22 12:29:00 EST, Supply Start Date: 06/06/22 Status: Ordered hydrochlorothiazide-lisinopril 25 mg-20 mg oral tablet 1 tablet, By Mouth, Daily, # 90 tablet, 3 Refills, Maintenance, 09/05/22 16:25:00 EDT, Tablet, [facility], Partial fill upon patient request if the prescription is for a schedule II opioiddrug., 1 tablet By Mouth Daily,x90 days, 162, cm, 0... Start Date: 09/05/22 Stop Date: 08/31/23 Status: Ordered isosorbide mononitrate 30 mg oral tablet, extended release 1 tablet, By Mouth, Daily in AM, # 90 tablet, 0 Refills, Maintenance, 02/11/23 7:37:00 EDT, [facility], 162, cm, 11/20/22 12:28:00 EDT, Height Start Date: 02/11/23 Stop Date: 05/12/23 Status: Ordered meloxicam 15 mg oral tablet 1 tablet, By Mouth, Daily, # 90 tablet, 0 Refills, Maintenance, 03/15/23 12:40:00 EDT, [facility], 162, cm, 03/08/23 12:38:00 EDT, Height Start Date: 03/15/23 Stop Date: 06/13/23 Status: Ordered metFORMIN 500 mg oral tablet 2 tablet, By Mouth, 2 times a day, # 360 tablet, 0 Refills, Maintenance, 02/11/23 7:36:00 EDT, [facility], 162, cm, 11/20/22 12:28:00 [...] Stop 06/16/23 11:59:00EST, 06/21/22 11:59:00 EST, Tablet, [facility], Partial fill upon patient request if theprescription is for a schedule II opioid drug., 162... Start Date: 06/21/22 Stop Date: 06/16/23 Status: Ordered traZODone 50 mg oral tablet 50 mg, 1, tablet, By Mouth, Daily at bedtime, # 90 tablet, Refills 1, Tot. Refills 1, Maintenance, 04/16/23 11:21:00 EDT, Route to Pharmacy Electronically, [facility], Partial fill upon patient [...] team information Care Team Personnel Name: Ioana Geiger NP Position: [facility] PCO Associate Professional Member Role: PCP Address: Address: [address] [place] [address] [address] [place] [address]- Care Team Related Persons Name: EDUARDO GLASGOW Name: DANIEL LOZANO Address: [address] [address]
--- OUTSIDE RECORDS SUMMARY | 2023-11-08 08:54 | XMS_ITS | Continuity of Care Document ---
Author Organization [facility] Address [address] [place] [address]- Care Team Providers Care Senior Data Analyst Name Role Phone Don FLORIAN, Ioana Primary Care Physician [place] [facility] [place]23 [facility] [address] [place] [address]- Attending Physician: Ruth Noel Admitting Physician: AdmRuth bah Referring Physician: AdmtrRuth Allergies, Adverse Reactions, Alerts No Known Allergies Immunizations Given and Recorded Vaccine Date Status Refusal Reason SARS-CoV-2 (COVID-19) mRNA BNT-162b2 vac 04/24/21 Recorded pneumococcal 23-valent vaccine 04/23/01 Recorded Medications aspirin 81 mg oral delayed release tablet 1 tablet = 81 mg, By Mouth, Daily, # 90 tablet, 3 Refills, Maintenance, 05/30/23 12:11:00 EST, CR Tablet, [facility], Partial fill upon patient request if the prescription is for a schedule II opioid drug., 160, cm, 05/30/23 11:24:00 EST, H... Start Date: 05/30/23 Stop Date: 05/24/24 Status: Ordered Farxiga 5 mg oral tablet 1 tablet = 5 mg, By Mouth, Daily, # 30 tablet, 3 Refills, Maintenance, 08/29/23 14:27:00 EST, Tablet, [facility], Partial fill upon patient request if the prescription is for a schedule IIopioid drug., 160, cm, 08/29/23 14:01:00 EST, [place]... Start Date: 08/29/23 Status: Ordered ferrous sulfate 325 mg oral enteric coated tablet 325 mg, 1, tablet, By Mouth, Daily, # 30 tablet, Refills 3, Tot. Refills 3, Maintenance, 05/30/23 12:12:00 EST, Route to Pharmacy Electronically, [facility], Partial fill upon patient request if the prescription is for a schedule II opioid... Start Date: 05/30/23 Status: Ordered Flonase 50 mcg/inh nasal spray 1 sprays, Nares, Both, 2 times a day, # 16 Gm, 0 Refills, Maintenance, 06/05/22 12:05:00 EST, [place], [facility], Partial fill upon [...] Date: 07/15/23 Stop Date: 01/05/25 Status: Ordered furosemide 20 mg oral tablet 20 mg, 1, tablet, By Mouth, Daily, PRN for leg swelling, # 90 tablet, Refills 0, Tot. Refills 0, Maintenance, 10/24/23 13:06:00 EDT, [id number] Partial fillupon patient request if the prescription is for a s... Start Date: 10/24/23 Status: Ordered gabapentin 400 mg oral capsule 400 mg, 1, capsule, By Mouth, 3 times a day, # 90 capsule, Refills 3, Tot. Refills 3, Maintenance, 05/30/23 12:12:00 EST, Route to Pharmacy Electronically, [facility], Partial fill upon patient request if the prescription is for a schedule... Start Date: 05/30/23 Stop Date: 09/27/23 Status: Ordered glimepiride 4 mg oral tablet 1 tablet, By Mouth, 2 times a day, # 180 tablet, 0 Refills, Maintenance, 05/30/23 12:12:00 EST, [facility], 160, cm, 05/30/23 11:24:00 EST, Height, 79.5, kg, 05/15/23 18:59:00 EST, Dry Weight Start Date: 05/30/23 Status: Ordered Home Blood Pressure Monitor See Instructions, # 1 each, Maintenance, DX: Hypertension, 06/06/22 12:29:00 EST, Supply Start Date: 06/06/22 Status: Ordered metFORMIN 500 mg oral tablet 2 tablet, By Mouth, 2 times a day, # 360 tablet, 0 Refills, Maintenance, 05/30/23 12:12:00 EST, [facility], 160, cm, 05/30/23 [...] History Social History Type Response Smoking Status Former smoker, quit more than 30 days ago entered on: 10/24/23 [facility] Consult [facility] * Event Display: Inpatient Consult Note, Non- Authored Date: Patient Care team information Care Team Personnel Name: Ioana Ochoa NP Position: [facility] PCO Associate Professional Member Role: PCP Address: Address: [address] [place] [address]- Care Team Related Persons Name: EDUARDO GLASGOW Name: DANIEL LOZANO Address: [address] [address]
--- OUTSIDE RECORDS SUMMARY | 2023-11-08 08:54 | XMS_ITS | Continuity of Care Document ---
Author Organization [facility] Address [address] [place] [address]- Care Team Providers Care Manufacturing Operations Manager Name Role Phone Don FLORIAN, Ioana Primary Care Physician [phone] Encounter [facility] [place] [id number] Date(s): 07/18/23 - 08/17/23 [facility] [address] [place] [address]- Attending Physician: Ruth Noel Admitting Physician: AdmRuth [...] Refills, Maintenance, 05/30/23 12:11:00 EST, CR Tablet, [facility], Partial fill upon patient request if the prescription is for a schedule II opioid drug., 160, cm, 05/30/23 11:24:00 EST, H... Start Date: 05/30/23 Stop Date: 05/24/24 Status: Ordered carvedilol 25 mg oral tablet 1, tablet, By Mouth, 2 times a day, # 180 tablet, Refills 1, Tot. Refills 1, Maintenance, 05/30/23 12:11:00 EST, Route to Pharmacy Electronically, [facility], 160, cm, 05/30/23 11:24:00 EST, Height, 79.5, kg, 05/15/23 18:59:00 EST, Dry Weight Start Date: 05/30/23 Status: Ordered doxazosin 4 mg oral tablet 1 tablet, By Mouth, Daily, # 90 tablet, 0 Refills, Maintenance, 05/30/23 12:11:00 EST, [facility], 160, cm, 05/30/23 11:24:00 EST, Height, 79.5, kg, 05/15/23 18:59:00 EST, Dry Weight Start Date: 05/30/23 Stop Date: 08/28/23 Status: Ordered ezetimibe 10 mg oral tablet 1 tablet, By Mouth, Daily, # 90 tablet, 0 Refills, Maintenance, 05/30/23 12:11:00 EST, [facility], 160, cm, 05/30/23 11:24:00 EST, Height, 79.5, kg, 05/15/23 18:59:00 EST, Dry Weight Start Date: 05/30/23 Stop Date: 08/28/23 Status: Ordered ferrous sulfate 325 mg oral enteric coated tablet 325 mg, 1, tablet, By Mouth, Daily, # 30 tablet, Refills 3, Tot. Refills 3, Maintenance, 05/30/23 12:12:00 EST, Route to Pharmacy Electronically, [facility], Partial fill upon patient request if the prescription is for a schedule II opioid... Start Date: 05/30/23 Status: Ordered Flonase 50 mcg/inh nasal spray 1 sprays, Nares, Both, 2 times a day, # 16 Gm, 0 Refills, Maintenance, 06/05/22 12:05:00 EST, [place], [facility], Partial fill upon patient [...] 05/30/23 12:12:00 EST, Route to Pharmacy Electronically, [facility], Partial fill upon patient request if the prescription is for a schedule... Start Date: 05/30/23 Stop Date: 09/27/23 Status: Ordered glimepiride 4 mg oral tablet 1 tablet, By Mouth, 2 times a day, # 180 tablet, 0 Refills, Maintenance, 05/30/23 12:12:00 EST, [facility], 160, cm, 05/30/23 11:24:00 EST, Height, 79.5, kg, 05/15/23 18:59:00 EST, Dry Weight Start Date: 05/30/23 Status: Ordered Home Blood Pressure Monitor See Instructions, # 1 each, Maintenance, DX: Hypertension, 06/06/22 12:29:00 EST, Supply Start Date: 06/06/22 Status: Ordered hydrochlorothiazide-lisinopril 25 mg-20 mg oral tablet 1 tablet, By Mouth, Daily, # 90 tablet, 3 Refills, Maintenance, 05/30/23 12:12:00 EST, Tablet, [facility], Partial fill upon patient request if the prescription is for a schedule II opioiddrug., 1 tablet By Mouth Daily,x90 days, 160, cm, 1... Start Date: 05/30/23 Stop Date: 05/24/24 Status: Ordered isosorbide mononitrate 30 mg oral tablet, extended release 1 tablet, By Mouth, Daily in AM, # 90 tablet, 0 Refills, Maintenance, 05/30/23 12:12:00 EST, [facility], 160, cm, 05/30/23 11:24:00 EST, Height, 79.5, kg, 05/15/23 18:59:00 EST, Dry Weight Start Date: 05/30/23 Stop Date: 08/28/23 Status: Ordered meloxicam 15 mg oral tablet 1 tablet, By Mouth, Daily, # 90 tablet, 0 Refills, Maintenance, 05/30/23 12:12:00 EST, [facility], 160, cm, 05/30/23 11:24:00 EST, Height, 79.5, kg, 05/15/23 18:59:00 EST, Dry Weight Start Date: 05/30/23 Stop Date: 08/28/23 Status: Ordered metFORMIN 500 mg oral tablet 2 tablet, By Mouth, 2 times a day, # 360 tablet, 0 Refills, Maintenance, 05/30/23 12:12:00 EST, [facility], 160, cm, 05/30/23 11:24:00 [...] Stop 05/24/24 12:12:00EST, 05/30/23 12:12:00 EST, Tablet, [facility], Partial fill upon patient request if theprescription is for a schedule II opioid drug., 160... Start Date: 05/30/23 Stop Date: 05/24/24 Status: Ordered traZODone 50 mg oral tablet 50 mg, 1, tablet, By Mouth, Daily at bedtime, # 90 tablet, Refills 1, Tot. Refills 1, Maintenance, 05/30/23 12:12:00 EST, Route to Pharmacy Electronically, [facility], Partial fill upon patient [...] Member Role: PCP Address: Address: [address] [place] [address]- Care Team Related Persons Name: EDUARDO GLASGOW Name: DANIEL LOZANO Address: [address] [address]
--- OUTSIDE RECORDS SUMMARY | 2023-11-08 08:54 | XMS_ITS | Continuity of Care Document ---
Author Organization [facility] Address [address] [place] [address]- Care Team Providers Care Horologist Name Role Phone Don FLORIAN, Ioana Primary Care Physician Encounter [facility] Date(s): 09/19/23 - 09/20/[address] [id number] Encounter Diagnosis Lower back pain(Discharge Diagnosis) - 09/18/23 Discharge Disposition: A-D/C Home Attending Physician: Lorna Mcneil MD Admitting Physician: Lesley Villalta MD Referring Physician: Not on Staff, Referring MD Allergies, Adverse Reactions, Alerts No Known Allergies Immunizations Given and Recorded Vaccine Date Status Refusal Reason SARS-CoV-2 (COVID-19) mRNA BNT-162b2 vac 04/24/21 Recorded pneumococcal 23-valent vaccine 04/23/01 Recorded Medications aspirin 81 mg oral delayed release tablet 1 tablet = 81 mg, By Mouth, Daily, # 90 tablet, 3 Refills, Maintenance, 05/30/23 12:11:00 EST, CR Tablet, [id number], Partial fill upon patient request if the prescription is for a schedule II opioid drug., 160, cm, 05/30/23 11:24:00 EST, H... Start Date: 05/30/23 Stop Date: 05/24/24 Status: Ordered carvedilol 25 mg oral tablet 25 mg, Tablet, By Mouth, 09/20/23 9:00:00 EDT Start Date: 09/20/23 Stop Date: 09/20/23 Status: Completed carvedilol 25 mg oral tablet 1, tablet, By Mouth, 2 times a day, # 180 tablet, Refills 1, Tot. Refills 1, Maintenance, 05/30/23 12:11:00 EST, Route to Pharmacy Electronically, [id number], 160, cm, 05/30/23 11:24:00 EST, Height, 79.5, kg, 05/15/23 18:59:00 EST, Dry Weight Start Date: 05/30/23 Status: Ordered Farxiga 5 mg oral tablet 1 tablet = 5 mg, By Mouth, Daily, # 30 tablet, 3 Refills, Maintenance, 08/29/23 14:27:00 EST, Tablet, [facility], Partial fill upon patient request if the prescription is for a schedule IIopioid drug., 160, cm, 08/29/23 14:01:00 EST, Heigh... Start Date: 08/29/23 Status: Ordered ferrous sulfate 325 mg oral enteric coated tablet 325 mg, 1, tablet, By Mouth, Daily, # 30 tablet, Refills 3, Tot. Refills 3, Maintenance, 05/30/23 12:12:00 EST, Route to Pharmacy Electronically, [id number], Partial fill upon patient request if the prescription is for a schedule II opioid... Start Date: 05/30/23 Status: Ordered Flonase 50 mcg/inh nasal spray 1 sprays, Nares, Both, 2 times a day, # 16 Gm, 0 Refills, Maintenance, 06/05/22 12:05:00 EST, [place], [facility], Partial fill upon patient [...] 05/30/23 12:12:00 EST, Route to Pharmacy Electronically, [id number], Partial fill upon patient request if the prescription is for a schedule... Start Date: 05/30/23 Stop Date: 09/27/23 Status: Ordered gabapentin 400 mg oral capsule 400 mg, Capsule, By Mouth, 09/20/23 9:00:00 EDT Start Date: 09/20/23 Stop Date: 09/20/23 Status: Completed glimepiride 4 mg oral tablet 1 tablet, By Mouth, 2 times a day, # 180 tablet, 0 Refills, Maintenance, 05/30/23 12:12:00 EST, [facility], 160, cm, 05/30/23 11:24:00 [...] tablet, 0 Refills, Maintenance, 05/30/23 12:12:00 EST, [facility], 160, cm, 05/30/23 11:24:00 EST, Height, 79.5, kg, 05/15/23 18:59:00 EST, Dry Weight Start Date: 05/30/23 Stop Date: 08/28/23 Status: Ordered metFORMIN 500 mg oral tablet 2 tablet, By Mouth, 2 times a day, # 360 tablet, 0 Refills, Maintenance, 05/30/23 12:12:00 EST, [id number], 160, cm, 05/30/23 11:24:00 [...] Diagnosis Diagnosis Type Effective Dates Health Status Cl inical Service Informant Lower back pain Discharge Diagnosis 09/18/23 Non-Specified Results Radiology Reports * Exam Date Time Procedure Performing Provider Status 09/18/23 4:[address] Head/Brain W/O Contrast Shyla Juarez (Verified) Notes: (CT Head/Brain W/O Contrast) Reason For Exam: Trauma RESULT: CT Head/Brain W/O Contrast Examination: Noncontrast head CT performed on 09/18/23. History: Hypotension. Technique and findings: Contiguous 5 mm axial images were obtained from the skull base to the vertex without intravenous contrast. A dose modulated weight-based protocol was used. Comparison is made to a prior study dated 05/15/23. Mucosal thickening is seen within the ethmoids. The ventricular system and subarachnoid spaces are within normal limits. There is no intracranial hemorrhage, mass effect, or midline shift. No intra- or extra-axial fluid collections are identified. The osseous structures are unremarkable. Impression: There is no acute intracranial abnormality. WSN: [id number] Ordering Physician: Mann Banks Dictated By: Shelley Amaya MD Dictated Date/Time: 09/18/23 4:38 pm Reviewed By: Shelley Amaya MD Signed By: Shelley Amaya MD Signed Date/Time: 09/18/23 4:38 pm Transcribed By: JOSE R Transcribed Date/Time: 09/18/23 4:35 pm * Exam Date Time Procedure Performing Provider Status 09/18/23 4:27 PM Chest 2 Views Frontal and Lat Laura Mann (Verified) Notes: (Chest 2 Views Frontal and Lat) Reason For Exam: Cough RESULT: Chest 2 Views Frontal and Lat Chest 2 Views Frontal and Lat Hx of Present Illness: Pt coming down from cardiology with hypotension. Pt reports weakness. Lethargic during triage. Here recently with UTI and AMS.; Reason: Cough; Clinical Question(s): Pneumonia COMPARISON: September 12, 2023 FINDINGS: LINES AND TUBES: None. LUNGS AND PLEURA: Clear lungs. Normal pulmonary vascularity. No pleural effusion. No pneumothorax. HEART, MEDIASTINUM AND CORRINA: Heart is normal in size. Aorta is somewhat tortuous. BONES AND SOFT TISSUES: No acute abnormality. Partially imaged lumbar spinal fusion hardware with degenerative changes similar to the prior study. IMPRESSION: No acute abnormality. WSN: [id number] Ordering Physician: Mann Banks Dictated By: Kale Little MD Dictated Date/Time: 09/18/23 4:36 pm Reviewed By: Kale Little MD Signed By: Kale Little MD Signed Date/Time: 09/18/23 4:36 pm Transcribed By: JOSE R Transcribed Date/Time: 09/18/23 4:35 pm Vital Signs Most recent to oldest [Reference Range]: 1 2 3 Height 164 cm (09/20/23 11:05 AM) 164 cm (09/20/23 7:58 AM) 164 cm (09/20/23 4:52 AM) Weight 74.0 kg (09/20/23 7:09 AM) 78.9 kg (09/19/23 6:42 AM) 78.8 kg (09/18/23 6:47 PM) Oxygen Saturation [94-100 %] 95 % (09/20/23 11:05 AM) 96 % (09/20/23 7:58 AM) 97 % (09/20/23 4:52 AM) Pulse Rate [55-90 bpm] 82 bpm (09/20/23 11:05 AM) 85 bpm (09/20/23 10:47 AM) 70 bpm (09/20/23 7:58 AM) Body Mass Index [18.5-24.99 kg/m2] 29.3 kg/m2 *H* (09/18/23 6:47 PM) 29.3 kg/m2 *H* (09/18/23 6:16 PM) Blood Pressure [90-138/55-84 mm Hg] 108/80mm Hg (09/20/23 11:05 AM) 138/72mm Hg (09/20/23 10:47 AM) 142/90mm Hg *H* (09/20/23 7:58 AM) Respiratory Rate [16-30 br/min] 18 br/min (09/20/23 11:05 AM) 18 br/min (09/20/23 9:50 AM) 18 br/min (09/20/23 7:58 AM) Temperature [96.8-100.4 DegF] 98.2 DegF (09/20/23 11:05 AM) 97.3 DegF (09/20/23 7:58 AM) 97.9 DegF (09/20/23 4:52 AM) Liters per Minute 0 L/min (09/19/23 4:24 AM) 0 L/min (09/19/23 12:32 AM) 0 L/min (09/18/23 8:44 PM) Mode of Delivery (Oxygen) Room air (09/20/23 11:05 AM) Room air (09/20/23 7:58 AM) Room air (09/20/23 4:52 AM) Blood pressure sites Arm, right (09/20/23 11:05 AM) Arm, left (09/20/23 7:58 AM) Arm, left (09/20/23 4:52 AM) Temperature Route Oral (09/20/23 11:05 AM) Oral (09/20/23 7:58 AM) Oral (09/20/23 4:52 AM) Dry Weight 79.5 kg (09/18/23 6:47 PM) 76.2 kg (09/18/23 2:47 PM) Weight Obtained Via Standing scale (09/20/23 7:09 AM) Standing scale (09/19/23 6:42 AM) Standing scale (09/18/23 6:47 PM) Dry Weight Obtained Via Patient/family s tated (09/18/23 6:47 PM) Social History Social History Type Response Smoking Status Never (less than 100 in lifetime) entered on: 09/18/23 Sex Admission evaluation note * Diego ROSENBERG, Hilaria: PERFORM, MODIFY, MODIFY Event Display: Admission Note Authored Date: Patient: ??CLEMENTINE SALAZAR ? Age:??73 Years?Sex:??Male?:??1950?? Chief Complaint/Reason for Consultation Low BP, dizziness History of Present Illness 73-year-old male with a past medical history of coronary artery disease, hypertension, type 2 diabetes mellitus presented to the hospital with complaints of dizziness, low blood pressure.?? Patient is a Peruvian-speaking mainly individual, his granddaughter is present at bedside who is also a boiler fitter and translates for me.?? She mentions that last week he was diagnosed with a urinary tract infection after he was found to be more somnolent than usual.?? He was given antibiotics and sent home, since then he has been more somnolent, over the last couple days he has been complaining of dizziness.?? Patient had an appointment with his cardiology team today, they noticed his blood pressure to bequite low with systolic in 50s given that he had complaints of dizziness he was sent to the emergency department.?? Patient denies any fever or chills, no trouble breathing or chest pain, no abdominal pain, no CVAT, denies any diarrhea or constipation, denies any trouble urination. ?? In the emergency department he was found to be hemodynamically unstable initially, blood pressure was quite soft with systolic in 50s and 60s, he received 2-1/2 L IV bolus.?? After which his bloodpressure has improved with systolic into 90s.?? Patient is mentating well as well now.?? His lab work shows an JENNIFER with creatinine of 1.6 compared to 1.0 previously, also has elevated venous lactate however no leukocytosis.?? Chest x-ray does not show any acute abnormality, his CT head also is unremarkable. Review of Systems Obtained 12 point review of system,??negative except above Objective Vital Signs?? Temperature: 98 DegF (09/18/23 18:47:00) Temperature Route: Oral (09/18/23 18:47:00) Pulse Rate: 61 bpm (09/18/23 18:47:00) Respiratory Rate: 20 br/min (09/18/23 18:47:00) Systolic Blood Pressure:??89 mm Hg??Low (09/18/23 18:47:00) Diastolic Blood Pressure: 62 mm Hg (09/18/23 18:47:00) Blood pressure sites: Arm, left (09/18/23 18:47:00) Mean Arterial Pressure: 71 mm Hg (09/18/23 18:47:00) Pulse Pressure: 27 mm Hg (09/18/23 18:47:00) Oxygen Saturation: 99 % (09/18/23 18:47:00) Mode of Delivery (Oxygen): Room air (03/27/24 18:47:00) Early Warning Score: 2 (09/18/23 18:52:39) ? Intake/Output? No Data Available ? Physical Exam Constitutional: Alert, in no distress. Oriented??x 3 HEENT: PERRLA, EOMI,??dry mucous membrane Respiratory: Clear to auscultation. No wheezing, rales or rhonchi. Cardiovascular: S1 S2 regular. No murmurs,??no pitting edema Gastrointestinal: Abdomen soft, no abdominal tenderness, non-distended. Normal bowel sounds.?? No CVAT Neurologic: Moving all extremities??5/5 strength of bilateral upper and lower extremity, sensation intact throughout, cranial nerves II to XII grossly normal Psychiatric: Normal mood and affect Assessment/Plan Diagnoses JENNIFER (acute kidney injury) ??(N17.9) CAD (coronary artery disease) ??(I25.10) Edema ??(R60.9) Lower back pain ??(M54.50) Shock ??(R57.9) Transaminitis ??(R74.01) UTI (urinary tract infection) ??(N39.0) 1. ??Type 2 diabetes mellitus ??(E11.9) 2. ??Peripheral neuropathy ??(G62.9) 3. ??Hyperlipidemia ??(E78.5) 4. ??Hypertension ??(I10) 5. ??Hypotension ??(I95.9) ?? Assessment:??73-year-old male??recently diagnosed with??urinary tract infection presented to hospital due to low blood pressure??found to be in shock??secondary to multiple??blood pressure lowering medications. ?? Shock (R57.9):??. ?? Hypotension (I95.9):??73-year-old male??past medical history of hypertension presented to hospital with quite low blood pressure systolic in 50s and 60s. Recently diagnosed with urinary tract infection however does not meet sepsis criteria??given the lack of leukocytosis,??improvement in his??urinary symptoms as well as being on appropriate antibiotics based on his urine cultures.??I do believe his hypotension is most likely in setting of??multiple??blood pressure medications and given his recent UTI, sepsis less likely given no leukocytosis, no fever.??Patient is now status post 2-1/2 L of IV fluids after which his blood pressure has improved into??systolic 90s.??His venous lactate was elevated initially at 4.0 which is improved to 2.4. ?Continue IV fluids 100 cc/h for another??1 L ?Recheck??basic metabolic panel in the morning ?Continue check venous lactate every 4 hours??until less than 2 ?Hold home??hypertensive medications. ??? If becomes symptomatic again with hypotension??then would give??small boluses such as 500 cc each time.?? Eventually he may need to be started on pressors??however??overall he is improving. ?? JENNIFER (acute kidney injury) (N17.9):??Underweight creatinine of 1.6, baseline of around 1. Most likely due to low blood pressure??hence most likely prerenal. Received IV fluids, will give maintenance fluids,??recheck labs in the morning.??Avoid nephrotoxins.??Holding lisinopril. ?? UTI (urinary tract infection) (N39.0):??Recently??diagnosed with urinary tract infection,??and was discharged on??Bactrim,??urine culture significant for Enterobacter??which was sensitive for Bactrim. Patient is almost completed 7 days??however given the fact with low blood pressure. We will continue with cefepime today??and tomorrow until his blood pressure improves. - Continue with Cefepime for now - Will obtain Procalcitonin ?? Hypertension (I10):??Is on multiple hypertensive medications,Coreg, doxazosin, hydrochlorothiazide/lisinopril, isosorbide mononitrate. Which we will continue to??hold due to his hypotension. ?? CAD (coronary artery disease) (I25.10):??History of coronary artery disease with stenting??previously??in [place]. Currently on guideline directed medical therapy however we will??hold lisinopril,??Coreg, in setting of JENNIFER as well as low blood pressure.??Also hold statin in setting of transaminitis. ?? Type 2 diabetes mellitus (E11.9):??Hold home??oral medications. ?Lispro??sliding scale ??? POC 3 times daily ??? Hypoglycemia??protocol ? Peripheral neuropathy (G62.9):??Continue with gabapentin??3 times daily ?? Hyperlipidemia (E78.5):??Is on??statin however we are holding due to transaminitis ?? Lower back pain (M54.50):??Chornically on Meloxicam, which I will hold due to JENNIFER ?? Transaminitis (R74.01):??Most likely due to Low BP/Shock. will recheck labs in the morning. HoldingStatin ?? VTE Prophylaxis:??Heparin ?VTE Prophylaxis Assessment:??VTE Prophylaxis Ordered ?? Code Status:??Full code ?Order Code Status:??Code Status Ordered ?? Ongoing Medical Necessity:??JENNIFER, IVF, ?? Discharge Planning:? Histories Allergies Allergies ?(Active and Proposed Allergies Only) NKA? (Severity: Unknown severity, Onset: Unknown) ? Past Medical History/Problem List Active Problems??(17) Anemia Atherosclerosis of both carotid arteries Chronic venous hypertension (idiopathic) with other complications of left lower extremity Chronic venous hypertension (idiopathic) with other complications of right lower extremity History of ST elevation myocardial infarction (STEMI) Hyperlipidemia Hypertension Insomnia Low back pain radiating to right leg Lower back pain Lower extremity edema Medicare annual wellness visit, subsequent Peripheral neuropathy Radiculopathy Shoulder pain, right Type 2 diabetes mellitus Unsteady gait ? Past Surgical History Hernia repair ? Social History Alcohol Details:??Use: Past. Employment/School Details:??Status: Retired. Home/Environment Details:??Living situation: Home with assistance. ??Lives with: Children, granddaughter. ??Other: recently moved from [place]. Nutrition/Health Details:??Diet: Regular. Sexual Details:??Sexually involved in last 6 months: No. Substance Abuse Details:??Use: Never. Tobacco Details:??Use: Never (less than 100 in lifetime). Electronic Cigarette/Vaping Details:??Electronic Cigarette Use: Never. ? Psychosocial History ? Family History Mother: Breast cancer; Diabetes mellitus; Hyperlipidemia; Hypertension Father: Diabetes mellitus Sister: Breast cancer ? Medications Home Medications Aspirin (aspirin 81 mg oral delayed release tablet)?1?tab(s)?81?Milligram?By Mouth?Daily?for 90?Days Carvedilol (carvedilol 25 mg oral tablet)?1?tablet?By Mouth?2 times a day dapagliflozin (Farxiga 5 mg oral tablet)?1?tab(s)?5?Milligram?By Mouth?Daily Doxazosin (doxazosin 4 mg oral tablet)?1?tab(s)?By Mouth?Daily?for 90?Days Durable Medical Equipment (Walker)?See Instructions?Dx: R26.81 unsteady gait Durable Medical Equipment (Wheelchair)?See Instructions?Dx: R26.81 unsteady gait Durable Medical Equipment (Home Blood Pressure Monitor)?See Instructions?DX: Hypertension Durable Medical Equipment (Freestyle Lite Monitor)?See Instructions?for 30?Days?Use forchecking blood sugar three - six times daily for type 2 DM Durable Medical Equipment (R toe off AFO)?See Instructions?Wear as directed by physical therapist Durable Medical Equipment (Freestyle Lite Lancets)?See Instructions?for 90?Days?use as directed to check blood sugar once daily for Type 2 Diabetes Mellitus E11.9 Durable Medical Equipment (Freestyle Lite Test Strips)?See Instructions?for 90?Days?useas directed to check blood once daily for Type 2 Diabetes Mellitus E11.9 Ferrous Sulfate (ferrous sulfate 325 mg oral enteric coated tablet)?325?Milligram?1?tablet?By Mouth?Daily Fluticasone Nasal (Flonase 50 mcg/inh nasal spray)?1?spray(s)?Nares, Both?2 times a day?for 30?Days Gabapentin (gabapentin 400 mg oral capsule)?400?Milligram?1?capsule?By Mouth?3 times a day?for 30?Days Glimepiride (glimepiride 4 mg oral tablet)?1?tab(s)?By Mouth?2 times a day Hydrochlorothiazide-Lisinopril (hydrochlorothiazide-lisinopril 25 mg-20 mg oral tablet)?1?tab(s)?By Mouth?Daily?for 90?Days Isosorbide Mononitrate (isosorbide mononitrate 30 mg oral tablet, extended release)?1?tab(s)?By Mouth?Daily in AM?for 90?Days Meloxicam (meloxicam 15 mg oral tablet)?1?tab(s)?By Mouth?Daily?for 90?Days Metformin (metFORMIN 500 mg oral tablet)?2?tab(s)?By Mouth?2 times a day Rosuvastatin (rosuvastatin 40 mg oral tablet)?1?tab(s)?40?Milligram?By Mouth?Daily?for 90?Days Sulfamethoxazole/Trimethoprim (Bactrim DS 800 mg-160 mg oral tablet)?1?tab(s)?By Mouth?2 times a day?for 7?Days Sulfamethoxazole/Trimethoprim (Sulfamethoxazole 40mg/Trimethoprim 8 mg/mL Liquid)?By Mouth?Every 12 hours ? Inpatient Medications Medications (22) Active SCHEDULED: (7) Aspirin 81 mg EC Tablet (aspirin 81 mg oral delayed release tablet) ??81 mg, By Mouth, Daily Cefepime 2 Gm Inj (Cefepime Extended IVPB) ??2,000 mg, IVPB, Every 12 hours Ferrous Sulfate 325 mg EC Tablet (ferrous sulfate 325 mg oral enteric coated tablet) ??325 mg, By Mouth, Daily Gabapentin 400 mg Capsule (gabapentin 400 mg oral capsule) ??400 mg, By Mouth, 3 times a day Heparin 5000 units/mL Inj (1 mL) (Heparin Inj) ??5,000 units 1 mL, Subcutaneous Injection, 2 times a day Insulin Lispro 100 units/mL Inj (3mL) (Insulin LISPRO Sliding Scale) ??2-10 units, Subcutaneous Injection, 3 times a day before meals NaCl 0.9% Flush 3ml (NaCL 0.9% Flush) ??3 mL, IV Push, Every 8 hours CONTINUOUS: (1) Lactated Ringers (1000 mL) Cont IV 1,000 mL (LR 1,000 mL) ??1,000 mL, IV Infusion, 100 mL/hr PRN: (14) Acetaminophen 325 mg Tablet (Acetaminophen Tablet) ??650 mg, By Mouth, Every 4 hours Dextromethorphan-Guaifenesin 20 mg-200 mg/10 mL Liqu UD (Robitussin DM Liquid) ??10 mL, By Mouth, Every 4 hours Dextrose Inj Syringe (Dextrose 50% Inj Syringe (25Gm)) ??12.5 Gm, IV Push Slowly, Every 20 minutes Dextrose Inj Syringe (Dextrose 50% Inj Syringe (25Gm)) ??25 Gm, IV Push Slowly, Every 15 minutes Docusate Sodium 100 mg Capsule (Docusate Sodium Capsule) ??100 mg 1 capsule, By Mouth, 2 times a day Docusate Sodium 100 mg Capsule (Docusate Sodium Capsule) ??100 mg 1 capsule, By Mouth, 2 times a day Glucagon 1 mg Inj (Glucagon Inj) ??1 mg, Intramuscular, Once Glucose 40% Gel (15 Gm) (Glucose Gel) ??15 Gm, By Mouth, Every 20 minutes Glucose 40% Gel (15 Gm) (Glucose Gel) ??30 Gm, By Mouth, Every 20 minutes Melatonin 3 mg Tablet (Melatonin Tablet) ??3 mg, By Mouth, Daily at bedtime NaCl 0.9% Flush 3ml (NaCL 0.9% Flush) ??3 mL, IV Push, Every 8 hours Polyethylene Glycol 17 Gm Powder (MiraLax Powder) ??17 Gm 1 pack/packet, By Mouth, Daily Senna Tablet ??8.6 mg 1 tablet, By Mouth, 2 times a day Simethicone 80 mg Chewable Tablet (Simethicone Tablet) ??80 mg, Chew, 3 times a day ? Results Recent Labs BLOOD COUNT & DIFF WBC 7.6 k/mm3 ()?? 09/18/2023 15:07 RBC 3.64 m/mm3 (Low)?? 09/18/2023 15:07 Hgb 12.0 Gm/dL (Low)?? 09/18/2023 15:07 Hct 34.7 % (Low)?? 09/18/2023 15:07 MCV 95.3 femtoliters (High)?? 09/18/2023 15:07 MCH 33.0 pg ()?? 09/18/2023 15:07 MCHC 34.6 g/dL ()?? 09/18/2023 15:07 Platelet Count 274 k/mm3 ()?? 09/18/2023 15:07 RDW-SD 45.3 femtoliters ()?? 09/18/2023 15:07 MPV 9.1 femtoliters (Low)?? 09/18/2023 15:07 Nucleated RBC (Automated) 0.0 #/100 WBC'S ()?? 09/18/2023 15:07 Abs. NRBC 0.0 k/mm3 ()?? 09/18/2023 15:07 Abs. Neut 4.4 k/mm3 ()?? 09/18/2023 15:07 Abs. Lymph 1.9 k/mm3 ()?? 09/18/2023 15:07 Abs. [place] 0.9 k/mm3 ()?? 09/18/2023 15:07 Abs. Eo 0.4 k/mm3 ()?? 09/18/2023 15:07 Abs. Baso 0.0 k/mm3 ()?? 09/18/2023 15:07 Neut % 57.2 % ()?? 09/18/2023 15:07 Lymph % 24.9 % ()?? 09/18/2023 15:07 [place] % 11.9 % (High)?? 09/18/2023 15:07 Eos % 5.4 % ()?? 09/18/2023 15:07 Baso % 0.3 % ()?? 09/18/2023 15:07 Imm Gran 0.3 % ()?? 09/18/2023 15:07 Abs. Imm Gran 0.0 k/mm3 ()?? 09/18/2023 15:07 ?? CHEM GENERAL Sodium 133 mmol/L ()?? 09/18/2023 15:07 Potassium 5.2 mmol/L ()?? 09/18/2023 15:07 Chloride 97 mmol/L (Low)?? 09/18/2023 15:07 Bicarbonate Level 21 mmol/L (Low)?? 09/18/2023 15:07 Anion Gap 15 ()?? 09/18/2023 15:07 Glucose Level 175 mg/dL (High)?? 09/18/2023 15:07 Glucose, POC 161 mg/dL (High)?? 09/18/2023 15:23 BUN 31 mg/dL (High)?? 09/18/2023 15:07 Creatinine-Blood 1.6 mg/dL (High)?? 09/18/2023 15:07 Estimated GFR Creatinine 45 ML/MIN/1.73 M2 ()?? 09/18/2023 15:07 Calcium 9.7 mg/dL ()?? 09/18/2023 15:07 Protein, Total 6.6 Gm/dL ()?? 09/18/2023 15:07 Albumin 4.0 Gm/dL ()?? 09/18/2023 15:07 AG Ratio 1.5 ()?? 09/18/2023 15:07 Alkaline Phosphatase 72 units/L ()?? 09/18/2023 15:07 AST (SGOT) 144 units/L (High)?? 09/18/2023 15:07 ALT (SGPT) 182 units/L (High)?? 09/18/2023 15:07 Bilirubin, Total 0.2 mg/dL ()?? 09/18/2023 15:07 Lactate 2.4 mmol/L (High)?? 09/18/2023 17:49 ?? ENDOCRINE/TUMOR MARKER Blood <1 mIU/mL ()?? 09/18/2023 15:07 ?? HEME OTHER Hold Lavender Top SPECIMEN DISCARDED AFTER 24 HOURS. ()?? 09/18/2023 15:07 Hold Blue Top SPECIMEN DISCARDED AFTER 4 HOURS. ()?? 09/18/2023 15:07 ?? MISC. CHEMISTRY Hold Gel Top SPECIMEN DISCARDED AFTER 1 WEEK ()?? 09/18/2023 15:07 ?? URINE OTHER Est Creatinine Clearance 34.14 mL/min ()?? 09/18/2023 15:48 ?? VIROLOGY Influenza A PCR NEGATIVE ()?? 09/18/2023 16:32 Influenza B PCR NEGATIVE ()?? 09/18/2023 16:32 RSV PCR NEGATIVE ()?? 09/18/2023 16:32 COVID-19 PCR Specimen Source NASAL ()?? 09/18/2023 16:32 COVID-19 PCR Result NEGATIVE ()?? 09/18/2023 16:32 ? EKG study * Event Display: EKG Authored Date: * Event Display: ECG 12-Lead Authored Date: Please click on pdf link to open report * Event Display: ECG 12-Lead Authored Date: Ventricular Rate: 50 BPM Atrial Rate: 50 BPM P-R Interval: 182 ms QRS Duration: 134 ms Q-T Interval: 480 ms QTC Calculation(Bazett): 437 ms P [place]: 37 degrees R [place]: -48 degrees T [place]: -13 degrees Sinus bradycardia Right bundle branch block Left anterior fascicular block Bifascicular block Abnormal ECG Confirmed by LINDY PHAN MD ([id number]) on 09/19/2023 10:31:00 PM [place]: LINDY PHAN MD [facility] Progress note * Connie GARCIA, Tessa: PERFORM, SIGN, VERIFY Event Display: Progress Note Hospital Authored Date: Patient: CLEMENTINE SALAZAR Age: 73 years Sex: Male : 1950 Associated Diagnoses: None Author: Tessa Rosales RN Findings Problem Related to Alteration in Cardiac Function (new) : Alteration in Cardiac Function/new 09/20/2023 13:00 EDT Alteration in Cardiac Status Related to Other: admited with Hypotention Goals & Outcomes, Cardiac Status Pt will resume/maintain adequate hemodynamic status, Pt will resume/maintain adequate respiratory function, Pt will resume/maintain intact neuro function, Pt willmaintain adequate GI/ function appropriate for pt, Pt/caregiver will state strategies to reduce risk factors, Resolved problem, Goals/Outcomes met Cardiac Interventions Implemented Assess/monitor cardiac status, Assess/monitor neuro status, Assess/monitor respiratory status Goals/Interventions, Cardiac Yes Cardiac, Problem Start 09/18/2023 18:39 Reviewed Plan with, Cardiac Status Patient Patient Progression, Cardiac Status Plan Initiation . Alteration in Safety : Alteration in Safety/new 09/20/2023 13:00 EDT Alteration in Safety Related to Other: fall risk Goals & Outcomes, Safety Pt/caregiver will state understanding of plan/goals of care, Pt will remain safe & injury free, Pt/caregiver will be offered appropriate resources & support Interventions, Safety Provide info on community resources for education, support, Provide teaching as needed Goals/Interventions, Safety Yes Safety, Problem Start 09/18/2023 18:41 Reviewed plan with, Safety Patient Patient Progression, Safety Pt progressing according to plan . Nursing Data Activity Data : Activity Data 09/20/2023 10:00 EDT Activity Assistance One person assistance . Cardiac Data. : Cardiac Data. 09/20/2023 9:58 EDT Cardiac Rhythm Normal sinus rhythm library monitor Yes Cardiovascular WNL except . Narrative/Incidental patient is alert and oriented ambulating with standby assist . chronic low leg pain on gbapentinn .feeling better today wants to go home. * Joan Sandhu RN: SIGN, VERIFY, PERFORM Event Display: Progress Note Hospital Authored Date: [id number] Patient: CLEMENTINE SALAZAR Age: 73 years Sex: Male : 1950 Associated Diagnoses: None Author: Joan Sandhu RN Findings Problem Related to Alteration in Cardiac Function (new) : Alteration in Cardiac Function/new 09/19/2023 13:00 EDT Alteration in Cardiac Status Related to Other: admited with Hypotention Goals & Outcomes, Cardiac Status Pt will resume/maintain adequate hemodynamic status, Pt will resume/maintain adequate respiratory function, Pt will resume/maintain intact neuro function, Pt willmaintain adequate GI/ function appropriate for pt, Pt/caregiver will state strategies to reduce risk factors, Resolved problem, Goals/Outcomes met Cardiac Interventions Implemented Assess/monitor cardiac status, Assess/monitor respiratory status,Document & Monitor O2 Sats; Administer O2 as ordered, Teach/encourage deep breath & cough exercises, Resolved problem; interventions no longer in effect BH Goals/Interventions, Cardiac Yes Cardiac, Problem Start 09/18/2023 18:39 Reviewed Plan with, Cardiac Status Patient Patient Progression, Cardiac Status Plan Initiation . Alteration in Safety : Alteration in Safety/new 09/19/2023 13:00 EDT Alteration in Safety Related to Other: fall risk Goals & Outcomes, Safety Pt/caregiver will state understanding of plan/goals of care, Pt will remain safe & injury free, Pt/caregiver will be offered appropriate resources & support Interventions, Safety Provide info on community resources for education, support, Provide teaching as needed, Resolved problem, Interventions no longer in effect Goals/Interventions, Safety Yes Safety, Problem Start 09/18/2023 18:41 Reviewed plan with, Safety Patient Patient Progression, Safety Pt progressing according to plan . Nursing Data Cardiac Data. : Cardiac Data. 09/19/2023 9:51 EDT Nail Bed Color, Fingers Wilkerson Nail Bed Color, Toes Wilkerson Heart Rhythm Regular Pacemaker No Cardiac Rhythm Normal sinus rhythm Capillary Refill < 3 seconds Radial Pulse, Left Normal Radial Pulse, Right Normal Dorsalis Pedis Pulse, Left Normal Dorsalis Pedis Pulse, Right Normal Ankle, left 2+ mild Ankle, right 2+ mild library monitor Yes Cardiovascular WNL except . IV Lines. : IV Lines. 09/19/2023 12:21 EDT Left Antecubital basilic vein 18 gauge Peripheral IV Activity: Assess Peripheral IV Assess Compare Touch: A/C/T Done, no complications Peripheral IV Site Assessment: Clean, dry and intact, Flushes Well Peripheral IV Site Drainage: None Peripheral IV Dressing: Drainage present Peripheral IV Intervention: Flushed Right Antecubital basilic vein 18 gauge Peripheral IV Activity: Assess Peripheral IV Assess Compare Touch: A/C/T Done, no complications Peripheral IV Site Assessment: Clean, dry and intact, Flushes Well Peripheral IV Site Drainage: None Peripheral IV Dressing: Clean, dry and intact Peripheral IV Intervention: Flushed . Vital Signs : VITAL SIGNS SECTION 09/19/2023 11:11 EDT Temperature 98.1 DegF Temperature Route Oral Pulse Rate 70 bpm Respiratory Rate 18 br/min Systolic Blood Pressure 127 mm Hg Diastolic Blood Pressure 87 mm Hg H Blood pressure sites Arm, left Mean Arterial Pressure 100 mm Hg Pulse Pressure 40 mm Hg Oxygen Saturation 99 % Mode of Delivery (Oxygen) Room air . Narrative/Incidental patient is awake alert oriented. Bilateral HL flushed patent. Lactated ringers infusing, denies pain, dizziness or headaches.. Telemetry in place NSR.. Discharge Information Case Management Discharge Plan : Case Management Discharge Plan Data 09/12/2023 21:29 EDT Discharge Level of Care at Discharge Home/Snf/Foster Care * Tarun ROSENBERG, Lorna: PERFORM Event Display: Progress Note Hospital Authored Date: [id number] Patient: ??CLEMENTINE SALAZAR ? Age:??73 Years?Sex:??Male?:??1950?? Subjective No acute overnight events Patient seen and evaluated bedside, primarily Peruvian-speaking but is able to communicate a little bit in Senegalese Denies any dizziness now, states that he feels good SBP improved, currently 120s to 130s Review of Systems Negative except as noted above Objective Vital Signs?? Temperature: 98.1 DegF (09/19/23 11:11:00) Temperature Route: Oral (09/19/23 11:11:00) Pulse Rate: 70 bpm (09/19/23 11:11:00) Respiratory Rate: 18 br/min (09/19/23 11:11:00) Systolic Blood Pressure: 127 mm Hg (09/19/23 11:11:00) Diastolic Blood Pressure:??87 mm Hg??High (09/19/23 11:11:00) Blood pressure sites: Arm, left (09/19/23 11:11:00) Mean Arterial Pressure: 100 mm Hg (09/19/23 11:11:00) Pulse Pressure: 40 mm Hg (09/19/23 11:11:00) Oxygen Saturation: 99 % (09/19/23 11:11:00) Liters per Minute: 0 L/min (09/19/23 04:24:00) Mode of Delivery (Oxygen): Room air (09/19/23 11:11:00) Early Warning Score: 0 (09/19/23 12:12:31) ? Intake/Output? 09/17 14:44 09/18 07:00 09/17 07:00 09/16 07:00 09/15 07:00 ?? 09/18 13:56 09/18 13:56 09/18 06:59 09/17 06:59 09/16 06:59 Intake ? 1721.7 ?480 ? 1241.7 ?0 ?0 Output ? 5275 ? 2575 ? 2700 ?0 ?0 Net Total ?-3553.3 ?-2095 ?-1458.3 ?0 ?0 ? Physical Exam Constitutional: Alert, in no distress. Oriented??x 3 HEENT: PERRLA, EOMI,??dry mucous membrane Respiratory: Clear to auscultation. No wheezing, rales or rhonchi. Cardiovascular: S1 S2 regular. No murmurs,??no pitting edema Gastrointestinal: Abdomen soft, no abdominal tenderness, non-distended. Normal bowel sounds.?? No CVAT Neurologic: Moving all extremities??5/5 strength of bilateral upper and lower extremity, sensation intact throughout, cranial nerves II to XII grossly normal Psychiatric: Normal mood and affect Results Recent Labs BLOOD COUNT & DIFF WBC 5.7 k/mm3 ()?? 09/19/2023 05:51 RBC 3.43 m/mm3 (Low)?? 09/19/2023 05:51 Hgb 11.2 Gm/dL (Low)?? 09/19/2023 05:51 Hct 32.4 % (Low)?? 09/19/2023 05:51 MCV 94.5 femtoliters (High)?? 09/19/2023 05:51 MCH 32.7 pg ()?? 09/19/2023 05:51 MCHC 34.6 g/dL ()?? 09/19/2023 05:51 Platelet Count 218 k/mm3 ()?? 09/19/2023 05:51 RDW-SD 44.8 femtoliters ()?? 09/19/2023 05:51 MPV 9.0 femtoliters (Low)?? 09/19/2023 05:51 Nucleated RBC (Automated) 0.0 #/100 WBC'S ()?? 09/19/2023 05:51 Abs. NRBC 0.0 k/mm3 ()?? 09/19/2023 05:51 Abs. Neut 4.4 k/mm3 ()?? 09/18/2023 15:07 Abs. Lymph 1.9 k/mm3 ()?? 09/18/2023 15:07 Abs. [place] 0.9 k/mm3 ()?? 09/18/2023 15:07 Abs. Eo 0.4 k/mm3 ()?? 09/18/2023 15:07 Abs. Baso 0.0 k/mm3 ()?? 09/18/2023 15:07 Neut % 57.2 % ()?? 09/18/2023 15:07 Lymph % 24.9 % ()?? 09/18/2023 15:07 [place] % 11.9 % (High)?? 09/18/2023 15:07 Eos % 5.4 % ()?? 09/18/2023 15:07 Baso % 0.3 % ()?? 09/18/2023 15:07 Imm Gran 0.3 % ()?? 09/18/2023 15:07 Abs. Imm Gran 0.0 k/mm3 ()?? 09/18/2023 15:07 ?? CHEM GENERAL Sodium 139 mmol/L ()?? 09/19/2023 05:51 Potassium 4.2 mmol/L ()?? 09/19/2023 05:51 Chloride 104 mmol/L ()?? 09/19/2023 05:51 Bicarbonate Level 23 mmol/L ()?? 09/19/2023 05:51 Anion Gap 12 ()?? 09/19/2023 05:51 Glucose Level 84 mg/dL ()?? 09/19/2023 05:51 Glucose, POC 254 mg/dL (High)?? 09/19/2023 11:11 BUN 21 mg/dL ()?? 09/19/2023 05:51 Creatinine-Blood 1.2 mg/dL ()?? 09/19/2023 05:51 Estimated GFR Creatinine 63 ML/MIN/1.73 M2 ()?? 09/19/2023 05:51 Calcium 9.2 mg/dL ()?? 09/19/2023 05:51 Protein, Total 6.2 Gm/dL ()?? 09/19/2023 05:51 Albumin 3.7 Gm/dL ()?? 09/19/2023 05:51 AG Ratio 1.5 ()?? 09/18/2023 15:07 Alkaline Phosphatase 70 units/L ()?? 09/19/2023 05:51 AST (SGOT) 125 units/L (High)?? 09/19/2023 05:51 ALT (SGPT) 179 units/L (High)?? 09/19/2023 05:51 Bilirubin, Total 0.3 mg/dL ()?? 09/19/2023 05:51 Bilirubin, Direct 0.1 mg/dL ()?? 09/19/2023 05:51 Bilirubin, Indirect 0.2 mg/dL ()?? 09/19/2023 05:51 Lactate 1.6 mmol/L ()?? 09/19/2023 00:40 ?? ENDOCRINE/TUMOR MARKER Blood <1 mIU/mL ()?? 09/18/2023 15:07 ?? HEME OTHER Hold Lavender Top SPECIMEN DISCARDED AFTER 24 HOURS. ()?? 09/18/2023 15:07 Hold Blue Top SPECIMEN DISCARDED AFTER 4 HOURS. ()?? 09/18/2023 15:07 ?? MISC. CHEMISTRY Procalcitonin 0.07 ng/mL ()?? 09/18/2023 15:07 Hold Gel Top SPECIMEN DISCARDED AFTER 1 WEEK ()?? 09/18/2023 15:07 ?? UA/URINALYSIS Appear/Color, Urine YELLOW ()?? 09/18/2023 20:45 Clarity SL.CLOUDY (Abnormal)?? 09/18/2023 20:45 Specific Lytle, Urine 1.015 ()?? 09/18/2023 20:45 pH, Urine 6.0 ()?? 09/18/2023 20:45 Albumin, Urine NEGATIVE ()?? 09/18/2023 20:45 Glucose, Urine 4+ (Abnormal)?? 09/18/2023 20:45 Ketones, Urine NEGATIVE ()?? 09/18/2023 20:45 Bilirubin, Urine NEGATIVE ()?? 09/18/2023 20:45 Hemoglobin, Urine NEGATIVE ()?? 09/18/2023 20:45 Nitrite, Urine NEGATIVE ()?? 09/18/2023 20:45 Leukocyte, Urine NEGATIVE ()?? 09/18/2023 20:45 Urobilinogen NORMAL mg/dL ()?? 09/18/2023 20:45 Hold Urine Culture Testing available 48 hours from time of collection. ()?? 09/18/2023 20:45 ?? URINE OTHER Est Creatinine Clearance 45.52 mL/min ()?? 09/19/2023 06:19 ?? VIROLOGY Influenza A PCR NEGATIVE ()?? 09/18/2023 16:32 Influenza B PCR NEGATIVE ()?? 09/18/2023 16:32 RSV PCR NEGATIVE ()?? 09/18/2023 16:32 COVID-19 PCR Specimen Source NASAL ()?? 09/18/2023 16:32 COVID-19 PCR Result NEGATIVE ()?? 09/18/2023 16:32 ? Assessment/Plan Assessment:??73-year-old male with a past medical history of coronary artery disease, hypertension,type 2 diabetes mellitus presented to the hospital with complaints of dizziness, low blood pressure. ?? Hypotension (I95.9):??Presented to hospital with low blood pressure systolic in 50s and 60s.?? Recently diagnosed with urinary tract infection however does not meet sepsis criteria??given the lack of leukocytosis,??improvement in his??urinary symptoms as well as being on appropriate antibiotics based on his urine cultures.?? s/p IV fluids blood pressure has improved into??systolic 90s.??His venous lactate was elevated initially at 4.0??which resolved after??hydration ???Currently off fluids, SBP 120s to 130s ???Hold home antihypertensive meds, will restart tomorrow if??SBP stable overnight ???If hypotensive, will consider small fluid boluses ?? JENNIFER (acute kidney injury) (N17.9):??Admission??creatinine of 1.6, baseline of around 1.?? Most likely due to??hypotension hence most likely prerenal. Received IV fluids,??creatinine close to baseline at 1.2. ??Continue to monitor Avoid nephrotoxins.??Holding lisinopril. ?? Transaminitis (R74.01):??Most likely due to Low BP/Shock. Holding Statin LFTs mildly improving, will continue to monitor during inpatient stay ?? UTI (urinary tract infection) (N39.0):??Recently??diagnosed with urinary tract infection,??and was discharged on??Bactrim Urine culture significant for Enterobacter??which was sensitive for Bactrim. Patient almost completed 7 days??however given the fact with low blood pressure, we will continue with cefepime??during inpatient stay - Continue with Cefepime for now ?? CAD (coronary artery disease) (I25.10):??History of coronary artery disease with stenting??previously??in [place]. Currently on guideline directed medical therapy however we will??hold lisinopril,??Coreg, in setting of JENNIFER as well as low blood pressure.?? Also hold statin in setting of transaminitis. ?? Hypertension (I10):??Is on multiple hypertensive medications,Coreg, doxazosin, hydrochlorothiazide/lisinopril, isosorbide mononitrate. Which we will continue to??hold due to his hypotension. ?? Hyperlipidemia (E78.5):??Is on??statin however we are holding due to transaminitis ?? Type 2 diabetes mellitus (E11.9):??Hold home??oral medications. ?Lispro??sliding scale ??? POC 3 times daily ??? Hypoglycemia??protocol ? Peripheral neuropathy (G62.9):??Continue with gabapentin??3 times daily ?? Lower back pain (M54.50):??Chronically on Meloxicam,??currently held??due to JENNIFER ?? VTE Prophylaxis:??Heparin ?VTE Prophylaxis Assessment:??VTE Prophylaxis Ordered ?? Code Status:??Full code ?Order Code Status:??Code Status Ordered ?? Ongoing Medical Necessity:??Monitoring hypotension, LFTs, JENNIFER ?? Discharge Planning:? Note * Tessa Rosales RN: PERFORM Event Display: Discharge/Transfer Note Hospital Authored Date: Nursing Discharge Note Entered On: 09/20/2023 14:25 EDT Performed On: 09/20/2023 14:25 EDT by Tessa Rosales RN Nursing Discharge Note 2 Discharge Time : 09/20/2023 14:25 EDT Discharge Level of Care at Discharge : Home/Snf/Foster Care Patient Left Unit Via : Wheelchair Patient Accompanied Off Unit with : Responsible adult DC Instructions Provided & Signed by Pt : Yes Patient Understands D/C Instructions : Yes Patient Instructions Discharge Signed : Yes Did Pt have Specialty Bed or Wound Vac : No Tessa Rosales RN - 09/20/2023 14:25 EDT * Lorna Mcneil MD: PERFORM Event Display: Discharge/Transfer Note Hospital Authored Date: Patient: ??CLEMENTINE SALAZAR ? Age:??73 Years?Sex:??Male?:??1950?? Patient Information Discharge Location: Med Surg Primary Care Physician: Ioana Ochoa NP Admit Date/Time: 09/19/23 15:57 Discharge Disposition Discharge Disposition: Home: No Services Discharge Diagnosis Hypotension (I95.9) JENNIFER (acute kidney injury) (N17.9) Transaminitis (R74.01) UTI (urinary tract infection) (N39.0) CAD (coronary artery disease) (I25.10) Hypertension (I10) Hyperlipidemia (E78.5) Type 2 diabetes mellitus (E11.9) Peripheral neuropathy (G62.9) Lower back pain (M54.50) Edema (R60.9) Shock (R57.9) _ Discharge Medications Aspirin (aspirin 81 mg oral delayed release tablet)?1?tab(s)?81?Milligram?By Mouth?Daily?for 90?Days Carvedilol (carvedilol 25 mg oral tablet)?1?tablet?By Mouth?2 times a day dapagliflozin (Farxiga 5 mg oral tablet)?1?tab(s)?5?Milligram?By Mouth?Daily Durable Medical Equipment (Walker)?See Instructions?Dx: R26.81 unsteady gait Durable Medical Equipment (Wheelchair)?See Instructions?Dx: R26.81 unsteady gait Durable Medical Equipment (Home Blood Pressure Monitor)?See Instructions?DX: Hypertension Durable Medical Equipment (Freestyle Lite Monitor)?See Instructions?for 30?Days?Use forchecking blood sugar three - six times daily for type 2 DM Durable Medical Equipment (R toe off AFO)?See Instructions?Wear as directed by physical therapist Durable Medical Equipment (Freestyle Lite Lancets)?See Instructions?for 90?Days?use as directed to check blood sugar once daily for Type 2 Diabetes Mellitus E11.9 Durable Medical Equipment (Freestyle Lite Test Strips)?See Instructions?for 90?Days?useas directed to check blood once daily for Type 2 Diabetes Mellitus E11.9 Ezetimibe (Zetia 10 mg oral tablet)?1?tab(s)?10?Milligram?By Mouth?Daily Ferrous Sulfate (ferrous sulfate 325 mg oral enteric coated tablet)?325?Milligram?1?tablet?By Mouth?Daily Fluticasone Nasal (Flonase 50 mcg/inh nasal spray)?1?spray(s)?Nares, Both?2 times a day?for 30?Days Gabapentin (gabapentin 400 mg oral capsule)?400?Milligram?1?capsule?By Mouth?3 times a day?for 30?Days Glimepiride (glimepiride 4 mg oral tablet)?1?tab(s)?By Mouth?2 times a day Isosorbide Mononitrate (isosorbide mononitrate 30 mg oral tablet, extended release)?1?tab(s)?By Mouth?Daily in AM?for 90?Days Metformin (metFORMIN 500 mg oral tablet)?2?tab(s)?By Mouth?2 times a day ? Quality Measures Chest Pain, AMI Quality Measures:? Medications Started NONE Medications Discontinued Doxazosin Hydrochlorothiazide???lisinopril Meloxicam Rosuvastatin Doses Changed NONE Allergies Allergies ?(Active and Proposed Allergies Only) NKA? (Severity: Unknown severity, Onset: Unknown) ? PCP Follow-Up/Heads-Up Hospital follow-up Future Appointments Saturday 1:30 PM EDT ?? With: Ioana Ochoa NP Where: [facility] [address] [place] [address]- Status: Pending Hospital Course ??See below Objective Assessment and Plan Assessment:??73-year-old male with a past medical history of coronary artery disease, hypertension,type 2 diabetes mellitus presented to the hospital with complaints of dizziness, low blood pressure. ?? Hypotension (I95.9):??Presented to hospital with low blood pressure systolic in 50s and 60s.?? Recently diagnosed with urinary tract infection however does not meet sepsis criteria??given the lack of leukocytosis,??improvement in his??urinary symptoms as well as being on appropriate antibiotics based on his urine cultures.?? s/p IV fluids blood pressure has improved into??systolic 90s.??His venous lactate was elevated initially at 4.0??which resolved after??hydration ? SBP remained >??100??off IV fluids and??by restarting home Coreg and Imdur ? JENNIFER (acute kidney injury) (N17.9):??Resolved Admission??creatinine of 1.6, baseline of around 1.?? Most likely due to??hypotension hence most likely prerenal. Received IV fluids,??creatinine??back to baseline Avoid nephrotoxins.??Holding lisinopril??at discharge? Transaminitis (R74.01):??Improving Most likely due to Low BP/Shock. Holding Statin??till seen by PCP ?? UTI (urinary tract infection) (N39.0):??Recently??diagnosed with urinary tract infection,??and was discharged on??Bactrim Urine culture significant for Enterobacter??which was sensitive for Bactrim. Patient almost completed 7 days??however given the fact with low blood pressure, was continued withcefepime??during inpatient stay- no need for antibiotics at the time of discharge ?? CAD (coronary artery disease) (I25.10):??History of coronary artery disease with stenting??previously??in [place]. Currently on guideline directed medical therapy however?lisinopril was held??in the setting of JENNIFER/low blood pressure. Also hold statin in setting of transaminitis.??PCP to consider restarting lisinopril and statin as able ?? Hypertension (I10):??Is on multiple hypertensive medications??as an outpatient,Coreg, doxazosin, hydrochlorothiazide/lisinopril, isosorbide mononitrate.?? Continue Coreg, Imdur Hold doxazosin, hydrochlorothiazide and lisinopril???PCP to??consider restarting slowly as able ?? Hyperlipidemia (E78.5):??Is on??statin however we are holding due to transaminitis ?? Type 2 diabetes mellitus (E11.9):??Continue home regimen ? Peripheral neuropathy (G62.9):??Continue with gabapentin??3 times daily ?? Lower back pain (M54.50):??Chronically on Meloxicam,??discontinued due to JENNIFER ? Patient was discharged home ?? Vital Signs?? Temperature: 98.2 DegF (09/20/23 11:05:00) Temperature Route: Oral (09/20/23 11:05:00) Pulse Rate: 82 bpm (09/20/23 11:05:00) Respiratory Rate: 18 br/min (09/20/23 11:05:00) Systolic Blood Pressure: 108 mm Hg (09/20/23 11:05:00) Diastolic Blood Pressure: 80 mm Hg (09/20/23 11:05:00) Blood pressure sites: Arm, right (09/20/23 11:05:00) Mean Arterial Pressure: 89 mm Hg (09/20/23 11:05:00) Pulse Pressure: 28 mm Hg (09/20/23 11:05:00) Oxygen Saturation: 95 % (09/20/23 11:05:00) Mode of Delivery (Oxygen): Room air (09/20/23 11:05:00) Early Warning Score: 2 (09/20/23 11:37:43) ? . Physical Exam Constitutional: Alert, in no distress. Oriented??x 3 HEENT: PERRLA, EOMI,??dry mucous membrane Respiratory: Clear to auscultation. No wheezing, rales or rhonchi. Cardiovascular: S1 S2 regular. No murmurs,??no pitting edema Gastrointestinal: Abdomen soft, no abdominal tenderness, non-distended. Normal bowel sounds.?? No CVAT Neurologic: Moving all extremities??5/5 strength of bilateral upper and lower extremity, sensation intact throughout, cranial nerves II to XII grossly normal Psychiatric: Normal mood and affect Consultants none Pending Results Add On Lab Order ordered on 09/18/2023 Blood Culture #2 ordered on 09/18/2023 Follow-Up Appointments Added Follow Up ?Time Frame ?Comments Don FLORIAN, Ioana Post Discharge Care Discharge ?09/20/23 13:00:00 EDT Home Health Face to Face ^HomeHealthFTF Results Discharge Labs BACTERIOLOGY Blood Culture Results Preliminary report ()?? 09/18/2023 15:07 Blood Culture Specimen Source BLOOD ()?? 09/18/2023 15:07 Blood Culture Isolate 1 Comment ()?? 09/18/2023 15:07 ? BLOOD COUNT & DIFF WBC 5.7 k/mm3 ()?? 09/19/2023 05:51 RBC 3.43 m/mm3 (Low)?? 09/19/2023 05:51 Hgb 11.2 Gm/dL (Low)?? 09/19/2023 05:51 Hct 32.4 % (Low)?? 09/19/2023 05:51 MCV 94.5 femtoliters (High)?? 09/19/2023 05:51 MCH 32.7 pg ()?? 09/19/2023 05:51 MCHC 34.6 g/dL ()?? 09/19/2023 05:51 Platelet Count 218 k/mm3 ()?? 09/19/2023 05:51 RDW-SD 44.8 femtoliters ()?? 09/19/2023 05:51 MPV 9.0 femtoliters (Low)?? 09/19/2023 05:51 Nucleated RBC (Automated) 0.0 #/100 WBC'S ()?? 09/19/2023 05:51 Abs. NRBC 0.0 k/mm3 ()?? 09/19/2023 05:51 Abs. Neut 4.4 k/mm3 ()?? 09/18/2023 15:07 Abs. Lymph 1.9 k/mm3 ()?? 09/18/2023 15:07 Abs. [place] 0.9 k/mm3 ()?? 09/18/2023 15:07 Abs. Eo 0.4 k/mm3 ()?? 09/18/2023 15:07 Abs. Baso 0.0 k/mm3 ()?? 09/18/2023 15:07 Neut % 57.2 % ()?? 09/18/2023 15:07 Lymph % 24.9 % ()?? 09/18/2023 15:07 [place] % 11.9 % (High)?? 09/18/2023 15:07 Eos % 5.4 % ()?? 09/18/2023 15:07 Baso % 0.3 % ()?? 09/18/2023 15:07 Imm Gran 0.3 % ()?? 09/18/2023 15:07 Abs. Imm Gran 0.0 k/mm3 ()?? 09/18/2023 15:07 ?? CHEM GENERAL Sodium 137 mmol/L ()?? 09/20/2023 05:31 Potassium 4.3 mmol/L ()?? 09/20/2023 05:31 Chloride 102 mmol/L ()?? 09/20/2023 05:31 Bicarbonate Level 24 mmol/L ()?? 09/20/2023 05:31 Anion Gap 11 ()?? 09/20/2023 05:31 Glucose Level 147 mg/dL (High)?? 09/20/2023 05:31 Glucose, POC 329 mg/dL (High)?? 09/20/2023 11:04 BUN 18 mg/dL ()?? 09/20/2023 05:31 Creatinine-Blood 1.0 mg/dL ()?? 09/20/2023 05:31 Estimated GFR Creatinine 78 ML/MIN/1.73 M2 ()?? 09/20/2023 05:31 Calcium 10.0 mg/dL ()?? 09/20/2023 05:31 Protein, Total 6.7 Gm/dL ()?? 09/20/2023 05:31 Albumin 4.0 Gm/dL ()?? 09/20/2023 05:31 AG Ratio 1.5 ()?? 09/18/2023 15:07 Alkaline Phosphatase 73 units/L ()?? 09/20/2023 05:31 AST (SGOT) 69 units/L (High)?? 09/20/2023 05:31 ALT (SGPT) 144 units/L (High)?? 09/20/2023 05:31 Bilirubin, Total 0.3 mg/dL ()?? 09/20/2023 05:31 Bilirubin, Direct 0.1 mg/dL ()?? 09/20/2023 05:31 Bilirubin, Indirect 0.2 mg/dL ()?? 09/20/2023 05:31 Lactate 1.6 mmol/L ()?? 09/19/2023 00:40 ? ENDOCRINE/TUMOR MARKER Blood <1 mIU/mL ()?? 09/18/2023 15:07 ? HEME OTHER Hold Lavender Top SPECIMEN DISCARDED AFTER 24 HOURS. ()?? 09/20/2023 05:31 Hold Blue Top SPECIMEN DISCARDED AFTER 4 HOURS. ()?? 09/18/2023 15:07 ?? MISC. CHEMISTRY Procalcitonin 0.07 ng/mL ()?? 09/18/2023 15:07 Hold Gel Top SPECIMEN DISCARDED AFTER 1 WEEK ()?? 09/18/2023 15:07 ?? UA/URINALYSIS Appear/Color, Urine YELLOW ()?? 09/18/2023 20:45 Clarity SL.CLOUDY (Abnormal)?? 09/18/2023 20:45 Specific Lytle, Urine 1.015 ()?? 09/18/2023 20:45 pH, Urine 6.0 ()?? 09/18/2023 20:45 Albumin, Urine NEGATIVE ()?? 09/18/2023 20:45 Glucose, Urine 4+ (Abnormal)?? 09/18/2023 20:45 Ketones, Urine NEGATIVE ()?? 09/18/2023 20:45 Bilirubin, Urine NEGATIVE ()?? 09/18/2023 20:45 Hemoglobin, Urine NEGATIVE ()?? 09/18/2023 20:45 Nitrite, Urine NEGATIVE ()?? 09/18/2023 20:45 Leukocyte, Urine NEGATIVE ()?? 09/18/2023 20:45 Urobilinogen NORMAL mg/dL ()?? 09/18/2023 20:45 Hold Urine Culture Testing available 48 hours from time of collection. ()?? 09/18/2023 20:45 ? URINE OTHER Est Creatinine Clearance 54.62 mL/min ()?? 09/20/2023 06:23 ? VIROLOGY Influenza A PCR NEGATIVE ()?? 09/18/2023 16:32 Influenza B PCR NEGATIVE ()?? 09/18/2023 16:32 RSV PCR NEGATIVE ()?? 09/18/2023 16:32 COVID-19 PCR Specimen Source NASAL ()?? 09/18/2023 16:32 COVID-19 PCR Result NEGATIVE ()?? 09/18/2023 16:32 ? Imaging(s) ?CT Head/Brain W/O Contrast ?? 09/18/2023 16:19??by Shelley Amaya MD ? There is no acute intracranial abnormality. ?Chest 2 Views Frontal and Lat ?? 09/18/2023 16:27??by Kale Little MD ?No acute abnormality. ? 36??minutes spent on discharge * Kaye GARCIA, Ana R: PERFORM Event Display: Patient Education/Instruction Authored Date: [id number] Inpatient Adult Discharge Instructions. [address] [address] Name: CLEMENTINE GIBBONS : 1950?? Visit: 09/19/2023 15:57?? Current Date: 09/20/2023 13:55 ?? Account: [id number]?? Inpatient Adult Discharge Instructions We would like to thank you for allowing us to assist you with your healthcare needs. The following includes patient education materials and information regarding your injury/illness. Our entire staffstrives to provide an excellent experience for our patients and their families. PLEASE ENSURE YOU FOLLOW-UP PER THE INSTRUCTIONS BELOW! ?? YOUR OPINION IS IMPORTANT TO US! Please complete the survey you may receive by mail or email. Your feedback will be used to make improvements to the healthcare experiences of our patients and their families. Surveys are administered by [employer] ?? If further treatment with your primary care physician or another doctor is recommended, it is important for you to keep the appointment. Call your primary care physician or return to the Emergency Department immediately if your condition worsens, fails to improve, or new symptoms develop. If you need to find a doctor, you can call [facility] Link for a referral at [phone] or toll free at [phone] or log in to [email or web address].. ?? [facility], in keeping with [facility] guidance, no longer requires face masks for staff, patientsor visitors in most situations. Similiar to time spent indoors at other locations, there is the chance that you were exposed to repiratory viruses during your time with us (such as flu or COVID-19). If you develop symptoms concerning for a viral respiratory infection, please seek testing (and treatment if indicated) from your medical provider or home test kit. ?? You can view and manage your care through the patient portal or by using a health care mendez of your choosing. [employer] is a website that allows you to securely view your medical information including your hospital discharge summary, office visit summaries, medications and follow-up visits. You can also request appointments, renew medications, and request access to your medical information using a health care mendez of your choosing, or just ask a question. You can enroll at [email or web address] or register during your next office visit. You have been discharged from [facility], Patient Care Unit: Med Surg??. If you have any questions regarding these instructions, including results of studies pending, afteryou leave, please call us and we will be happy to assist you 14/01. [facility] Your Care Team Attending Physician Lorna Mcneil MD?? Consulting Providers Lorna Mcneil MD?? Discharging Providers Lorna Mcneil MD Reason for Your Visit hypotension?? Your Diagnosis Type 2 diabetes mellitus Peripheral neuropathy Hyperlipidemia Hypertension Hypotension JENNIFER (acute kidney injury) CAD (coronary artery disease) Edema Hypotension Lower back pain Shock Transaminitis UTI (urinary tract infection) Tests Performed Below is a partial list of the tests performed during your hospitalization. You may have had other tests and procedures not included in this list. Please discuss all test results with your provider. Basic Metabolic Panel Blood Culture Blood Culture Result CBC CBC w/ Differential Comprehensive Metabolic Panel COVID-19, RSV, and Flu A/B, Rapid PCR GLUCOSE POC HOLD BLUE TUBE HOLD GEL TUBE HOLD LAVENDER TUBE Lactate Level Lactic Acid Level LFT's Serum Quantitative PROCALCITONIN, SERUM Urinalysis w/hold for Urine Culture CT Head/Brain W/O Contrast XR Chest 2 Views Frontal and Lat Add On Lab Order?? Blood Culture #2?? Primary Care Provider Ioana Ochoa NP? Advance Directive Health Care Proxy on File Yes - Health Care Proxy Discharge Vitals Temperature: 98.2 DegF Height: 164 cm Pulse Rate: 82 bpm Weight: 74 kg Respiratory Rate: 18 br/min Body Mass Index:??29.3 kg/m2??High Systolic Blood Pressure: 108 mm Hg Body surface area: 1.89 Diastolic Blood Pressure: 80 mm Hg ?? Oxygen Saturation: 95 % ?? Studies Pending All studies ordered during this hospital stay have been completed unless listed below. Please discuss all pending results with your provider listed above in these instructions. ?? Add On Lab Order?? Blood Culture #2?? What to do next Instructions From Your Doctor ?? Orders? 09/20/23 13:00:00 EDT?? Scheduled Follow-Up Appointments Saturday 1:30 PM EDT ?? With: Ioana Ochoa NP Where: [address] [address]- Status: Pending You Need to Schedule the Following Appointments Follow Up with??Ioana Ochoa NP Where: [address] [place] [address] 3rd Floor [facility] [place] [address]- Discharge Medications MYAH GIBBONS CLEMENTINE :1950 Visit Date:09/19/2023 Medications: Please continue your medications until treatment is completed or stopped by your provider. Medications not listed below should be discontinued. Discuss any questions related to medications with your provider. What How Much When Why Instructions Next Dose Unchanged Aspirin (aspirin 81 mg oral delayed releasetablet) 1 tab(s) Oral Daily STEMI (ST elevation myocardial infarction) Duration: 90 Days tomorrow am Unchanged Carvedilol (carvedilol 25 mg oral tablet) 1 tab(s) Oral Twice a day tonight Unchanged dapagliflozin (Farxiga 5 mg oral tablet) 1 tab(s) Oral Daily tomorrow am Unchanged Durable Medical Equipment (Freestyle Lite Lancets) See instructions Type 2 diabetes mellitus Duration: 90 Days use as directed to check blood sugar once daily for Type 2 Diabetes Mellitus E11.9 ?? Unchanged Durable Medical Equipment (Freestyle Lite Monitor) See instructions Type 2 diabetes mellitus Duration: 30 Days Use for checking blood sugar three - six times daily for type 2 DM ?? Unchanged Durable Medical Equipment (Freestyle Lite Test Strips) See instructions Type 2 diabetes mellitus Duration: 90 Days use as directed to check blood once daily for Type 2 Diabetes Mellitus E11.9 ?? Unchanged Durable Medical Equipment (Home Blood Pressure Monitor) See instructions Hypertension DX: Hypertension ?? Unchanged Durable Medical Equipment (R toe off AFO) See instructions Wear as directed by physical therapist ?? Unchanged Durable Medical Equipment (Walker) See instructions Unsteady gait Dx: R26.81 unsteady gait ?? Unchanged Durable Medical Equipment (Wheelchair) See instructions Unsteady gait Dx: R26.81 unsteady gait ?? Unchanged Ezetimibe (Zetia 10 mg oral tablet) 1 tab(s) Oral Daily tomorrow am Unchanged Ferrous Sulfate (ferrous sulfate 325 mg oral enteric coated tablet) 1 tab(s) Oral Daily tomorrow am Unchanged Fluticasone Nasal (Flonase 50 mcg/ inh nasal spray) 1 spray(s) Nares, Both Twice a day Nasal pain Duration: 30 Days tonight Unchanged Gabapentin (gabapentin 400 mg oral capsule) 1 capsule Oral 3 times a day Lower back pain Duration: 30 Days 3pm Unchanged Glimepiride (glimepiride 4 mg oral tablet) 1 tab(s) Oral Twice a day tonight Unchanged Isosorbide Mononitrate (isosorbide mononitrate 30 mg oral tablet, extended release) 1 tab(s) Oral Daily in the morning Duration: 90 Days tomorrow am Unchanged Metformin (metFORMIN 500 mg oral tablet) 2 tab(s) Oral Twice a day tonight ?? What How Much When Why Comments Stop Taking Doxazosin (Cardura 4 mg oral tablet) 1 tab(s) Oral Daily Stop Taking Doxazosin (doxazosin 4 mg oral tablet) 1 tab(s) Oral Daily Duration: 90 Days Stop Taking Hydrochlorothiazide-Lisinopril (hydrochlorothiazide-lisinopril 25 mg-20 mg oral tablet) 1 tab(s) Oral Daily Hypertension Duration: 90 Days Stop Taking Meloxicam (meloxicam 15 mg oral tablet) 1 tab(s) Oral Daily Duration: 90 Days Stop Taking Rosuvastatin (rosuvastatin 40 mg oral tablet) 1 tab(s) Oral Daily Edema Duration: 90 Days Prescription Given During Visit No new medications prescribed at time of discharge.?? Laboratory Results Below is a partial list of the most recent Laboratory test results done prior to this discharge. You may have had other tests and procedures not included in this list. Please discuss all test resultswith your provider. Est Creatinine Clearance - 54.62 mL/min (09/20/2023) Basic Metabolic Panel (09/20/2023) ???Sodium - 137 mmol/L???Potassium - 4.3 mmol/L???Chloride - 102 mmol/L???Bicarbonate Level - 24 mmol/L???Anion Gap - 11???Glucose Level - 147 mg/dL???BUN - 18 mg/dL???Creatinine-Blood - 1.0 mg/dL???Estimated GFR Creatinine - 78 ML/MIN/1.73 M2???Calcium - 10.0 mg/dL Blood Culture (09/18/2023) ???Blood Culture Results - Preliminary report???Blood Culture Specimen Source - BLOOD Blood Culture Result (09/18/2023) ???Blood Culture Isolate 1 - Comment CBC (09/19/2023) ???WBC - 5.7 k/mm3???RBC - 3.43 m/mm3???Hgb - 11.2 Gm/dL???Hct - 32.4 %???MCV - 94.5 femtoliters???MCH - 32.7 pg???MCHC - 34.6 g/dL???Platelet Count - 218 k/mm3???RDW-SD - 44.8 femtoliters???MPV - 9.0 femtoliters???Nucleated RBC (Automated) - 0.0 #/100 WBC'S???Abs. NRBC - 0.0 k/mm3 CBC w/ Differential (09/18/2023) ???WBC - 7.6 k/mm3???RBC - 3.64 m/mm3???Hgb - 12.0 Gm/dL???Hct - 34.7 %???MCV - 95.3 femtoliters???MCH - 33.0 pg???MCHC - 34.6 g/dL???Platelet Count - 274 k/mm3???RDW-SD - 45.3 femtoliters???MPV - 9.1 femtoliters???Nucleated RBC (Automated) - 0.0 #/100 WBC'S???Abs. NRBC - 0.0 k/mm3???Abs. Neut - 4.4 k/mm3???Abs. Lymph - 1.9 k/mm3???Abs. [place] - 0.9 k/mm3???Abs. Eo - 0.4 k/mm3???Abs. Baso - 0.0 k/mm3???Neut % - 57.2 %???Lymph % - 24.9 %???[place] % - 11.9 %???Eos % - 5.4 %???Baso % - 0.3 %???Imm Gran - 0.3 %???Abs. Imm Gran - 0.0 k/mm3 Comprehensive Metabolic Panel (09/18/2023) ???Sodium - 133 mmol/L???Potassium - 5.2 mmol/L???Chloride - 97 mmol/L???Bicarbonate Level - 21 mmol/L???Anion Gap - 15???Glucose Level - 175 mg/dL???BUN - 31 mg/dL???Creatinine-Blood - 1.6 mg/dL???Estimated GFR Creatinine - 45 ML/MIN/1.73 M2???Calcium - 9.7 mg/dL???Protein, Total - 6.6 Gm/dL???Albumin - 4.0 Gm/dL???AG Ratio - 1.5???Alkaline Phosphatase - 72 units/L???AST (SGOT) - 144 units/L???ALT (SGPT) - 182 units/L???Bilirubin, Total - 0.2 mg/dL COVID-19, RSV, and Flu A/B, Rapid PCR (09/18/2023) ???Influenza A PCR - NEGATIVE???Influenza B PCR - NEGATIVE???RSV PCR - NEGATIVE???COVID-19 PCR Specimen Source - NASAL???COVID-19 PCR Result - NEGATIVE GLUCOSE POC (09/20/2023) ???Glucose, POC - 329 mg/dL HOLD BLUE TUBE (09/18/2023) ???Hold Blue Top - SPECIMEN DISCARDED AFTER 4 HOURS. HOLD GEL TUBE (09/18/2023) ???Hold Gel Top - SPECIMEN DISCARDED AFTER 1 WEEK HOLD LAVENDER TUBE (09/20/2023) ???Hold Lavender Top - SPECIMEN DISCARDED AFTER 24 HOURS. Lactate Level (09/19/2023) ???Lactate - 1.6 mmol/L Lactic Acid Level (09/18/2023) ???Lactate - 2.4 mmol/L LFT's (09/20/2023) ???Protein, Total - 6.7 Gm/dL???Albumin - 4.0 Gm/dL???Alkaline Phosphatase - 73 units/L???AST (SGOT) - 69 units/L???ALT (SGPT) - 144 units/L???Bilirubin, Total - 0.3 mg/dL???Bilirubin, Direct - 0.1 mg/dL???Bilirubin, Indirect - 0.2 mg/dL Serum Quantitative (09/18/2023) ? ?Blood - <1 mIU/mL PROCALCITONIN, SERUM (09/18/2023) ???Procalcitonin - 0.07 ng/mL Urinalysis w/hold for Urine Culture (09/18/2023) ???Appear/Color, Urine - YELLOW???Clarity - SL.CLOUDY???Specific [place], Urine - 1.015???pH, Urine- 6.0???Albumin, Urine - NEGATIVE???Glucose, Urine - 4+???Ketones, Urine - NEGATIVE???Bilirubin, Urine - NEGATIVE???Hemoglobin, Urine - NEGATIVE???Nitrite, Urine - NEGATIVE???Leukocyte, Urine - NEGATI VE???Urobilinogen - NORMAL???Hold Urine Culture - Testing available 48 hours from time of collection. Allergies (NKA means No Known Allergies) NKA Problems Active Problems??(17) Anemia?? Atherosclerosis of both carotid arteries?? Chronic venous hypertension (idiopathic) with other complications of left lower extremity?? Chronic venous hypertension (idiopathic) with other complications of right lower extremity?? History of ST elevation myocardial infarction (STEMI)?? Hyperlipidemia?? Hypertension?? Insomnia?? Low back pain radiating to right leg?? Lower back pain?? Lower extremity edema?? Medicare annual wellness visit, subsequent?? Peripheral neuropathy?? Radiculopathy?? Shoulder pain, right?? Type 2 diabetes mellitus?? Unsteady gait?? Education Materials Below is the list of Educational Leaflet Providered with your Discharge Instructions. Valuables and Belongings I fully understand and agree that [facility] accepts no responsibility for all my personal property including clothing, toilet articles, radios, jewelry, dentures, hearing aids, rings, money, or any other property that is in my possession or is brought to me after admission. I understand certain valuables may be placed in a hospital safe for a short period of time. I understand that the hospital is not liable for loss or damage due to accident, fire, or other natural occurrence while said property is in the safe. I accept full responsibility for any personal property that I keep with me, and will not hold the hospital responsible in case of loss or disappearance. I acknowledge that i have been encouraged to send valuables and belongings home. ?? Review of Valuable and Belonging List: With patient, With family Disposition of Belongings: Sent home with patient/family Possessions released to: cane Date for Pt to Sign Valuables/Belongings: 09/20/23 13:08:00 ?? Other Discharge Information ? Pulmonary Rehab Status?? Pulmonary Rehab Discharge Status?? Respiratory Rate: 18 br/min ? Common Emergency Awareness Tips IS IT A STROKE? Act FAST and Check for these signs: FACE Does the face look uneven? ARM Does one arm drift down? SPEECH Does their speech sound strange? TIME Call at any sign of stroke ?? Heart Attack Signs Chest discomfort: Most heart attacks involve discomfort in the center of the chest and lasts more than a few minutes, or goes away and comes back. It can feel like uncomfortable pressure, squeezing, fullness or pain. Discomfort in upper body: Symptoms can include pain or discomfort in one or both arms, back, neck, jaw or stomach. Shortness of breath: With or without discomfort. Other signs: Breaking out in a cold sweat, nausea, or lightheaded. Remember, MINUTES DO MATTER. If you experience any of these heart attack warning signs, call to get immediate medical attention! ?? Smoking can increase your chances of developing chronic health problems and can cause harmful effects to other family members in your house. If you smoke, you are strongly encouraged to quit. Please call [facility] Link at [phone] or [phone] ([phone]) or log in to [email or web address] for referrals to smoking cessation programs. ?? 983 Suicide & Crisis Lifeline is available 14/01 if you or someone you know needs to find a reason to keep living. By calling 301 you'll be connected to a skilled, trained counselor at a crisis center in your area. INPATIENT DISCHARGE INSTRUCTIONS SIGNATURE PAGE CLEMENTINE SALAZAR Location:[facility] Registration Date and Time:09/19/2023 15:57 EDT Primary Care Physician: Ioana Ochoa NP, Attending Physician: Lorna Mcneil MD, I MYAH GIBBONS CLEMENTINE, have received the above patient education materials/instructions and have verbalized understanding. If ambulance or transport services are being used I further acknowledge being given a choice of service. ?? If you need to contact me, please call me at this number: . Patient/Personnel Associate Name: Patient/Personnel Associate Signature: Relationship to Patient: Witness Name/Signature: Date: Patient Care team information Care Team Personnel Name: Ioana Ochoa NP Position: [facility] PCO Associate Professional Member Role: PCP Address: Address: [address] [place] [address]- Care Team Related Persons Name: EDUARDO GLASGOW Name: DANIEL LOZANO Address: [address] [place] [address]
--- OUTSIDE RECORDS SUMMARY | 2023-11-08 08:54 | XMS_ITS | Continuity of Care Document ---
Author Organization [facility] Address [address] [place] [address]- Care Team Providers Care Gill Net Stringer Name Role Phone Don FLORIAN, Ioana Primary Care Physician [phone] Encounter [facility] Date(s): 09/12/23 - 09/12/[address] [address]- Discharge Disposition: A-D/C Home Attending Physician: Yash Whitehead MD Admitting Physician: Yash Whitehead MD Referring Physician: Not on Staff, Referring [...] 12:11:00 EST, CR Tablet, [id number], Partial fill upon patient request if the prescription is for a schedule II opioid drug., 160, cm, 05/30/23 11:24:00 EST, H... Start Date: 05/30/23 Stop Date: 05/24/24 Status: Ordered Bactrim DS 800 mg-160 mg oral tablet 1 tablet, By Mouth, 2 times a day, for 7 days, # 14 tablet, 0 Refills, Acute 09/19/23 21:07:00 EDT,09/12/23 21:07:00 EDT, Tablet, [facility]/pharmacy #[id number], Partial fill upon patient request if the prescription is for a schedule II opioid drug., 1 tablet By... Start Date: 09/12/23 Stop Date: 09/19/23 Status: Ordered carvedilol 25 mg oral tablet 1, tablet, By Mouth, 2 times a day, # 180 tablet, Refills 1, Tot. Refills 1, Maintenance, 05/30/23 12:11:00 EST, Route to Pharmacy Electronically, [facility], 160, cm, 05/30/23 11:24:00 EST, Height, 79.5, kg, 05/15/23 18:59:00 EST, Dry Weight Start Date: 05/30/23 Status: Ordered doxazosin 4 mg oral tablet 1 tablet, By Mouth, Daily, # 90 tablet, 0 Refills, Maintenance, 05/30/23 12:11:00 EST, [place] [id number], 160, cm, 05/30/23 11:24:00 EST, Height, 79.5, kg, 05/15/23 18:59:00 EST, Dry Weight Start Date: 05/30/23 Stop Date: 08/28/23 Status: Ordered ezetimibe 10 mg oral tablet 1 tablet, By Mouth, Daily, # 90 tablet, 0 Refills, Maintenance, 05/30/23 12:11:00 EST, [place] [id number], 160, cm, 05/30/23 11:24:00 EST, Height, 79.5, kg, 05/15/23 18:59:00 EST, Dry Weight Start Date: 05/30/23 Stop Date: 08/28/23 Status: Ordered Farxiga 5 mg oral tablet 1 tablet = 5 mg, By Mouth, Daily, # 30 tablet, 3 Refills, Maintenance, 08/29/23 14:27:00 EST, Tablet, [place] [id number], Partial fill upon patient request if the prescription is for a schedule IIopioid drug., 160, cm, 08/29/23 14:01:00 EST, Heigh... Start Date: 08/29/23 Status: Ordered ferrous sulfate 325 mg oral enteric coated tablet 325 mg, 1, tablet, By Mouth, Daily, # 30 tablet, Refills 3, Tot. Refills 3, Maintenance, 05/30/23 12:12:00 EST, Route to Pharmacy Electronically, [facility]278, Partial fill upon patient request if the prescription is for a schedule II opioid... Start Date: 05/30/23 Status: Ordered Flonase 50 mcg/inh nasal spray 1 sprays, Nares, Both, 2 times a day, # 16 Gm, 0 Refills, Maintenance, 06/05/22 12:05:00 EST, [place], [facility], Partial fill upon [...] 3 Refills, Maintenance, 05/30/23 12:12:00 EST, Tablet, [facility], Partial [...] Stop 05/24/24 12:12:00EST, 05/30/23 12:12:00 EST, Tablet, [facility], Partial [...] complications of left lower extremity Confirmed Active Results Radiology Reports * Exam Date Time Procedure Performing Provider Status 09/12/23 8:07 PM Chest 2 Views Frontal and Lat Karen Chaparro; Auth (Verified) Notes: (Chest 2 Views Frontal and Lat) Reason For Exam: Shortness of Breath, Fever;Other: RESULT: Chest 2 Views Frontal and Lat Chest 2 Views Frontal and Lat INDICATION: Weakness and fatigue for one week. Shortness of breath at night. Patient also reports intermittent nausea and increased urination. COMPARISON: 06/05/2022. FINDINGS: LINES AND TUBES: None. LUNGS AND PLEURA: Mild bibasilar atelectasis and possible scarring. Normal pulmonary vascularity. No pleural effusion. No pneumothorax. Eventration of the right hemidiaphragm, seen on prior. HEART, MEDIASTINUM AND CORRINA: Heart is normal in size. Normal mediastinal and hilar contour. BONES AND SOFT TISSUES: Mild degenerative changes of the cervical spine and right shoulder and acromioclavicular joint. Partially visualized spinal fusion hardware in the lumbar spine. IMPRESSION: No evidence of acute abnormality. I have personally reviewed the images and I agree with this report. WSN: [id number] Ordering Physician: Yash Whitehead Dictated By: Jairon Steiner MD Dictated Date/Time: 09/12/23 9:04 pm Reviewed By: Vincenzo Billingsley MD Signed By: Vincenzo Billingsley MD Signed Date/Time: 09/12/23 9:09 pm Transcribed By: JOSE R Transcribed Date/Time: 09/12/23 8:28 pm Vital Signs Most recent to oldest [Reference Range]: 1 2 3 4 Height 160 cm (09/12/23 9:28 PM) 160 cm (09/12/23 7:36 PM) 160 cm (09/12/23 5:07 PM) Weight 78.1 kg (09/12/23 9:28 PM) 78.1 kg (09/12/23 7:36 PM) 78.1 kg (09/12/23 5:07 PM) Oxygen Saturation [94-100 %] 97 % (09/12/23 9:28 PM) 97 % (09/12/23 7:36 PM) 98 % (09/12/23 5:07 PM) 98 % (09/12/23 5:07 PM) Pulse Rate [55-90 bpm] 84 bpm (09/12/23 9:28 PM) 80 bpm (09/12/23 7:36 PM) 81 bpm (09/12/23 5:07 PM) 79 bpm (09/12/23 5:07 PM) Body Mass Index [18.5-24.99 kg/m2] 30.51 kg/m2 *>HHI* (09/12/23 9:28 PM) 30.51 kg/m2 *>HHI* (09/12/23 7:36 PM) Blood Pressure [90-138/55-84 mm Hg] 118/86mm Hg (09/12/23 9:28 PM) 127/74mm Hg (09/12/23 7:36 PM) 128/80mm Hg (09/12/23 5:07 PM) Respiratory Rate [16-30 br/min] 16 br/min (09/12/23 9:28 PM) 14 br/min *L* (09/12/23 7:36 PM) 17 br/min (09/12/23 5:07 PM) Temperature [96.8-100.4 DegF] 97.7 DegF (09/12/23 9:28 PM) 98.1 DegF (09/12/23 7:36 PM) 97.8 DegF (09/12/23 5:07 PM) Mode of Delivery (Oxygen) Room air (09/12/23 9:28 PM) Room air (09/12/23 5:07 PM) Room air (09/12/23 5:07 PM) Blood pressure sites Arm, left (09/12/23 9:28 PM) Arm, right (09/12/23 7:36 PM) Temperature Route Oral (09/12/23 9:28 PM) Oral (09/12/23 7:36 PM) Temporal (09/12/23 5:07 PM) Dry Weight 78.1 kg (09/12/23 9:28 PM) 78.1 kg (09/12/23 7:36 PM) 78.1 kg (09/12/23 5:07 PM) Weight Obtained Via Standing scale (09/12/23 5:07 PM) Social History Social History Type Response Smoking Status Never (less than 100 in lifetime) entered on: 04/09/22 Sex EKG study * Event Display: ECG 12-Lead Authored Date: Please click on pdf link to open report * Event Display: ECG 12-Lead Authored Date: Ventricular Rate: 78 BPM Atrial Rate: 78 BPM P-R Interval: 196 ms QRS Duration: 138 ms Q-T Interval: 410 ms QTC Calculation(Bazett): 467 ms P Langtry: 44 degrees R Langtry: -62 degrees T Langtry: 49 degrees Normal sinus rhythm Right bundle branch block Left anterior fascicular block Bifascicular block 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 [id number] Bladder Infection,??Male (Adult) You have a bladder infection. Pee (urine) is normally free of bacteria. But bacteria can get into the urinary tract from the skinaround the rectum. Or it may travel in the blood from other parts of the body. This is called a urinary tract infection (UTI). An infection can occur anywhere in the urinary tract. It could be in a kidney (pyelonephritis) or in the bladder (cystitis) and urethra (urethritis). The urethra is the tube that drains pee from the bladder through the tip of the penis. The most common place for a UTI is in the bladder. This is called a bladder infection. Most bladderinfections are easily treated. They aren't serious unless the infection spreads up to the kidney. The terms bladder infection, UTI, and cystitis are often used to describe the same thing. But they aren???t always the same. Cystitis is an inflammation of the bladder. The most common cause of cystitis is an infection.?? Keep in mind: ??? Infections in pee are called UTIs. ??? Cystitis is often caused by a UTI. ??? Not all UTIs and cases of cystitis are bladder infections. ??? Bladder infections are the most common type of cystitis. Symptoms of a bladder infection The infection causes inflammation in the urethra and bladder. This inflammation causes many of the symptoms. The most common symptoms of a bladder infection are: ??? Pain or burning feeling when peeing ??? Having to go more often than normal ??? Feeling like you need to go??right away ??? Only a small amount of pee comes out ??? Blood in your pee ??? Discomfort in your belly (abdomen), often in the lower belly, above the pubic bone ??? Cloudy, strong, or bad-smelling pee ??? Unable to pee (urinary retention) ??? Urinary incontinence ??? Fever ??? Loss of appetite Older adults may also feel confused. ?? Causes of a bladder infection Bladder infections aren't contagious. You can't get one from someone else, from a toilet seat, or from sharing a bath. The most common cause of bladder infections is bacteria from the bowels. The bacteria get onto the skin around the opening of the urethra. From there they can get into the pee and travel up to the bladder. This causes inflammation and an infection. This often happens because of: ??? An enlarged prostate ??? Poor cleaning of the genitals ??? Procedures that put a tube in your bladder, such as a Wilkinson catheter ??? Bowel incontinence ??? Older age ??? Not emptying your bladder (the pee stays there, giving the bacteria a chance to grow) ??? Dehydration (this lets pee stay in the bladder longer) ??? Constipation (this can cause the bowels to push on the bladder or urethra and keep the bladder from emptying) ?? Treatment Bladder infections are treated with antibiotics. They often clear up quickly without complications.Treatment helps prevent a more serious kidney infection. Medicines Medicines can help in treating a bladder infection: ??? You may have been given phenazopyridine to ease burning when you pee. It will cause your pee kirill bright orange. It can stain clothing. ??? You may have been prescribed antibiotics. Take this medicine until you have finished it, even if you feel better. Taking all of the medicine will make sure the infection has cleared. You can use acetaminophen or ibuprofen for pain,??fever, or discomfort, unless another medicine wasprescribed. You can also alternate them. Or you can use both together. They work differently and are a different class of medicines, so taking them together is not an overdose.??If you have chronic liver or kidney disease, talk with your healthcare provider before using these medicines. Also talk with your provider if you???ve had a stomach ulcer or GI (gastrointestinal) bleeding or are taking blood thinner medicines. ?? Home care Here are some guidelines to help you care for yourself at home: ??? Drink plenty of fluids, unless your healthcare provider told you not to. Fluids will prevent dehydration and flush out your bladder. ??? Use good personal hygiene. Wipe from front to back after using the toilet, and clean your penis regularly. If you aren???t circumcised, retract the foreskin when cleaning. ??? Pee more often. Don???t try to hold it in for long periods of time, if possible. ??? Wear loose- fitting clothes and cotton underwear. Don't wear tight-fitting pants. This helps keep you clean and dry. ??? Change your diet to prevent constipation. This means eating more fresh foods and more fiber, and less junk and fatty foods. ??? Don't have sex until your symptoms are gone. ??? Don't have caffeine, alcohol, and spi cy foods. These can irritate the bladder. ?? Follow-up care Follow up with your healthcare provider, or as advised, if all symptoms haven't cleared up in 5 days. It's important to keep your follow-up appointment. You can talk with your provider to see if you need more tests of the urinary tract.??This is especially important if you have infections that keepcoming back. If a culture was done, you'll be told if your treatment needs to be changed. If directed, you can call??to find out the results. If X-rays were taken, you'll be told of any findings that may affect your care. ?? Call 911 Call 911 if any of these occur: ??? Trouble breathing ??? Trouble waking up ??? Feeling confused ??? Fainting or loss of consciousness ??? Fast heart rate ?? When to get medical advice Call your healthcare provider right away??if any of these occur: ??? Fever of 100.4??F (38??C) or higher, or as advised by your provider ??? Your symptoms don???t improve after 2 days of treatment ??? Back or belly pain that gets worse ??? Repeated vomiting, or you aren???t able to keep medicine down ??? Weakness or dizziness ?? Last Reviewed Date: 2021 ?? [id number] [employer]. All rights reserved. This information is not intended as a substitute for professional medical care. Always follow your healthcare professional's instructions. ?? * Ventura ROSENBERG, Yash Watt: PERFORM Event Display: Patient Education Leaflets Authored Date: [id number] Dehydration (Adult) ?? [id number] Dehydration (Adult) Dehydration occurs when your body loses too much fluid. This may be the result of prolonged vomiting or diarrhea, excessive sweating, or a high fever. It may also happen if you don???t drink enough fluid when you???re sick or out in the heat. Some medicines such as water pills (diuretics) can also be a cause. Symptoms include thirst, less urine than usual, and darker-colored urine. You may also feel dizzy, weak, very tired, or very drowsy. You may also have muscle aches and headache. The diet described below is usually enough to treat dehydration. In some cases, you may need medicine. Home care ??? Drink at least 12, 8-ounce glasses of fluid every day until you are no longer dehydrated. Fluid can include: o Water o Hooper juice o Lemonade o Apple, grape, or cranberry juice o Clearfruit drinks o Electrolyte replacement and sports drinks o Tea o Decaffeinated coffee ??? Don't drink alcohol. ??? If you have been diagnosed with a kidney disease or heart failure, ask your doctor how much and what types of fluids you should drink to prevent dehydration. These diseases can cause fluid to build up in the body. This can be dangerous to your health. ??? If you have a fever, muscle aches, or a headache from a cold or flu, you may take acetaminophen, naproxen, or ibuprofen, unless another medicine was prescribed. Talk with your healthcare provider before using these medicines if y ou have chronic liver or kidney disease, or had a stomach ulcer or digestive bleeding. ?? Follow-up care Follow up with your healthcare provider as advised. ?? When to seek medical advice Call your healthcare provider right away if any of these occur: ??? Continued vomiting ??? Diarrheathat happens more than 5 times a day or mucus in diarrhea ??? Swollen belly (abdomen) or belly painthat gets worse ??? Less urine than usual or extreme thirst ??? Fever of 100.4??F (38??C) or higher, or as directed by your healthcare provider ?? Call 911 Call 911 right away if you have any of the following: ??? Weakness, dizziness, or fainting ??? Unusual drowsiness or confusion ??? Vomit or stool is red or black ?? Last Reviewed Date: 2021 ?? [id number] [employer]. All rights reserved. This information is not intended as a substitute for professional medical care. Always follow your healthcare professional's instructions. ?? Patient Care team information Care Team Personnel Name: Ioana Ochoa NP Position: S PCO Associate Professional Member Role: PCP Address: Address: [address] [place] [address]- Care Team Related Persons Name: EDUARDO GLASGOW Name: DANIEL LOZANO Address: [address] [address]
--- OUTSIDE RECORDS SUMMARY | 2023-11-08 08:54 | XMS_ITS | Continuity of Care Document ---
Author Organization [facility] Address [address] [place] [address]- Care Team Providers Care Activities Specialist Name Role Phone Don FLORIAN, Ioana Primary Care Physician Encounter [facility] Date(s): 05/06/23 - 06/05/23 [facility] [address] [place] [id number]- Allergies, Adverse Reactions, Alerts No Known Allergies Immunizations Given and Recorded Vaccine Date Status Refusal Reason SARS-CoV-2 (COVID-19) mRNA BNT-162b2 vac 04/24/21 Recorded pneumococcal 23-valent vaccine 04/23/01 Recorded Medications aspirin 81 mg oral delayed release tablet 1 tablet = 81 mg, By Mouth, Daily, # 90 tablet, 3 Refills, Maintenance, 05/30/23 12:11:00 EST, CR Tablet, [facility], [...] 05/30/23 12:11:00 EST, Route to Pharmacy Electronically, [facility], 160, cm, 05/30/23 11:24:00 EST, Height, 79.5, kg, 05/15/23 18:59:00 EST, Dry Weight Start Date: 05/30/23 Status: Ordered doxazosin 4 mg oral tablet 1 tablet, By Mouth, Daily, # 90 tablet, 0 Refills, Maintenance, 05/30/23 12:11:00 EST, [facility], 160, cm, 05/30/23 11:24:00 EST, Height, 79.5, kg, 05/15/23 18:59:00 EST, Dry Weight Start Date: 05/30/23 Stop Date: 08/28/23 Status: Ordered ezetimibe 10 mg oral tablet 1 tablet, By Mouth, Daily, # 90 tablet, 0 Refills, Maintenance, 05/30/23 12:11:00 EST, [facility]278, 160, cm, 05/30/23 11:24:00 EST, Height, 79.5, kg, 05/15/23 18:59:00 EST, Dry Weight Start Date: 05/30/23 Stop Date: 08/28/23 Status: Ordered ferrous sulfate 325 mg oral enteric coated tablet 325 mg, 1, tablet, By Mouth, Daily, # 30 tablet, Refills 3, Tot. Refills 3, Maintenance, 05/30/23 12:12:00 EST, Route to Pharmacy Electronically, [id number], Partial fill upon patient request if the prescription is for a schedule II opioid... Start Date: 05/30/23 Status: Ordered Flonase 50 mcg/inh nasal spray 1 sprays, Nares, Both, 2 times a day, # 16 Gm, 0 Refills, Maintenance, 06/05/22 12:05:00 EST, [place], [facility], Partial fill [...] 05/30/23 12:12:00 EST, Route to Pharmacy Electronically, [facility], Partial fill upon patient request if the prescription is for a schedule... Start Date: 05/30/23 Stop Date: 09/27/23 Status: Ordered glimepiride 4 mg oral tablet 1 tablet, By Mouth, 2 times a day, # 180 tablet, 0 Refills, Maintenance, 05/30/23 12:12:00 EST, [facility], 160, cm, 05/30/23 11:24:00 EST, Height, 79.5, kg, 05/15/23 18:59:00 EST, Dry Weight Start Date: 05/30/23 Status: Ordered Home Blood Pressure Monitor See Instructions, # 1 each, Maintenance, DX: Hypertension, 06/06/22 12:29:00 EST, Supply Start Date: 06/06/22 Status: Ordered hydrochlorothiazide-lisinopril 25 mg-20 mg oral tablet 1 tablet, By Mouth, Daily, # 90 tablet, 3 Refills, Maintenance, 05/30/23 12:12:00 EST, Tablet, [facility], Partial fill upon patient request if the prescription is for a schedule II opioiddrug., 1 tablet By Mouth Daily,x90 days, 160, cm, 1... Start Date: 05/30/23 Stop Date: 05/24/24 Status: Ordered isosorbide mononitrate 30 mg oral tablet, extended release 1 tablet, By Mouth, Daily in AM, # 90 tablet, 0 Refills, Maintenance, 05/30/23 12:12:00 EST, [facility], 160, cm, 05/30/23 11:24:00 EST, Height, 79.5, kg, 05/15/23 18:59:00 EST, Dry Weight Start Date: 05/30/23 Stop Date: 08/28/23 Status: Ordered meloxicam 15 mg oral tablet 1 tablet, By Mouth, Daily, # 90 tablet, 0 Refills, Maintenance, 05/30/23 12:12:00 EST, [facility], 160, cm, 05/30/23 11:24:00 EST, Height, 79.5, kg, 05/15/23 18:59:00 EST, Dry Weight Start Date: 05/30/23 Stop Date: 08/28/23 Status: Ordered metFORMIN 500 mg oral tablet 2 tablet, By Mouth, 2 times a day, # 360 tablet, 0 Refills, Maintenance, 05/30/23 12:12:00 EST, [facility], 160, cm, 05/30/23 11:24:00 [...] Stop 05/24/24 12:12:00EST, 05/30/23 12:12:00 EST, Tablet, [facility], Partial fill upon patient request if theprescription is for a schedule II opioid drug., 160... Start Date: 05/30/23 Stop Date: 05/24/24 Status: Ordered traZODone 50 mg oral tablet 50 mg, 1, tablet, By Mouth, Daily at bedtime, # 90 tablet, Refills 1, Tot. Refills 1, Maintenance, 05/30/23 12:12:00 EST, Route to Pharmacy Electronically, [facility], Partial fill upon patient request [...] Associate Professional Member Role: PCP Address: Address: [address] [place] [address] [address] [place] [address]- Care Team Related Persons Name: EDUARDO GLASGOW Name: DANIEL LOZANO Address: [address] [address]
--- OUTSIDE RECORDS SUMMARY | 2023-11-08 08:54 | XMS_ITS | Continuity of Care Document ---
Author Organization [facility] Adult Address [address] [place] [address]- Care Team Providers Care Refrigeration Engineering Teacher Name Role Phone Don FLORIAN, Ioana Primary Care Physician Encounter [facility] Date(s): 05/01/23 - 05/31/23 [facility] Adult [address] [place] [id number]- Allergies, Adverse Reactions, Alerts No Known Allergies Immunizations Given and Recorded Vaccine Date Status Refusal Reason SARS-CoV-2 (COVID-19) mRNA BNT-162b2 vac 04/24/21 Recorded pneumococcal 23-valent vaccine 04/23/01 Recorded Medications aspirin 81 mg oral delayed release tablet 1 tablet = 81 mg, By Mouth, Daily, # 90 tablet, 3 Refills, Maintenance, 05/30/23 12:11:00 EST, CR Tablet, [facility], Partial fill upon patient request if the prescription is for a schedule II opioid drug., 160, cm, 05/30/23 11:24:00 EST, H... Start Date: 05/30/23 Stop Date: 05/24/24 Status: Ordered carvedilol 25 mg oral tablet 1, tablet, By Mouth, 2 times a day, # 180 tablet, Refills 1, Tot. Refills 1, Maintenance, 05/30/23 12:11:00 EST, Route to Pharmacy Electronically, [facility], 160, cm, 05/30/23 11:24:00 EST, Height, 79.5, kg, 05/15/23 18:59:00 EST, Dry Weight Start Date: 05/30/23 Status: Ordered doxazosin 4 mg oral tablet 1 tablet, By Mouth, Daily, # 90 tablet, 0 Refills, Maintenance, 05/30/23 12:11:00 EST, [facility], 160, cm, 05/30/23 11:24:00 EST, Height, 79.5, kg, 05/15/23 18:59:00 EST, Dry Weight Start Date: 05/30/23 Stop Date: 08/28/23 Status: Ordered ezetimibe 10 mg oral tablet 1 tablet, By Mouth, Daily, # 90 tablet, 0 Refills, Maintenance, 05/30/23 12:11:00 EST, [facility], 160, cm, 05/30/23 11:24:00 EST, Height, 79.5, kg, 05/15/23 18:59:00 EST, Dry Weight Start Date: 05/30/23 Stop Date: 08/28/23 Status: Ordered ferrous sulfate 325 mg oral enteric coated tablet 325 mg, 1, tablet, By Mouth, Daily, # 30 tablet, Refills 3, Tot. Refills 3, Maintenance, 05/30/23 12:12:00 EST, Route to Pharmacy Electronically, [facility], Partial fill upon patient request if the prescription is for a schedule II opioid... Start Date: 05/30/23 Status: Ordered Flonase 50 mcg/inh nasal spray 1 sprays, Nares, Both, 2 times a day, # 16 Gm, 0 Refills, Maintenance, 06/05/22 12:05:00 EST, [place], [facility], Partial fill upon patient request [...] 05/30/23 12:12:00 EST, Route to Pharmacy Electronically, [facility], Partial fill upon patient request if the prescription is for a schedule... Start Date: 05/30/23 Stop Date: 09/27/23 Status: Ordered glimepiride 4 mg oral tablet 1 tablet, By Mouth, 2 times a day, # 180 tablet, 0 Refills, Maintenance, 05/30/23 12:12:00 EST, [facility], 160, cm, 05/30/23 11:24:00 EST, Height, 79.5, kg, 05/15/23 18:59:00 EST, Dry Weight Start Date: 05/30/23 Status: Ordered Home Blood Pressure Monitor See Instructions, # 1 each, Maintenance, DX: Hypertension, 06/06/22 12:29:00 EST, Supply Start Date: 06/06/22 Status: Ordered hydrochlorothiazide-lisinopril 25 mg-20 mg oral tablet 1 tablet, By Mouth, Daily, # 90 tablet, 3 Refills, Maintenance, 05/30/23 12:12:00 EST, Tablet, [facility], Partial fill upon patient request if the prescription is for a schedule II opioiddrug., 1 tablet By Mouth Daily,x90 days, 160, cm, 1... Start Date: 05/30/23 Stop Date: 05/24/24 Status: Ordered isosorbide mononitrate 30 mg oral tablet, extended release 1 tablet, By Mouth, Daily in AM, # 90 tablet, 0 Refills, Maintenance, 05/30/23 12:12:00 EST, [facility], 160, cm, 05/30/23 11:24:00 EST, Height, 79.5, kg, 05/15/23 18:59:00 EST, Dry Weight Start Date: 05/30/23 Stop Date: 08/28/23 Status: Ordered meloxicam 15 mg oral tablet 1 tablet, By Mouth, Daily, # 90 tablet, 0 Refills, Maintenance, 05/30/23 12:12:00 EST, [facility], 160, cm, 05/30/23 11:24:00 EST, Height, 79.5, kg, 05/15/23 18:59:00 EST, Dry Weight Start Date: 05/30/23 Stop Date: 08/28/23 Status: Ordered metFORMIN 500 mg oral tablet 2 tablet, By Mouth, 2 times a day, # 360 tablet, 0 Refills, Maintenance, 05/30/23 12:12:00 EST, [facility], 160, cm, 05/30/23 11:24:00 EST, [...] Stop 05/24/24 12:12:00EST, 05/30/23 12:12:00 EST, Tablet, [facility], Partial fill upon patient request if theprescription is for a schedule II opioid drug., 160... Start Date: 05/30/23 Stop Date: 05/24/24 Status: Ordered traZODone 50 mg oral tablet 50 mg, 1, tablet, By Mouth, Daily at bedtime, # 90 tablet, Refills 1, Tot. Refills 1, Maintenance, 05/30/23 12:12:00 EST, Route to Pharmacy Electronically, [facility], Partial fill upon patient request [...] Associate Professional Member Role: PCP Address: Address: [address] [place] [address] [address] [place] [address]- Care Team Related Persons Name: EDUARDO GLASGOW Name: DANIEL LOZANO Address: [address] [address]
--- OUTSIDE RECORDS SUMMARY | 2023-11-08 08:54 | XMS_ITS | Continuity of Care Document ---
Author Organization [facility] Address [address] [place] [address]- Care Team Providers Care Center Line Cutter Operator Name Role Phone Ioana Ochoa NP Primary Care Physician [phone] Encounter [facility] Date(s): 05/21/23 - 05/28/23 [facility] [address] [place] [address]- Encounter Diagnosis Atherosclerosis of both carotid arteries(Discharge Diagnosis) - 01/15/23 Lower extremity edema(Discharge Diagnosis) - 01/15/[address] elevation myocardial infarction (STEMI)(Discharge Diagnosis) - 05/21/23 Attending Physician: Edgar Herron MD Referring Physician: Ioana Ochoa NP Allergies, Adverse Reactions, Alerts No Known Allergies Immunizations Given and Recorded Vaccine Date Status Refusal Reason SARS-CoV-2 (COVID-19) mRNA BNT-162b2 vac 04/24/21 Recorded pneumococcal 23-valent vaccine 04/23/01 Recorded Medications aspirin 81 mg oral delayed release tablet 1 tablet = 81 mg, By Mouth, Daily, # 90 tablet, 3 Refills, Maintenance, 04/09/22 19:08:00 EDT, CR Tablet, [facility], Partial fill upon patient request if the prescription is for a schedule II opioid drug., 162, cm, 04/09/22 16:12:00 EDT, H... Start Date: 04/09/22 Stop Date: 04/04/23 Status: Ordered carvedilol 25 mg oral tablet 1, tablet, By Mouth, 2 times a day, # 180 tablet, Refills 1, Maintenance, 05/06/23 18:16:00 EST, Route to Pharmacy Electronically, [facility], 162, cm, 04/16/23 11:09:00 EDT, Height Start Date: 05/06/23 Status: Ordered doxazosin 4 mg oral tablet 1 tablet, By Mouth, Daily, # 90 tablet, 0 Refills, Maintenance, 02/11/23 7:39:00 EDT, [facility], 162, cm, 11/20/22 12:28:00 EDT, Height Start Date: 02/11/23 Stop Date: 05/12/23 Status: Ordered ezetimibe 10 mg oral tablet 1 tablet, By Mouth, Daily, # 90 tablet, 0 Refills, Maintenance, 02/11/23 7:38:00 EDT, [facility], 162, cm, 11/20/22 12:28:00 EDT, Height Start Date: 02/11/23 Stop Date: 05/12/23 Status: Ordered ferrous sulfate 325 mg oral enteric coated tablet 325 mg, 1, tablet, By Mouth, Daily, # 30 tablet, Refills 3, Tot. Refills 3, Maintenance, 04/18/23 10:05:00 EDT, Route to Pharmacy Electronically, [facility], Partial fill upon patient request if the prescription is for a schedule II opioid... Start Date: 04/18/23 Status: Ordered Flonase 50 mcg/inh nasal spray 1 sprays, Nares, Both, 2 times a day, # 16 Gm, 0 Refills, Maintenance, 06/05/22 12:05:00 EST, [place], [facility], Partial fill upon patient [...] 04/16/23 11:27:00 EDT, Route to Pharmacy Electronically, [facility], Partial fill upon patient request if the prescription is for a schedule... Start Date: 04/16/23 Stop Date: 08/14/23 Status: Ordered glimepiride 4 mg oral tablet 1 tablet, By Mouth, 2 times a day, # 180 tablet, 0 Refills, Maintenance, 02/11/23 7:38:00 EDT, [facility], 162, cm, 11/20/22 12:28:00 EDT, Height Start Date: 02/11/23 Status: Ordered Home Blood Pressure Monitor See Instructions, # 1 each, Maintenance, DX: Hypertension, 06/06/22 12:29:00 EST, Supply Start Date: 06/06/22 Status: Ordered hydrochlorothiazide-lisinopril 25 mg-20 mg oral tablet 1 tablet, By Mouth, Daily, # 90 tablet, 3 Refills, Maintenance, 09/05/22 16:25:00 EDT, Tablet, [facility], Partial fill upon patient request if the prescription is for a schedule II opioiddrug., 1 tablet By Mouth Daily,x90 days, 162, cm, 0... Start Date: 09/05/22 Stop Date: 08/31/23 Status: Ordered isosorbide mononitrate 30 mg oral tablet, extended release 1 tablet, By Mouth, Daily in AM, # 90 tablet, 0 Refills, Maintenance, 02/11/23 7:37:00 EDT, [facility], 162, cm, 11/20/22 12:28:00 EDT, Height Start Date: 02/11/23 Stop Date: 05/12/23 Status: Ordered meloxicam 15 mg oral tablet 1 tablet, By Mouth, Daily, # 90 tablet, 0 Refills, Maintenance, 03/15/23 12:40:00 EDT, [facility], 162, cm, 03/08/23 12:38:00 EDT, Height Start Date: 03/15/23 Stop Date: 06/13/23 Status: Ordered metFORMIN 500 mg oral tablet 2 tablet, By Mouth, 2 times a day, # 360 tablet, 0 Refills, Maintenance, 02/11/23 7:36:00 EDT, [facility], 162, cm, 11/20/22 12:28:00 [...] Stop 06/16/23 11:59:00EST, 06/21/22 11:59:00 EST, Tablet, [facility], Partial fill upon patient request if theprescription is for a schedule II opioid drug., 162... Start Date: 06/21/22 Stop Date: 06/16/23 Status: Ordered traZODone 50 mg oral tablet 50 mg, 1, tablet, By Mouth, Daily at bedtime, # 90 tablet, Refills 1, Tot. Refills 1, Maintenance, 04/16/23 11:21:00 EDT, Route to Pharmacy Electronically, [facility], Partial fill upon patient [...] 01/15/23 Lower extremity edema Discharge Diagnosis 01/15/[address] elevation myocardial infarction (STEMI) Discharge Diagnosis 05/21/23 Vital Signs Most recent to oldest [Reference Range]: 1 Height 160 cm (05/21/23 4:23 PM) Weight 76.4 kg (05/21/23 4:23 PM) Oxygen Saturation [94-100 %] 98 % (05/21/23 4:23 PM) Pulse Rate [55-90 bpm] 65 bpm (05/21/23 4:23 PM) Body Mass Index [18.5-24.99 kg/m2] 29.84 kg/m2 *H* (05/21/23 4:23 PM) Blood Pressure [90-138/55-84 mm Hg] 138/ 81mm Hg (05/21/23 4:23 PM) Mode of Delivery (Oxygen) Room air (05/21/23 4:23 PM) Blood pressure sites Arm, left (05/21/23 4:23 PM) Weight Obtained Via Bed scale (05/21/23 4:23 PM) Social History Social History Type Response Smoking Status Never (less than 100 in lifetime) entered on: 04/09/22 Sex Patient Care team information Care Team Personnel Name: Ioana Ochoa NP Position: S PCO Associate Professional Member Role: PCP Address: Address: [address] [place] [address] [address] [place] [address]- Care Team Related Persons Name: EDUARDO GLASGOW Name: DANIEL LOZANO Address: home [address] [place] [address]
--- OUTSIDE RECORDS SUMMARY | 2023-11-08 08:54 | XMS_ITS | Continuity of Care Document ---
Author Organization [facility] Adult Address [address] [place] [address]- Care Team Providers Care Rn Mds Coordinator Name Role Phone Laron FLORIAN, Ioana Reilly Primary Care Physician [facility] [id number] Date(s): 04/11/23 - 04/18/23 [facility] [address] [place] [address]- Attending Physician: Not on Staff, Attending MD Allergies, Adverse Reactions, Alerts No Known Allergies Immunizations Given and Recorded Vaccine Date Status Refusal Reason SARS-CoV-2 (COVID-19) mRNA BNT-162b2 vac 04/24/21 Recorded pneumococcal 23-valent vaccine 04/23/01 Recorded Medications aspirin 81 mg oral delayed release tablet 1 tablet = 81 mg, By Mouth, Daily, # 90 tablet, 3 Refills, Maintenance, 04/09/22 19:08:00 EDT, CR Tablet, [facility] [...] 04/09/22 19:08:00 EDT, Route to Pharmacy Electronically, [facility] [...] 04/21/23 15:18:00 EDT, 04/11/23 15:18:00 EDT, [place], [facility], Partial fill upon patient request if the prescription is for a schedule II opioid . Start Date: 04/11/23 Stop Date: 04/21/23 Status: Ordered doxazosin 4 mg oral tablet 1 tablet, By Mouth, Daily, # 90 tablet, 0 Refills, Maintenance, 02/11/23 7:39:00 EDT, [facility], 162, cm, 11/20/22 12:28:00 EDT, Height Start Date: 02/11/23 Stop Date: 05/12/23 Status: Ordered ezetimibe 10 mg oral tablet 1 tablet, By Mouth, Daily, # 90 tablet, 0 Refills, Maintenance, 02/11/23 7:38:00 EDT, [facility], 162, cm, 11/20/22 12:28:00 EDT, Height Start Date: 02/11/23 Stop Date: 05/12/23 Status: Ordered ferrous sulfate 325 mg oral enteric coated tablet 325 mg, 1, tablet, By Mouth, Daily, # 30 tablet, Refills 3, Tot. Refills 3, Maintenance, 04/18/23 10:05:00 EDT, Route to Pharmacy Electronically, [facility], Partial fill upon patient request if the prescription is for a schedule II opioid... Start Date: 04/18/23 Status: Ordered Flonase 50 mcg/inh nasal spray 1 sprays, Nares, Both, 2 times a day, # 16 Gm, 0 Refills, Maintenance, 06/05/22 12:05:00 EST, [place], [facility], Partial [...] 04/16/23 11:27:00 EDT, Route to Pharmacy Electronically, [facility], Partial fill upon patient request if the prescription is for a schedule... Start Date: 04/16/23 Stop Date: 08/14/23 Status: Ordered glimepiride 4 mg oral tablet 1 tablet, By Mouth, 2 times a day, # 180 tablet, 0 Refills, Maintenance, 02/11/23 7:38:00 EDT, [facility], 162, cm, 11/20/22 12:28:00 EDT, Height Start Date: 02/11/23 Status: Ordered Home Blood Pressure Monitor See Instructions, # 1 each, Maintenance, DX: Hypertension, 06/06/22 12:29:00 EST, Supply Start Date: 06/06/22 Status: Ordered hydrochlorothiazide-lisinopril 25 mg-20 mg oral tablet 1 tablet, By Mouth, Daily, # 90 tablet, 3 Refills, Maintenance, 09/05/22 16:25:00 EDT, Tablet, [facility], Partial fill upon patient request if the prescription is for a schedule II opioiddrug., 1 tablet By Mouth Daily,x90 days, 162, cm, 0... Start Date: 09/05/22 Stop Date: 08/31/23 Status: Ordered isosorbide mononitrate 30 mg oral tablet, extended release 1 tablet, By Mouth, Daily in AM, # 90 tablet, 0 Refills, Maintenance, 02/11/23 7:37:00 [facility], cm, 11/20/22 12:28:00 EDT, Height Start Date: 02/11/23 Stop Date: 05/12/23 Status: Ordered meloxicam 15 mg oral tablet 1 tablet, By Mouth, Daily, # 90 tablet, 0 Refills, Maintenance, 03/15/23 12:40:00 EDT, [facility], 162, cm, 03/08/23 12:38:00 EDT, Height Start Date: 03/15/23 Stop Date: 06/13/23 Status: Ordered metFORMIN 500 mg oral tablet 2 tablet, By Mouth, 2 times a day, # 360 tablet, 0 Refills, Maintenance, 02/11/23 7:36:00 EDT, [facility], 162, cm, 11/20/22 [...] Stop 06/16/23 11:59:00EST, 06/21/22 11:59:00 EST, Tablet, [facility], Partial fill upon patient request if theprescription is for a schedule II opioid drug., 162... Start Date: 06/21/22 Stop Date: 06/16/23 Status: Ordered traZODone 50 mg oral tablet 50 mg, 1, tablet, By Mouth, Daily at bedtime, # 90 tablet, Refills 1, Tot. Refills 1, Maintenance, 04/16/23 11:21:00 EDT, Route to Pharmacy Electronically, [facility], Partial fill upon patient request if the [...] Active Type 2 diabetes mellitus Confirmed Active Vital Signs Most recent to oldest [Reference Range]: 1 Height 162 cm (04/11/23 2:54 PM) Weight 77.9 kg (04/11/23 2:54 PM) Oxygen Saturation [94-100 %] 98 % (04/11/23 2:54 PM) Pulse Rate [55-90 bpm] 63 bpm (04/11/23 2:54 PM) Body Mass Index [18.5-24.99 kg/m2] 29.68 kg/m2 *H* (04/11/23 2:54 PM) Blood Pressure [90-138/55-84 mm Hg] 100/ 56mm Hg (04/11/23 2:54 PM) Mode of Delivery (Oxygen) Room air (04/11/23 2:54 PM) Blood pressure sites Arm, left (04/11/23 2:54 PM) Weight Obtained Via Standing scale (04/11/23 2:54 PM) Social History Social History Type Response Smoking Status Never (less than 100 in lifetime) entered on: 04/09/22 Sex Note * Margarita Gomez: PERFORM, SIGN, VERIFY Event Display: Patient Education/Instruction Authored Date: [id number] [facility] *[facility] Clinical Summary Name CLEMENTINE SALAZAR Age 72 Years 1950 PCP Laron FLORIAN, Ioana Reilly PCP Visit Date 04/11/2023 14:49:00 Additional Instructions: Scheduled Appointments?? Future Appointments ?[facility] ?[address]??[place],??[place],??[address] ?Phone:??[phone]?Fax:??-- ?Appt. Date:??04/11/2023?2:15 PM ?Scheduled Provider:??[facility] ?*[facility] ?[address],??[place],??[address] ?Phone:??--?Fax:??-- ?Appt. Date:??04/16/2023?11:00 AM ?Scheduled Provider:??Ioana Larry NP ?*[facility] ?[address] ?[place],??[place],??[address] ?Phone:??--?Fax:??-- ?Appt. Date:??05/21/2023?4:20 PM ?Scheduled Provider:??Germaine ROSENBERG, Edgar Lester Follow-Up Instructions ?? Diagnosis Sialoadenitis, unspecified Medications: Please continue your medications until treatment is completed or stopped by your provider. Discuss any questions related to medications with your provider. New Medications [facility], [address] [place] [id number], [phone] Cephalexin (cephalexin monohydrate 500 mg oral capsule) 1 capsule Oral 4 times a day for 10 Days. Refills: 0. [...] for 30 Days. Refills: 1. Next Dose: Allergy Info:?? NKA Medications Given This Visit Future Orders ?CT Maxilloface W/ Contrast? Order Date:04/11/23?- Complete on or after?04/11/23 Vital Signs Height 162 cm Weight 77.9 kg BMI 29.68 kg/m2 Blood Pressure 100 mm Hg/56 mm Hg Temperature Pulse Rate 63 bpm Respiratory Rate 02 Sat Mode of Delivery 98 %/Room air You can now view a summary of your hospital visit from the comfort of your home through a free online portal called [employer]. [employer] is a website that allows you to securely view your medical information including discharge summary, medications and follow-up visits. ??You can alsosend a secure electronic message to your doctor???s office to request appointments, renew medications or just ask a question. You can enroll at [email or web address] or register during your next office visit. [...] primary care provider, you may find a [facility] provider by calling [facility] myinfoQ Link at [phone]. [facility], in keeping with [facility] guidance, [...] Team Personnel Name: Ioana Larry NP Position: [facility] PCO Associate Professional Member Role: PCP Address: Address: [address] [place] [address]- Care Team Related Persons Name: EDUARDO GLASGOW Name: DANIEL LOZANO Address: [address] [address]
--- OUTSIDE RECORDS SUMMARY | 2023-11-08 08:54 | XMS_ITS | Continuity of Care Document ---
Author Organization [facility] Address [address] [place] [address]- Care Team Providers Care Skiving Machine Operator Name Role Phone Don FLORIAN, Ioana Primary Care Physician Encounter [facility] Date(s): 05/15/23 - 05/16/[address] [address]- Discharge Disposition: Transferred to short-term general hospit Attending Physician: Yash Whitehead MD Admitting Physician: [...] Refills, Maintenance, 04/09/22 19:08:00 EDT, CR Tablet, [id number], Partial fill upon patient request if the prescription is for a schedule II opioid drug., 162, cm, 04/09/22 16:12:00 EDT, H... Start Date: 04/09/22 Stop Date: 04/04/23 Status: Ordered carvedilol 25 mg oral tablet 1, tablet, By Mouth, 2 times a day, # 180 tablet, Refills 1, Maintenance, 05/06/23 18:16:00 EST, Route to Pharmacy Electronically, [facility], 162, cm, 04/16/23 11:09:00 EDT, Height Start Date: 05/06/23 Status: Ordered doxazosin 4 mg oral tablet 1 tablet, By Mouth, Daily, # 90 tablet, 0 Refills, Maintenance, 02/11/23 7:39:00 EDT, [facility], 162, cm, 11/20/22 12:28:00 EDT, Height Start Date: 02/11/23 Stop Date: 05/12/23 Status: Ordered doxycycline hyclate 100 mg oral capsule 1 capsule = 100 mg, By Mouth, 2 times a day, for 10 days, # 20 capsule, 0 Refills, Acute 05/24/23 14:53:00 EST, 05/14/23 14:53:00 EST, Capsule, [facility], Partial fill upon patient request if the prescription is for a schedule II opioid dr... Start Date: 05/14/23 Stop Date: 05/24/23 Status: Ordered ezetimibe 10 mg oral tablet 1 tablet, By Mouth, Daily, # 90 tablet, 0 Refills, Maintenance, 02/11/23 7:38:00 EDT, [facility], 162, cm, 11/20/22 12:28:00 EDT, Height Start Date: 02/11/23 Stop Date: 05/12/23 Status: Ordered ferrous sulfate 325 mg oral enteric coated tablet 325 mg, 1, tablet, By Mouth, Daily, # 30 tablet, Refills 3, Tot. Refills 3, Maintenance, 04/18/23 10:05:00 EDT, Route to Pharmacy Electronically, [facility], Partial fill upon patient request if the prescription is for a schedule II opioid... Start Date: 04/18/23 Status: Ordered Flonase 50 mcg/inh nasal spray 1 sprays, Nares, Both, 2 times a day, # 16 Gm, 0 Refills, Maintenance, 06/05/22 12:05:00 EST, [place], [facility], Partial fill upon patient request [...] 04/16/23 11:27:00 EDT, Route to Pharmacy Electronically, [facility], Partial fill upon patient request if the prescription is for a schedule... Start Date: 04/16/23 Stop Date: 08/14/23 Status: Ordered glimepiride 4 mg oral tablet 1 tablet, By Mouth, 2 times a day, # 180 tablet, 0 Refills, Maintenance, 02/11/23 7:38:00 EDT, [facility], 162, cm, 11/20/22 12:28:00 EDT, Height Start Date: 02/11/23 Status: Ordered Home Blood Pressure Monitor See Instructions, # 1 each, Maintenance, DX: Hypertension, 06/06/22 12:29:00 EST, Supply Start Date: 06/06/22 Status: Ordered hydrochlorothiazide-lisinopril 25 mg-20 mg oral tablet 1 tablet, By Mouth, Daily, # 90 tablet, 3 Refills, Maintenance, 09/05/22 16:25:00 EDT, Tablet, [facility], Partial fill upon patient request if the prescription is for a schedule II opioiddrug., 1 tablet By Mouth Daily,x90 days, 162, cm, 0... Start Date: 09/05/22 Stop Date: 08/31/23 Status: Ordered isosorbide mononitrate 30 mg oral tablet, extended release 1 tablet, By Mouth, Daily in AM, # 90 tablet, 0 Refills, Maintenance, 02/11/23 7:37:00 EDT, [facility], 162, cm, 11/20/22 12:28:00 EDT, Height Start Date: 02/11/23 Stop Date: 05/12/23 Status: Ordered meloxicam 15 mg oral tablet 1 tablet, By Mouth, Daily, # 90 tablet, 0 Refills, Maintenance, 03/15/23 12:40:00 EDT, [facility], 162, cm, 03/08/23 12:38:00 EDT, Height Start Date: 03/15/23 Stop Date: 06/13/23 Status: Ordered metFORMIN 500 mg oral tablet 2 tablet, By Mouth, 2 times a day, # 360 tablet, 0 Refills, Maintenance, 02/11/23 7:36:00 EDT, [facility], 162, cm, 11/20/22 12:28:00 EDT, Height Start Date: 02/11/23 Status: Ordered MorPHINE Inj 4 mg, Injection, IV Push Slowly, Once, STAT, 05/15/23 21:52:00 EST, Stop date 05/15/23 21:52:00 EST Start Date: 05/15/23 Stop Date: 05/15/23 Status: Completed R toe off AFO R toe off [...] Stop 06/16/23 11:59:00EST, 06/21/22 11:59:00 EST, Tablet, [facility], Partial fill upon patient request if theprescription is for a schedule II opioid drug., 162... Start Date: 06/21/22 Stop Date: 06/16/23 Status: Ordered traZODone 50 mg oral tablet 50 mg, 1, tablet, By Mouth, Daily at bedtime, # 90 tablet, Refills 1, Tot. Refills 1, Maintenance, 04/16/23 11:21:00 EDT, Route to Pharmacy Electronically, [facility], Partial fill upon patient request [...] Active Type 2 diabetes mellitus Confirmed Active Results Orders for Microbiology Reports Name Date Blood Culture 05/15/23 Blood Culture #2 05/15/23 Microbiology Reports TEST:Blood Culture STATUS:Unauthenticated BODY SITE: SOURCE:Blood COLLECTED DATE/TIME:05/15/23 7:20 PM Blood Culture SPECIMEN DESCRIPTION : BLOOD RAC SPECIAL REQUESTS : NONE CULTURE : NO GROWTH AFTER 24 HOURS REPORT STATUS : PRELIMINARY REPORT TEST:Blood Culture, Second Order STATUS:Unauthenticated BODY SITE: SOURCE:Blood COLLECTED DATE/TIME:05/15/23 7:16 PM Blood Culture, Second Order SPECIMEN DESCRIPTION : BLOOD LAC SPECIAL REQUESTS : NONE CULTURE : NO GROWTH AFTER 24 HOURS REPORT STATUS : PRELIMINARY REPORT Radiology Reports * Exam Date Time Procedure Performing Provider Status 05/15/23 8:[address] Soft Tissue Neck W/ Contrast Kenny son , Karen; Auth (Verified) Notes: (CT Soft Tissue Neck W/ Contrast) Reason For Exam: submandibular swelling, redness;Neck Mass Undiagnosed RESULT: CT Soft Tissue Neck W/ Contrast CT Soft Tissue Neck W/ Contrast INDICATION/CLINICAL QUESTION: Hx of Present Illness: seen at pcp yesterday- rx'd abx, today unsteady on feet, weakness, sleepy, headache, difficulty swallowing (tongue feels stiff); Reason: Neck MassUndiagnosed; submandibular swelling, redness; Clinical Question(s): Abscess; abscess vs. mass / Abscess. TECHNIQUE: Spiral CT neck with IV contrast formatted in 3 planes. 100 cc of Omnipaque 300 was administered intravenously. Weight-based protocol using automatic tube modulation was used to optimize exposure parameters. CTDIvol Body: 8.41 mGy, DLP Body: 188 mGy*cm. COMPARISON: FINDINGS: Bus Cleaner View Findings, Lines and Tubes: None. Intracranial structures: Visualized portions are unremarkable. Orbits: Visualized portions are unremarkable. Paranasal sinuses and mastoids: There is mucoperiosteal thickening in the right maxillary sinus. The mastoid air cavities are clear. Nasopharynx: Normal adenoid tonsils. Patent posterior nasopharyngeal air passages. Oropharynx: Normal palatine tonsils. No parapharyngeal or retropharyngeal abscess or edema. There is a low-density structure along the anterior tongue base extending into the sublingual space consistent with an abscess. This measures approximately 2.3 x 1.7 x 1.9 cm and a second 2.8 x 2.6 x 1.8 cm c omponent which extends inferior to the floor of the mouth into the sublingual space. Findings are best seen on coronal image 25. Mucosal surfaces: Mucosal surfaces appear normal and symmetric, including the pharynx, larynx, and visualized portions of the upper trachea and esophagus. Cervical lymph nodes: Mildly reactive lymph nodes. Salivary glands: The parotid glands and submandibular glands are normal. Thyroid gland: Normal CT appearance Vascular structures: Unremarkable. Upper chest: The upper lungs are clear. The upper mediastinum is unremarkable. Bones and teeth: No acute abnormalities. IMPRESSION: Multiloculated abscess centered within the anterior floor of mouth abscess extending into the sublingual space as above. Final report is in agreement with the director of infection prevention teleradiology report. WSN: [id number] Ordering Physician: Mann Banks Dictated By: Yifan Shaikh MD Dictated Date/Time: 05/16/23 6:59 am Reviewed By: Yifan Shaikh MD Signed By: Yifan Shaikh MD Signed Date/Time: 05/16/23 6:59 am Transcribed By: JOSE R Transcribed Date/Time: 05/16/23 6:56 am * Exam Date Time Procedure Performing Provider Status 05/15/23 8:[address] Head/Brain W/O Contrast Karen Chaparro; Auth (Verified) Notes: (CT Head/Brain W/O Contrast) Reason For Exam: confusion, ataxia;Other: RESULT: CT Head/Brain W/O Contrast CT Head/Brain W/O Contrast INDICATION: Hx of Present Illness: seen at pcp yesterday- rx'd abx, today unsteady on feet, weakness, sleepy, headache, difficulty swallowing (tongue feels stiff); Reason: Other:; confusion, ataxia; Clinical Question(s): Infarction TECHNIQUE: Noncontrast head CT using axial technique and reconstructed in axial and coronal planes.Iterative reconstruction techniques are used to optimize dose and image quality. CTDIvol Head: 43.11 mGy, DLP Head: 793 mGy*cm. COMPARISON: None. FINDINGS: Bus Cleaner view findings, lines and tubes: None. BRAIN AND EXTRA-AXIAL SPACES: No parenchymal hemorrhage, midline shift, or mass effect. Wise-white matter differentiation is wellpreserved. No acute infarct. Negative insular ribbon sign. Atherosclerotic vascular calcification of the carotid arteries but negative hyperdense vessel sign. Mild prominence of the sulci consistent with parenchymal volume loss. Normal ventricles. Mild low-density white matter changes. No subarachnoid hemorrhage. No subdural or epidural collection. CALVARIUM, SKULL BASE, AND SOFT TISSUES: No fractures or suspicious bony lesions. The paranasal sinuses and mastoid air cells are clear. Visualized orbits and globes are intact. The extracranial soft tissues are unremarkable. IMPRESSION: No acute intracranial pathology. Final report is in agreement with on-call report. WSN: [id number] Ordering Physician: Mann Banks Dictated By: Yifan Shaikh MD Dictated Date/Time: 05/16/23 6:56 am Reviewed By: Yifan Shaikh MD Signed By: Yifan Shaikh MD Signed Date/Time: 05/16/23 6:56 am Transcribed By: JOSE R Transcribed Date/Time: 05/16/23 6:54 am Vital Signs Most recent to oldest [Reference Range]: 1 2 3 Height 160 cm (05/15/23 6:59 PM) Weight 79.5 kg (05/15/23 6:59 PM) Oxygen Saturation [94-100 %] 100 % (05/16/23 12:00 AM) 96 % (05/15/23 11:00 PM) 97 % (05/15/23 10:00 PM) Pulse Rate [55-90 bpm] 89 bpm (05/16/23 12:00 AM) 88 bpm (05/15/23 11:00 PM) 89 bpm (05/15/23 10:00 PM) Blood Pressure [90-138/55-84 mm Hg] 140/83mm Hg *H* (05/16/23 12:00 AM) 126/77mm Hg (05/15/23 11:00 PM) 113/71mm Hg (05/15/23 10:00 PM) Respiratory Rate [16-30 br/min] 16 br/min (05/16/23 12:00 AM) 15 br/min *L* (05/15/23 11:00 PM) 20 br/min (05/15/23 10:10 PM) Temperature [96.8-100.4 DegF] 98.4 DegF (05/15/23 6:59 PM) Mode of Delivery (Oxygen) Room air (05/16/23 12:00 AM) Room air (05/15/23 11:00 PM) Room air (05/15/23 10:00 PM) Blood pressure sites Arm, left (05/16/23 12:00 AM) Arm, left (05/15/23 11:00 PM) Arm, left (05/15/23 10:00 PM) Temperature Route Oral (05/15/23 6:59 PM) Dry Weight 79.5 kg (05/15/23 6:59 PM) Weight Obtained Via Patient/family state d (05/15/23 6:59 PM) Dry Weight Obtained Via Patient/family s tated (05/15/23 6:59 PM) Social History Social History Type Response Smoking Status Never (less than 100 in lifetime) entered on: 04/09/22 Sex Patient Care team information Care Team Personnel Name: Ioana Ochoa NP Position: [facility] PCO Associate Professional Member Role: PCP Address: Address: [address] [place] [address] [address] [place] [address]- [place] Name: Mann Ferguson RN Position: [facility] ED RN W/OE and Tasks Member Role: Patient Care Provider Name: Yash Whitehead MD Position: [facility] ED Medicine MD Member Role: ED Attending Physician Address: Address: [address] [place] [id number]- Name: Melba Berger Position: [facility] ED TA [facility] Member Role: ED Associate Care Team Related Persons Name: EDUARDO GLASGOW Name: DANIEL LOZANO Address: [address] [address]
--- OUTSIDE RECORDS SUMMARY | 2023-11-08 08:55 | XMS_ITS | Continuity of Care Document ---
Author Organization [facility] Address [address] [place] [address]- Care Team Providers Care Appointment Coordinator Name Role Phone Don FLORIAN, Ioana Primary Care Physician [place] [facility] [place] 09[place]13[place]23 - 10[place]13/23 [facility] [address] [place] [id number]- Allergies, Adverse Reactions, Alerts No Known Allergies Immunizations Given and Recorded Vaccine Date Status Refusal Reason SARS-CoV-2 (COVID-19) mRNA BNT-162b2 vac 04/24/21 Recorded pneumococcal 23-valent vaccine 04/23/01 Recorded Medications aspirin 81 mg oral delayed release tablet 1 tablet = 81 mg, By Mouth, Daily, # 90 tablet, 3 Refills, Maintenance, 05/30/23 12:11:00 EST, CR Tablet, [facility] [...] 05/30/23 12:11:00 EST, Route to Pharmacy Electronically, [facility], 160, cm, 05/30/23 11:24:00 EST, Height, 79.5, kg, 05/15/23 18:59:00 EST, Dry Weight Start Date: 05/30/23 Status: Ordered Farxiga 5 mg oral tablet 1 tablet = 5 mg, By Mouth, Daily, # 30 tablet, 3 Refills, Maintenance, 08/29/23 14:27:00 EST, Tablet, [facility] [...] 05/30/23 12:12:00 EST, Route to Pharmacy Electronically, [facility], Partial fill upon patient request if the prescription is for a schedule II opioid... Start Date: 05/30/23 Status: Ordered Flonase 50 mcg/inh nasal spray 1 sprays, Nares, Both, 2 times a day, # 16 Gm, 0 Refills, Maintenance, 06/05/22 12:05:00 EST, [place], [facility], Partial [...] 05/30/23 12:12:00 EST, Route to Pharmacy Electronically, [facility], Partial fill upon patient request if the prescription is for a schedule... Start Date: 05/30/23 Stop Date: 09/27/23 Status: Ordered glimepiride 4 mg oral tablet 1 tablet, By Mouth, 2 times a day, # 180 tablet, 0 Refills, Maintenance, 05/30/23 12:12:00 EST, [facility], 160, cm, 05/30/23 11:24:00 [...] tablet, 0 Refills, Maintenance, 05/30/23 12:12:00 EST, [facility], 160, cm, 05/30/23 11:24:00 EST, Height, 79.5, kg, 05/15/23 18:59:00 EST, Dry Weight Start Date: 05/30/23 Stop Date: 08/28/23 Status: Ordered metFORMIN 500 mg oral tablet 2 tablet, By Mouth, 2 times a day, # 360 tablet, 0 Refills, Maintenance, 05/30/23 12:12:00 EST, [facility], 160, cm, 05/30/23 11:24:00 [...] Professional Member Role: PCP Address: Address: [address] [place] [address]- Care Team Related Persons Name: EDUARDO GLASGOW Name: DANIEL LOZANO Address: [address] [address]
--- OUTSIDE RECORDS SUMMARY | 2023-11-08 08:55 | XMS_ITS | Continuity of Care Document ---
Author Organization [facility] Address [address] [place] [address]- Care Team Providers Care Ovens Supervisor Name Role Phone Don FLORIAN, Ioana Primary Care Physician Encounter [facility] [place] Date(s): 07/15/23 - 08/14/23 [facility] [address] [place] [id number]- Encounter Diagnosis Type 2 diabetes mellitus(Discharge Diagnosis) - 07/15/23 Allergies, Adverse Reactions, Alerts No Known Allergies Immunizations Given and Recorded Vaccine Date Status Refusal Reason SARS-CoV-2 (COVID-19) mRNA BNT-162b2 vac 04/24/21 Recorded pneumococcal 23-valent vaccine 04/23/01 Recorded Medications aspirin 81 mg oral delayed release tablet 1 tablet = 81 mg, By Mouth, Daily, # 90 tablet, 3 Refills, Maintenance, 05/30/23 12:11:00 EST, CR Tablet, [facility], Partial fill upon patient request if the prescription is for a schedule II opioid drug., 160, cm, 05/30/23 11:24:00 EST, H... Start Date: 05/30/23 Stop Date: 05/24/24 Status: Ordered carvedilol 25 mg oral tablet 1, tablet, By Mouth, 2 times a day, # 180 tablet, Refills 1, Tot. Refills 1, Maintenance, 05/30/23 12:11:00 EST, Route to Pharmacy Electronically, [facility], 160, cm, 05/30/23 11:24:00 EST, Height, 79.5, kg, 05/15/23 18:59:00 EST, Dry Weight Start Date: 05/30/23 Status: Ordered doxazosin 4 mg oral tablet 1 tablet, By Mouth, Daily, # 90 tablet, 0 Refills, Maintenance, 05/30/23 12:11:00 EST, [facility], 160, cm, 05/30/23 11:24:00 EST, Height, 79.5, kg, 05/15/23 18:59:00 EST, Dry Weight Start Date: 05/30/23 Stop Date: 08/28/23 Status: Ordered ezetimibe 10 mg oral tablet 1 tablet, By Mouth, Daily, # 90 tablet, 0 Refills, Maintenance, 05/30/23 12:11:00 EST, [facility], 160, cm, 05/30/23 11:24:00 EST, Height, 79.5, kg, 05/15/23 18:59:00 EST, Dry Weight Start Date: 05/30/23 Stop Date: 08/28/23 Status: Ordered ferrous sulfate 325 mg oral enteric coated tablet 325 mg, 1, tablet, By Mouth, Daily, # 30 tablet, Refills 3, Tot. Refills 3, Maintenance, 05/30/23 12:12:00 EST, Route to Pharmacy Electronically, [facility], Partial fill upon patient request if the prescription is for a schedule II opioid... Start Date: 05/30/23 Status: Ordered Flonase 50 mcg/inh nasal spray 1 sprays, Nares, Both, 2 times a day, # 16 Gm, 0 Refills, Maintenance, 06/05/22 12:05:00 EST, [place], [facility], Partial fill upon patient request if [...] 05/30/23 12:12:00 EST, Route to Pharmacy Electronically, [facility], Partial fill upon patient request if the prescription is for a schedule... Start Date: 05/30/23 Stop Date: 09/27/23 Status: Ordered glimepiride 4 mg oral tablet 1 tablet, By Mouth, 2 times a day, # 180 tablet, 0 Refills, Maintenance, 05/30/23 12:12:00 EST, [facility], 160, cm, 05/30/23 11:24:00 EST, Height, 79.5, kg, 05/15/23 18:59:00 EST, Dry Weight Start Date: 05/30/23 Status: Ordered Home Blood Pressure Monitor See Instructions, # 1 each, Maintenance, DX: Hypertension, 06/06/22 12:29:00 EST, Supply Start Date: 06/06/22 Status: Ordered hydrochlorothiazide-lisinopril 25 mg-20 mg oral tablet 1 tablet, By Mouth, Daily, # 90 tablet, 3 Refills, Maintenance, 05/30/23 12:12:00 EST, Tablet, [facility], Partial fill upon patient request if the prescription is for a schedule II opioiddrug., 1 tablet By Mouth Daily,x90 days, 160, cm, 1... Start Date: 05/30/23 Stop Date: 05/24/24 Status: Ordered isosorbide mononitrate 30 mg oral tablet, extended release 1 tablet, By Mouth, Daily in AM, # 90 tablet, 0 Refills, Maintenance, 05/30/23 12:12:00 EST, [facility], 160, cm, 05/30/23 11:24:00 EST, Height, 79.5, kg, 05/15/23 18:59:00 EST, Dry Weight Start Date: 05/30/23 Stop Date: 08/28/23 Status: Ordered meloxicam 15 mg oral tablet 1 tablet, By Mouth, Daily, # 90 tablet, 0 Refills, Maintenance, 05/30/23 12:12:00 EST, [facility], 160, cm, 05/30/23 11:24:00 EST, Height, 79.5, kg, 05/15/23 18:59:00 EST, Dry Weight Start Date: 05/30/23 Stop Date: 08/28/23 Status: Ordered metFORMIN 500 mg oral tablet 2 tablet, By Mouth, 2 times a day, # 360 tablet, 0 Refills, Maintenance, 05/30/23 12:12:00 EST, [facility], 160, cm, 05/30/23 11:24:00 [...] Stop 05/24/24 12:12:00EST, 05/30/23 12:12:00 EST, Tablet, [facility], Partial fill upon patient request if theprescription is for a schedule II opioid drug., 160... Start Date: 05/30/23 Stop Date: 05/24/24 Status: Ordered traZODone 50 mg oral tablet 50 mg, 1, tablet, By Mouth, Daily at bedtime, # 90 tablet, Refills 1, Tot. Refills 1, Maintenance, 05/30/23 12:12:00 EST, Route to Pharmacy Electronically, [id number], Partial fill upon patient request if the [...] Diagnosis Diagnosis Type Effective Dates Health Status inical Service Informant Type 2 diabetes mellitus Discharge Diagnosis 07/15/23 Non-Specified Social History Social History Type Response Smoking Status Never (less than 100 in lifetime) entered on: 04/09/22 Sex Patient Care team information Care Team Personnel Name: Ioana Ochoa NP Position: [facility] PCO Associate Professional Member Role: PCP Address: Address: [address] [place] [address]- Care Team Related Persons Name: EDUARDO GLASGOW Name: DANIEL LOZANO Address: [address] [address]
--- OUTSIDE RECORDS SUMMARY | 2023-11-08 08:55 | XMS_ITS | Continuity of Care Document ---
Author Organization [facility] Address [address] [place] [address]- Care Team Providers Care Background Investigator Name Role Phone Don FLORIAN, Ioana Primary Care Physician [phone] [place] [facility] [place] [facility] [place]23 - 05/15/23 [facility] [address] [place] [id number]- Allergies, Adverse Reactions, Alerts No Known Allergies Immunizations Given and Recorded Vaccine Date Status Refusal Reason SARS-CoV-2 (COVID-19) mRNA BNT-162b2 vac 04/24/21 Recorded pneumococcal 23-valent vaccine 04/23/01 Recorded Medications aspirin 81 mg oral delayed release tablet 1 tablet = 81 mg, By Mouth, Daily, # 90 tablet, 3 Refills, Maintenance, 04/09/22 19:08:00 EDT, CR Tablet, [facility], Partial fill upon patient request if the prescription is for a schedule II opioid drug., 162, cm, 04/09/22 16:12:00 EDT, H... Start Date: 04/09/22 Stop Date: 04/04/23 Status: Ordered carvedilol 25 mg oral tablet 1, tablet, By Mouth, 2 times a day, # 180 tablet, Refills 1, Maintenance, 05/06/23 18:16:00 EST, Route to Pharmacy Electronically, [facility], 162, cm, 04/16/23 11:09:00 EDT, Height Start Date: 05/06/23 Status: Ordered doxazosin 4 mg oral tablet 1 tablet, By Mouth, Daily, # 90 tablet, 0 Refills, Maintenance, 02/11/23 7:39:00 EDT, [facility], 162, cm, 11/20/22 12:28:00 EDT, Height Start Date: 02/11/23 Stop Date: 05/12/23 Status: Ordered doxycycline hyclate 100 mg oral capsule 1 capsule = 100 mg, By Mouth, 2 times a day, for 10 days, # 20 capsule, 0 Refills, Acute 05/24/23 14:53:00 EST, 05/14/23 14:53:00 EST, Capsule, [facility], Partial fill upon patient request if the prescription is for a schedule II opioid dr... Start Date: 05/14/23 Stop Date: 05/24/23 Status: Ordered ezetimibe 10 mg oral tablet 1 tablet, By Mouth, Daily, # 90 tablet, 0 Refills, Maintenance, 02/11/23 7:38:00 EDT, [facility], 162, cm, 11/20/22 12:28:00 EDT, Height Start Date: 02/11/23 Stop Date: 05/12/23 Status: Ordered ferrous sulfate 325 mg oral enteric coated tablet 325 mg, 1, tablet, By Mouth, Daily, # 30 tablet, Refills 3, Tot. Refills 3, Maintenance, 04/18/23 10:05:00 EDT, Route to Pharmacy Electronically, [facility], Partial fill upon patient request if the prescription is for a schedule II opioid... Start Date: 04/18/23 Status: Ordered Flonase 50 mcg/inh nasal spray 1 sprays, Nares, Both, 2 times a day, # 16 Gm, 0 Refills, Maintenance, 06/05/22 12:05:00 EST, [place], [facility], Partial fill upon patient [...] 04/16/23 11:27:00 EDT, Route to Pharmacy Electronically, [facility], Partial fill upon patient request if the prescription is for a schedule... Start Date: 04/16/23 Stop Date: 08/14/23 Status: Ordered glimepiride 4 mg oral tablet 1 tablet, By Mouth, 2 times a day, # 180 tablet, 0 Refills, Maintenance, 02/11/23 7:38:00 EDT, [facility], 162, cm, 11/20/22 12:28:00 EDT, Height Start Date: 02/11/23 Status: Ordered Home Blood Pressure Monitor See Instructions, # 1 each, Maintenance, DX: Hypertension, 06/06/22 12:29:00 EST, Supply Start Date: 06/06/22 Status: Ordered hydrochlorothiazide-lisinopril 25 mg-20 mg oral tablet 1 tablet, By Mouth, Daily, # 90 tablet, 3 Refills, Maintenance, 09/05/22 16:25:00 EDT, Tablet, [facility], Partial fill upon patient request if the prescription is for a schedule II opioiddrug., 1 tablet By Mouth Daily,x90 days, 162, cm, 0... Start Date: 09/05/22 Stop Date: 08/31/23 Status: Ordered isosorbide mononitrate 30 mg oral tablet, extended release 1 tablet, By Mouth, Daily in AM, # 90 tablet, 0 Refills, Maintenance, 02/11/23 7:37:00 EDT, [facility], 162, cm, 11/20/22 12:28:00 EDT, Height Start Date: 02/11/23 Stop Date: 05/12/23 Status: Ordered meloxicam 15 mg oral tablet 1 tablet, By Mouth, Daily, # 90 tablet, 0 Refills, Maintenance, 03/15/23 12:40:00 EDT, [facility], 162, cm, 03/08/23 12:38:00 EDT, Height Start Date: 03/15/23 Stop Date: 06/13/23 Status: Ordered metFORMIN 500 mg oral tablet 2 tablet, By Mouth, 2 times a day, # 360 tablet, 0 Refills, Maintenance, 02/11/23 7:36:00 EDT, [facility], 162, cm, 11/20/22 12:28:00 [...] Stop 06/16/23 11:59:00EST, 06/21/22 11:59:00 EST, Tablet, [facility], Partial fill upon patient request if theprescription is for a schedule II opioid drug., 162... Start Date: 06/21/22 Stop Date: 06/16/23 Status: Ordered traZODone 50 mg oral tablet 50 mg, 1, tablet, By Mouth, Daily at bedtime, # 90 tablet, Refills 1, Tot. Refills 1, Maintenance, 04/16/23 11:21:00 EDT, Route to Pharmacy Electronically, [facility], Partial fill upon patient [...] Professional Member Role: PCP Address: Address: [address] [place] [address]- Care Team Related Persons Name: EDUARDO GLASGOW Name: DANIEL LOZANO Address: [address] [address]
--- OUTSIDE RECORDS SUMMARY | 2023-11-08 08:55 | XMS_ITS | Continuity of Care Document ---
Author Organization [facility] Address [address] [place] [address]- Care Team Providers Care Lab Animal Technician Name Role Phone Don FLORIAN, Ioana Primary Care Physician Encounter [facility] [place] Date(s): 08/29/23 - 09/05/23 [facility] [address] [place] [address]- Encounter Diagnosis Type 2 diabetes mellitus(Discharge Diagnosis) - 08/29/23 Hypertension(Discharge Diagnosis) - 08/29/23 Hyperlipidemia(Discharge Diagnosis) - 08/29/23 Mouth symptom(Discharge Diagnosis) - 08/29/23 Attending Physician: Not on Staff, Attending MD Allergies, Adverse Reactions, Alerts No Known Allergies Immunizations Given and Recorded Vaccine Date Status Refusal Reason SARS-CoV-2 (COVID-19) mRNA BNT-162b2 vac 04/24/21 Recorded pneumococcal 23-valent vaccine 04/23/01 Recorded Medications aspirin 81 mg oral delayed release tablet 1 tablet = 81 mg, By Mouth, Daily, # 90 tablet, 3 Refills, Maintenance, 05/30/23 12:11:00 EST, CR Tablet, [facility], Partial fill upon patient request if the prescription is for a schedule II opioid drug., 160, cm, 05/30/23 11:24:00 EST, H... Start Date: 05/30/23 Stop Date: 05/24/24 Status: Ordered carvedilol 25 mg oral tablet 1, tablet, By Mouth, 2 times a day, # 180 tablet, Refills 1, Tot. Refills 1, Maintenance, 05/30/23 12:11:00 EST, Route to Pharmacy Electronically, [facility], 160, cm, 05/30/23 11:24:00 EST, Height, 79.5, kg, 05/15/23 18:59:00 EST, Dry Weight Start Date: 05/30/23 Status: Ordered doxazosin 4 mg oral tablet 1 tablet, By Mouth, Daily, # 90 tablet, 0 Refills, Maintenance, 05/30/23 12:11:00 EST, [facility], 160, cm, 05/30/23 11:24:00 EST, Height, 79.5, kg, 05/15/23 18:59:00 EST, Dry Weight Start Date: 05/30/23 Stop Date: 08/28/23 Status: Ordered ezetimibe 10 mg oral tablet 1 tablet, By Mouth, Daily, # 90 tablet, 0 Refills, Maintenance, 05/30/23 12:11:00 EST, [place] [address], 160, cm, 05/30/23 11:24:00 EST, Height, 79.5, kg, 05/15/23 18:59:00 EST, Dry Weight Start Date: 05/30/23 Stop Date: 08/28/23 Status: Ordered Farxiga 5 mg oral tablet 1 tablet = 5 mg, By Mouth, Daily, # 30 tablet, 3 Refills, Maintenance, 08/29/23 14:27:00 EST, Tablet, [place] [address], Partial fill upon patient request if the prescription is for a schedule IIopioid drug., 160, cm, 08/29/23 14:01:00 EST, Heigh... Start Date: 08/29/23 Status: Ordered ferrous sulfate 325 mg oral enteric coated tablet 325 mg, 1, tablet, By Mouth, Daily, # 30 tablet, Refills 3, Tot. Refills 3, Maintenance, 05/30/23 12:12:00 EST, Route to Pharmacy Electronically, [facility], Partial fill upon patient request if the prescription is for a schedule II opioid... Start Date: 05/30/23 Status: Ordered Flonase 50 mcg/inh nasal spray 1 sprays, Nares, Both, 2 times a day, # 16 Gm, 0 Refills, Maintenance, 06/05/22 12:05:00 EST, [place], [facility], Partial fill upon patient [...] 12:12:00 EST, Route to Pharmacy Electronically, [facility], Partial fill upon patient request if the prescription is for a schedule... Start Date: 05/30/23 Stop Date: 09/27/23 Status: Ordered glimepiride 4 mg oral tablet 1 tablet, By Mouth, 2 times a day, # 180 tablet, 0 Refills, Maintenance, 05/30/23 12:12:00 EST, [facility], 160, cm, 05/30/23 11:24:00 EST, Height, 79.5, kg, 05/15/23 18:59:00 EST, Dry Weight Start Date: 05/30/23 Status: Ordered Home Blood Pressure Monitor See Instructions, # 1 each, Maintenance, DX: Hypertension, 06/06/22 12:29:00 EST, Supply Start Date: 06/06/22 Status: Ordered hydrochlorothiazide-lisinopril 25 mg-20 mg oral tablet 1 tablet, By Mouth, Daily, # 90 tablet, 3 Refills, Maintenance, 05/30/23 12:12:00 EST, Tablet, [facility], Partial fill upon patient request if the prescription is for a schedule II opioiddrug., 1 tablet By Mouth Daily,x90 days, 160, cm, 1... Start Date: 05/30/23 Stop Date: 05/24/24 Status: Ordered isosorbide mononitrate 30 mg oral tablet, extended release 1 tablet, By Mouth, Daily in AM, # 90 tablet, 0 Refills, Maintenance, 05/30/23 12:12:00 EST, [facility], 160, cm, 05/30/23 11:24:00 EST, Height, 79.5, kg, 05/15/23 18:59:00 EST, Dry Weight Start Date: 05/30/23 Stop Date: 08/28/23 Status: Ordered meloxicam 15 mg oral tablet 1 tablet, By Mouth, Daily, # 90 tablet, 0 Refills, Maintenance, 05/30/23 12:12:00 EST, [facility], 160, cm, 05/30/23 11:24:00 EST, Height, 79.5, kg, 05/15/23 18:59:00 EST, Dry Weight Start Date: 05/30/23 Stop Date: 08/28/23 Status: Ordered metFORMIN 500 mg oral tablet 2 tablet, By Mouth, 2 times a day, # 360 tablet, 0 Refills, Maintenance, 05/30/23 12:12:00 EST, [facility], 160, cm, 05/30/23 11:24:00 EST, [...] 05/24/24 12:12:00EST, 05/30/23 12:12:00 EST, Tablet, [facility], Partial fill upon patient request if theprescription is for a schedule II opioid drug., 160... Start Date: 05/30/23 Stop Date: 05/24/24 Status: Ordered traZODone 50 mg oral tablet 50 mg, 1, tablet, By Mouth, Daily at bedtime, # 90 tablet, Refills 1, Tot. Refills 1, Maintenance, 05/30/23 12:12:00 EST, Route to Pharmacy Electronically, [facility], Partial fill upon patient request [...] Effective Dates Health Status Clinical Service Informant Type 2 diabetes mellitus Discharge Diagnosis 08/29/23 Hypertension Discharge Diagnosis 08/29/23 Hyperlipidemia Discharge Diagnosis 08/29/23 Mouth symptom Discharge Diagnosis 08/29/23 Vital Signs Most recent to oldest [Reference Range]: 1 Height 160 cm (08/29/23 2:01 PM) Weight 76.6 kg (08/29/23 2:01 PM) Oxygen Saturation [94-100 %] 98 % (08/29/23 2:01 PM) Pulse Rate [55-90 bpm] 77 bpm (08/29/23 2:01 PM) Body Mass Index [18.5-24.99 kg/m2] 29.92 kg/m2 *H* (08/29/23 2:01 PM) Blood Pressure [90-138/55-84 mm Hg] 122/ 78mm Hg (08/29/23 2:01 PM) Mode of Delivery (Oxygen) Room air (08/29/23 2:01 PM) Blood pressure sites Arm, right (08/29/23 2:01 PM) Weight Obtained Via Standing scale (08/29/23 2:01 PM) Social History Social History Type Response Smoking Status Never (less than 100 in lifetime) entered on: 04/09/22 Sex Note * Daniel Melendrez: PERFORM, SIGN, VERIFY Event Display: Patient Education/Instruction Authored Date: [id number] [facility] Clinical Summary Name CLEMENTINE SALAZAR Age 73 Years 1950 PCP Don J2EE ARCHITECT, Ioana PCP Visit Date 08/29/2023 13:39:00 Additional Instructions: follow up in 3 months Scheduled Appointments?? Future Appointments ?*[place] ?[address]??[place],??[address] ?Phone:??--?Fax:??-- ?Appt. Date:??09/18/2023?2:15 PM ?Scheduled Provider:??Marissa Hill NP Follow-Up Instructions ?? Diagnosis Essential (primary) hypertension; Type 2 diabetes mellitus without complications; Hyperlipidemia, unspecified; Other specified symptoms and signs involving the digestive system and abdomen Medications: Please continue your medications until treatment is completed or stopped by your provider. Discuss any questions related to medications with your provider. New Medications [facility], [address] [place] [phone], [phone] dapagliflozin (Farxiga 5 mg oral tablet) 1 tab(s) Oral Daily. Refills: 3. Next Dose: Medications to Continue [...] Orders ?No future orders Vital Signs Height 160 cm Weight 76.6 kg BMI 29.92 kg/m2 Blood Pressure 122 mm Hg/78 mm Hg Temperature Pulse Rate 77 bpm Respiratory Rate 02 Sat Mode of Delivery 98 %/Room air You can now view a summary of your hospital visit from the comfort of your home through a free online portal called [employer]. [employer] is a website that allows you to securely view your medical information including discharge summary, medications and follow-up visits. ??You can alsosend a secure electronic message to your doctor???s office to request appointments, renew medications or just ask a question. You can enroll at [email or web address] or register during your next office [...] primary care provider, you may find a [facility] provider by calling [facility] [employer] at [phone]. [facility], in keeping with [facility] guidance, no longer requires face masks for [...] support your individualized medical care. * Ioana Ochoa NP: PERFORM, SIGN, VERIFY Event Display: Patient Education/Instruction Authored Date: [id number] [facility] *[facility] Clinical Summary Name CLEMENTINE SALAZAR Age 73 Years 1950 PCP Ioana Ochoa NP PCP Visit Date 08/29/2023 13:39:00 Additional Instructions: follow up in 3 months Scheduled Appointments?? Future Appointments ?*[facility] ?[address],??[place],??[address] ?Phone:??--?Fax:??-- ?Appt. Date:??09/18/2023?2:15 PM ?Scheduled Provider:??Liz FLORIAN, Marissa Davalos Follow-Up Instructions ?? Diagnosis Essential (primary) hypertension; Type 2 diabetes mellitus without complications; Hyperlipidemia, unspecified Medications: Please continue your medications until treatment is completed or stopped by your provider. Discuss any questions related to medications with your provider. New Medications [facility], [address] [place] [phone], [phone] dapagliflozin (Farxiga 5 mg oral tablet) 1 tab(s) Oral Daily. Refills: 3. Next Dose: Medications to Continue [...] Orders ?No future orders Vital Signs Height 160 cm Weight 76.6 kg BMI 29.92 kg/m2 Blood Pressure 122 mm Hg/78 mm Hg Temperature Pulse Rate 77 bpm Respiratory Rate 02 Sat Mode of Delivery 98 %/Room air You can now view a summary of your hospital visit from the comfort of your home through a free online portal called [employer]. [employer] is a website that allows you to securely view your medical information including discharge summary, medications and follow-up visits. ??You can alsosend a secure electronic message to your doctor???s office to request appointments, renew medications or just ask a question. You can enroll at [email or web address] or register during your next office [...] primary care provider, you may find a [facility] provider by calling [facility] [employer] at [phone]. [facility], in keeping with [facility] guidance, no longer requires face masks for [...] Address: Address: [address] [place] [address]- Care Team Related Persons Name: EDUARDO GLASGOW Name: DANIEL LOZANO Address: [address] [address]
--- OUTSIDE RECORDS SUMMARY | 2023-11-08 08:56 | XMS_ITS | Continuity of Care Document ---
Author Organization [facility] Address [address] [place] [address]- Care Team Providers Care Flash Drier Operator Name Role Phone Don FLORIAN, Ioana Primary Care Physician [phone] Encounter [facility] Date(s): 08/05/23 - 08/12/23 [facility] [address] [place] [address]- Encounter Diagnosis Chronic venous hypertension (idiopathic) with other complications of right lower extremity(Discharge Diagnosis) - 08/05/23 Chronic venous hypertension (idiopathic) with other complications of left lower extremity(Discharge Diagnosis) - 08/05/[address] elevation myocardial infarction (STEMI)(Discharge Diagnosis) - 08/05/23 Peripheral neuropathy(Discharge Diagnosis) - 08/05/23 Attending Physician: Edgar Herron MD Admitting Physician: Edgar Herron MD Allergies, Adverse Reactions, Alerts No Known Allergies Immunizations Given and Recorded Vaccine Date Status Refusal Reason SARS-CoV-2 (COVID-19) mRNA BNT-162b2 vac 04/24/21 Recorded pneumococcal 23-valent vaccine 04/23/01 Recorded Medications aspirin 81 mg oral delayed release tablet 1 tablet = 81 mg, By Mouth, Daily, # 90 tablet, 3 Refills, Maintenance, 05/30/23 12:11:00 EST, CR Tablet, [facility], Partial fill upon patient request if the prescription is for a schedule II opioid drug., 160, cm, 05/30/23 11:24:00 EST, H... Start Date: 05/30/23 Stop Date: 05/24/24 Status: Ordered carvedilol 25 mg oral tablet 1, tablet, By Mouth, 2 times a day, # 180 tablet, Refills 1, Tot. Refills 1, Maintenance, 05/30/23 12:11:00 EST, Route to Pharmacy Electronically, [facility], 160, cm, 05/30/23 11:24:00 EST, Height, 79.5, kg, 05/15/23 18:59:00 EST, Dry Weight Start Date: 05/30/23 Status: Ordered doxazosin 4 mg oral tablet 1 tablet, By Mouth, Daily, # 90 tablet, 0 Refills, Maintenance, 05/30/23 12:11:00 EST, [facility], 160, cm, 05/30/23 11:24:00 EST, Height, 79.5, kg, 05/15/23 18:59:00 EST, Dry Weight Start Date: 05/30/23 Stop Date: 08/28/23 Status: Ordered ezetimibe 10 mg oral tablet 1 tablet, By Mouth, Daily, # 90 tablet, 0 Refills, Maintenance, 05/30/23 12:11:00 EST, [place] [id number], 160, cm, 05/30/23 11:24:00 EST, Height, 79.5, kg, 05/15/23 18:59:00 EST, Dry Weight Start Date: 05/30/23 Stop Date: 08/28/23 Status: Ordered ferrous sulfate 325 mg oral enteric coated tablet 325 mg, 1, tablet, By Mouth, Daily, # 30 tablet, Refills 3, Tot. Refills 3, Maintenance, 05/30/23 12:12:00 EST, Route to Pharmacy Electronically, [facility], Partial fill upon patient request if the prescription is for a schedule II opioid... Start Date: 05/30/23 Status: Ordered Flonase 50 mcg/inh nasal spray 1 sprays, Nares, Both, 2 times a day, # 16 Gm, 0 Refills, Maintenance, 06/05/22 12:05:00 EST, [place], [facility], Partial fill upon patient request [...] 05/30/23 12:12:00 EST, Route to Pharmacy Electronically, [facility], Partial fill upon patient request if the prescription is for a schedule... Start Date: 05/30/23 Stop Date: 09/27/23 Status: Ordered glimepiride 4 mg oral tablet 1 tablet, By Mouth, 2 times a day, # 180 tablet, 0 Refills, Maintenance, 05/30/23 12:12:00 EST, [facility], 160, cm, 05/30/23 11:24:00 EST, Height, 79.5, kg, 05/15/23 18:59:00 EST, Dry Weight Start Date: 05/30/23 Status: Ordered Home Blood Pressure Monitor See Instructions, # 1 each, Maintenance, DX: Hypertension, 06/06/22 12:29:00 EST, Supply Start Date: 06/06/22 Status: Ordered hydrochlorothiazide-lisinopril 25 mg-20 mg oral tablet 1 tablet, By Mouth, Daily, # 90 tablet, 3 Refills, Maintenance, 05/30/23 12:12:00 EST, Tablet, [facility], Partial fill upon patient request if the prescription is for a schedule II opioiddrug., 1 tablet By Mouth Daily,x90 days, 160, cm, 1... Start Date: 05/30/23 Stop Date: 05/24/24 Status: Ordered isosorbide mononitrate 30 mg oral tablet, extended release 1 tablet, By Mouth, Daily in AM, # 90 tablet, 0 Refills, Maintenance, 05/30/23 12:12:00 EST, [facility], 160, cm, 05/30/23 11:24:00 EST, Height, 79.5, kg, 05/15/23 18:59:00 EST, Dry Weight Start Date: 05/30/23 Stop Date: 08/28/23 Status: Ordered meloxicam 15 mg oral tablet 1 tablet, By Mouth, Daily, # 90 tablet, 0 Refills, Maintenance, 05/30/23 12:12:00 EST, [facility], 160, cm, 05/30/23 11:24:00 EST, Height, 79.5, kg, 05/15/23 18:59:00 EST, Dry Weight Start Date: 05/30/23 Stop Date: 08/28/23 Status: Ordered metFORMIN 500 mg oral tablet 2 tablet, By Mouth, 2 times a day, # 360 tablet, 0 Refills, Maintenance, 05/30/23 12:12:00 EST, [facility], 160, cm, 05/30/23 11:24:00 EST, [...] Stop 05/24/24 12:12:00EST, 05/30/23 12:12:00 EST, Tablet, [facility], Partial fill upon patient request if theprescription is for a schedule II opioid drug., 160... Start Date: 05/30/23 Stop Date: 05/24/24 Status: Ordered traZODone 50 mg oral tablet 50 mg, 1, tablet, By Mouth, Daily at bedtime, # 90 tablet, Refills 1, Tot. Refills 1, Maintenance, 05/30/23 12:12:00 EST, Route to Pharmacy Electronically, [facility], Partial fill upon patient request [...] with other complications of right lower extremity Discharge Diagnosis 08/05/23 Chronic venous hypertension (idiopathic) with other complications of left lower extremity Discharge Diagnosis 08/05/[address] elevation myocardial infarction (STEMI) Discharge Diagnosis 08/05/23 Peripheral neuropathy Discharge Diagnosis 08/05/23 Vital Signs Most recent to oldest [Reference Range]: 1 2 Height 160 cm (08/05/23 4:05 PM) 160 cm (08/05/23 4:01 PM) Weight 75.4 kg (08/05/23 4:01 PM) Oxygen Saturation [94-100 %] 98 % (08/05/23 4:01 PM) Pulse Rate [55-90 bpm] 69 bpm (08/05/23 4:01 PM) Body Mass Index [18.5-24.99 kg/m2] 29.45 kg/m2 *H* (08/05/23 4:01 PM) Blood Pressure [90-138/55-84 mm Hg] 70/4 2mm Hg *L* (08/05/23 4:05 PM) 80/50mm Hg *L* (08/05/23 4:01 PM) Blood pressure sites Arm, left (08/05/23 4:05 PM) Arm, right (08/05/23 4:01 PM) Weight Obtained Via Patient/family state d (08/05/23 4:01 PM) Social History Social History Type Response Smoking Status Never (less than 100 in lifetime) entered on: 04/09/22 Sex Note * Merary Minor: PERFORM, SIGN, VERIFY Event Display: Patient Education/Instruction Authored Date: [id number] [facility] [address] Clinical Summary Name CLEMENTINE SALAZAR Age 73 Years 1950 PCP Don BRUSH HAND, Ioana PCP Visit Date 08/05/2023 15:14:00 Additional Instructions: Scheduled Appointments?? Future Appointments ?*[facility] ?[address],??[address] ?Phone:??--?Fax:??-- ?Appt. Date:??08/29/2023?1:30 PM ?Scheduled Provider:??Don FLORIAN, Ioana ?*[place] ?[address]??[place],??[address] ?Phone:??--?Fax:??-- ?Appt. Date:??09/18/2023?2:15 PM ?Scheduled Provider:??Liz FLORIAN, Marissa Davalos Follow-Up Instructions ?? With: Address: When: Germaine ROSENBERG, Edgar Lester , only if needed Diagnosis Chronic venous hypertension (idiopathic) with other complications of right lower extremity; Old myocardial infarction; Chronic venous hypertension (idiopathic) with other complications of left lower extremity Medications: Please continue your medications until treatment [...] orders Vital Signs Height 160 cm Weight 75.4 kg BMI 29.45 kg/m2 Blood Pressure 70 mm Hg/42 mm Hg Temperature Pulse Rate 69 bpm Respiratory Rate 02 Sat Mode of Delivery 98 %/ You can now view a summary of your hospital visit from the comfort of your home through a free online portal called [email or web address]. [email or web address] is a website that allows you to securely view your medical information including discharge summary, medications and follow-up visits. ??You can alsosend a secure electronic message to your doctor???s office to request appointments, renew medications or just ask a question. You can enroll at [email or web address] or register during your next [...] primary care provider, you may find a [facility] provider by calling [facility] Link at [phone]. [facility], in keeping with [facility] guidance, no longer requires face masks [...] Address: Address: [address] [place] [address]- Care Team Related Persons Name: EDUARDO GLASGOW Name: DANIEL LOZANO Address: [address] [address]
--- OUTSIDE RECORDS SUMMARY | 2023-11-08 08:56 | XMS_ITS | Continuity of Care Document ---
Author Organization [facility] Address [address] [place] [address]- Care Team Providers Care Hyperion Essbase Developer Name Role Phone Don FLORIAN, Ioana Primary Care Physician [phone] Encounter [facility] Date(s): 04/18/23 - 05/18/23 [facility] [address] [place] [address]- Allergies, Adverse Reactions, Alerts No Known Allergies Immunizations Given and Recorded Vaccine Date Status Refusal Reason SARS-CoV-2 (COVID-19) mRNA BNT-162b2 vac 04/24/21 Recorded pneumococcal 23-valent vaccine 04/23/01 Recorded Medications aspirin 81 mg oral delayed release tablet 1 tablet = 81 mg, By Mouth, Daily, # 90 tablet, 3 Refills, Maintenance, 04/09/22 19:08:00 EDT, CR Tablet, [facility], Partial fill upon patient request if the prescription is for a schedule II opioid drug., 162, cm, 04/09/22 16:12:00 EDT, H... Start Date: 04/09/22 Stop Date: 04/04/23 Status: Ordered carvedilol 25 mg oral tablet 1, tablet, By Mouth, 2 times a day, # 180 tablet, Refills 1, Maintenance, 05/06/23 18:16:00 EST, Route to Pharmacy Electronically, [facility], 162, cm, 04/16/23 11:09:00 EDT, Height Start Date: 05/06/23 Status: Ordered doxazosin 4 mg oral tablet 1 tablet, By Mouth, Daily, # 90 tablet, 0 Refills, Maintenance, 02/11/23 7:39:00 EDT, [facility], 162, cm, 11/20/22 12:28:00 EDT, Height Start Date: 02/11/23 Stop Date: 05/12/23 Status: Ordered doxycycline hyclate 100 mg oral capsule 1 capsule = 100 mg, By Mouth, 2 times a day, for 10 days, # 20 capsule, 0 Refills, Acute 05/24/23 14:53:00 EST, 05/14/23 14:53:00 EST, Capsule, [facility], Partial fill upon patient request if the prescription is for a schedule II opioid dr... Start Date: 05/14/23 Stop Date: 05/24/23 Status: Ordered ezetimibe 10 mg oral tablet 1 tablet, By Mouth, Daily, # 90 tablet, 0 Refills, Maintenance, 02/11/23 7:38:00 EDT, [facility], 162, cm, 11/20/22 12:28:00 EDT, Height Start Date: 02/11/23 Stop Date: 05/12/23 Status: Ordered ferrous sulfate 325 mg oral enteric coated tablet 325 mg, 1, tablet, By Mouth, Daily, # 30 tablet, Refills 3, Tot. Refills 3, Maintenance, 04/18/23 10:05:00 EDT, Route to Pharmacy Electronically, [facility], Partial fill upon patient request if the prescription is for a schedule II opioid... Start Date: 04/18/23 Status: Ordered Flonase 50 mcg/inh nasal spray 1 sprays, Nares, Both, 2 times a day, # 16 Gm, 0 Refills, Maintenance, 06/05/22 12:05:00 EST, [place], [facility], Partial fill upon [...] 04/16/23 11:27:00 EDT, Route to Pharmacy Electronically, [facility], Partial fill upon patient request if the prescription is for a schedule... Start Date: 04/16/23 Stop Date: 08/14/23 Status: Ordered glimepiride 4 mg oral tablet 1 tablet, By Mouth, 2 times a day, # 180 tablet, 0 Refills, Maintenance, 02/11/23 7:38:00 EDT, [facility], 162, cm, 11/20/22 12:28:00 EDT, Height Start Date: 02/11/23 Status: Ordered Home Blood Pressure Monitor See Instructions, # 1 each, Maintenance, DX: Hypertension, 06/06/22 12:29:00 EST, Supply Start Date: 06/06/22 Status: Ordered hydrochlorothiazide-lisinopril 25 mg-20 mg oral tablet 1 tablet, By Mouth, Daily, # 90 tablet, 3 Refills, Maintenance, 09/05/22 16:25:00 EDT, Tablet, [facility], Partial fill upon patient request if the prescription is for a schedule II opioiddrug., 1 tablet By Mouth Daily,x90 days, 162, cm, 0... Start Date: 09/05/22 Stop Date: 08/31/23 Status: Ordered isosorbide mononitrate 30 mg oral tablet, extended release 1 tablet, By Mouth, Daily in AM, # 90 tablet, 0 Refills, Maintenance, 02/11/23 7:37:00 EDT, [facility], 162, cm, 11/20/22 12:28:00 EDT, Height Start Date: 02/11/23 Stop Date: 05/12/23 Status: Ordered meloxicam 15 mg oral tablet 1 tablet, By Mouth, Daily, # 90 tablet, 0 Refills, Maintenance, 03/15/23 12:40:00 EDT, [facility], 162, cm, 03/08/23 12:38:00 EDT, Height Start Date: 03/15/23 Stop Date: 06/13/23 Status: Ordered metFORMIN 500 mg oral tablet 2 tablet, By Mouth, 2 times a day, # 360 tablet, 0 Refills, Maintenance, 02/11/23 7:36:00 EDT, [facility], 162, cm, 11/20/22 12:28:00 [...] Stop 06/16/23 11:59:00EST, 06/21/22 11:59:00 EST, Tablet, [facility], Partial fill upon patient request if theprescription is for a schedule II opioid drug., 162... Start Date: 06/21/22 Stop Date: 06/16/23 Status: Ordered traZODone 50 mg oral tablet 50 mg, 1, tablet, By Mouth, Daily at bedtime, # 90 tablet, Refills 1, Tot. Refills 1, Maintenance, 04/16/23 11:21:00 EDT, Route to Pharmacy Electronically, [facility], Partial fill upon [...] Professional Member Role: PCP Address: Address: [address] [place] [address]- Care Team Related Persons Name: EDUARDO GLASGOW Name: DANIEL LOZANO Address: [address] [address]
--- OUTSIDE RECORDS SUMMARY | 2023-11-08 08:56 | XMS_ITS | Continuity of Care Document ---
Author Organization [facility] Address [address] [place] [address]- Care Team Providers Care Tankage Grinder Name Role Phone Laron FLORIAN, Ioana Reilly Primary Care Physician [phone] [id number] Date(s[facility] 03/29[facility]23 - 04/28/23 [facility] [address] [place] [address]- Allergies, Adverse Reactions, Alerts No Known Allergies Immunizations Given and Recorded Vaccine Date Status Refusal Reason SARS-CoV-2 (COVID-19) mRNA BNT-162b2 vac 04/24/21 Recorded pneumococcal 23-valent vaccine 04/23/01 Recorded Medications aspirin 81 mg oral delayed release tablet 1 tablet = 81 mg, By Mouth, Daily, # 90 tablet, 3 Refills, Maintenance, 04/09/22 19:08:00 EDT, CR Tablet, [facility], Partial fill upon patient request if the prescription is for a schedule II opioid drug., 162, cm, 04/09/22 16:12:00 EDT, H... Start Date: 04/09/22 Stop Date: 04/04/23 Status: Ordered carvedilol 25 mg oral tablet 25 mg, 1, tablet, By Mouth, 2 times a day, # 180 tablet, Refills 3, Tot. Refills 3, Maintenance, 04/09/22 19:08:00 EDT, Route to Pharmacy Electronically, [facility], Partial fill upon patient request if the prescription is for a schedule II... Start Date: 04/09/22 Stop Date: 04/04/23 Status: Ordered doxazosin 4 mg oral tablet 1 tablet, By Mouth, Daily, # 90 tablet, 0 Refills, Maintenance, 02/11/23 7:39:00 EDT, [facility], 162, cm, 05/30/23 12:28:00 EDT, Height Start Date: 02/11/23 Stop Date: 05/12/23 Status: Ordered ezetimibe 10 mg oral tablet 1 tablet, By Mouth, Daily, # 90 tablet, 0 Refills, Maintenance, 02/11/23 7:38:00 EDT, [facility], 162, cm, 11/20/22 12:28:00 EDT, Height Start Date: 02/11/23 Stop Date: 05/12/23 Status: Ordered ferrous sulfate 325 mg oral enteric coated tablet 325 mg, 1, tablet, By Mouth, Daily, # 30 tablet, Refills 3, Tot. Refills 3, Maintenance, 04/18/23 10:05:00 EDT, Route to Pharmacy Electronically, [facility], Partial fill upon patient request if the prescription is for a schedule II opioid... Start Date: 04/18/23 Status: Ordered Flonase 50 mcg/inh nasal spray 1 sprays, Nares, Both, 2 times a day, # 16 Gm, 0 Refills, Maintenance, 06/05/22 12:05:00 EST, [place], [facility], Partial fill upon patient [...] 04/16/23 11:27:00 EDT, Route to Pharmacy Electronically, [facility], Partial fill upon patient request if the prescription is for a schedule... Start Date: 04/16/23 Stop Date: 08/14/23 Status: Ordered glimepiride 4 mg oral tablet 1 tablet, By Mouth, 2 times a day, # 180 tablet, 0 Refills, Maintenance, 02/11/23 7:38:00 EDT, [facility], 162, cm, 11/20/22 12:28:00 EDT, Height Start Date: 02/11/23 Status: Ordered Home Blood Pressure Monitor See Instructions, # 1 each, Maintenance, DX: Hypertension, 06/06/22 12:29:00 EST, Supply Start Date: 06/06/22 Status: Ordered hydrochlorothiazide-lisinopril 25 mg-20 mg oral tablet 1 tablet, By Mouth, Daily, # 90 tablet, 3 Refills, Maintenance, 09/05/22 16:25:00 EDT, Tablet, [facility], Partial fill upon patient request if the prescription is for a schedule II opioiddrug., 1 tablet By Mouth Daily,x90 days, 162, cm, 0... Start Date: 09/05/22 Stop Date: 08/31/23 Status: Ordered isosorbide mononitrate 30 mg oral tablet, extended release 1 tablet, By Mouth, Daily in AM, # 90 tablet, 0 Refills, Maintenance, 02/11/23 7:37:00 EDT, [facility], 162, cm, 11/20/22 12:28:00 EDT, Height Start Date: 02/11/23 Stop Date: 05/12/23 Status: Ordered meloxicam 15 mg oral tablet 1 tablet, By Mouth, Daily, # 90 tablet, 0 Refills, Maintenance, 03/15/23 12:40:00 EDT, [facility], 162, cm, 03/08/23 12:38:00 EDT, Height Start Date: 03/15/23 Stop Date: 06/13/23 Status: Ordered metFORMIN 500 mg oral tablet 2 tablet, By Mouth, 2 times a day, # 360 tablet, 0 Refills, Maintenance, 02/11/23 7:36:00 EDT, [facility], 162, cm, 11/20/22 12:28:00 [...] Stop 06/16/23 11:59:00EST, 06/21/22 11:59:00 EST, Tablet, [facility], Partial fill upon patient request if theprescription is for a schedule II opioid drug., 162... Start Date: 06/21/22 Stop Date: 06/16/23 Status: Ordered traZODone 50 mg oral tablet 50 mg, 1, tablet, By Mouth, Daily at bedtime, # 90 tablet, Refills 1, Tot. Refills 1, Maintenance, 04/16/23 11:21:00 EDT, Route to Pharmacy Electronically, [facility], Partial fill upon patient [...] Team Personnel Name: Ioana Larry NP Position: [facility] Associate Professional Member Role: PCP Address: Address: [address] [place] [address] [address] [place] [address]- Care Team Related Persons Name: EDUARDO GLASGOW Name: DANIEL LOZNAO Address: [address] [address]
--- OUTSIDE RECORDS SUMMARY | 2023-11-08 08:56 | XMS_ITS | Continuity of Care Document ---
Author Organization [facility] Adult Address [address] [place] [address]- Care Team Providers Care Needle Loom Operator Helper Name Role Phone Don FLORIAN, Ioana Primary Care Physician Encounter [facility] [place] Date(s): 05/15/23 - 06/14/23 [facility] Adult [address] [place] [id number]- Allergies, Adverse Reactions, Alerts No Known Allergies Immunizations Given and Recorded Vaccine Date Status Refusal Reason SARS-CoV-2 (COVID-19) mRNA BNT-162b2 vac 04/24/21 Recorded pneumococcal 23-valent vaccine 04/23/01 Recorded Medications aspirin 81 mg oral delayed release tablet 1 tablet = 81 mg, By Mouth, Daily, # 90 tablet, 3 Refills, Maintenance, 05/30/23 12:11:00 EST, CR Tablet, [facility], Partial fill upon patient request if the prescription is for a schedule II opioid drug., 160, cm, 05/30/23 11:24:00 EST, H... Start Date: 05/30/23 Stop Date: 05/24/24 Status: Ordered carvedilol 25 mg oral tablet 1, tablet, By Mouth, 2 times a day, # 180 tablet, Refills 1, Tot. Refills 1, Maintenance, 05/30/23 12:11:00 EST, Route to Pharmacy Electronically, [facility], 160, cm, 05/30/23 11:24:00 EST, Height, 79.5, kg, 05/15/23 18:59:00 EST, Dry Weight Start Date: 05/30/23 Status: Ordered doxazosin 4 mg oral tablet 1 tablet, By Mouth, Daily, # 90 tablet, 0 Refills, Maintenance, 05/30/23 12:11:00 EST, [facility], 160, cm, 05/30/23 11:24:00 EST, Height, 79.5, kg, 05/15/23 18:59:00 EST, Dry Weight Start Date: 05/30/23 Stop Date: 08/28/23 Status: Ordered ezetimibe 10 mg oral tablet 1 tablet, By Mouth, Daily, # 90 tablet, 0 Refills, Maintenance, 05/30/23 12:11:00 EST, [facility], 160, cm, 05/30/23 11:24:00 EST, Height, 79.5, kg, 05/15/23 18:59:00 EST, Dry Weight Start Date: 05/30/23 Stop Date: 08/28/23 Status: Ordered ferrous sulfate 325 mg oral enteric coated tablet 325 mg, 1, tablet, By Mouth, Daily, # 30 tablet, Refills 3, Tot. Refills 3, Maintenance, 05/30/23 12:12:00 EST, Route to Pharmacy Electronically, [facility], Partial fill upon patient request if the prescription is for a schedule II opioid... Start Date: 05/30/23 Status: Ordered Flonase 50 mcg/inh nasal spray 1 sprays, Nares, Both, 2 times a day, # 16 Gm, 0 Refills, Maintenance, 06/05/22 12:05:00 EST, [place], [facility], Partial fill upon patient [...] 05/30/23 12:12:00 EST, Route to Pharmacy Electronically, [facility], Partial fill upon patient request if the prescription is for a schedule... Start Date: 05/30/23 Stop Date: 09/27/23 Status: Ordered glimepiride 4 mg oral tablet 1 tablet, By Mouth, 2 times a day, # 180 tablet, 0 Refills, Maintenance, 05/30/23 12:12:00 EST, [facility], 160, cm, 05/30/23 11:24:00 EST, Height, 79.5, kg, 05/15/23 18:59:00 EST, Dry Weight Start Date: 05/30/23 Status: Ordered Home Blood Pressure Monitor See Instructions, # 1 each, Maintenance, DX: Hypertension, 06/06/22 12:29:00 EST, Supply Start Date: 06/06/22 Status: Ordered hydrochlorothiazide-lisinopril 25 mg-20 mg oral tablet 1 tablet, By Mouth, Daily, # 90 tablet, 3 Refills, Maintenance, 05/30/23 12:12:00 EST, Tablet, [facility], Partial fill upon patient request if the prescription is for a schedule II opioiddrug., 1 tablet By Mouth Daily,x90 days, 160, cm, 1... Start Date: 05/30/23 Stop Date: 05/24/24 Status: Ordered isosorbide mononitrate 30 mg oral tablet, extended release 1 tablet, By Mouth, Daily in AM, # 90 tablet, 0 Refills, Maintenance, 05/30/23 12:12:00 EST, [facility], 160, cm, 05/30/23 11:24:00 EST, Height, 79.5, kg, 05/15/23 18:59:00 EST, Dry Weight Start Date: 05/30/23 Stop Date: 08/28/23 Status: Ordered meloxicam 15 mg oral tablet 1 tablet, By Mouth, Daily, # 90 tablet, 0 Refills, Maintenance, 05/30/23 12:12:00 EST, [facility], 160, cm, 05/30/23 11:24:00 EST, Height, 79.5, kg, 05/15/23 18:59:00 EST, Dry Weight Start Date: 05/30/23 Stop Date: 08/28/23 Status: Ordered metFORMIN 500 mg oral tablet 2 tablet, By Mouth, 2 times a day, # 360 tablet, 0 Refills, Maintenance, 05/30/23 12:12:00 EST, [facility], 160, cm, 05/30/23 11:24:00 [...] Stop 05/24/24 12:12:00EST, 05/30/23 12:12:00 EST, Tablet, [facility], Partial fill upon patient request if theprescription is for a schedule II opioid drug., 160... Start Date: 05/30/23 Stop Date: 05/24/24 Status: Ordered traZODone 50 mg oral tablet 50 mg, 1, tablet, By Mouth, Daily at bedtime, # 90 tablet, Refills 1, Tot. Refills 1, Maintenance, 05/30/23 12:12:00 EST, Route to Pharmacy Electronically, [facility], Partial fill upon patient request [...] Associate Professional Member Role: PCP Address: Address: [address] [place] [address] [address] [place] [address]- Care Team Related Persons Name: EDUARDO GLASGOW Name: DANIEL LOZANO Address: [address] [address]
--- OUTSIDE RECORDS SUMMARY | 2023-11-08 08:56 | XMS_ITS | Continuity of Care Document ---
Author Organization [facility] Adult Address [address] [place] [address]- Care Team Providers Care Temperature Logging Operator Name Role Phone Don FLORIAN, Ioana Primary Care Physician Encounter [facility] [place] Date(s): 05/13/23 - 06/12/23 [facility] Adult [address] [place] [address]- Allergies, Adverse Reactions, Alerts No Known Allergies Immunizations Given and Recorded Vaccine Date Status Refusal Reason SARS-CoV-2 (COVID-19) mRNA BNT-162b2 vac 04/24/21 Recorded pneumococcal 23-valent vaccine 04/23/01 Recorded Medications aspirin 81 mg oral delayed release tablet 1 tablet = 81 mg, By Mouth, Daily, # 90 tablet, 3 Refills, Maintenance, 05/30/23 12:11:00 EST, CR Tablet, [facility], Partial fill upon patient request if the prescription is for a schedule II opioid drug., 160, cm, 05/30/23 11:24:00 EST, H... Start Date: 05/30/23 Stop Date: 05/24/24 Status: Ordered carvedilol 25 mg oral tablet 1, tablet, By Mouth, 2 times a day, # 180 tablet, Refills 1, Tot. Refills 1, Maintenance, 05/30/23 12:11:00 EST, Route to Pharmacy Electronically, [facility], 160, cm, 05/30/23 11:24:00 EST, Height, 79.5, kg, 05/15/23 18:59:00 EST, Dry Weight Start Date: 05/30/23 Status: Ordered doxazosin 4 mg oral tablet 1 tablet, By Mouth, Daily, # 90 tablet, 0 Refills, Maintenance, 05/30/23 12:11:00 EST, [facility], 160, cm, 05/30/23 11:24:00 EST, Height, 79.5, kg, 05/15/23 18:59:00 EST, Dry Weight Start Date: 05/30/23 Stop Date: 08/28/23 Status: Ordered ezetimibe 10 mg oral tablet 1 tablet, By Mouth, Daily, # 90 tablet, 0 Refills, Maintenance, 05/30/23 12:11:00 EST, [facility], 160, cm, 05/30/23 11:24:00 EST, Height, 79.5, kg, 05/15/23 18:59:00 EST, Dry Weight Start Date: 05/30/23 Stop Date: 08/28/23 Status: Ordered ferrous sulfate 325 mg oral enteric coated tablet 325 mg, 1, tablet, By Mouth, Daily, # 30 tablet, Refills 3, Tot. Refills 3, Maintenance, 05/30/23 12:12:00 EST, Route to Pharmacy Electronically, [facility], Partial fill upon patient request if the prescription is for a schedule II opioid... Start Date: 05/30/23 Status: Ordered Flonase 50 mcg/inh nasal spray 1 sprays, Nares, Both, 2 times a day, # 16 Gm, 0 Refills, Maintenance, 06/05/22 12:05:00 EST, [place], [facility], Partial fill upon [...] 12:12:00 EST, Route to Pharmacy Electronically, [facility], Partial fill upon patient request if the prescription is for a schedule... Start Date: 05/30/23 Stop Date: 09/27/23 Status: Ordered glimepiride 4 mg oral tablet 1 tablet, By Mouth, 2 times a day, # 180 tablet, 0 Refills, Maintenance, 05/30/23 12:12:00 EST, [facility], 160, cm, 05/30/23 [...] Refills, Maintenance, 05/30/23 12:12:00 EST, Tablet, [facility], Partial fill upon patient request if the prescription is for a schedule II opioiddrug., 1 tablet By Mouth Daily,x90 days, 160, cm, 1... Start Date: 05/30/23 Stop Date: 05/24/24 Status: Ordered isosorbide mononitrate 30 mg oral tablet, extended release 1 tablet, By Mouth, Daily in AM, # 90 tablet, 0 Refills, Maintenance, 05/30/23 12:12:00 EST, [facility], 160, cm, 05/30/23 11:24:00 EST, Height, 79.5, kg, 05/15/23 18:59:00 EST, Dry Weight Start Date: 05/30/23 Stop Date: 08/28/23 Status: Ordered meloxicam 15 mg oral tablet 1 tablet, By Mouth, Daily, # 90 tablet, 0 Refills, Maintenance, 05/30/23 12:12:00 EST, [facility], 160, cm, 05/30/23 11:24:00 EST, Height, 79.5, kg, 05/15/23 18:59:00 EST, Dry Weight Start Date: 05/30/23 Stop Date: 08/28/23 Status: Ordered metFORMIN 500 mg oral tablet 2 tablet, By Mouth, 2 times a day, # 360 tablet, 0 Refills, Maintenance, 05/30/23 12:12:00 EST, [facility], 160, cm, 05/30/23 [...] 05/24/24 12:12:00EST, 05/30/23 12:12:00 EST, Tablet, [facility], Partial fill upon patient request if theprescription is for a schedule II opioid drug., 160... Start Date: 05/30/23 Stop Date: 05/24/24 Status: Ordered traZODone 50 mg oral tablet 50 mg, 1, tablet, By Mouth, Daily at bedtime, # 90 tablet, Refills 1, Tot. Refills 1, Maintenance, 05/30/23 12:12:00 EST, Route to Pharmacy Electronically, [facility], Partial fill upon patient request [...] Professional Member Role: PCP Address: Address: [address] [place] [address] [address] [place] [address]- Care Team Related Persons Name: EDUARDO GLASGOW Name: DANIEL LOZANO Address: [address] [address]
--- OUTSIDE RECORDS SUMMARY | 2023-11-08 08:56 | XMS_ITS | Continuity of Care Document ---
Author Organization [facility] Adult Address [address] [place] [address]- Care Team Providers Care Microbiology Teacher Name Role Phone Don FLORIAN, Ioana Primary Care Physician [place] [facility] [place] 05/[place]/23 - 06/06/23 [facility] Adult [address] [place] [id number]- Encounter Diagnosis Ludwigs angina(Discharge Diagnosis) - 05/30/23 Bony prominence(Discharge Diagnosis) - 05/30/23 Type 2 diabetes mellitus(Discharge Diagnosis) - 05/30/23 Attending Physician: Not on Staff, Attending MD Allergies, Adverse Reactions, Alerts No Known Allergies Immunizations Given and Recorded Vaccine Date Status Refusal Reason SARS-CoV-2 (COVID-19) mRNA BNT-162b2 vac 04/24/21 Recorded pneumococcal 23-valent vaccine 04/23/01 Recorded Medications aspirin 81 mg oral delayed release tablet 1 tablet = 81 mg, By Mouth, Daily, # 90 tablet, 3 Refills, Maintenance, 05/30/23 12:11:00 EST, CR Tablet, [facility], Partial [...] 05/30/23 12:11:00 EST, Route to Pharmacy Electronically, [facility], 160, cm, 05/30/23 11:24:00 EST, Height, 79.5, kg, 05/15/23 18:59:00 EST, Dry Weight Start Date: 05/30/23 Status: Ordered doxazosin 4 mg oral tablet 1 tablet, By Mouth, Daily, # 90 tablet, 0 Refills, Maintenance, 05/30/23 12:11:00 EST, [facility], 160, cm, 05/30/23 11:24:00 EST, Height, 79.5, kg, 05/15/23 18:59:00 EST, Dry Weight Start Date: 05/30/23 Stop Date: 08/28/23 Status: Ordered ezetimibe 10 mg oral tablet 1 tablet, By Mouth, Daily, # 90 tablet, 0 Refills, Maintenance, 05/30/23 12:11:00 EST, [facility], 160, cm, 05/30/23 11:24:00 EST, Height, 79.5, kg, 05/15/23 18:59:00 EST, Dry Weight Start Date: 05/30/23 Stop Date: 08/28/23 Status: Ordered ferrous sulfate 325 mg oral enteric coated tablet 325 mg, 1, tablet, By Mouth, Daily, # 30 tablet, Refills 3, Tot. Refills 3, Maintenance, 05/30/23 12:12:00 EST, Route to Pharmacy Electronically, [facility], Partial fill upon patient request if the prescription is for a schedule II opioid... Start Date: 05/30/23 Status: Ordered Flonase 50 mcg/inh nasal spray 1 sprays, Nares, Both, 2 times a day, # 16 Gm, 0 Refills, Maintenance, 06/05/22 12:05:00 EST, [place], [facility], Partial fill upon [...] 05/30/23 12:12:00 EST, Route to Pharmacy Electronically, [facility], Partial fill upon patient request if the prescription is for a schedule... Start Date: 05/30/23 Stop Date: 09/27/23 Status: Ordered glimepiride 4 mg oral tablet 1 tablet, By Mouth, 2 times a day, # 180 tablet, 0 Refills, Maintenance, 05/30/23 12:12:00 EST, [facility], 160, cm, 05/30/23 11:24:00 EST, Height, 79.5, kg, 05/15/23 18:59:00 EST, Dry Weight Start Date: 05/30/23 Status: Ordered Home Blood Pressure Monitor See Instructions, # 1 each, Maintenance, DX: Hypertension, 06/06/22 12:29:00 EST, Supply Start Date: 06/06/22 Status: Ordered hydrochlorothiazide-lisinopril 25 mg-20 mg oral tablet 1 tablet, By Mouth, Daily, # 90 tablet, 3 Refills, Maintenance, 05/30/23 12:12:00 EST, Tablet, [facility], Partial fill upon patient request if the prescription is for a schedule II opioiddrug., 1 tablet By Mouth Daily,x90 days, 160, cm, 1... Start Date: 05/30/23 Stop Date: 05/24/24 Status: Ordered isosorbide mononitrate 30 mg oral tablet, extended release 1 tablet, By Mouth, Daily in AM, # 90 tablet, 0 Refills, Maintenance, 05/30/23 12:12:00 EST, [facility], 160, cm, 05/30/23 11:24:00 EST, Height, 79.5, kg, 05/15/23 18:59:00 EST, Dry Weight Start Date: 05/30/23 Stop Date: 08/28/23 Status: Ordered meloxicam 15 mg oral tablet 1 tablet, By Mouth, Daily, # 90 tablet, 0 Refills, Maintenance, 05/30/23 12:12:00 EST, [facility], 160, cm, 05/30/23 11:24:00 EST, Height, 79.5, kg, 05/15/23 18:59:00 EST, Dry Weight Start Date: 05/30/23 Stop Date: 08/28/23 Status: Ordered metFORMIN 500 mg oral tablet 2 tablet, By Mouth, 2 times a day, # 360 tablet, 0 Refills, Maintenance, 05/30/23 12:12:00 EST, [facility], 160, cm, 05/30/23 11:24:00 [...] Stop 05/24/24 12:12:00EST, 05/30/23 12:12:00 EST, Tablet, [facility], Partial fill upon patient request if theprescription is for a schedule II opioid drug., 160... Start Date: 05/30/23 Stop Date: 05/24/24 Status: Ordered traZODone 50 mg oral tablet 50 mg, 1, tablet, By Mouth, Daily at bedtime, # 90 tablet, Refills 1, Tot. Refills 1, Maintenance, 05/30/23 12:12:00 EST, Route to Pharmacy Electronically, [facility], Partial fill upon patient [...] Effective Dates Health Status Clinical Service Informant Ludwigs angina Discharge Diagnosis 05/30/23 Bony prominence Discharge Diagnosis 05/30/23 Type 2 diabetes mellitus Discharge Diagnosis 05/30/23 Vital Signs Most recent to oldest [Reference Range]: 1 Height 160 cm (05/30/23 11:24 AM) Weight 75.4 kg (05/30/23 11:24 AM) Oxygen Saturation [94-100 %] 96 % (05/30/23 11:24 AM) Pulse Rate [55-90 bpm] 69 bpm (05/30/23 11:24 AM) Body Mass Index [18.5-24.99 kg/m2] 29.45 kg/m2 *H* (05/30/23 11:24 AM) Blood Pressure [90-138/55-84 mm Hg] 98/6 3mm Hg (05/30/23 11:24 AM) Respiratory Rate [16-30 br/min] 14 br/mi n *L* (05/30/23 11:24 AM) Temperature [96.8-100.4 DegF] 97.3 DegF (05/30/23 11:24 AM) Mode of Delivery (Oxygen) Room air (05/30/23 11:24 AM) Blood pressure sites Arm, left (05/30/23 11:24 AM) Temperature Route Temporal (05/30/23 11:24 AM) Weight Obtained Via Standing scale (05/30/23 11:24 AM) Social History Social History Type Response Smoking Status Never (less than 100 in lifetime) entered on: 04/09/22 Sex Note * Carey Vega: PERFORM, SIGN, VERIFY Event Display: Patient Education/Instruction Authored Date: [id number] [facility] Clinical Summary Name CLEMENTINE SALAZAR Age 72 Years 1950 PCP Don MANAGER PUBLIC, Ioana PCP Visit Date 05/30/2023 11:23:00 Additional Instructions: follow up in 3 months Scheduled Appointments?? Future Appointments ?*[facility] ?Phone:??--?Fax:??-- ?Appt. Date:??07/18/2023?3:30 PM ?Scheduled Provider:??Ultrasound Room 3 [facility] ?*[facility]??[place],??[place],??[address] ?Phone:??--?Fax:??-- ?Appt. Date:??08/05/2023?3:20 PM ?Scheduled Provider:??Germaine ROSENBERG, Edgar Lester Follow-Up Instructions ?? Diagnosis Medications: Please continue [...] NKA Medications Given This Visit Future Orders ?CBC w/ Differential? Order Date:05/30/23?- Complete on or after?05/30/23 ?Comprehensive Metabolic Panel? Order Date:05/30/23?- Complete on or after?05/30/23 ?Sedimentation Rate? Order Date:05/30/23?- Complete on or after?05/30/23 ?C Reactive Protein? Order Date:05/30/23?- Complete on or after?05/30/23 Vital Signs Height 160 cm Weight 75.4 kg BMI 29.45 kg/m2 Blood Pressure 98 mm Hg/63 mm Hg Temperature 97.3 DegF Pulse Rate 69 bpm Respiratory Rate 14 br/min 02 Sat Mode of Delivery 96 %/Room air You can now view a summary of your hospital visit from the comfort of your home through a free online portal called [facility]. [facility] is a website that allows you to securely view your medical information including discharge summary, medications and follow-up visits. ??You can alsosend a secure electronic message to your doctor???s office to request appointments, renew medications or just ask a question. You can enroll at [email or web address] or register during your next office [...] care provider, you may find a [facility] provider by calling [facility] Link at [phone]. [facility], in keeping with [facility] guidance, no longer requires face masks for [...] VERIFY Event Display: Patient Education/Instruction Authored Date: [id number] [facility] *[facility] Clinical Summary Name CLEMENTINE SALAZAR Age 72 Years 1950 PCP Ioana Ochoa NP PCP Visit Date 05/30/2023 11:23:00 Additional Instructions: follow up in 3 months Scheduled Appointments?? Future Appointments ?*[facility] ?Phone:??--?Fax:??-- ?Appt. Date:??07/18/2023?3:30 PM ?Scheduled Provider:??Ultrasound Room 3 [facility] ?*[facility],??[place],??[address] ?Phone:??--?Fax:??-- ?Appt. Date:??08/05/2023?3:20 PM ?Scheduled Provider:??Edgar Herron MD Follow-Up Instructions ?? Diagnosis Medications: Please continue [...] NKA Medications Given This Visit Future Orders ?CBC w/ Differential? Order Date:05/30/23?- Complete on or after?05/30/23 ?Comprehensive Metabolic Panel? Order Date:05/30/23?- Complete on or after?05/30/23 ?Sedimentation Rate? Order Date:05/30/23?- Complete on or after?05/30/23 ?C Reactive Protein? Order Date:05/30/23?- Complete on or after?05/30/23 Vital Signs Height 160 cm Weight 75.4 kg BMI 29.45 kg/m2 Blood Pressure 98 mm Hg/63 mm Hg Temperature 97.3 DegF Pulse Rate 69 bpm Respiratory Rate 14 br/min 02 Sat Mode of Delivery 96 %/Room air You can now view a summary of your hospital visit from the comfort of your home through a free online portal called [facility]. [facility] is a website that allows you to securely view your medical information including discharge summary, medications and follow-up visits. ??You can alsosend a secure electronic message to your doctor???s office to request appointments, renew medications or just ask a question. You can enroll at [email or web address] or register during your next office [...] care provider, you may find a [facility] provider by calling [facility] Link at [phone]. [facility], in keeping with [facility] guidance, no longer requires face masks for [...] Address: Address: [address] [place] [address]- [place] Care Team Related Persons Name: EDUARDO GLASOGW Name: DANIEL LOZANO Address: [address] [address]
--- OUTSIDE RECORDS SUMMARY | 2023-11-08 08:56 | XMS_ITS | Continuity of Care Document ---
Author Organization [facility] Address [address] [place] [address]- Care Team Providers Care Truck Sales Manager Name Role Phone Don FLORIAN, Ioana Primary Care Physician Encounter [facility] Date(s): 09/09/23 - 10/09/[address] [address] Allergies, Adverse Reactions, Alerts No Known Allergies Immunizations Given and Recorded Vaccine Date Status Refusal Reason SARS-CoV-2 (COVID-19) mRNA BNT-162b2 vac 04/24/21 Recorded pneumococcal 23-valent vaccine 04/23/01 Recorded Medications aspirin 81 mg oral delayed release tablet 1 tablet = 81 mg, By Mouth, Daily, # 90 tablet, 3 Refills, Maintenance, 05/30/23 12:11:00 EST, CR Tablet, [facility], Partial fill upon patient request if the prescription is for a schedule II opioid drug., 160, cm, 05/30/23 11:24:00 EST, H... Start Date: 05/30/23 Stop Date: 05/24/24 Status: Ordered carvedilol 25 mg oral tablet 1, tablet, By Mouth, 2 times a day, # 180 tablet, Refills 1, Tot. Refills 1, Maintenance, 05/30/23 12:11:00 EST, Route to Pharmacy Electronically, [facility], 160, cm, 05/30/23 11:24:00 EST, Height, 79.5, kg, 05/15/23 18:59:00 EST, Dry Weight Start Date: 05/30/23 Status: Ordered Farxiga 5 mg oral tablet 1 tablet = 5 mg, By Mouth, Daily, # 30 tablet, 3 Refills, Maintenance, 08/29/23 14:27:00 EST, Tablet, [facility], Partial fill upon patient request if the prescription is for a schedule IIopioid drug., 160, cm, 08/29/23 14:01:00 EST, Heigh... Start Date: 08/29/23 Status: Ordered ferrous sulfate 325 mg oral enteric coated tablet 325 mg, 1, tablet, By Mouth, Daily, # 30 tablet, Refills 3, Tot. Refills 3, Maintenance, 05/30/23 12:12:00 EST, Route to Pharmacy Electronically, [facility], Partial fill upon patient request if the prescription is for a schedule II opioid... Start Date: 05/30/23 Status: Ordered Flonase 50 mcg/inh nasal spray 1 sprays, Nares, Both, 2 times a day, # 16 Gm, 0 Refills, Maintenance, 06/05/22 12:05:00 EST, [place], [facility], Partial fill upon [...] 05/30/23 12:12:00 EST, Route to Pharmacy Electronically, [facility], Partial fill upon patient request if the prescription is for a schedule... Start Date: 05/30/23 Stop Date: 09/27/23 Status: Ordered glimepiride 4 mg oral tablet 1 tablet, By Mouth, 2 times a day, # 180 tablet, 0 Refills, Maintenance, 05/30/23 12:12:00 EST, [facility], 160, cm, 05/30/23 [...] tablet, 0 Refills, Maintenance, 05/30/23 12:12:00 EST, [facility], 160, cm, 05/30/23 11:24:00 EST, Height, 79.5, kg, 05/15/23 18:59:00 EST, Dry Weight Start Date: 05/30/23 Stop Date: 08/28/23 Status: Ordered metFORMIN 500 mg oral tablet 2 tablet, By Mouth, 2 times a day, # 360 tablet, 0 Refills, Maintenance, 05/30/23 12:12:00 EST, [facility], 160, cm, 05/30/23 [...] Professional Member Role: PCP Address: Address: [address] [place] [address]- Care Team Related Persons Name: EDUARDO GLASGOW Name: DANIEL LOZANO Address: [address] [address]
--- OUTSIDE RECORDS SUMMARY | 2023-11-08 08:56 | XMS_ITS | Continuity of Care Document ---
Author Organization [facility] Adult Address [address] [place] [address]- Care Team Providers Care Kier Tender Name Role Phone Laron FLORIAN, Ioana Reilly Primary Care Physician [phone] [facility] [id number] Date(s): 04/16/23 - 04/23/23 [facility] Adult [address] [place] [address]- Encounter Diagnosis Tongue pain(Discharge Diagnosis) - 04/16/23 Type 2 diabetes mellitus(Discharge Diagnosis) - 04/16/23 Lower back pain(Discharge Diagnosis) - 04/16/23 Peripheral neuropathy(Discharge Diagnosis) - 04/16/23 Anemia(Discharge Diagnosis) - 04/16/23 Insomnia(Discharge Diagnosis) - 04/16/23 Attending Physician: Not on Staff, Attending MD Allergies, Adverse Reactions, Alerts No Known Allergies Immunizations Given and Recorded Vaccine Date Status Refusal Reason SARS-CoV-2 (COVID-19) mRNA BNT-162b2 vac 04/24/21 Recorded pneumococcal 23-valent vaccine 04/23/01 Recorded Medications aspirin 81 mg oral delayed release tablet 1 tablet = 81 mg, By Mouth, Daily, # 90 tablet, 3 Refills, Maintenance, 04/09/22 19:08:00 EDT, CR Tablet, [facility], Partial fill upon patient request if the prescription is for a schedule II opioid drug., 162, cm, 04/09/22 16:12:00 EDT, H... Start Date: 04/09/22 Stop Date: 04/04/23 Status: Ordered carvedilol 25 mg oral tablet 25 mg, 1, tablet, By Mouth, 2 times a day, # 180 tablet, Refills 3, Tot. Refills 3, Maintenance, 04/09/22 19:08:00 EDT, Route to Pharmacy Electronically, [facility], Partial fill upon patient request if the prescription is for a schedule II... Start Date: 04/09/22 Stop Date: 04/04/23 Status: Ordered doxazosin 4 mg oral tablet 1 tablet, By Mouth, Daily, # 90 tablet, 0 Refills, Maintenance, 02/11/23 7:39:00 EDT, [facility], 162, cm, 11/20/22 12:28:00 EDT, Height Start Date: 02/11/23 Stop Date: 05/12/23 Status: Ordered ezetimibe 10 mg oral tablet 1 tablet, By Mouth, Daily, # 90 tablet, 0 Refills, Maintenance, 02/11/23 7:38:00 EDT, [facility], 162, cm, 11/20/22 12:28:00 EDT, Height Start Date: 02/11/23 Stop Date: 05/12/23 Status: Ordered ferrous sulfate 325 mg oral enteric coated tablet 325 mg, 1, tablet, By Mouth, Daily, # 30 tablet, Refills 3, Tot. Refills 3, Maintenance, 04/18/23 10:05:00 EDT, Route to Pharmacy Electronically, [facility], Partial fill upon patient request if the prescription is for a schedule II opioid... Start Date: 04/18/23 Status: Ordered Flonase 50 mcg/inh nasal spray 1 sprays, Nares, Both, 2 times a day, # 16 Gm, 0 Refills, Maintenance, 06/05/22 12:05:00 EST, [place], [facility], Partial fill upon patient [...] 04/16/23 11:27:00 EDT, Route to Pharmacy Electronically, [facility], Partial fill upon patient request if the prescription is for a schedule... Start Date: 04/16/23 Stop Date: 08/14/23 Status: Ordered glimepiride 4 mg oral tablet 1 tablet, By Mouth, 2 times a day, # 180 tablet, 0 Refills, Maintenance, 02/11/23 7:38:00 EDT, [facility], 162, cm, 11/20/22 12:28:00 EDT, Height Start Date: 02/11/23 Status: Ordered Home Blood Pressure Monitor See Instructions, # 1 each, Maintenance, DX: Hypertension, 06/06/22 12:29:00 EST, Supply Start Date: 06/06/22 Status: Ordered hydrochlorothiazide-lisinopril 25 mg-20 mg oral tablet 1 tablet, By Mouth, Daily, # 90 tablet, 3 Refills, Maintenance, 09/05/22 16:25:00 EDT, Tablet, [facility], Partial fill upon patient request if the prescription is for a schedule II opioiddrug., 1 tablet By Mouth Daily,x90 days, 162, cm, 0... Start Date: 09/05/22 Stop Date: 08/31/23 Status: Ordered isosorbide mononitrate 30 mg oral tablet, extended release 1 tablet, By Mouth, Daily in AM, # 90 tablet, 0 Refills, Maintenance, 02/11/23 7:37:00 EDT, [facility], 162, cm, 11/20/22 12:28:00 EDT, Height Start Date: 02/11/23 Stop Date: 05/12/23 Status: Ordered meloxicam 15 mg oral tablet 1 tablet, By Mouth, Daily, # 90 tablet, 0 Refills, Maintenance, 03/15/23 12:40:00 EDT, [facility], 162, cm, 03/08/23 12:38:00 EDT, Height Start Date: 03/15/23 Stop Date: 06/13/23 Status: Ordered metFORMIN 500 mg oral tablet 2 tablet, By Mouth, 2 times a day, # 360 tablet, 0 Refills, Maintenance, 02/11/23 7:36:00 EDT, [facility], 162, cm, 11/20/22 12:28:00 [...] Stop 06/16/23 11:59:00EST, 06/21/22 11:59:00 EST, Tablet, [facility], Partial fill upon patient request if theprescription is for a schedule II opioid drug., 162... Start Date: 06/21/22 Stop Date: 06/16/23 Status: Ordered traZODone 50 mg oral tablet 50 mg, 1, tablet, By Mouth, Daily at bedtime, # 90 tablet, Refills 1, Tot. Refills 1, Maintenance, 04/16/23 11:21:00 EDT, Route to Pharmacy Electronically, [facility], Partial fill upon patient [...] Effective Dates Health Status Clinical Service Informant Tongue pain Discharge Diagnosis 04/16/23 Type 2 diabetes mellitus Discharge Diagnosis 04/16/23 Lower back pain Discharge Diagnosis 04/16/23 Non-Specified Peripheral neuropathy Discharge Diagnosis 04/16/23 Anemia Discharge Diagnosis 04/16/23 Insomnia Discharge Diagnosis 04/16/23 Vital Signs Most recent to oldest [Reference Range]: 1 Height 162 cm (04/16/23 11:09 AM) Weight 78.7 kg (04/16/23 11:09 AM) Oxygen Saturation [94-100 %] 99 % (04/16/23 11:09 AM) Pulse Rate [55-90 bpm] 69 bpm (04/16/23 11:09 AM) Body Mass Index [18.5-24.99 kg/m2] 29.99 kg/m2 *H* (04/16/23 11:09 AM) Blood Pressure [90-138/55-84 mm Hg] 109/ 61mm Hg (04/16/23 11:09 AM) Mode of Delivery (Oxygen) Room air (04/16/23 11:09 AM) Blood pressure sites Arm, left (04/16/23 11:09 AM) Weight Obtained Via Standing scale (10/24/23 11:09 AM) Social History Social History Type Response Smoking Status Never (less than 100 in lifetime) entered on: 04/09/22 Sex Note * Ioana Larry NP: PERFORM, SIGN, VERIFY Event Display: Patient Education/Instruction Authored Date: [id number] [facility] *[facility] Clinical Summary Name CLEMENTINE SALAZAR Age 72 Years 1950 PCP Laron FLORIAN, Io[facility] Reilly [id number] Visit Date 04/16/2023 11:03:00 Additional Instructions: follow up in 4 months Scheduled Appointments?? Future Appointments ?*[place] [address] ?[place],??[place],??[address] ?Phone:??--?Fax:??-- ?Appt. Date:??05/21/2023?4:20 PM ?Scheduled Provider:??Germaine ROSENBERG, Edgar Lester Follow-Up Instructions ?? Diagnosis Low back pain, unspecified; Glossodynia; Type 2 diabetes mellitus without complications Medications: Please continue your medications until treatment is completed or stopped by your provider. Discuss any questions related to medications with your provider. Medications to Continue Taking That Have Changed [facility], [address] [place] [id number], [phone] - Gabapentin (gabapentin 400 mg oral capsule) 1 capsule Oral 3 times a day for 30 Days. Refills: 3. Next Dose: - Trazodone (traZODone 50 mg oral tablet) 1 tab(s) Oral Daily at Bedtime for 90 Days. Refills: 1. Next Dose: Medications to Continue with No Changes These medications were not printed or sent to your pharmacy Aspirin (aspirin 81 mg oral delayed release tablet) 1 tab(s) Oral Daily for 90 Days. Refills: 3. Next Dose: Carvedilol (carvedilol 25 mg oral tablet) 1 tab(s) Oral twice a day for 90 Days. Refills: 3. Next Dose: Cephalexin (cephalexin monohydrate 500 mg oral capsule) 1 capsule Oral 4 times a day for 10 Days. Refills: 0. Next Dose: Doxazosin (doxazosin 4 mg oral [...] for 30 Days. Refills: 0. Next Dose: Glimepiride (glimepiride 4 mg oral [...] for 90 Days. Refills: 3. Next Dose: Allergy Info:?? NKA Medications Given This Visit Future Orders ?Fecal Occult Blood Immunochemical? Order Date:04/16/23?- Complete on or after?04/16/23 ?Iron + Iron Binding Capacity? Order Date:04/16/23?- Complete on or after?04/16/23 ?Folate Level? Order Date:04/16/23?- Complete on or after?04/16/23 ?Vitamin B12 Level? Order Date:04/16/23?- Complete on or after?04/16/23 ?Ferritin? Order Date:04/16/23?- Complete on or after?04/16/23 Vital Signs Height 162 cm Weight 78.7 kg BMI 29.99 kg/m2 Blood Pressure 109 mm Hg/61 mm Hg Temperature Pulse Rate 69 bpm Respiratory Rate 02 Sat Mode of Delivery 99 %/Room air You can now view a summary of your hospital visit from the comfort of your home through a free online portal called [employer]. [employer] is a website that allows you to securely view your medical information including discharge summary, medications and follow-up visits. ??You can alsosend a secure electronic message to your doctor???s office to request appointments, renew medications or just ask a question. You can enroll at [email or web address] or register during your next office visit. [...] primary care provider, you may find a [facility] provider by calling [facility] at [phone]. [facility], in keeping with [facility] guidance, no longer requires face masks [...] [address] [place] [address]- Care Team Related Persons Name: EDUARDO GLASGOW Name: DANIEL LOZANO Address: [address] [address]
--- OUTSIDE RECORDS SUMMARY | 2023-11-08 08:56 | XMS_ITS | Continuity of Care Document ---
Author Organization [facility] Adult Address [address] [place] [address]- Care Team Providers Care Cigarette Making Machine Operator Name Role Phone Don FLORIAN, Ioana Primary Care Physician [phone] Encounter [facility] Date(s): 09/23/23 - 10/23/23 [facility] Adult [address] [place] [address]- Allergies, Adverse Reactions, Alerts No Known Allergies Immunizations Given and Recorded Vaccine Date Status Refusal Reason SARS-CoV-2 (COVID-19) mRNA BNT-162b2 vac 04/24/21 Recorded pneumococcal 23-valent vaccine 04/23/01 Recorded Medications aspirin 81 mg oral delayed release tablet 1 tablet = 81 mg, By Mouth, Daily, # 90 tablet, 3 Refills, Maintenance, 05/30/23 12:11:00 EST, CR Tablet, [facility], Partial fill upon patient request if the prescription is for a schedule II opioid drug., 160, cm, 05/30/23 11:24:00 EST, H... Start Date: 05/30/23 Stop Date: 05/24/24 Status: Ordered carvedilol 25 mg oral tablet 1, tablet, By Mouth, 2 times a day, # 180 tablet, Refills 1, Tot. Refills 1, Maintenance, 05/30/23 12:11:00 EST, Route to Pharmacy Electronically, [facility], 160, cm, 05/30/23 11:24:00 EST, Height, 79.5, kg, 05/15/23 18:59:00 EST, Dry Weight Start Date: 05/30/23 Status: Ordered Farxiga 5 mg oral tablet 1 tablet = 5 mg, By Mouth, Daily, # 30 tablet, 3 Refills, Maintenance, 08/29/23 14:27:00 EST, Tablet, [facility], Partial fill upon patient request if the prescription is for a schedule IIopioid drug., 160, cm, 08/29/23 14:01:00 EST, Heigh... Start Date: 08/29/23 Status: Ordered ferrous sulfate 325 mg oral enteric coated tablet 325 mg, 1, tablet, By Mouth, Daily, # 30 tablet, Refills 3, Tot. Refills 3, Maintenance, 05/30/23 12:12:00 EST, Route to Pharmacy Electronically, [facility], Partial fill upon patient request if the prescription is for a schedule II opioid... Start Date: 05/30/23 Status: Ordered Flonase 50 mcg/inh nasal spray 1 sprays, Nares, Both, 2 times a day, # 16 Gm, 0 Refills, Maintenance, 06/05/22 12:05:00 EST, [place], [facility], Partial fill upon patient [...] 05/30/23 12:12:00 EST, Route to Pharmacy Electronically, [facility], Partial fill upon patient request if the prescription is for a schedule... Start Date: 05/30/23 Stop Date: 09/27/23 Status: Ordered glimepiride 4 mg oral tablet 1 tablet, By Mouth, 2 times a day, # 180 tablet, 0 Refills, Maintenance, 05/30/23 12:12:00 EST, [facility], 160, cm, 05/30/23 11:24:00 [...] tablet, 0 Refills, Maintenance, 05/30/23 12:12:00 EST, [facility], 160, cm, 05/30/23 11:24:00 EST, Height, 79.5, kg, 05/15/23 18:59:00 EST, Dry Weight Start Date: 05/30/23 Stop Date: 08/28/23 Status: Ordered metFORMIN 500 mg oral tablet 2 tablet, By Mouth, 2 times a day, # 360 tablet, 0 Refills, Maintenance, 05/30/23 12:12:00 EST, [facility], 160, cm, 05/30/23 11:24:00 [...] Professional Member Role: PCP Address: Address: [address] [place] [address]- Care Team Related Persons Name: EDUARDO GLASGOW Name: DANIEL LOZANO Address: [address] [address]
--- OUTSIDE RECORDS SUMMARY | 2023-11-08 08:56 | XMS_ITS | Continuity of Care Document ---
Author Organization [facility] Adult Address [address] [place] [address]- Care Team Providers Care Kraft Mill Operator Name Role Phone Don FLORIAN, Ioana Primary Care Physician [phone] Encounter [facility] Date(s): 04/16/23 - 05/16/23 [facility] Adult [address] [place] [address]- Allergies, Adverse Reactions, Alerts No Known Allergies Immunizations Given and Recorded Vaccine Date Status Refusal Reason SARS-CoV-2 (COVID-19) mRNA BNT-162b2 vac 04/24/21 Recorded pneumococcal 23-valent vaccine 04/23/01 Recorded Medications aspirin 81 mg oral delayed release tablet 1 tablet = 81 mg, By Mouth, Daily, # 90 tablet, 3 Refills, Maintenance, 04/09/22 19:08:00 EDT, CR Tablet, [facility], Partial fill upon patient request if the prescription is for a schedule II opioid drug., 162, cm, 04/09/22 16:12:00 EDT, H... Start Date: 04/09/22 Stop Date: 04/04/23 Status: Ordered carvedilol 25 mg oral tablet 1, tablet, By Mouth, 2 times a day, # 180 tablet, Refills 1, Maintenance, 05/06/23 18:16:00 EST, Route to Pharmacy Electronically, [facility], 162, cm, 04/16/23 11:09:00 EDT, Height Start Date: 05/06/23 Status: Ordered doxazosin 4 mg oral tablet 1 tablet, By Mouth, Daily, # 90 tablet, 0 Refills, Maintenance, 02/11/23 7:39:00 EDT, [facility], 162, cm, 11/20/22 12:28:00 EDT, Height Start Date: 02/11/23 Stop Date: 05/12/23 Status: Ordered doxycycline hyclate 100 mg oral capsule 1 capsule = 100 mg, By Mouth, 2 times a day, for 10 days, # 20 capsule, 0 Refills, Acute 05/24/23 14:53:00 EST, 05/14/23 14:53:00 EST, Capsule, [facility], Partial fill upon patient request if the prescription is for a schedule II opioid dr... Start Date: 05/14/23 Stop Date: 05/24/23 Status: Ordered ezetimibe 10 mg oral tablet 1 tablet, By Mouth, Daily, # 90 tablet, 0 Refills, Maintenance, 02/11/23 7:38:00 EDT, [facility], 162, cm, 11/20/22 12:28:00 EDT, Height Start Date: 02/11/23 Stop Date: 05/12/23 Status: Ordered ferrous sulfate 325 mg oral enteric coated tablet 325 mg, 1, tablet, By Mouth, Daily, # 30 tablet, Refills 3, Tot. Refills 3, Maintenance, 04/18/23 10:05:00 EDT, Route to Pharmacy Electronically, [facility], Partial fill upon patient request if the prescription is for a schedule II opioid... Start Date: 04/18/23 Status: Ordered Flonase 50 mcg/inh nasal spray 1 sprays, Nares, Both, 2 times a day, # 16 Gm, 0 Refills, Maintenance, 06/05/22 12:05:00 EST, [place], [facility], Partial fill upon patient [...] 04/16/23 11:27:00 EDT, Route to Pharmacy Electronically, [facility], Partial fill upon patient request if the prescription is for a schedule... Start Date: 04/16/23 Stop Date: 08/14/23 Status: Ordered glimepiride 4 mg oral tablet 1 tablet, By Mouth, 2 times a day, # 180 tablet, 0 Refills, Maintenance, 02/11/23 7:38:00 EDT, [facility], 162, cm, 11/20/22 12:28:00 EDT, Height Start Date: 02/11/23 Status: Ordered Home Blood Pressure Monitor See Instructions, # 1 each, Maintenance, DX: Hypertension, 06/06/22 12:29:00 EST, Supply Start Date: 06/06/22 Status: Ordered hydrochlorothiazide-lisinopril 25 mg-20 mg oral tablet 1 tablet, By Mouth, Daily, # 90 tablet, 3 Refills, Maintenance, 09/05/22 16:25:00 EDT, Tablet, [facility], Partial fill upon patient request if the prescription is for a schedule II opioiddrug., 1 tablet By Mouth Daily,x90 days, 162, cm, 0... Start Date: 09/05/22 Stop Date: 08/31/23 Status: Ordered isosorbide mononitrate 30 mg oral tablet, extended release 1 tablet, By Mouth, Daily in AM, # 90 tablet, 0 Refills, Maintenance, 02/11/23 7:37:00 EDT, [facility], 162, cm, 11/20/22 12:28:00 EDT, Height Start Date: 02/11/23 Stop Date: 05/12/23 Status: Ordered meloxicam 15 mg oral tablet 1 tablet, By Mouth, Daily, # 90 tablet, 0 Refills, Maintenance, 03/15/23 12:40:00 EDT, [facility], 162, cm, 03/08/23 12:38:00 EDT, Height Start Date: 03/15/23 Stop Date: 06/13/23 Status: Ordered metFORMIN 500 mg oral tablet 2 tablet, By Mouth, 2 times a day, # 360 tablet, 0 Refills, Maintenance, 02/11/23 7:36:00 EDT, [facility], 162, cm, 11/20/22 12:28:00 [...] Stop 06/16/23 11:59:00EST, 06/21/22 11:59:00 EST, Tablet, [facility], Partial fill upon patient request if theprescription is for a schedule II opioid drug., 162... Start Date: 06/21/22 Stop Date: 06/16/23 Status: Ordered traZODone 50 mg oral tablet 50 mg, 1, tablet, By Mouth, Daily at bedtime, # 90 tablet, Refills 1, Tot. Refills 1, Maintenance, 04/16/23 11:21:00 EDT, Route to Pharmacy Electronically, [facility], Partial fill upon patient [...] Professional Member Role: PCP Address: Address: [address] [place] [address]- Care Team Related Persons Name: EDUARDO GLASGOW Name: DANIEL LOZANO Address: [address] [address]
[2023-11-08 09:02] VITALS: BMI 31.2
[2023-11-08 09:22] VITALS: BP 113/77; PULSE 70; RESP 16; TEMP 36.4; O2SAT 97
[2023-11-08] MEDS: Lactated Ringers 1,000 ML 100 ML IVCONT (09:23)
[2023-11-08 09:30] LABS: Glucose, Whole Blood 119 mg/dL (60-115)
--- NOTE | 2023-11-08 10:13 | MHC.SHP ---
Pre-Procedural Eval Section A - 24 Hr Update-Section A only Date of Service: 11/08/23 The patient is an INPATIENT: No Changes since office visit: Yes Patient answered all questions The patient has been examined within 24 hours of the surgical procedure. The History & Physical has been completed within 30 days and I have reviewed it.: No Section B - Complete if H&P > 30 days Chief Complaint: Postlaminectomy syndrome, not elsewhere classified Details of Present Illness: As above Relevant Family History (Specify if Yes): No Relevant Social History: None Present Medications: None Medical History: No relevant PMH History of Previous Operations: Relevant previous surgery/procedure and date(s) Allergies: Allergies Allergy/AdvReac Type Severity Reaction Status Date / Time No Known Allergies Allergy Mild NONE Verified 11/08/23 09:04 Review of Systems Sugical H&P ROS: Negative: Constitution, Respiratory, Neurological, Psychiatric, Hem-Onc, Allergic/Immunologic, Gastrointestinal, Genitourinary, Integumentary and Eyes/Ears/Nose/Throat and Yes, Specify: Cardiovascular (Hypertension), Musculoskeletal (Postlaminectomy syndrome lumbar spine) and Endocrine (Diabetes elevated cholesterol) Exam Surgical H&P Exam: Normal: HEENT, Normal: Heart, Normal: Lungs, Normal: Extremities, Normal: Skin and Normal: Neurological and Significant Findings: Abdomen (Enlarged due to fat) Plan Diagnosis/Plan: Unchanged I have reviewed the history and physical and performed a pertinent physical examination on my patient. No changes have occurred unless specified. Time Spent With Patient Time: Total time managing care of this patient today ____ minutes.
[2023-11-08 11:37] VITALS: BP 115/71; PULSE 70; RESP 17; TEMP 36.8; O2SAT 97
[2023-11-08 11:52] VITALS: BP 120/86; PULSE 68; RESP 17; O2SAT 97
--- NOTE | 2023-11-08 11:57 | PM.OP ---
Brief Operative Note Date of Service: 11/08/23 Pre-op diagnosis: Postlaminectomy syndrome lumbar Post-op diagnosis: same Procedure: Trial of Nevro spinal cord stimulator. Implants: None permanent Surgeon: Dheeraj Abdul MD Was an Auto Vinyl Top Installer used for this Procedure?: No Estimated blood loss (mL): 4 Pathology: none sent Condition: stable Disposition: PACU
--- NOTE | 2023-11-08 11:58 | W.PM.OPN ---
Operative Note Operative Note Date of Service: 11/08/23 Narrative: Froy is very pleasant 73 years old years old [place]ander-speaking gentleman who came to the operating room for trial of spinal cord stimulator Nevro for the treatment of chronic pain syndrome and postlaminectomy syndrome lumbar spine ?Preoperatively patient received ? cefazolin 2 g approximately 20 minutes before the procedure. After obtaining informed consent the patient was brought to the operating room, he was positioned supine on the stretcher, [place] [employer] monitors were applied and general endotracheal anesthesia was induced. After that patient was transferred prone on operating table, all pressure points were protected. ?Time-out was performed delineating correct site, side, the nature of the procedure, patient's allergy, preoperative antibiotic if needed.? All operating room staff was participating in OR time-out procedure. Patient's entire back was prepped with Chloraprep twice and draped with full body fenestrated laparoscopy drape.? Sterilely draped C-arm was brought over operating field and square picture of the T10-T11 T12 and L1 and L2 vertebrae? were demonstrated on the screen.? Extensive hardware from L2 to L3-L4 and L5 vertebra with pedicular screws and connecting rods was noted on the screen. ?Attention FIRST? was concentrated on the T12-L1 epidural interspace. Right pedicle of the L2 which was occupied by pedicular screw was located on the screen and the projection of the pedicle was injected with 5 cc of lidocaine 2% mixture with ropivacaine 0.5% mixture 1-1.After that 11 blade was used to make a meghan on the skin.? 10 cm 14 gauge? introducer epidural needle was inserted through the meghan advanced to epidural space at T12-L1 level. ? The advancement of the needle was performed on anterior posterior and lateral views.?Loss of resistance to air? technique were used to locate epidural space,epidural lead was inserted through the needle and? advanced to the projection of the top of T8 vertebral body strictly on the midline. Lateral view demonstrated posterior position of the lead in the cervical posterior epidural space.. ? .? After that? the location of the projection of the LEFT pedicle center of the L2 vertebras also occupied by pedicular screw was found on the skin using C-arm.? This location was injected with mixture of lidocaine 2% and Marcaine 0.5% 5 cc.? After that 11 blade was used to make a meghan on the skin.? 10 cm 14 gauge introducer epidural needle was inserted through the meghan and advanced to T12-L1 epidural interspace.? The advancement of the needle was performed on anterior posterior and lateral views.? When epidural space was located the epidural lead was inserted through the needle and advanced in posterior epidural space slightly right of the existing electrode to the midbody of T9 vertebral projection. Impedance was checked? and it was found to be satisfactory.? Posterior lead placement was verified by lateral x-ray. ?The needles were withdrawn, the stylette wires were removed from the epidural leads.? The anchoring devices were dislodged on the leads and advanced to the level of the skin.? The anchoring devices were sutured with two 0-0 ?Silk sutures per each anchor to the skin of the patient. The central fixation screw of each anchor was rotated until three clicks were heard. The leads were connected to testing device.? Sterile dressing was applied to the patient's back.? The testing device was also taped to the patient's back.? the patient tolerated procedure well he was awaken and taken outside of the operating room to recovery room.
[2023-11-08 12:07] VITALS: BP 127/85; PULSE 70; RESP 16; TEMP 36.8; O2SAT 98
== END 2023-11-08 12:45 | disposition home or self-care (01) ==
PROVIDERS: PCP Nurse Practitioner Family; Visit Provider Anesthesiology
PROC: (CPT 63650; principal; 2023-11-08 10:50)
DX: M96.1 Postlaminectomy syndrome, not elsewhere classified (principal); G89.4 Chronic pain syndrome; M54.50 Low back pain, unspecified; M79.605 Pain in left leg; M79.604 Pain in right leg; Z98.1 Arthrodesis status; M47.812 Spondylosis without myelopathy or radiculopathy, cervical region; M51.36 Other intervertebral disc degeneration, lumbar region; M54.16 Radiculopathy, lumbar region; I10 Essential (primary) hypertension; I25.10 Atherosclerotic heart disease of native coronary artery without angina pectoris; Z95.5 Presence of coronary angioplasty implant and graft; I25.2 Old myocardial infarction; E11.42 Type 2 diabetes mellitus with diabetic polyneuropathy; D64.9 Anemia, unspecified; Z79.84 Long term (current) use of oral hypoglycemic drugs; Z79.82 Long term (current) use of aspirin; Z79.899 Other long term (current) drug therapy; Z98.890 Other specified postprocedural states; Z87.891 Personal history of nicotine dependence
CPT/HCPCS: 63650 ×2; 82947; C1889; C1897; J0690; J2250; J2704; J2795; J3010

== ENCOUNTER → 2023-11-08 08:51 | Outpatient (BNV) | payer MEDICARE, MEDICAID, SELFPAY | PROVIDERS: PCP Nurse Practitioner Family; Visit Provider Anesthesiology | DX: M96.1 Postlaminectomy syndrome, not elsewhere classified (principal) | CPT/HCPCS: 63650 ==

== ENCOUNTER 2023-11-14 10:01 | Outpatient (AMB) | payer MEDICARE, MEDICAID, SELFPAY ==
--- NOTE | 2023-11-14 10:03 | A.OFFVIS_ITS ---
Vital Signs 3 11/14/23 10:06 11/14/23 10:47 Height 5 ft 3 in Weight 176 lb BMI 31.2 BP 142/80 H 127/78 Blood Pressure Location Lt brachial Lt brachial Position Sitting Sitting Pulse 71 68 Pulse Source Pulse Oximeter Pulse Oximeter Pulse Oximetry (%) 98 98 Oxygen Delivery Method Room Air Room Air Intake Visit Reasons: S/p Nevro SCS Trial 11/08/23 Intake Note: Pain today 10/01 Brokerage Coordinator Required: Yes Brokerage Coordinator Language: Management Tech Name: daughter Accompanied by: Daughter Allergies No Known Allergies Allergy (Mild, Verified 11/14/23 10:07) NONE HPI Comments Details: Patient presents today status post Nevro SCS Trial on 11/08/[address] Abdul. Patient reports 65-70% overall pain relief in his low back and bilateral leg pain and significant improvement in his functioning per patient and his family. Patient reports he has improvement in mobility, getting up and down and sleep. Patient reports he would like to proceed with spinal cord stimulation implant for a longer-term pain relief. Patient turned off his device at 09:00 this morning per Mary Jo Sharma who was not able to be here today. The tape was removed. The stimulating battery pad was disconnected from the epidural leads. These sites of the insertion were cleansed with ChloraPrep and the sutures were severed. The epidural leads were removed and the tips were intact. Upon removal, left lead incision started actively bleeding. Patient denies any recent intake of NSAIDs or aspirin or anti-coagulation. Bleeding has subsided on its own, pressure dressing was applied. Patient was seen by Dr. Abdul with no further concerns for bleeding. No erythema, swelling, tenderness or pathological discharge was noted. Bacitracin ointment, dry sterile and Tegaderm dressing were applied. Patient was monitored for 15 minutes, dressing was checked, no active bleeding was noted with dressing changed. Patient was discharged home in stable condition. Past Procedures: 11/08/23: Lumbar SCS trial w/ Loreleiro-65% pain relief, 70% function improvement 04/18/23: Caudal ARGENIS with catheter- 20% pain relief 02/19/23: Right L5-S1 TFESI- no pain relief PRIOR: Patient presents today to follow up regarding Right L5-S1 TFESI on 02/19/[address] Abdul. Unfortunately, injection was attempted but due to significant cement like scar tissue in the projection of the L5- S1 foramina and advancement of needle was impossible per Dr. Abdul's procedure notes. This was discussed today with patient and his family. Patient continues to reports low back pain that radiates into his right buttock and right leg with associated numbness, tingling and chronic weakness. He is interested to undergo Caudal ARGENIS with catheter under sedation to alleviate his pain. Denies any bladder or bowel dysfunction or saddle anesthesia. Reports right lower extremity weakness, ambulates with cane. We also returned to the topic of neuromodulation for a longer term management of his post laminectomy syndrome and diabetic peripheral neuropathy with Nevro. Patient reports he reviewed informational pamphlets at home and with his family and would like to proceed with Behavioral Evaluation. PRIOR: Patient is a pleasant 72 years old Mongolian speaking male with prior history of back surgery which involved extensive lumbar fusion with complications related to surgery in [place] (posterior lumbar fusion with laminectomy from L2 to L5 levels, 2016 [place]) and more recently L5 decompression by Dr. Menjivar in August 2022, presents today for initial evaluation of low back pain with bilateral leg pain. He had follow up with [facility] 2 months ago and was referred to us for potential spinal cord stimulator in the setting of chronic nerve injury and neuropathic pain which has been chronic for him for 6 years. Patient has chronic right foot drop with weakness and wears AFO brace. He presents with axial low back pain and radiating posteriorly bilateral lower extremity pain with associated numbness, aching, and tingling in both legs and feet. Meloxicam and gabapentin have not been effective. He was recently seen by [facility] on 12/10/22 and has been scheduled for right L5-S1 TFESI. He reports his diabetes is managed well with most recent A1C known at 6.9 per patient. Patient ambulates with slow, antalgic gait and at times drags his right foot. Reports bilateral lower extremity weakness with reports of persistent numbness in his buttocks and lateral/posterior legs and feet, worse on the right. Patient also reports neck and mid back pain. Uses cane with ambulation. [facility] Medical History Myocardial infarction CAD (coronary artery disease) Mixed hyperlipidemia Radiculopathy Nasal congestion Diabetes type 2, controlled Unsteady gait Low back pain Fatty liver Hypertension Anemia Surgical History Hx of heart artery stent Hx of decompressive lumbar laminectomy History of lumbar fusion History of hernia repair Social History Patient Tobacco Use Status: Former Tobacco user Review of Systems Const All systems reviewed & are unremarkable except as noted in HPI and below Physical Exam Vital Signs: Last Vital Signs Pulse 68 11/14/23 10:47 BP 127/78 11/14/23 10:47 Pulse Ox 98 11/14/23 10:47 Oxygen Delivery Method Room Air 11/14/23 10:47 BMI result Body Mass Index 31.2 General: Appears afebrile. Alert and oriented. Mood and affect appropriate. Follows and participates in conversation appropriately. Respiratory effort is unlabored. No cough. Able to transition from sit to stand with assistance. Ambulates with cane. Right foot in AFO brace. General: Yes no CVA tenderness Back/Spine/Pelvis Other: Leads removed with tips intact. Back: no CVA tenderness Cervical Spine: cervical ROM normal and No Cervical spine tenderness Thoracic/Lumbar Spine: thoracic and lumbar spine normal to inspection, Lasegue's sign negative, straight leg raise negative bilaterally, pain with thoraco-lumbar ROM, No paraspinal muscle tenderness, thoraco-lumbar ROM limited, Thoracic/lumbar scoliosis, No thoracic spinal tenderness and lumbar spinal tenderness at L4 and at L5 Pelvis: no buttock tenderness Sacroiliac joints: bilaterally nontender Results Reviewed Results Reviewed: 06/06/22 XR CERVICAL SPINE XR THORACIC SPINE 12/14/22 CLINICAL INFORMATION: Spondylosis without myelopathy or radiculopathy. FINDINGS: CERVICAL SPINE: Straightening of the normal cervical spondylosis. Severe degenerative changes with hypertrophic change and loss of disc space height at C4-C5, C5-C6 and C6-C7. C7 obscured by overlying bone and soft tissues. THORACIC SPINE: The bones are diffusely demineralized. Rightward curvature at the partially imaged thoracolumbar junction. Stabilization hardware minimally imaged in the upper lumbar spine. Moderate degenerative changes in the thoracic spine. IMPRESSION: 1. Severe degenerative changes at C4-C7 levels. 2. Moderate degenerative changes in the thoracic spine. Assessment & Plan Assessment & Plan (1) Post laminectomy syndrome: Code(s): M96.1 - Postlaminectomy syndrome, not elsewhere classified Category: Medical (2) Lumbar degenerative disc disease: Code(s): M51.36 - Other intervertebral disc degeneration, lumbar region Category: Medical (3) Lumbar radicular pain: Code(s): M54.16 - Radiculopathy, lumbar region Category: Medical (4) Lumbosacral spondylosis: Code(s): M47.817 - Spondylosis without myelopathy or radiculopathy, lumbosacral region Category: Medical Plan Schedule for Lumbar SCS Implant with sedation and fluoroscopy given good relief seen from trial. Reviewed with the patient and family the risks and benefits of spinal cord stimulation implant. Patient and family will continue to monitor wound dressing site for any bleeding and notify our office if any bleeding re-occurrence. Extra dressing supplies were sent with patient. All questions and concerns have been answered and patient agreed with the plan. Follow-up after SCS implant and sooner as needed. Justification for interventional therapy: ? Patient with average pain > 6/10 ? Patient has exhausted conservative therapy, epidural steroid injections ? SCS trial-65-70% pain and function improvement The risks, consequences, alternatives, and benefits of various treatment options were discussed with the patient in great detail, including conservative management, injections and procedures. Coding Level of Care Code Est Pt Level 4 (45359) Diagnoses Post laminectomy syndrome M96.1 Lumbar degenerative disc disease M51.36 Lumbar radicular pain M54.16 Lumbosacral spondylosis M47.817
[2023-11-14 10:06] VITALS: BP 142/80; PULSE 71; O2SAT 98; BMI 31.2
[2023-11-14 10:47] VITALS: BP 127/78; PULSE 68; O2SAT 98
== END 2023-11-14 11:15 | disposition home or self-care (01) ==
PROVIDERS: PCP Nurse Practitioner Family; Visit Provider Nurse Practitioner Family
DX: M96.1 Postlaminectomy syndrome, not elsewhere classified (principal); M51.36 Other intervertebral disc degeneration, lumbar region; M54.16 Radiculopathy, lumbar region; M47.817 Spondylosis without myelopathy or radiculopathy, lumbosacral region
CPT/HCPCS: 99024

== ENCOUNTER → 2023-11-14 10:01 | Outpatient (BNVA) | payer MEDICARE, MEDICAID, SELFPAY | PROVIDERS: PCP Nurse Practitioner Family; Visit Provider Nurse Practitioner Family | DX: M96.1 Postlaminectomy syndrome, not elsewhere classified (principal); M51.36 Other intervertebral disc degeneration, lumbar region; M54.16 Radiculopathy, lumbar region; M47.817 Spondylosis without myelopathy or radiculopathy, lumbosacral region | CPT/HCPCS: 99212 ==